=== PATIENT | female | born 1940 | race Caucasian/White ===

== ENCOUNTER → 2023-09-12 14:43 | Outpatient (REF) | payer OTHER, SELFPAY | LOC: HWRCS 14:43 | PROVIDERS: ATTENDING PHYSICIAN Nurse Practitioner; FAMILY PHYSICIAN Family Medicine | DX: R06.02 Shortness of breath (principal) | CPT/HCPCS: 93306 ==

== ENCOUNTER → 2023-09-27 13:33 | Outpatient (REF) | payer OTHER, SELFPAY | LOC: HWRAD 13:33 | PROVIDERS: ATTENDING PHYSICIAN Internal Medicine Critical Care Medicine; FAMILY PHYSICIAN Internal Medicine; REFERRING PHYSICIAN Internal Medicine Rheumatology | DX: R91.1 Solitary pulmonary nodule (principal) | CPT/HCPCS: 71250 ==

== ENCOUNTER 2024-01-25 09:02 | Inpatient (IN) | payer OTHER, SELFPAY ==
[2024-01-25] VITALS (16 sets, daily range): BP systolic 113–191; BP diastolic 60–140; PULSE 67–79; BMI 23.3; BMI 23.8
--- NOTE | 2024-01-25 06:42 | ED.GENMED ---
History of Present Illness
General
Chief Complaint: Rectal Bleeding
Source: patient
Exam Limitations: none
Time Seen by Provider: 01/25/24 06:34
History of Present Illness
History of Present Illness:
See MDM
Past History
Past History
ED Past Medical History: CAD, COPD, Fibromyalgia, GERD, HTN, Hypercholesterolemia, [place], Psychiatric (depression) and Other (chronic back pain, Ulcers, C-diff)
ED Past Surgical History: Appendectomy, Cardiac (Stents, CABG), Gynecological, Orthopedic and Urological
Social History
Tobacco: Non-smoker
Alcohol: None
Drug: None
Personal:
Living: alone
Employment: Not employed
Family History
Family History: Other
Phy Exam
Physical Exam
Physical Exam:
See MDM
Course
Orders/Labs/Results
Orders:
Orders
01/25/24 06:17
EKG [Electrocardiogram (*1)] Urgent
Reason for Study: Fatigue / Weakness
EKG- Treatment ONCE
01/25/24 06:25
Type+Screen Urgent
Complete Blood Count/With Diff Urgent
Comprehensive Metabolic Panel Urgent
01/25/24 06:41
IV Insert/Care/Rem.- Treatment PRN
Morphine Sulfate 4 mg IV NOW STA
Pantoprazole 80 mg/100 ml Nss [Protonix] 80 mg in 100 ml IV NOW
Pantoprazole [Protonix IV] 80 mg IV NOW STA
01/25/24 06:45
PTT Urgent
Prothrombin Time Urgent
01/25/24 07:42
Morphine Sulfate 4 mg IV NOW STA
Sucralfate Suspension [Carafate Suspension] 1 gm PO NOW STA
Abnormal Lab Results
01/25/24
06:25
RBC 3.52 L 10^6/uL
(4.20-5.40)
Hgb 11.2 L g/dL
(12.0-16.0)
Hct 34.7 L %
(37.0-47.0)
MCH 31.8 H pg
(27.0-31.0)
MCHC 32.3 L g/dL
(33.0-37.0)
Absolute Monos (auto) 0.9 H 10^3/uL
(0.1-0.6)
Neutrophils % 41.3 L %
(42.2-75.2)
Monocytes % 15.2 H %
(1.7-9.3)
Eosinophils % 8.8 H %
(0-6)
Basophils % 2.7 H %
(0-2)
Chloride 97 L mmol/L
(98-107)
Carbon Dioxide 34 H mmol/L
(22-30)
Glucose 107 H mg/dl
(70-99)
01/25/24 06:25
01/25/24 06:25
Vital Signs
Initial and Last Documented VS:
Initial Vital Signs
Temp Pulse Resp BP Pulse Ox
99 F 72 24 140/108 97
01/25/24 06:09 01/25/24 06:09 01/25/24 06:09 01/25/24 06:09 01/25/24 06:09
Last Documented Vital Signs
Temp Pulse Resp BP Pulse Ox
99 F 65 18 191/80 96
01/25/24 06:09 01/25/24 07:00 01/25/24 07:00 01/25/24 06:40 01/25/24 07:00
MDM/Problems Addressed
Differential Diagnosis Includes:
HPI and MDM Narrative:
84-year-old female presenting with abdominal cramping and black stools. Patient has been dealing with symptoms over the past week. She followed up with her primary care doctor and was told that her hemoglobin dropped from 12 to 9. Given her
history, patient states the primary care doctor suggested going to the emergency department for admission for 'internal bleeding'. Patient states she has been having black stools. She takes aspirin daily but denies any other NSAID use or
anticoagulation. She does acknowledge that she has had a gastric ulcer in the past. She is having decreased p.o. intake due to discomfort after she eats.
I discussed with the patient that her symptoms are more likely related to peptic ulcer disease. She has mild epigastric tenderness. Vitals are stable. Rectal exam shows brown stool that is guaiac positive but will start PPI bolus and drip given
her history
Physical exam
General: Mildly uncomfortable
HEENT: protecting airway
Neck: appears supple
CV: No evidence of cyanosis
Resp: No accessory muscle use
Abd: Non-distended. Mild epigastric discomfort. No rebound
Rectal exam: Performed with nurse Linh at bedside. Brown stool guaiac positive
Extremities: No deformities
Neuro: alert
Psych: Normal affect
Skin: Pale
Problems Addressed including Acute and Chronic Conditions affecting care:
1. GI bleeding
Acuity: acute
Prognosis: unstable
Details: Patient prophylactically signed consent for blood transfusion if needed. Patient started on PPI drip.
2. [ ]
Acuity: acute
Prognosis: stable
Details:
3. [ ]
Acuity: acute
Prognosis: stable
Details:
4. [ ]
Acuity: acute
Prognosis: stable
Details:
5. [ ]
Acuity:
Prognosis:
Details:
Updates
Differential Diagnosis (but not limited to): Upper GI bleeding, peptic ulcer disease
Testing considered: CT abdomen/pelvis
Drug therapy (if applicable): OTC meds, please see d/c instruction regarding Rx drugs
Amount and/or Complexity of Data Reviewed
Clinical info obtained from: Patient
External data reviewed: N/A
Labs I independently reviewed (but not limited to): [ ]
Radiology: N/A
Pulse Ox: not hypoxic
EKG independently reviewed: Sinus rhythm, bifascicular block, no STEMI, unchanged anterior T wave inversions
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
Critical Care: The high probability of a clinically significant, sudden or life threatening deterioration of the gastrointestinal system(s) required my full and direct attention, intervention and personal management. The aggregate critical care time
was 33 minutes. This time is in addition to time spent performing reported procedures but includes the following:
[x] Data Review and interpretation
[x] Patient assessment and monitoring of vital signs
[x] Documentation
[x] Medication orders and management
Risk of Complication:
Social Determinants of health: Good social support
Discussed with other providers: N/A
Escalation of Care includes Admit/Obs: After being observed in the Emergency Department, pt stable for discharge.
Occasional wrong word or 'sound a like' substitutions may have occurred due to the inherent limitations of voice recognition software. Read the chart carefully and recognize, using context, where substitutions have occurred.
*Critical Care Note
Total Time (30-74mins, 75-104mins- exclusive of procedures): 33 min
ED Attending Note
-
Portions of this chart may have been created with voice recognition software.� Occasional wrong word or��sound alike� substitutions may have occurred due to the inherent limitations of voice recognition software.
Discharge Plan
Departure
Patient Disposition: Admit
Date of Disposition: 01/25/24
Time of Disposition: 08:04
Admit to: Med/Surg
Presentation/result/management discussed w/ accepting MD/DO: Hospitalist
Discharge Problem:
UGIB (upper gastrointestinal bleed)
Prescriptions:
No Action
nitroglycerin 0.4 MG tablet, sublingual
0.4 mg sublingual [id number] PRN (Reason: chest pain)
Lumigan 1 DROP drops
1 drp BOTH EYES HS
leflunomide 20 MG tablet
20 mg PO DAILY
rosuvastatin 10 MG tablet
10 mg PO QPM
amlodipine 2.5 MG tablet
2.5 mg PO DAILY
folic acid 0.4 MG tablet
0.4 mg PO DAILY
pantoprazole 40 MG tablet,delayed release (DR/EC)
40 mg PO DAILY@1200
fluticasone propion-salmeterol [Advair Diskus] 1 EACH blister with device
2 puff inhalation R DAILY
albuterol sulfate 1 PUFF HFA aerosol inhaler
2 puff inhalation R Q4HPRN PRN (Reason: sob)
pyridostigmine bromide 60 MG tablet
60 mg PO QID 30 Days Qty: 120 0RF
cyanocobalamin (vitamin B-12) 1,000 MCG tablet
1,000 mcg PO DAILY
morphine 30 MG tablet extended release
30 mg PO Q12H
Patient Comments:
07/20/2022: last filled 06/18/22, 60 tabs for 30 days from [facility]
ferrous sulfate [FeroSul] 325 MG tablet
325 mg PO DAILY
gabapentin 300 MG capsule
300 mg PO TID
duloxetine 30 MG capsule,delayed release(DR/EC)
60 mg PO HS
duloxetine 30 MG capsule,delayed release(DR/EC)
30 mg PO DAILY
oxycodone 10 MG tablet
10 mg PO Q4HPRN PRN (Reason: severe pain)
Patient Comments:
07/20/2022: last filled 06/18/22, 120 tabs for 30 days from [facility]
sulfasalazine 500 mg tablet
1,000 mg PO BID@0800,1700
aspirin 81 MG tablet,delayed release (DR/EC)
81 mg PO DAILY@1200
hydroxychloroquine 200 MG tablet
400 mg PO DAILY@1200
ondansetron 4 MG tablet,disintegrating
4 mg PO TIDPRN PRN (Reason: nausea/vomiting)
amoxicillin-pot clavulanate 875-125 mg tablet
1 tab PO BID Qty: 20 0RF
Referrals:
Ayah Tinajero MD [Family Provider] -
Interventions
Interventions:
*Risk Screen - Suicide Last Done: 01/25/24 06:09
*General Assessment Last Done: 01/25/24 06:14
*Neglect/Abuse Screening Last Done: 01/25/24 06:09
ED- Fall Risk Assessment Last Done: 01/25/24 06:17
*ED COVID-19 Vaccine History Last Done: 01/25/24 06:14
CW-Sogvzx-Vvgbpfklso Assessment Last Done: 01/25/24 06:17
ED- Cardiac Assessment Last Done: 01/25/24 06:17
ED- Pulmonary Assessment Last Done: 01/25/24 06:17
Discharge Date and Time
Print Language: MONGOLIAN
[2024-01-25] MEDS: PROTONIX IV 80 MG IV (06:45)
[2024-01-25] MEDS: MORPHINE SULFATE 4 MG IV ×2 (06:48→07:45)
[2024-01-25] MEDS: PROTONIX 100 IV (06:48)
[2024-01-25 06:54] LABS: % Basophils 2.7 % (0-2); % Eosinophils 8.8 % (0-6); % Immature Granulocytes 0.3 % (0-0.5); % Lymphocytes 31.7 % (20.5-51.1); % Monocytes 15.2 % (1.7-9.3); % Neutrophils 41.3 % (42.2-75.2); Absolute Basophils 0.2 10^3/uL (0-0.2); Absolute Eosinophils 0.5 10^3/uL (0-0.7); Absolute Lymphocytes 1.9 10^3/uL (1.2-3.4); Absolute Monocytes 0.9 10^3/uL (0.1-0.6); Absolute Neutrophils 2.5 10^3/uL (1.4-6.5); Hematocrit 34.7 % (37.0-47.0); Hemoglobin 11.2 g/dL (12.0-16.0); Mean Corp Hgb Conc. 32.3 g/dL (33.0-37.0); Mean Corpuscular Hgb 31.8 pg (27.0-31.0); Mean Corpuscular Volume 98.6 fL (81.0-99.0); Nucleated Red Blood Cells % 0 %; Platelet Count 238 10^3/uL (130-400); Red Blood Cell Count 3.52 10^6/uL (4.20-5.40); Red Cell Dist. Width 14.3 % (11.5-14.5)
[2024-01-25 07:08] LABS: ALT (SGPT) 23 U/L (0-35); AST (SGOT) 32 U/L (14-36); Albumin 4.6 g/dl (3.5-5.0); Alkaline Phosphatase 43 U/L (38-126); Blood Urea Nitrogen 13 mg/dl (7-17); Calcium 9.6 mg/dl (8.4-10.2); Carbon Dioxide 34 mmol/L (22-30); Chloride 97 mmol/L (98-107); Estimated Creatinine Clearance 51 ml/min; Glucose 107 mg/dl (70-99); Potassium 3.8 mmol/L (3.5-5.1); Sodium 138 mmol/L (135-145); Total Bilirubin 0.8 mg/dl (0.2-1.3); Total Protein 7.1 g/dl (6.3-8.2); eGFR > 60.00
[2024-01-25 07:14] LABS: INR 1.04; PT 13.4 Sec (11.4-14.6)
[2024-01-25 07:15] LABS: APTT 29.1 Sec (23.4-35.0)
[2024-01-25] MEDS: CARAFATE SUSPENSION 1 GM PO (07:46)
--- NOTE | 2024-01-25 08:53 | HPS.HSE ---
Family Physician
-
Family Physician: Ayah Tinajero
Chief Complaint
-
Abdominal pain
History of Present Illness
Patient 84 years old female with history of multiple comorbidities including CAD, COPD, chronic hypoxic respiratory failure, among other multiple medical problems, presented to the hospital abdominal pain. Patient reports abdominal pain
intermittent in nature over the last couple of days worsening epigastric area, moderate intensity, no radiation, also associated with some lower chest discomfort. Patient also reports dark stools over 1 week. Her hemoglobin has dropped as
outpatient from 12-9 and she was advised to come to the hospital for further evaluation. She does take aspirin on a regular basis but no anticoagulant. She denies any fevers or chills. She denies any cough. Denies any dysuria urgency or
frequency. In the ER, hemoglobin noted to be 11.2 and heme stool test positive. She was referred to hospitalist for further evaluation.
Medical History
Past Medical History
Past Medical History: Reports Other
Additional Past Medical History:
Coronary Arterty Disease s/p CABG and PCI
Essential Hypertension
Hyperlipidemia
COPD
Depression
Chronic Pain Syndrome / Chronic Opioid Dependence Syndrome secondary to Spinal Stenosis
Chronic hypoxic respiratory failure on home oxygen
Fibromyalgia
Myasthenia Gravis
Rheumatoid Arthritis
GERD/PUD
Spina Bifida
Hx Vertebral Osteomyelitis on Chronic Suppressive Antibiotics
Past Surgical History: Reports Other
Additional Past Surgical History:
Spina Bifida surgery
Spinal Stimulator
CABG
Social History
Tobacco: Non-smoker
Alcohol: None
Living: With Family
Family History
Family History: Not pertinent
Allergies / Home Medications
Allergies reflects when Allergies were last updated in [facility].
Home Medications with original date entered in [facility]
Allergy/Medication List:
Allergies
Allergy/AdvReac Type Severity Reaction Status Date / Time
adhesive Allergy TAPE-RASH,SKIN Verified 01/25/24 06:10
BLISTERS
Home Medications
bimatoprost 0.01 % eye drops (Lumigan) 1 drp BOTH EYES HS Eye condition 04/01/15
nitroglycerin 0.4 mg sublingual tablet 0.4 mg sublingual [id number] PRN chest pain 04/01/15
leflunomide 20 mg tablet 20 mg PO DAILY artrhitis 01/18/17
rosuvastatin 10 mg tablet 10 mg PO QPM High cholesterol 04/11/19
amlodipine 2.5 mg tablet 2.5 mg PO BID Blood pressure 08/22/19
folic acid 400 mcg tablet 0.4 mg PO DAILY Supplement 08/22/19
pantoprazole 40 mg tablet,delayed release 80 mg PO DAILY@1200 Gastrointestinal issue 08/22/19
albuterol sulfate 90 mcg/actuation aerosol inhaler 2 puff inhalation R Q4HPRN PRN sob 06/30/20
pyridostigmine bromide 60 mg tablet 60 mg PO QID 30 days #120 tabs 07/02/20
cyanocobalamin (vitamin B-12) 1,000 mcg tablet 1,000 mcg PO DAILY Supplement 11/11/20
duloxetine 30 mg capsule,delayed release 30 mg PO DAILY Chronic pain 11/11/20
duloxetine 30 mg capsule,delayed release 60 mg PO HS chronic pain 11/11/20
ferrous sulfate 325 mg (65 mg iron) tablet (FeroSul) 325 mg PO DAILY Supplement 11/11/20
gabapentin 300 mg capsule 600 mg PO TID Neurological Condition 11/11/20
morphine 30 mg tablet,extended release 30 mg PO Q12H 11/11/20
oxycodone 10 mg tablet 10 mg PO Q4HPRN PRN severe pain 11/11/20
hydroxychloroquine 200 mg tablet 400 mg PO DAILY@1200 07/20/22
ondansetron 4 mg disintegrating tablet 4 mg PO TIDPRN PRN nausea/vomiting 07/20/22
sulfasalazine 500 mg tablet 1,000 mg PO BID@0800,1700 07/20/22
acetaminophen 325 mg tablet (Tylenol) 650 mg PO TIDPRN PRN mild pain 01/25/24
cefdinir 300 mg capsule 300 mg PO BID fdc 01/25/24
docusate sodium 100 mg capsule (Colace) 100 mg PO DAILYPRN PRN constipation 01/25/24
fluticasone 500 mcg-salmeterol 50 mcg/dose blistr powdr for inhalation (Advair Diskus) 1 inh inhalation R DAILY 01/25/24
ipratropium 0.5 mg-albuterol 3 mg (2.5 mg base)/3 mL nebulization soln 3 ml inhalation R QIDPRN PRN sob 01/25/24
metoprolol succinate 50 mg tablet,extended release 24 hr (Toprol XL) 50 mg PO DAILY@1200 01/25/24
timolol 0.5 % eye drops 1 drp BOTH EYES DAILY 01/25/24
Review of Systems
-
A 12 point ROS was completed and negative except as noted: Yes
Physical Exam
Vital Signs
Vital Signs
Temp Pulse Resp BP Pulse Ox
99 F 65 18 191/80 96
01/25/24 06:09 01/25/24 07:00 01/25/24 07:00 01/25/24 06:40 01/25/24 07:00
Physical exam:
General: Acutely ill
HEENT: Normocephalic, Atraumatic and Moist Mucous Membranes
Respiratory: Clear to Auscultation; Negative Wheezes, Rales or Rhonchi
Cardiac: Regular Rhythm and S1/S2
GI: Soft, Tender mainly in epigastric area and Nondistended
Musculoskeletal: Decreased range of motion of the back. No Clubbing, No Cyanosis and No Edema
Neuro: Awake, Alert and Oriented, no gross neurological deficits.
Psych: Calm
Physical Exam
General: Other
Laboratory Results
-
01/25/24 06:25
01/25/24 06:25
Laboratory Results
PT 13.4 Sec (11.4-14.6) 01/25/24 06:45
INR 1.04 01/25/24 06:45
APTT 29.1 Sec (23.4-35.0) 01/25/24 06:45
Total Bilirubin 0.8 mg/dl (0.2-1.3) 01/25/24 06:25
AST 32 U/L (14-36) 01/25/24 06:25
ALT 23 U/L (0-35) 01/25/24 06:25
Alkaline Phosphatase 43 U/L (38-126) 01/25/24 06:25
Data Reviewed
-
Lab Data: Labs Reviewed by me
Impression/Plan
-
IMPRESSION:
Patient 84 years old female with multiple medical comorbidities presented to the hospital with abdominal pain and chest discomfort. Patient was found to have heme status stool positive in the ED. Concerns for acute GI bleed. Patient increased
risk of morbidity mortality due to acute presentation and multiple medical problems therefore she will need to be treated in the hospital.
Impression:
Suspicion for acute GI bleed
Abdominal pain
Chest pain, rule out ACS
Acute blood loss anemia
Conditions prior to presentation:
CAD
COPD
Chronic hypoxic respiratory failure on home oxygen (she uses 1 L of oxygen)
Rheumatoid arthritis
Fibromyalgia
GERD
Melanoma
Chronic back pain with narcotic/opioid dependent
History of peptic ulcer disease
Myasthenia gravis
PLAN:
IV fluids
Clear liquid diet
Monitor hemoglobin
IV PPI
GI consult
Twelve-lead EKG and trend cardiac troponin
Cardiac monitoring
Cardiology consult-discussed with cardiology via [place] text today
GI consult-discussed with GI over the phone today.
SCDs for DVT prophylaxis
CODE STATUS-DNR
Will give further recommendations based on clinical course
Time spent 75 minutes
--- NOTE | 2024-01-25 10:27 | CON.GI ---
Addendum entered and electronically signed by King Childers DO 01/25/24 13:04:
I saw and examined the patient.
The STUDENT TEACHING COORDINATOR's note was reviewed and I agree with the note.
Comment: Ms Liriano is a 84 y.o female with past medical history of obstructive CAD c/b [place] (s/p stents and CABG), COPD/asthma (on chronic O2 at baseline), RA, fibromyalgia, GERD, hx of melanoma, chronic back pain (s/p multiple back surgeries c/b
chronic osteomyelitis), hx of C Diff, hx of PUD with previous gastric ulcer (10/2017) who presented to the ED with epigastric abdominal pain and reported dark stools at home. She initially followed up with her PCP and noticed her Hgb dropped from 12
to 9 and advised her to come to the ED given concern for bleeding. She denies any melena or overtly bloody stools, although does report her stools have been darker. She takes daily ASA but no other antiplatelets or anticoagulants. Denies any NSAIDs
or significant EtOH use. Does note previous ulcers in the past where her symptoms feel the same as her previous presentations when she was diagnosed with PUD in 2017. Last colonoscopy in 2015 revealed diverticulosis without any polyps. Heme (+)
brown stool in ED and labs grossly unremarkable except for Hgb 11.2 -> 10.3 with normal BUN:[employer] ratio along with LFTs with normal lipase 160. Troponins pending given EKG changes with T wave abnormalities. No recent cross-sectional imaging in ED.
Etiology most suspicious for gastroduodenitis versus gastroduodenal erosions vs esophagitis vs PUD although denies NSAIDs versus H pylori (although prior biopsies (-) H pylori). Possibly cardiac as well given her extensive cardiac history. Doubt
brisk UGIB as without any melena on exam along with relatively stable Hgb with nml BUN. Favor conservative management over next 24 hrs with IV PPI and consider EGD this admission pending clinical course.
Recommendations:
- Okay to trial CLD
- Serial troponins pending given cardiac history
- Trend daily CBC q 12 hrs, transfuse for goal Hgb > 7.0
- Empiric IV PPI 40 mg BiD, does not require PPI gtt
- Will consider EGD this admission pending clinical course if patient is optimized from a cardiopulmonary standpoint
- If worsening abdominal pain, would have low threshold to consider cross-sectional imaging with CT Abd/pelvis
- Notify GI if patient develops overt melena and/or bloody stools
- Avoidance of all NSAIDs
- Rest of care as outlined below
GI team will continue to follow while inpatient.
Original Note:
Consultation
-
Date/Time Consultation Requested: 01/25/24 08
Date/Time Consultation Performed: 01/25/24 1030
Requesting Provider: Rasheed Skaggs MD
Performing Provider: AUTUMN Kern, King Childers,
Reason for Consultation: GI bleed
Medical History
Chief Complaint / HPI
Chief Complaint: epgiastric pain, GI bleed
History of Present Illness:
Pt is a 84yo with hx CAD prior stents/CABG, [place], COPD/asthma on chronic O2, fibromyalgia, RA, GERD, malignant melanoma, depression, chronic back pain with chronic narcotic use, multiple back surgeries with infection on chronic abx, gastric Ulcers,
hital hernia, prior C-diff and prior PNA with admission for black stools and crampy abdominal pain. She was noted with OP labs drop in hbg 12 to 9. In ER noted with brown heme + stool with hbg 11.9 and normal BUN.
At this time patient admits to epigastric pain. Pain is constant difficult to say what makes pain better or worse. Pain associated with nausea and progessive wt loss over years. She has chronic GERD on PPI daily. she admits to diarrhea and
constipation and noted black stool this past week. She denies dysphagia or red stools. hx multiple EGD with PUD last 2017 with med HH and non bleeding gastric ulcers then repeat with healing of ulcer. Colon 2016 with diverticulosis.
.
Past Medical History
Past Medical History: Asthma, CAD, Cancer (malignant melanoma ), COPD, Fibromyalgia, GERD, HTN, [place], Psychiatric (depression) and Other (chronic back pain, Ulcers, C-diff, RA)
Past Surgical History: Appendectomy, Cardiac (stents, CABG), Orthopedic, Urological and Other (nasal surgery)
Social History
Tobacco: Non-Smoker
Alcohol: None
Drug: None
Personal:
Living: With Family (grandson)
Employment: Retired
Family History
Family History: Other (no family hx colon CA/polyps daughter with breast CA)
Allergies / Home Medications
Allergy/AdvReac Type Severity Reaction Status Date / Time
adhesive Allergy TAPE-RASH,SKIN Verified 01/25/24 06:10
BLISTERS
�Medication �Instructions �Recorded
bimatoprost 0.01 % eye drops 1 drp BOTH EYES HS Eye condition 04/01/15
(Lumigan)
nitroglycerin 0.4 mg sublingual 0.4 mg sublingual [id number] PRN 04/01/15
tablet chest pain
leflunomide 20 mg tablet 20 mg PO DAILY artrhitis 01/18/17
rosuvastatin 10 mg tablet 10 mg PO QPM High cholesterol 04/11/19
amlodipine 2.5 mg tablet 2.5 mg PO BID Blood pressure 08/22/19
folic acid 400 mcg tablet 0.4 mg PO DAILY Supplement 08/22/19
pantoprazole 40 mg tablet,delayed 80 mg PO DAILY@1200 08/22/19
release Gastrointestinal issue
albuterol sulfate 90 mcg/actuation 2 puff inhalation R Q4HPRN PRN sob 06/30/20
aerosol inhaler
pyridostigmine bromide 60 mg tablet 60 mg PO QID 30 days #120 tabs 07/02/20
cyanocobalamin (vitamin B-12) 1,000 mcg PO DAILY Supplement 11/11/20
1,000 mcg tablet
duloxetine 30 mg capsule,delayed 30 mg PO DAILY Chronic pain 11/11/20
release
duloxetine 30 mg capsule,delayed 60 mg PO HS chronic pain 11/11/20
release
ferrous sulfate 325 mg (65 mg 325 mg PO DAILY Supplement 11/11/20
iron) tablet (FeroSul)
gabapentin 300 mg capsule 600 mg PO TID Neurological 11/11/20
Condition
morphine 30 mg tablet,extended 30 mg PO Q12H 11/11/20
release
oxycodone 10 mg tablet 10 mg PO Q4HPRN PRN severe pain 11/11/20
hydroxychloroquine 200 mg tablet 400 mg PO DAILY@1200 07/20/22
ondansetron 4 mg disintegrating 4 mg PO TIDPRN PRN nausea/vomiting 07/20/22
tablet
sulfasalazine 500 mg tablet 1,000 mg PO BID@0800,1700 07/20/22
acetaminophen 325 mg tablet 650 mg PO TIDPRN PRN mild pain 01/25/24
(Tylenol)
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
docusate sodium 100 mg capsule 100 mg PO DAILYPRN PRN constipation 01/25/24
(Colace)
fluticasone 500 mcg-salmeterol 50 1 inh inhalation R DAILY 01/25/24
mcg/dose blistr powdr for
inhalation (Advair Diskus)
ipratropium 0.5 mg-albuterol 3 mg 3 ml inhalation R QIDPRN PRN sob 01/25/24
(2.5 mg base)/3 mL nebulization
soln
metoprolol succinate 50 mg 50 mg PO DAILY@1200 01/25/24
tablet,extended release 24 hr
(Toprol XL)
timolol 0.5 % eye drops 1 drp BOTH EYES DAILY 01/25/24
Review of Systems
-
History Source: Patient
Constitutional: Reports Weight Loss (80 lbs over several years )
EENT: Reports No Symptoms
Respiratory: Reports No Symptoms
Abdomen/GI: Reports Abdominal Pain, Nausea, Diarrhea, Constipated and Black Stools
: Reports No Symptoms
Musculoskeletal: Reports Joint Pain
Skin: Reports No Symptoms
Neurological: Reports Weakness
Hematologic/Lymphatic: Reports Bleeding
Vital Signs
Temp Pulse Resp BP Pulse Ox
99 F 64 15 113/74 97
01/25/24 06:09 01/25/24 09:13 01/25/24 09:13 01/25/24 09:13 01/25/24 09:00
Physical Exam
Exam
General: Well Developed, Well Nourished and No Apparent Distress
HEENT: Normocephalic and Anicteric
Respiratory: Clear
Cardiac: Regular Rhythm
GI: Soft, Non Distended and Tender (epigastric pain )
Musculoskeletal: No Clubbing and No Cyanosis
Skin: Warm and Dry
Neuro: Awake and Alert
Psych: Calm
Results
WBC 6.0 10^3/uL (4.8-10.8) 01/25/24 06:25
Hgb 11.2 g/dL (12.0-16.0) L 01/25/24 06:25
Hct 34.7 % (37.0-47.0) L 01/25/24 06:25
MCV 98.6 fL (81.0-99.0) 01/25/24 06:25
Plt Count 238 10^3/uL (130-400) 01/25/24 06:25
Absolute Neuts (auto) 2.5 10^3/uL (1.4-6.5) 01/25/24 06:25
PT 13.4 Sec (11.4-14.6) 01/25/24 06:45
INR 1.04 01/25/24 06:45
APTT 29.1 Sec (23.4-35.0) 01/25/24 06:45
Sodium 138 mmol/L (135-145) 01/25/24 06:25
Potassium 3.8 mmol/L (3.5-5.1) 01/25/24 06:25
Chloride 97 mmol/L (98-107) L 01/25/24 06:25
Carbon Dioxide 34 mmol/L (22-30) H 01/25/24 06:25
BUN 13 mg/dl (7-17) 01/25/24 06:25
Creatinine 0.7 mg/dL (0.6-1.0) 01/25/24 06:25
Calcium 9.6 mg/dl (8.4-10.2) 01/25/24 06:25
Total Bilirubin 0.8 mg/dl (0.2-1.3) 01/25/24 06:25
AST 32 U/L (14-36) 01/25/24 06:25
ALT 23 U/L (0-35) 01/25/24 06:25
Alkaline Phosphatase 43 U/L (38-126) 01/25/24 06:25
Diagnostic Image Results:
Prior GI Procedures:
EGD: 11/2017 [facility] - Normal esophagus.
- Z-line regular, 38 cm from the incisors.
- Mild antral gastritis. Biopsied.
- Ulcer has healed.
- Bilious gastric fluid. Fluid aspiration performed.
- Normal examined duodenum. Biopsied.
bx neg h pylori
EGD: 10/2017 [facility] - Medium-sized hiatal hernia.
- Non-bleeding gastric ulcer with no stigmata of
bleeding. Biopsied.
- Normal duodenal bulb, first portion of the duodenum
and second portion of the duodenum.
Colonoscopy: 2015 [facility]
A few small and large-mouthed diverticula were found in the sigmoid
colon.
No other significant abnormalities were identified in a careful
examination of the remainder of the colon.
The retroflexed view of the distal rectum and anal verge was normal and
showed no anal or rectal abnormalities.
The terminal ileum appeared normal.
Assessment / Plan
-
Pt is a 84yo with hx CAD prior stents/CABG, [place], COPD/asthma on chronic O2, fibromyalgia, RA, GERD, malignant melanoma, depression, chronic back pain with chronic narcotic use, multiple back surgeries with infection on chronic abx, gastric Ulcers,
hital hernia, prior C-diff and prior PNA with admission for black stools and crampy abdominal pain. She was noted with OP labs drop in hbg 12 to 9. In ER noted with brown heme + stool and hbg 11.9 with normal BUN.
-epigastric pain
-report of black stool with brown heme neg stool in ER
-hx PUD/HH with last EGD 2017
other medical problems:
-CAD with prior stents/CABG
-[place]
-COPD/asthma chronic O2
-chronic back pain/chronic narcotic use/ chronic abx with hx infection
-RA
-fibromyalgia
-GERD
-hx malignant melanoma
-depression
-prior c-diff
PLAN:
etiology of epigastric pain with dark stools related to GI bleeding but noted stable hbg 11.9 with normal BUN and brown stool on admission vs other
denies NSAID use prior to admission
consider other etiology for pain
add lipase
t/c EGD when optimized from medical standpoint
trend hbg
PPI
ok from GI for diet today
will follow
-
-
Thank you for consultation and allowing me to participate in the patient's care. Please call the cloud consultant GI physician during the after hours with any questions or concerns.
[2024-01-25 11:44] LABS: Hematocrit 32.2 % (37.0-47.0); Hemoglobin 10.3 g/dL (12.0-16.0)
[2024-01-25 12:05] LABS: Lipase 160 U/L (23-300)
[2024-01-25] MEDS: NSS 1000 IV ×2 (12:21→23:24)
--- NOTE | 2024-01-25 12:45 | PTCARENOTE ---
Received pt from ER.Pt awake,alert and oriented x3. Pt VSS 98% on RA. Pt NSR with BBBc on tele. Pt c/o epigastric pain, medicated per orders. Pt oriented to room, call handy within reach, plan of care continues.
[2024-01-25 13:26] LABS: Troponin I < 0.012 ng/ml
[2024-01-25] MEDS: ROXICODONE 10 MG PO ×3 (13:34→23:22)
[2024-01-25] MEDS: MESTINON 60 MG PO ×3 (13:36→21:03)
--- NOTE | 2024-01-25 14:59 | CON.CAR ---
Addendum entered and electronically signed by Jose Aguilera MD 01/25/24 16:03:
I saw and examined the patient.
The Broodmare Foreman's note was reviewed and I agree with the note.
Comment:
GEN: No distress, awake, Ox3
HEENT: supple, anicteric, mmm
LUNGS: CTA, no wheezes/rales
CV: Reg, S1/S2, 1/6 syst LSB, no gallop
ABD: soft, BS+, NT/ND
EXT: No edema
NEURO: Gross non-focal
SKIN: No rash
Plan:
She has a past medical history of coronary artery status post CABG, PCI, COPD, fibromyalgia, depression, chronic pain and osteomyelitis who presents with epigastric abdominal pain. She has chronic pain and intermittent chest pains but these pains
seem worse after eating. She denies any exertional symptoms but is not overly active. There is plans to perform an EGD.
Cardiac troponin is negative. ECG is overall stable with sinus rhythm with bifascicular block/right bundle branch block
Cardiac catheterization from 08/05 had overall stable coronary arteries with a patent MILLER to LAD bypass graft.
Okay to proceed with EGD. Continue amlodipine, metoprolol, and rosuvastatin. Restart aspirin 81 mg daily.
Continue pain management. Will sign off. Please call with questions.
Original Note:
Consultation
Consultation Request
Date/Time Consultation Performed: 01/25/24
Requesting Provider: Dr. Skaggs
Performing Provider: Chey Sterling PA-C for Dr. Aguilera
Reason for Consultation: preop clearance EGD
Medical History
-
Chief Complaint: abd pain
History of Present Illness:
Patient is an 82-year-old female with past medical history of CAD status post CABG with MILLER to LAD 03/2002, subsequent PCI of circumflex in 2003, COPD, hypertension, hyperlipidemia, depression, fibromyalgia, chronic pain on spinal stimulator,
history of osteomyelitis on chronic suppressive antibiotics who presented to [facility] for evaluation of epigastric abdominal pain. She reports she is only able to eat a small amount and afterwards developed significant pain. She also
reports associated nausea, but no vomiting or diarrhea. She reports the pain is reproducible with pressing on her epigastric area. She does report a fever last night with associated sweating. She received a pain pill this afternoon with some
improvement in her symptoms. Of note she is on chronic pain medications as an outpatient. She is on baby aspirin, and admits is not always compliant with this. Denies additional antiplatelet or anticoagulants. Cardiology consulted to evaluate
pain to rule out cardiac etiology, and to clear patient for EGD.
PMH:
CAD status post CABG with MILLER to LAD 03/2002
Subsequent PCI of circumflex in 2003
Chronic bifascicular block
History of orthostasis
COPD, chronic home O2
Hypertension
Hyperlipidemia
Depression
Fibromyalgia
Chronic pain on spinal stimulator
Chronic opioid therapy
History of osteomyelitis on chronic suppressive antibiotics
GERD
Past Medical History
Past Medical History: Other (in HPI)
Social History
Tobacco: Non-Smoker
Alcohol: None
Living: With Family
Employment: Retired
Family History
Family History: Early CAD (in brother, age 48), CAD and Hypertension
Allergies / Home Medications
Allergy/AdvReac Type Severity Reaction Status Date / Time
adhesive Allergy TAPE-RASH,SKIN Verified 01/25/24 06:10
BLISTERS
�Medication �Instructions �Recorded �Confirmed �Type
bimatoprost 0.01 % eye drops 1 drp BOTH EYES HS Eye condition 04/01/15 01/25/24 History
(Lumigan)
nitroglycerin 0.4 mg sublingual 0.4 mg sublingual [id number] PRN 04/01/15 01/25/24 History
tablet chest pain
leflunomide 20 mg tablet 20 mg PO DAILY artrhitis 01/18/17 01/25/24 History
rosuvastatin 10 mg tablet 10 mg PO QPM High cholesterol 04/11/19 01/25/24 History
amlodipine 2.5 mg tablet 2.5 mg PO BID Blood pressure 08/22/19 01/25/24 History
folic acid 400 mcg tablet 0.4 mg PO DAILY Supplement 08/22/19 01/25/24 History
pantoprazole 40 mg tablet,delayed 80 mg PO DAILY@1200 08/22/19 01/25/24 History
release Gastrointestinal issue
albuterol sulfate 90 mcg/actuation 2 puff inhalation R Q4HPRN PRN sob 06/30/20 01/25/24 History
aerosol inhaler
pyridostigmine bromide 60 mg tablet 60 mg PO QID 30 days #120 tabs 07/02/20 01/25/24 Rx
cyanocobalamin (vitamin B-12) 1,000 mcg PO DAILY Supplement 11/11/20 01/25/24 History
1,000 mcg tablet
duloxetine 30 mg capsule,delayed 30 mg PO DAILY Chronic pain 11/11/20 01/25/24 History
release
duloxetine 30 mg capsule,delayed 60 mg PO HS chronic pain 11/11/20 01/25/24 History
release
ferrous sulfate 325 mg (65 mg 325 mg PO DAILY Supplement 11/11/20 01/25/24 History
iron) tablet (FeroSul)
gabapentin 300 mg capsule 600 mg PO TID Neurological 11/11/20 01/25/24 History
Condition
morphine 30 mg tablet,extended 30 mg PO Q12H 11/11/20 01/25/24 History
release
oxycodone 10 mg tablet 10 mg PO Q4HPRN PRN severe pain 11/11/20 01/25/24 History
hydroxychloroquine 200 mg tablet 400 mg PO DAILY@1200 07/20/22 01/25/24 History
ondansetron 4 mg disintegrating 4 mg PO TIDPRN PRN nausea/vomiting 07/20/22 01/25/24 History
tablet
sulfasalazine 500 mg tablet 1,000 mg PO BID@0800,1700 07/20/22 01/25/24 History
acetaminophen 325 mg tablet 650 mg PO TIDPRN PRN mild pain 01/25/24 01/25/24 History
(Tylenol)
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
docusate sodium 100 mg capsule 100 mg PO DAILYPRN PRN constipation 01/25/24 01/25/24 History
(Colace)
fluticasone 500 mcg-salmeterol 50 1 inh inhalation R DAILY 01/25/24 01/25/24 History
mcg/dose blistr powdr for
inhalation (Advair Diskus)
ipratropium 0.5 mg-albuterol 3 mg 3 ml inhalation R QIDPRN PRN sob 01/25/24 01/25/24 History
(2.5 mg base)/3 mL nebulization
soln
metoprolol succinate 50 mg 50 mg PO DAILY@1200 01/25/24 01/25/24 History
tablet,extended release 24 hr
(Toprol XL)
timolol 0.5 % eye drops 1 drp BOTH EYES DAILY 01/25/24 01/25/24 History
Review of Systems
-
History Source: Patient
All other systems: Negative unless noted
Physical Exam
Vital Signs
Temp Pulse Resp BP Pulse Ox
98 F 66 12 155/64 98
01/25/24 12:00 01/25/24 12:00 01/25/24 12:00 01/25/24 12:00 01/25/24 12:00
Lab Results
01/25/24 06:25
Troponin I < 0.012 ng/ml 01/25/24 12:22
Physical Exam
General: No Apparent Distress and Other (pale. on supp O2)
HEENT: Normocephalic, Anicteric and Moist Mucous Membranes
Respiratory: Crackles (few) and Non Labored Respirations
Cardiac: S1/S2, Regular Rhythm and Murmur
GI: Soft, Non Distended, Normal Bowel Sounds and Tender (epigastrum)
Musculoskeletal: No Clubbing, No Cyanosis and No Edema
Skin: Warm and Dry
Neuro: AO x 3
Impression / Plan
-
Primary Post Anesthesia Care Unit Nurse: Dr. Ruggiero
Assessment:
Presentation with abd pain/post prandial pain
Negative trop x1
CAD status post CABG with MILLER to LAD 03/2002
Subsequent PCI of circumflex in 2003
Chronic left anterior fascicular block
History of orthostasis
COPD
Hypertension
Hyperlipidemia
Depression
Fibromyalgia
Chronic pain on spinal stimulator
History of osteomyelitis on chronic suppressive antibiotics
GERD
ECHO 11/2021: EF 60 to 65%, mild concentric LVH, grade 1 diastolic dysfunction, trace MR, aortic sclerosis, mild TR, PAP 30 to 32 mmHg
Lexiscan nuclear stress test 05/2022: Small to moderate fixed defect in apical anterior and apex segments consistent with infarction, EF 67%, no ischemia
Cardiac catheterization 07/21/2022: Stable [place] coronary disease except new 30% in-stent restenosis of left circumflex/OM stent, widely patent MILLER to LAD graft, systemic hypertension
Echo 09/12/2023: EF 50 to 55%, mild MR, moderate to severe TR, PAP 55 to 60 mmHg
Plan:
-Patient presents with epigastric abdominal pain, with nausea and pain after eating and associated poor appetite.
-Cardiology consulted for evaluation of symptoms and to clear patient for EGD, tentatively scheduled in a.m.
-No chest discomfort
-Troponin negative x 1, trend
-EKG with chronic bifascicular block
-Would attempt to continue baby aspirin. Hemoglobin 10.3
-Cath from last year with results as above.
-Echocardiogram earlier this year with results as above
-Patient okay to proceed with EGD tomorrow as scheduled from a cardiac standpoint.
-will follow
-Discussed with nursing
Data Reviewed
-
EKG: Tracing Personally Visualized and interpreted
Medical Tests (Nuc Med, Echo etc): Report Reviewed by me
Labs: Labs Reviewed by me
Old Records: Reviewed
[2024-01-25] MEDS: DILAUDID 0.5 MG IV (15:24)
[2024-01-25] MEDS: NEURONTIN 600 MG PO ×2 (17:45→21:03)
[2024-01-25] MEDS: CRESTOR 10 MG PO (17:46)
[2024-01-25] MEDS: AZULFIDINE 1000 MG PO (17:51)
[2024-01-25 20:17] LABS: Hematocrit 29.5 % (37.0-47.0); Hemoglobin 9.7 g/dL (12.0-16.0)
[2024-01-25 20:45] LABS: Troponin I < 0.012 ng/ml
[2024-01-25] MEDS: PROTONIX IV 40 MG IV (20:52)
[2024-01-25] MEDS: NSS (PRESERVATIVE FREE) 10 ML IV (20:53)
[2024-01-25] MEDS: NORVASC 2.5 MG PO (20:54)
[2024-01-25] MEDS: MS CONTIN (EXTENDED RELEASE) 30 MG PO (21:03)
[2024-01-25] MEDS: CYMBALTA DELAYED RELEASE 60 MG PO (21:03)
[2024-01-25] MEDS: XALATAN OPHTHALMIC SOLUTION 1 DROP BOTH EYES (21:04)
[2024-01-26] VITALS (12 sets, daily range): BP systolic 15–185; BP diastolic 59–86; PULSE 76–88; BMI 24.3
[2024-01-26] MEDS: DILAUDID 0.5 MG IV ×4 (01:46→19:40)
[2024-01-26] MEDS: ROXICODONE 10 MG PO ×3 (05:34→17:42)
[2024-01-26 06:53] LABS: Hematocrit 28.7 % (37.0-47.0); Hemoglobin 9.3 g/dL (12.0-16.0); Mean Corp Hgb Conc. 32.4 g/dL (33.0-37.0); Mean Corpuscular Hgb 33.3 pg (27.0-31.0); Mean Corpuscular Volume 102.9 fL (81.0-99.0); Platelet Count 176 10^3/uL (130-400); Red Blood Cell Count 2.79 10^6/uL (4.20-5.40); Red Cell Dist. Width 14.4 % (11.5-14.5); White Blood Cell Count 8.2 10^3/uL (4.8-10.8)
[2024-01-26 07:08] LABS: Troponin I 0.017 ng/ml
[2024-01-26 07:42] LABS: Blood Urea Nitrogen 11 mg/dl (7-17); Calcium 8.4 mg/dl (8.4-10.2); Carbon Dioxide 31 mmol/L (22-30); Chloride 103 mmol/L (98-107); Estimated Creatinine Clearance 57 ml/min; Glucose 84 mg/dl (70-99); Potassium 3.7 mmol/L (3.5-5.1); Sodium 139 mmol/L (135-145); eGFR > 60.00
[2024-01-26] MEDS: NEURONTIN 600 MG PO ×3 (08:02→21:31)
[2024-01-26] MEDS: MS CONTIN (EXTENDED RELEASE) 30 MG PO ×2 (08:04→21:32)
[2024-01-26] MEDS: MESTINON 60 MG PO ×4 (08:04→21:31)
[2024-01-26] MEDS: FOLVITE 0.4 MG PO (08:05)
[2024-01-26] MEDS: CYMBALTA DELAYED RELEASE 30 MG PO (08:05)
[2024-01-26] MEDS: AZULFIDINE 1000 MG PO ×2 (08:05→17:17)
[2024-01-26] MEDS: VITAMIN B-12 1000 MCG PO (08:05)
[2024-01-26] MEDS: NSS (PRESERVATIVE FREE) 10 ML IV ×2 (08:06→21:31)
[2024-01-26] MEDS: PROTONIX IV 40 MG IV ×2 (08:06→21:31)
[2024-01-26] MEDS: TIMOPTIC 0.5% OPHTHALMIC SOLUTION 1 DROP BOTH EYES (08:06)
--- NOTE | 2024-01-26 08:48 | W.PN.HOSP.TC ---
Addendum entered and electronically signed by Rasheed Skaggs MD 01/26/24 15:31:
Moderate protein calorie malnutrition
Addendum entered and electronically signed by Rasheed Skaggs MD 01/26/24 14:01:
EGD today:
Impression: - Z-line variable, 36 cm from the incisors. Biopsied.
- 4 cm hiatal hernia.
- Bilious gastric fluid.
- Erythematous mucosa in the antrum.
- Non-bleeding gastric ulcer with a clean ulcer base
(Julio C Class III). Biopsied.
- Normal examined duodenum.
Recommendation: - Return patient to [facility] for ongoing care.
- Resume regular diet.
- Use Protonix (pantoprazole) 40 mg PO BID for 8 weeks.
- Await pathology results.
- Perform an upper GI endoscopy in 2 months.
- No ibuprofen, naproxen, or other non-steroidal
anti-inflammatory drugs.
Original Note:
Today's Communication/Plan
-
Plan for EGD. PPI
Assessment / Plan
Assessment / Plan
Physical exam:
General: Acutely ill
HEENT: Normocephalic, Atraumatic and Moist Mucous Membranes
Respiratory: Clear to Auscultation; Negative Wheezes, Rales or Rhonchi
Cardiac: Regular Rhythm and S1/S2
GI: Soft, Tender mainly in epigastric area and Nondistended
Musculoskeletal: Decreased range of motion of the back. No Clubbing, No Cyanosis and No Edema
Neuro: Awake, Alert and Oriented, no gross neurological deficits.
Psych: Calm
A/P:
Impression:
Acute GI bleed
Abdominal pain
Chest pain, ruled out ACS
Acute blood loss anemia
Conditions prior to presentation:
CAD
COPD
Chronic hypoxic respiratory failure on home oxygen (she uses 1 L of oxygen)
Rheumatoid arthritis
Fibromyalgia
GERD
Melanoma
Chronic back pain with narcotic/opioid dependent
History of peptic ulcer disease
Myasthenia gravis
PLAN:
IV fluids
N.p.o. and plan for EGD today
Monitor hemoglobin
IV PPI
GI consult appreciated
Twelve-lead EKG and trended cardiac troponin and normal.
Cardiac monitoring
Cardiology consult-discussed with cardiology via [place] text yesterday and had appreciated input.
GI consult-discussed with GI and plan for EGD as stated above.
SCDs for DVT prophylaxis
CODE STATUS-DNR
Will give further recommendations based on clinical course
Anticipated Discharge: 24 - 48 hours
Subjective/Interval History
-
Date of Service: January 26, 2024
Patient still having epigastric pain. No shortness of breath or chest pain.
Objective Data
-
Labs:
Laboratory Results
01/26/24
06:30
WBC 8.2
Hgb 9.3 L
Hct 28.7 L
Plt Count 176 D
Sodium 139
Potassium 3.7
Chloride 103
Carbon Dioxide 31 H
BUN 11
Creatinine 0.6
Glucose 84
Calcium 8.4
Vital Signs:
Vital Signs
Temp Pulse Resp BP Pulse Ox
98.5 F 76 12 110/61 94
01/26/24 07:05 01/26/24 07:05 01/26/24 07:05 01/26/24 07:05 01/26/24 07:05
[2024-01-26] MEDS: ADVAIR HFA 230/21 MCG INHALER 2 PUFF INH (08:51)
[2024-01-26] MEDS: NORVASC PO (10:26)
[2024-01-26] MEDS: TOPROL XL 50 MG PO (12:27)
[2024-01-26] MEDS: NSS 1000 IV (12:27)
[2024-01-26] MEDS: PLAQUENIL 400 MG PO (12:28)
[2024-01-26] MEDS: TYLENOL 650 MG PO (12:34)
--- NOTE | 2024-01-26 14:26 | PN.CDI ---
CDI
- -
CDI:
Physician Documentation Request
Admit Date: 01/25/24 09:02
Dear Doctor Sharifa,
Patient admitted with acute GI bleed.
01/24 Nutrition note, ' Pt's weight last two admissions listed as 161 lbs 07/27/22 and 143 lbs 05/21 reflective of a 31 lb (19%) weight loss in > 1 year and 13 lb (9%) weight loss in 8 months.
During visit RD able to visualize protrusion of clavicle, temporal wasting, quad wasting and apparent ribs. With < 75% estimated needs > 1 month and observed muscle and fat wasting pt meets AND/ASPEN criteria for moderate protein calorie
malnutrition of chronic illness.
Based on your assessment, please provide in your note the diagnosis associated with the above findings:
Moderate protein calorie malnutrition
Mild protein calorie malnutrition
Other
[place] Criteria ([facility] Hospitalist 2017)
2 or more criteria must be present for either
non severe or severe malnutrition
Note that the criteria differs related to the
presence of an acute or chronic illness
Chronic Illness
Energy Intake Non Severe: <75% for >1 month
Severe: <75% for >1 month
Weight Loss Non Severe: 5% over 1 month
7.5% over 3 months
10% over 6 months
20% over 1 year
Severe: >5% over 1 month
>7.5% over 3 months
>10% over 6 months
>20% over 1 year
Body Fat Non Severe: Mild Loss
Severe: Severe Loss
Muscle Mass Non Severe: Mild Loss
Severe: Severe Loss
Fluid Accumulation Non Severe: Mild Accumulation
Severe: Moderate to severe
accumulation
Reduced Manager Community Development Strength Non Severe: N/A
Severe: Measurably reduced
Use of terms such as suspected, likely, concern for, or probable (associated with a specific diagnosis that is being evaluated, monitored, or treated as if it exists) are acceptable and can be coded in the inpatient setting, when documented at the
time of discharge.
Thank you,
Kiesha BUTT,RN,CCDS
CDI Specialist
Available via tiger text
Please use your independent medical judgment in providing your response.
[2024-01-26] MEDS: CRESTOR 10 MG PO (17:17)
--- NOTE | 2024-01-26 17:32 | CM ---
CM met with patient at bedside. She is independent with ADLS, ambulates with a rolling walker. She lives with her grandson in a [address] [facility]. Patient is currently receiving VN through [facility].
Plan: Return home with VN.
[2024-01-26] MEDS: CYMBALTA DELAYED RELEASE 60 MG PO (21:31)
[2024-01-26] MEDS: NORVASC 2.5 MG PO (21:38)
[2024-01-26] MEDS: XALATAN OPHTHALMIC SOLUTION 1 DROP BOTH EYES (21:39)
[2024-01-27] VITALS (7 sets, daily range): BP systolic 91–167; BP diastolic 51–82
[2024-01-27] MEDS: TYLENOL 1000 MG PO (01:35)
[2024-01-27 07:43] LABS: Hemoglobin 9.1 g/dL (12.0-16.0); Mean Corp Hgb Conc. 32.5 g/dL (33.0-37.0); Mean Corpuscular Volume 98.6 fL (81.0-99.0); Mean Platelet Volume 10.2 fL (7.4-10.4); Platelet Count 153 10^3/uL (130-400); Red Blood Cell Count 2.84 10^6/uL (4.20-5.40); Red Cell Dist. Width 14.3 % (11.5-14.5)
[2024-01-27] MEDS: ADVAIR HFA 230/21 MCG INHALER 2 PUFF INH (08:29)
[2024-01-27] MEDS: AZULFIDINE 1000 MG PO ×2 (09:32→18:09)
[2024-01-27] MEDS: NEURONTIN 600 MG PO ×3 (09:32→22:18)
[2024-01-27] MEDS: MESTINON 60 MG PO ×4 (09:34→22:18)
[2024-01-27] MEDS: FOLVITE 0.4 MG PO (09:34)
[2024-01-27] MEDS: CYMBALTA DELAYED RELEASE 30 MG PO (09:34)
[2024-01-27] MEDS: VITAMIN B-12 1000 MCG PO (09:34)
[2024-01-27] MEDS: MS CONTIN (EXTENDED RELEASE) 30 MG PO ×2 (09:34→20:57)
[2024-01-27] MEDS: NSS (PRESERVATIVE FREE) 10 ML IV ×2 (09:35→20:57)
[2024-01-27] MEDS: TIMOPTIC 0.5% OPHTHALMIC SOLUTION 1 DROP BOTH EYES (09:36)
[2024-01-27] MEDS: FLUSH (NSS) 2 FLUSH IV (09:36)
[2024-01-27] MEDS: PROTONIX IV 40 MG IV ×2 (09:36→20:57)
[2024-01-27] MEDS: FLUSH (NSS) 1 FLUSH IV (09:37)
[2024-01-27] MEDS: NORVASC PO (09:45)
--- NOTE | 2024-01-27 09:49 | W.PN.HOSP.TC ---
Today's Communication/Plan
-
Infectious workup in progress.
Assessment / Plan
Assessment / Plan
Physical exam:
General: Acutely ill
HEENT: Normocephalic, Atraumatic and Moist Mucous Membranes
Respiratory: Clear to Auscultation; Negative Wheezes, Rales or Rhonchi
Cardiac: Regular Rhythm and S1/S2
GI: Soft, Tender mainly in epigastric area and Nondistended
Musculoskeletal: Decreased range of motion of the back. No Clubbing, No Cyanosis and No Edema
Neuro: Awake, Alert and Oriented, no gross neurological deficits.
Psych: Calm
A/P:
Impression:
Acute GI bleed
Abdominal pain
Chest pain, ruled out ACS
Acute blood loss anemia
Febrile illness
Leukocytosis
Transient relative hypotension-improved on its own
Conditions prior to presentation:
CAD
COPD
Chronic hypoxic respiratory failure on home oxygen (she uses 1 L of oxygen)
Rheumatoid arthritis
Fibromyalgia
GERD
Melanoma
Chronic back pain with narcotic/opioid dependent
History of peptic ulcer disease
Myasthenia gravis
EGD yesterday:
Impression: - Z-line variable, 36 cm from the incisors. Biopsied.
- 4 cm hiatal hernia.
- Bilious gastric fluid.
- Erythematous mucosa in the antrum.
- Non-bleeding gastric ulcer with a clean ulcer base
(Julio C Class III). Biopsied.
- Normal examined duodenum.
PLAN:
Fever workup including blood cultures, urinalysis and urine culture, CT of the abdomen given recent procedure and abdominal symptoms. Will consider empiric antibiotics once infectious workup completed.
SIRS and rule out sepsis with fever, leukocytosis, tachycardic despite being on beta-blockers, and tachypnea. Source unclear but rule out versus GI.
EGD as above
Monitor hemoglobin
IV PPI bid
GI consult appreciated
Twelve-lead EKG and trended cardiac troponin and normal.
Cardiac monitoring
Cardiology consult-appreciated
GI consult-discussed with GI and for EGD as stated above.
SCDs for DVT prophylaxis
CODE STATUS-DNR
Time spent 51 minutes
Anticipated Discharge: > 48 hours
Subjective/Interval History
-
Date of Service: January 27, 2024
Patient had fever last night and this morning with Tmax of 103 Fahrenheit. She still complains of abdominal discomfort and now also some urinary dribbling. No cough or rash. No joint pain.
Objective Data
-
Labs:
Laboratory Results
01/27/24
07:04
WBC 11.0 H
Hgb 9.1 L
Hct 28.0 L
Plt Count 153
Vital Signs:
Vital Signs
Temp Pulse Resp BP Pulse Ox
98.2 F 71 16 91/51 98
01/27/24 07:32 01/27/24 08:30 01/27/24 08:30 01/27/24 07:32 01/27/24 08:30
I&O
01/26/24 01/27/24 01/28/24
06:59 06:59 06:59
Intake Total 905 / 905
Balance 905 / 905
--- NOTE | 2024-01-27 12:48 | PTCARENOTE ---
BP this am , Dr Skaggs aware- ordered to hold am norvasc. plan of care on going.
[2024-01-27] MEDS: PLAQUENIL 400 MG PO (12:55)
[2024-01-27] MEDS: OMNIPAQUE 50 ML PO (12:57)
[2024-01-27] MEDS: TOPROL XL 50 MG PO (12:57)
[2024-01-27 14:33] LABS: Lactic Acid 1.7 mmol/L (0.7-2.0)
[2024-01-27 14:43] LABS: Urine Albumin Trace (Neg - Trace); Urine Bilirubin 1+ (Negative); Urine Character Clear (Clear); Urine Color Yellow; Urine Glucose Negative (Negative); Urine Ketone Negative (Negative); Urine Leukocyte Negative (Negative); Urine Nitrite Negative (Negative); Urine Occult Blood Negative (Negative); Urine Specific Gravity 1.015 (<1.030); Urine Urobilinogen Negative (Neg - 1+)
[2024-01-27] MEDS: CRESTOR 10 MG PO (18:09)
[2024-01-27 19:00] LABS: COVID-19 Antigen Negative (Negative)
[2024-01-27] MEDS: NORVASC 2.5 MG PO (20:58)
[2024-01-27] MEDS: CYMBALTA DELAYED RELEASE 60 MG PO (22:18)
[2024-01-27] MEDS: XALATAN OPHTHALMIC SOLUTION 1 DROP BOTH EYES (22:18)
[2024-01-28 03:38] VITALS: BP 128/64
[2024-01-28] MEDS: ROXICODONE 10 MG PO ×4 (06:02→23:21)
[2024-01-28] MEDS: ADVAIR HFA 230/21 MCG INHALER 2 PUFF INH (07:36)
[2024-01-28 07:55] VITALS: BP 145/68
[2024-01-28 08:35] LABS: % Basophils 1.5 % (0-2); % Eosinophils 4.6 % (0-6); % Immature Granulocytes 0.3 % (0-0.5); % Lymphocytes 9.1 % (20.5-51.1); % Monocytes 11.1 % (1.7-9.3); % Neutrophils 73.4 % (42.2-75.2); Absolute Basophils 0.1 10^3/uL (0-0.2); Absolute Eosinophils 0.3 10^3/uL (0-0.7); Absolute Lymphocytes 0.7 10^3/uL (1.2-3.4); Absolute Monocytes 0.8 10^3/uL (0.1-0.6); Absolute Neutrophils 5.5 10^3/uL (1.4-6.5); Hematocrit 28.5 % (37.0-47.0); Hemoglobin 9.2 g/dL (12.0-16.0); Mean Corp Hgb Conc. 32.3 g/dL (33.0-37.0); Mean Corpuscular Hgb 32.4 pg (27.0-31.0); Mean Corpuscular Volume 100.4 fL (81.0-99.0); Mean Platelet Volume 10.4 fL (7.4-10.4); Nucleated Red Blood Cells % 0 %; Platelet Count 138 10^3/uL (130-400); Red Blood Cell Count 2.84 10^6/uL (4.20-5.40); Red Cell Dist. Width 14.3 % (11.5-14.5); White Blood Cell Count 7.5 10^3/uL (4.8-10.8)
[2024-01-28 09:00] LABS: ALT (SGPT) 38 U/L (0-35); AST (SGOT) 45 U/L (14-36); Alkaline Phosphatase 45 U/L (38-126); Blood Urea Nitrogen 10 mg/dl (7-17); Calcium 9.3 mg/dl (8.4-10.2); Carbon Dioxide 31 mmol/L (22-30); Chloride 95 mmol/L (98-107); Estimated Creatinine Clearance 57 ml/min; Glucose 93 mg/dl (70-99); Potassium 4.2 mmol/L (3.5-5.1); Sodium 134 mmol/L (135-145); Total Bilirubin 0.7 mg/dl (0.2-1.3); Total Protein 6.5 g/dl (6.3-8.2); eGFR > 60.00
--- NOTE | 2024-01-28 09:46 | W.PN.HOSP.TC ---
Today's Communication/Plan
-
Bowel regimen. Add sucralfate. ID consult
Assessment / Plan
Assessment / Plan
Physical exam:
General: Acutely ill
HEENT: Normocephalic, Atraumatic and Moist Mucous Membranes
Respiratory: Clear to Auscultation; Negative Wheezes, Rales or Rhonchi
Cardiac: Regular Rhythm and S1/S2
GI: Soft, Tender mainly in epigastric area and Nondistended
Musculoskeletal: Decreased range of motion of the back. Tenderness in the back on palpation but mostly everywhere in the back. No Clubbing, No Cyanosis and No Edema
Neuro: Awake, Alert and Oriented, no gross neurological deficits.
Psych: Calm
A/P:
Impression:
Acute GI bleed
Abdominal pain
Chest pain, ruled out ACS
Acute blood loss anemia
Febrile illness-unclear source
Leukocytosis-improved on its own
Transient relative hypotension yesterday-improved on its own
Elevated LFTs-will trend
Conditions prior to presentation:
CAD
COPD
Chronic hypoxic respiratory failure on home oxygen (she uses 1 L of oxygen)
Rheumatoid arthritis
Fibromyalgia
GERD
Melanoma
Chronic back pain with narcotic/opioid dependent
Chronic osteomyelitis, lumbar spine.
History of peptic ulcer disease
Myasthenia gravis
EGD yesterday:
Impression: - Z-line variable, 36 cm from the incisors. Biopsied.
- 4 cm hiatal hernia.
- Bilious gastric fluid.
- Erythematous mucosa in the antrum.
- Non-bleeding gastric ulcer with a clean ulcer base
(Julio C Class III). Biopsied.
- Normal examined duodenum.
PLAN:
Add sucralfate
Bowel regimen with mom, MiraLAX, and Senokot.
Hold off on new antibiotics--> blood culture no growth but will continue to monitor, chest x-ray no pneumonia, UA no evidence of UTI. CT scan of the abdomen no acute abnormality aside for some possible enteritis. Influenza and COVID-19 negative.
She does have chronic osteomyelitis of lumbar spine area and not sure if this is contributing. Not sure if we need to do an MRCP if LFTs continues to rise and intrahepatic biliary dilatation(US might not be so helpful).
Will request ID consult today given findings as above-discussed with ID via [place] text today for consult.
EGD as above
Monitor hemoglobin
IV PPI bid
GI consult appreciated
Twelve-lead EKG and trended cardiac troponin and normal.
Cardiac monitoring
Cardiology consult-appreciated
GI consult-discussed with GI and for EGD as stated above.
Discussed with RN at bedside today.
SCDs for DVT prophylaxis
CODE STATUS-DNR
Time spent 52 minutes
Anticipated Discharge: 24 - 48 hours
Subjective/Interval History
-
Date of Service: January 28, 2024
Patient is still having epigastric abdominal discomfort, she also complains of chronic back pain. She is constipated. No fevers today. No rash.
Objective Data
-
Labs:
Laboratory Results
01/28/24
07:42
WBC 7.5
Hgb 9.2 L
Hct 28.5 L
Plt Count 138
Sodium 134 L
Potassium 4.2
Chloride 95 L
Carbon Dioxide 31 H
BUN 10
Creatinine 0.6
Glucose 93
Calcium 9.3
Total Bilirubin 0.7
AST 45 H
ALT 38 H
Alkaline Phosphatase 45
Vital Signs:
Vital Signs
Temp Pulse Resp BP Pulse Ox
98.7 F 72 20 145/68 95
01/28/24 07:55 01/28/24 07:55 01/28/24 07:55 01/28/24 07:55 01/28/24 07:55
I&O
01/27/24 01/28/24 01/29/24
06:59 06:59 06:59
Intake Total 905 / 905 480 / 480
Balance 905 / 905 480 / 480
[2024-01-28] MEDS: CYMBALTA DELAYED RELEASE 30 MG PO (09:55)
[2024-01-28] MEDS: NEURONTIN 600 MG PO ×3 (09:55→23:17)
[2024-01-28] MEDS: AZULFIDINE 1000 MG PO ×2 (09:55→17:33)
[2024-01-28] MEDS: MS CONTIN (EXTENDED RELEASE) 30 MG PO ×2 (09:56→20:23)
[2024-01-28] MEDS: NSS (PRESERVATIVE FREE) 10 ML IV ×2 (09:56→20:23)
[2024-01-28] MEDS: MESTINON 60 MG PO ×4 (09:56→23:17)
[2024-01-28] MEDS: NORVASC 2.5 MG PO ×2 (09:56→20:18)
[2024-01-28] MEDS: TIMOPTIC 0.5% OPHTHALMIC SOLUTION 1 DROP BOTH EYES (09:56)
[2024-01-28] MEDS: FOLVITE 0.4 MG PO (09:56)
[2024-01-28] MEDS: VITAMIN B-12 1000 MCG PO (09:56)
[2024-01-28] MEDS: FLUSH (NSS) 2 FLUSH IV (09:57)
[2024-01-28] MEDS: PROTONIX IV 40 MG IV ×2 (09:57→20:23)
[2024-01-28] MEDS: FLUSH (NSS) 1 FLUSH IV (09:58)
[2024-01-28 11:00] VITALS: BP 167/83
[2024-01-28] MEDS: PLAQUENIL 400 MG PO (12:27)
[2024-01-28] MEDS: TOPROL XL 50 MG PO (12:27)
[2024-01-28] MEDS: MIRALAX 17 GRAMS PO ×2 (12:27→20:28)
[2024-01-28 15:00] VITALS: BP 124/67
[2024-01-28] MEDS: CRESTOR 10 MG PO (17:33)
[2024-01-28] MEDS: CARAFATE 1 GRAM PO ×2 (17:33→23:36)
[2024-01-28] MEDS: MIRALAX PO (20:24)
[2024-01-28] MEDS: CYMBALTA DELAYED RELEASE 60 MG PO (23:17)
[2024-01-28] MEDS: XALATAN OPHTHALMIC SOLUTION 1 DROP BOTH EYES (23:17)
[2024-01-28 23:55] VITALS: BP 159/80
[2024-01-29] MEDS: TYLENOL 650 MG PO (01:41)
[2024-01-29] MEDS: ROXICODONE 10 MG PO (03:14)
[2024-01-29] MEDS: ADVAIR HFA 230/21 MCG INHALER 2 PUFF INH (07:47)
[2024-01-29 07:55] VITALS: BP 133/65
[2024-01-29 07:58] LABS: % Basophils 1.8 % (0-2); % Eosinophils 9.5 % (0-6); % Immature Granulocytes 0.3 % (0-0.5); % Lymphocytes 18.5 % (20.5-51.1); % Monocytes 15.6 % (1.7-9.3); % Neutrophils 54.3 % (42.2-75.2); Absolute Basophils 0.1 10^3/uL (0-0.2); Absolute Eosinophils 0.7 10^3/uL (0-0.7); Absolute Lymphocytes 1.3 10^3/uL (1.2-3.4); Absolute Monocytes 1.1 10^3/uL (0.1-0.6); Absolute Neutrophils 3.9 10^3/uL (1.4-6.5); Hematocrit 29.2 % (37.0-47.0); Hemoglobin 9.3 g/dL (12.0-16.0); Mean Corp Hgb Conc. 31.8 g/dL (33.0-37.0); Mean Corpuscular Volume 100.3 fL (81.0-99.0); Nucleated Red Blood Cells % 0 %; Platelet Count 157 10^3/uL (130-400); Red Blood Cell Count 2.91 10^6/uL (4.20-5.40); Red Cell Dist. Width 14.6 % (11.5-14.5); White Blood Cell Count 7.2 10^3/uL (4.8-10.8)
--- NOTE | 2024-01-29 08:03 | CON.ID ---
Consultation
-
Date/Time Consultation Requested: 01/28/24 11:14
Date/Time Consultation Performed: 01/29/24 9:15
Requesting Provider: Dr Skaggs
Performing Provider: Dr Guardado
Reason for Consultation: fever
Chief Complaint / Past History
Chief Complaint
abdominal pain
History of Present Illness
Ms Liriano is an 84 year old female known to me for h/o spina bifida, seronegative RA on hydroxychloroquine, leflunomide and sulfasalazine, prior C difficile infection ~2019 who initially presents to [facility] 02/18/2020 for a chronically drainage
from the lumbar surgical site. Surgical history is notable for 12/11/18 C5-C7 lateral mass fusion with titanium cages filled with vivigen and hira putty. Then on 07/31/2019 L2/L3 hemilaminectomy, L3/L4 foraminotomies, resection of L3/4 herniated
disk. The procedure was uncomplicated. She subsequently developed a fistula. She returned to the OR on 12/17/2019 for debridement of lumbar wound, redo L L3-4 microdiskectomy. Fistula was closed primarily. Operative cultures from 12/16 were held to just
two days for aerobic - no growth. Of note abundant neutrophils were seen; she was not seen by ID at that time. She has relapse of the fistula about a month later and had ongoing drainage without fevers or chills for several months. She then
presented for ID evaluation. A repeat MRI was done and showed a fluid collection which was cultured with IR and grew E coli, proteus, strep, diptheroids. Completed 6 weeks of IV vancomycin/ceftriaxone and a course of oral metronidazole with
resolution of draining fistula and resolution of inflammatory markers now on suppressive cefdinir. She has resumed outpatient spinal steorid injections with the understanding that there is a risk of relapse but she feels its necessary to maintain
her quality of life. She cannot recall when the last steroid injection was. She was last seen in my clinic about 6 months ago.
She now presents to the hospital 01/25/24 for intermittent abdominal pain over the epigastric area with chest discomfort and dark stools x1 week. Hgb outpatient dropped form 12-9 and she was referred to the ER. No fevers or chills. No cough,
dysuria, urgency or frequency.
Since arrival here she was initially febrile to 103.0 orally which has now resolved over 48 hours, bp stable, not tachycardic, wb on arrival 8.2 peaked at 11.0 and now 7.2, hgb 9.3, plt 157, no left shift on arrival or since, cr 0.6, t bili 0.8, ast
42, lat 36, tropoins cycled and all negative, ua no pyuria, covid ag neg, ct a/p with iv and oral contrast: mild enteritis, no evidence of active infection of the lumbar spine and spinal stimulator in place, blood cultures x1 was done on arrival and
remains no growth to date.
Past History
Additional Past Medical History:
Coronary Arterty Disease s/p CABG and PCI
Essential Hypertension
Hyperlipidemia
COPD
Depression
Chronic Pain Syndrome / Chronic Opioid Dependence Syndrome secondary to Spinal Stenosis
Chronic hypoxic respiratory failure on home oxygen
Fibromyalgia
Myasthenia Gravis
Rheumatoid Arthritis
GERD/PUD
Spina Bifida
Hx Vertebral Osteomyelitis on Chronic Suppressive Antibiotics
Additional Past Surgical History:
Spina Bifida surgery
Spinal Stimulator
CABG
Allergy History:
adhesive Allergy (Verified 01/25/24 06:10)
TAPE-RASH,SKIN BLISTERS
Medications Reviewed: Yes
Social History
Tobacco: Non-Smoker
Alcohol: None
Living: With Family
Family History
Family History: Not Pertinent
Review of Systems
Review of Systems
General: Fever
All systems: All other systems were reviewed and were negative
Vital Signs
Temp Pulse Resp BP Pulse Ox
98.0 F 81 16 159/80 96
01/28/24 23:55 01/29/24 07:48 01/29/24 07:48 01/28/24 23:55 01/29/24 07:48
Physical Exam
Physical Exam
Constitutional: No Acute Distress and Chronically Ill
Cardiovascular: Regular Rate and S1/S2; Negative Murmur or Rub
Pulmonary: Clear and Symmetric; Negative Wheezes, Rales or Rhonchi
Gastrointestinal: Soft, Non Tender, Non Distended and Normal Bowel Sounds
Skin: Warm and Dry; Negative Rash or Jaundice
Wound: Other (spinal surigcal site fully healed without erythema, warmth, fluctuance or fistula)
Lab / Diagnostic Study Results
01/29/24 06:39
Abs Immat Gran (auto) 0.0 10^3/uL (0-0.05) 01/29/24 06:39
Absolute Neuts (auto) 3.9 10^3/uL (1.4-6.5) 01/29/24 06:39
Absolute Lymphs (auto) 1.3 10^3/uL (1.2-3.4) 01/29/24 06:39
Absolute Monos (auto) 1.1 10^3/uL (0.1-0.6) H 01/29/24 06:39
Absolute Basos (auto) 0.1 10^3/uL (0-0.2) 01/29/24 06:39
Immature Gran % 0.3 % (0-0.5) 01/29/24 06:39
Neutrophils % 54.3 % (42.2-75.2) 01/29/24 06:39
Lymphocytes % 18.5 % (20.5-51.1) L 01/29/24 06:39
Monocytes % 15.6 % (1.7-9.3) H 01/29/24 06:39
Eosinophils % 9.5 % (0-6) H 01/29/24 06:39
Basophils % 1.8 % (0-2) 01/29/24 06:39
PT 13.4 Sec (11.4-14.6) 01/25/24 06:45
INR 1.04 01/25/24 06:45
Lactic Acid 1.7 mmol/L (0.7-2.0) 01/27/24 14:15
Microbiology Results
Micro:
01/27/24 12:32 Blood Culture - Preliminary
Blood/Venous No Growth in 24 hours- Final report to follow
01/27/24 18:14 Influenza Types A & B (RAMÓN) - Final
Nasal Swab Negative for Influenza A & B, NAAT
Negative results must be combined with clinical observations
and patient history.
Nucleic Acid Amplification test (NAAT)performed on the
[employer] ID NOW platform.
Assessment / Plan
Isolated fever
Seroneg RA on plaquenil, leflunomide, sulfasalazine
Chronic Osteomyelitis of the spine on suppressive cefdinir
- workup with CXR, UA, LFTs, covid ag, influenza pcr thus far without clear source of infection
- note mildly dilated intrahepatic biliary ducts, given normal T bili suspect this may be artifactual
- send second blood culture to complete the set give history of spinal osteo
- CT a/p with iv contrast without evidence of relapse of chronic osteomyelitis such as abscess/phlegmon
- continue [employer] cefdinir
- stable for dc from ID perspective follow up with PCP, has follow up with me in 6 months
Care Review
Plan reviewed with: Physician (Dr Skaggs - christineo)
[2024-01-29] MEDS: NEURONTIN 600 MG PO (08:04)
[2024-01-29] MEDS: CYMBALTA DELAYED RELEASE 30 MG PO (08:04)
[2024-01-29] MEDS: CARAFATE 1 GRAM PO ×2 (08:04→12:05)
[2024-01-29] MEDS: AZULFIDINE 1000 MG PO (08:04)
[2024-01-29] MEDS: MESTINON 60 MG PO ×2 (08:04→12:05)
[2024-01-29] MEDS: VITAMIN B-12 1000 MCG PO (08:04)
[2024-01-29] MEDS: NORVASC 2.5 MG PO (08:04)
[2024-01-29] MEDS: FOLVITE 0.4 MG PO (08:04)
[2024-01-29] MEDS: MIRALAX 17 GRAMS PO (08:05)
[2024-01-29] MEDS: TIMOPTIC 0.5% OPHTHALMIC SOLUTION 1 DROP BOTH EYES (08:05)
[2024-01-29] MEDS: MS CONTIN (EXTENDED RELEASE) 30 MG PO (08:05)
[2024-01-29] MEDS: NSS (PRESERVATIVE FREE) 10 ML IV (08:05)
[2024-01-29] MEDS: PROTONIX IV 40 MG IV (08:05)
[2024-01-29 08:17] LABS: ALT (SGPT) 36 U/L (0-35); AST (SGOT) 42 U/L (14-36); Albumin 4.5 g/dl (3.5-5.0); Alkaline Phosphatase 54 U/L (38-126); Blood Urea Nitrogen 10 mg/dl (7-17); Calcium 9.7 mg/dl (8.4-10.2); Carbon Dioxide 31 mmol/L (22-30); Chloride 93 mmol/L (98-107); Estimated Creatinine Clearance 57 ml/min; Glucose 81 mg/dl (70-99); Potassium 4.6 mmol/L (3.5-5.1); Sodium 132 mmol/L (135-145); Total Bilirubin 0.8 mg/dl (0.2-1.3); Total Protein 7.1 g/dl (6.3-8.2); eGFR > 60.00
--- NOTE | 2024-01-29 09:03 | W.PN.HOSP.TC ---
Today's Communication/Plan
-
Discharge planning today.
Assessment / Plan
Assessment / Plan
Physical exam:
General: Acutely ill
HEENT: Normocephalic, Atraumatic and Moist Mucous Membranes
Respiratory: Clear to Auscultation; Negative Wheezes, Rales or Rhonchi
Cardiac: Regular Rhythm and S1/S2
GI: Soft, Tender mainly in epigastric area and Nondistended
Musculoskeletal: Decreased range of motion of the back. Tenderness in the back on palpation but mostly everywhere in the back. No Clubbing, No Cyanosis and No Edema
Neuro: Awake, Alert and Oriented, no gross neurological deficits.
Psych: Calm
A/P:
Impression:
Acute GI bleed
Abdominal pain
Chest pain, ruled out ACS
Acute blood loss anemia
Febrile illness-unclear source
Leukocytosis-improved on its own
Transient relative hypotension yesterday-improved on its own
Elevated LFTs-will trend
Conditions prior to presentation:
CAD
COPD
Chronic hypoxic respiratory failure on home oxygen (she uses 1 L of oxygen)
Rheumatoid arthritis
Fibromyalgia
GERD
Melanoma
Chronic back pain with narcotic/opioid dependent
Chronic osteomyelitis, lumbar spine.
History of peptic ulcer disease
Myasthenia gravis
EGD yesterday:
Impression: - Z-line variable, 36 cm from the incisors. Biopsied.
- 4 cm hiatal hernia.
- Bilious gastric fluid.
- Erythematous mucosa in the antrum.
- Non-bleeding gastric ulcer with a clean ulcer base
(Julio C Class III). Biopsied.
- Normal examined duodenum.
PLAN:
Add sucralfate
Bowel regimen with mom, MiraLAX, and Senokot.
Hold off on new antibiotics--> blood culture no growth but will continue to monitor, chest x-ray no pneumonia, UA no evidence of UTI. CT scan of the abdomen no acute abnormality aside for some possible enteritis. Influenza and COVID-19 negative.
She does have chronic osteomyelitis of lumbar spine area. LFTs minimally elevated.
Requested ID consult given findings as above-discussed with ID today and recommended to continue with her oral antibiotic and no need for new antibiotics. ID cleared her for discharge today.
EGD as above
Monitor hemoglobin
IV PPI bid
GI consult appreciated
Twelve-lead EKG and trended cardiac troponin and normal.
Cardiac monitoring
Cardiology consult-appreciated
GI consult-discussed with GI and for EGD as stated above.
Discussed with RN at bedside today.
SCDs for DVT prophylaxis
CODE STATUS-DNR
Time spent 52 minutes
Anticipated Discharge: Today
Subjective/Interval History
-
Date of Service: January 29, 2024
No new complaints today. Afebrile
Objective Data
-
Labs:
Laboratory Results
01/29/24
06:39
WBC 7.2
Hgb 9.3 L
Hct 29.2 L
Plt Count 157
Sodium 132 L
Potassium 4.6
Chloride 93 L
Carbon Dioxide 31 H
BUN 10
Creatinine 0.6
Glucose 81
Calcium 9.7
Total Bilirubin 0.8
AST 42 H
ALT 36 H
Alkaline Phosphatase 54
Vital Signs:
Vital Signs
Temp Pulse Resp BP Pulse Ox
98.1 F 63 16 119/75 96
01/29/24 07:55 01/29/24 08:04 01/29/24 07:55 01/29/24 08:04 01/29/24 07:55
I&O
01/28/24 01/29/24 01/30/24
06:59 06:59 06:59
Intake Total 480 / 480 2250 / 2250
Balance 480 / 480 2249
[2024-01-29] MEDS: TOPROL XL 50 MG PO (12:05)
[2024-01-29] MEDS: PLAQUENIL 400 MG PO (12:05)
--- NOTE | 2024-01-29 12:54 | W.DCSUMMARY ---
Discharge Summary
Discharge Data
Date of Admission: 01/25/24
Date of Discharge: 01/29/24
-
Pending Results: No
Hospital Course
Patient 84 years old female with history of CAD, COPD, hypertension, hyperlipidemia, depression, fibromyalgia, chronic lower back pain, chronic opioid dependence, spina bifida, multiple back surgeries, seronegative rheumatoid arthritis, chronic
vertebral osteomyelitis on chronic suppressive antibiotic, melanoma, GERD, peptic ulcer disease, C. difficile in the past, chronic hypoxic respiratory failure on home oxygen, presented to the hospital with abdominal pain associated with dark stools.
GI was consulted. Patient was started on PPI drip and subsequently twice a day. GI requested cardiac clearance and cardiology consulted. Patient had 2 sets of cardiac enzymes unremarkable and third set within normal limits as well as EKG
unremarkable for acute finding although some nonspecific abnormalities. Cardiology felt no need for any cardiac testing and she was cleared for procedures. Patient underwent upper endoscopy on 01/25 and revealed a hiatal hernia, erythematous mucosa
in the antrum, and nonbleeding gastric ulcer with a clean ulcer base status post biopsy and normal duodenum. Patient was recommended twice a day PPI for 2 months and follow-up pathology results as outpatient as well as perform an upper endoscopy
repeated 2 months and no NSAIDs. He did have some persistence of symptoms and we added sucralfate to her PPI at that helped with her symptoms. Patient also had a fever. ID was consulted. Blood cultures negative, chest x-ray unremarkable, CT of
the abdomen unremarkable, UA unremarkable. Fever resolved on its own. ID recommended continue suppressive antibiotics as outpatient but she was cleared to discharge from their standpoint. Patient otherwise hemodynamically stable afebrile and
tolerating diet and her symptoms have improved substantially. She will be discharged in stable condition today.
Discharge duration: 35 minutes
Discharge Plan
-
Patient Disposition: Home (Routine Discharge)
Discharge Diagnosis/Procedures: Acute gastrointestinal bleed. Gastric ulcer. Fever. Elevated liver function test. Chronic pain and chronic opioid dependence. Chronic vertebral osteomyelitis on chronic suppressive antibiotics. Seronegative
rheumatoid arthritis.
Diet: Low Cholesterol
Activity: As tolerated
Blood Work: Please PCP to order CBC, CMP within 1 week
Others Tests: Avoid nonsteroidal anti-inflammatory agents.
Referrals:
Ayah Tinajero MD [Family Provider] - in less than 1 week
Urszula Obrien DO [Active] - in one to two months
Prescriptions:
New
pantoprazole [Protonix] 40 mg tablet,delayed release (DR/EC)
40 mg PO BID Qty: 60 0RF
sucralfate 1 gram tablet
1 g PO ACHS Qty: 90 0RF
polyethylene glycol 3350 [Miralax] 17 gram/dose powder
4 g PO DAILY Qty: 119 0RF
Continued
nitroglycerin 0.4 MG tablet, sublingual
0.4 mg sublingual [id number] PRN (Reason: chest pain)
Lumigan 1 DROP drops
1 drp BOTH EYES HS
leflunomide 20 MG tablet
20 mg PO DAILY
rosuvastatin 10 MG tablet
10 mg PO QPM
amlodipine 2.5 MG tablet
2.5 mg PO BID
folic acid 0.4 MG tablet
0.4 mg PO DAILY
albuterol sulfate 1 PUFF HFA aerosol inhaler
2 puff inhalation R Q4HPRN PRN (Reason: sob)
pyridostigmine bromide 60 MG tablet
60 mg PO QID 30 Days Qty: 120 0RF
cyanocobalamin (vitamin B-12) 1,000 MCG tablet
1,000 mcg PO DAILY
morphine 30 MG tablet extended release
30 mg PO Q12H
ferrous sulfate [FeroSul] 325 MG tablet
325 mg PO DAILY
gabapentin 300 MG capsule
600 mg PO TID
duloxetine 30 MG capsule,delayed release(DR/EC)
60 mg PO HS
duloxetine 30 MG capsule,delayed release(DR/EC)
30 mg PO DAILY
oxycodone 10 MG tablet
10 mg PO Q4HPRN PRN (Reason: severe pain)
sulfasalazine 500 mg tablet
1,000 mg PO BID@0800,1700
hydroxychloroquine 200 MG tablet
400 mg PO DAILY@1200
ondansetron 4 MG tablet,disintegrating
4 mg PO TIDPRN PRN (Reason: nausea/vomiting)
acetaminophen [Tylenol] 325 mg Tablet
650 mg PO TIDPRN PRN (Reason: mild pain)
ipratropium-albuterol 0.5 mg-3 mg(2.5 mg base)/3 mL Solution For Nebulization
3 ml INHALATION R QIDPRN PRN (Reason: sob)
metoprolol succinate [Toprol XL] 50 mg Tablet Extended Release 24 Hr
50 mg PO DAILY@1200
timolol 0.5 % Drops
1 drp BOTH EYES DAILY
fluticasone propion-salmeterol [Advair Diskus] 500-50 mcg/dose Blister With Device
1 inh INHALATION R DAILY
docusate sodium [Colace] 100 mg Capsule
100 mg PO DAILYPRN PRN (Reason: constipation)
cefdinir 300 mg Capsule
300 mg PO BID
Discontinued
pantoprazole 40 MG tablet,delayed release (DR/EC)
80 mg PO DAILY@1200
Discharge Orders:
Discharge Patient (As Directed); Ordered 01/29/24
Ordered By: Rasheed Skaggs
Discharge Date and Time
Discharge Date/Time: 01/29/24 14:52
Print Language: CROATIAN
--- NOTE | 2024-01-29 13:20 | CM ---
Addendum entered by Deyanira Maxwell 01/29/24 15:46:
Of note, [facility] is not current with pt, [facility].
VITA referrals attempted to [facility] and [facility], both state pt is not a current pt.
As pt prefers [facility], new referral sent there and accepted.
Original Note:
CM following re: d/c planning.
CM spoke with pt, she states she is current with [facility].
She would like to resume services, VITA ref sent to [facility].
Family transport home today.
No additional needs or questions.
Goal: home with [facility] VITA.
[2024-01-29 14:35] VITALS: BP 136/62
[2024-01-30 18:33] LABS: Hepatitis B Surface Antigen Negative (Negative)
[2024-01-30 18:50] LABS: Hepatitis B Core Ab, Total Negative (Negative); Hepatitis B Surface Antibody Negative; Hepatitis C Antibody Negative (Negative)
[2024-01-30 19:18] LABS: Hepatitis A Antibody, Total Negative (Negative)
== END 2024-01-29 14:52 | disposition home health service (06) | DRG 378 ==
LOC: 4 EAST ACU 09:02
PROVIDERS: Internal Medicine; ADMITTING PHYSICIAN Hospitalist; CONSULT PHYSICIAN Internal Medicine Cardiovascular Disease; CONSULT PHYSICIAN Student in an Organized Health Care Education/Training Program; EMERGENCY PHYSICIAN Student in an Organized Health Care Education/Training Program; FAMILY PHYSICIAN Family Medicine; OTHER PHYSICIAN Student in an Organized Health Care Education/Training Program
PROC: 0DB78ZX Excision of Stomach, Pylorus, Via Natural or Artificial Opening Endoscopic, Diagnostic (ICD-10-PCS; 2024-01-26)
DX: K25.4 Chronic or unspecified gastric ulcer with hemorrhage (principal); D62 Acute posthemorrhagic anemia; E44.0 Moderate protein-calorie malnutrition; J96.11 Chronic respiratory failure with hypoxia; F11.20 Opioid dependence, uncomplicated; I45.2 Bifascicular block; M46.26 Osteomyelitis of vertebra, lumbar region; Z66 Do not resuscitate; I25.10 Atherosclerotic heart disease of native coronary artery without angina pectoris; J44.89 Other specified chronic obstructive pulmonary disease; M79.7 Fibromyalgia; M06.00 Rheumatoid arthritis without rheumatoid factor, unspecified site; K21.9 Gastro-esophageal reflux disease without esophagitis; R50.9 Fever, unspecified; G89.4 Chronic pain syndrome; G70.00 Myasthenia gravis without (acute) exacerbation; F32.A Depression, unspecified; E78.00 Pure hypercholesterolemia, unspecified; K44.9 Diaphragmatic hernia without obstruction or gangrene; R07.9 Chest pain, unspecified; R79.89 Other specified abnormal findings of blood chemistry; I10 Essential (primary) hypertension; K22.89 Other specified disease of esophagus; I95.9 Hypotension, unspecified; K59.00 Constipation, unspecified; M48.00 Spinal stenosis, site unspecified; Z68.24 Body mass index [BMI] 24.0-24.9, adult; Z96.82 Presence of neurostimulator; Z79.2 Long term (current) use of antibiotics; I25.2 Old myocardial infarction; Z95.5 Presence of coronary angioplasty implant and graft; Z79.51 Long term (current) use of inhaled steroids; Z85.820 Personal history of malignant melanoma of skin; Z86.19 Personal history of other infectious and parasitic diseases; Z99.81 Dependence on supplemental oxygen; Z95.1 Presence of aortocoronary bypass graft; Z79.899 Other long term (current) drug therapy; Z79.82 Long term (current) use of aspirin
CPT/HCPCS: 88305; 71046; 74177; 80048; 80053; 81003; 82248; 83605; 83690; 84484; 85014; 85018; 85025; 85027; 85610; 85730; 86704; 86705; 86706; 86708; 86709; 86803; 86850; 86900; 86901; 87040; 87340; 87502; 87811; 88342; 93005; 94640; 96374; 96375; 96376; 99291; Q9967

== ENCOUNTER 2024-02-01 16:47 | Emergency (ER) | payer OTHER, SELFPAY ==
[2024-02-01 16:51] VITALS: BP 184/80
[2024-02-01 16:52] VITALS: BMI 24.2
[2024-02-01 16:53] VITALS: BP 184/80
[2024-02-01 17:00] VITALS: BP 176/81
[2024-02-01 17:11] LABS: % Basophils 2.4 % (0-2); % Eosinophils 6.1 % (0-6); % Immature Granulocytes 0.3 % (0-0.5); % Lymphocytes 28.2 % (20.5-51.1); % Monocytes 16.9 % (1.7-9.3); % Neutrophils 46.1 % (42.2-75.2); Absolute Basophils 0.2 10^3/uL (0-0.2); Absolute Eosinophils 0.4 10^3/uL (0-0.7); Absolute Lymphocytes 1.8 10^3/uL (1.2-3.4); Absolute Monocytes 1.1 10^3/uL (0.1-0.6); Absolute Neutrophils 2.9 10^3/uL (1.4-6.5); Hematocrit 33.8 % (37.0-47.0); Hemoglobin 11.1 g/dL (12.0-16.0); Mean Corp Hgb Conc. 32.8 g/dL (33.0-37.0); Mean Corpuscular Hgb 32.2 pg (27.0-31.0); Mean Platelet Volume 9.4 fL (7.4-10.4); Nucleated Red Blood Cells % 0 %; Platelet Count 228 10^3/uL (130-400); Red Blood Cell Count 3.45 10^6/uL (4.20-5.40); White Blood Cell Count 6.3 10^3/uL (4.8-10.8)
[2024-02-01 17:15] LABS: INR 1.06; PT 13.8 Sec (11.4-14.6)
[2024-02-01 17:16] LABS: APTT 31.4 Sec (23.4-35.0)
[2024-02-01 17:30] LABS: ALT (SGPT) 25 U/L (0-35); AST (SGOT) 29 U/L (14-36); Albumin 4.4 g/dl (3.5-5.0); Alkaline Phosphatase 62 U/L (38-126); Blood Urea Nitrogen 16 mg/dl (7-17); Calcium 9.8 mg/dl (8.4-10.2); Carbon Dioxide 34 mmol/L (22-30); Chloride 95 mmol/L (98-107); Estimated Creatinine Clearance 49 ml/min; Glucose 93 mg/dl (70-99); Potassium 3.8 mmol/L (3.5-5.1); Sodium 137 mmol/L (135-145); Total Bilirubin 0.8 mg/dl (0.2-1.3); Total Protein 7.1 g/dl (6.3-8.2); eGFR > 60.00
[2024-02-01] MEDS: ZOFRAN ODT (ORALLY DISINTEGRATING) 4 MG PO (18:13)
[2024-02-01] MEDS: MS CONTIN (EXTENDED RELEASE) 15 MG PO (19:38)
--- NOTE | 2024-02-01 22:44 | ED.GENMED ---
History of Present Illness
General
Chief Complaint: Weakness
Source: patient and family
Exam Limitations: none
Time Seen by Provider: 02/01/24 17:01
Nursing documentation reviewed up to this point in time: agreed with
History of Present Illness
History of Present Illness:
Patient was seen by PCP this AM for follow up. SHe was admitted here last week for GI bleed. According to son, patient was weak and diaphortic at office. 911 was called and patient was transported here. She complains of chronic back pain but has
no other complaints. Requesting to go home.
Past History
Past History
ED Past Medical History: CAD, COPD, Fibromyalgia, GERD, HTN, Hypercholesterolemia, [place], Psychiatric (depression) and Other (chronic back pain, Ulcers, C-diff)
ED Past Surgical History: Appendectomy, Cardiac (Stents, CABG), Gynecological, Orthopedic and Urological
Social History
Tobacco: Non-smoker
Alcohol: None
Drug: None
Personal:
Living: alone
Employment: Not employed
Family History
Family History: Other
Review of Systems
Review of Systems
Allergies reviewed?: Yes
All Other Systems: ROS reviewed and negative except as documented in HPI and ROS
Constitutional: Reports no symptoms
EENT: Reports no symptoms
Respiratory: Reports no symptoms
Cardiac: Reports no symptoms
ABD/GI: Reports nausea
: Reports no symptoms
Musculoskeletal: Reports back pain (chronic back pain)
Skin: Reports no symptoms
Neurological: Reports weakness
Psychiatric: Reports no symptoms
Phy Exam
General Physical Exam
General Presentation: no apparent distress
General age: appears stated age
General Skin: pale
General Habitus: elderly
General Mental: alert
Cardiovascular Exam
Cardiovascular Exam: regular rate/rhythm and no edema
Pulmonary Exam
Pulmonary Exam: lungs clear and no respiratory distress
Gastrointestinal Exam
Gastrointestinal Exam: non tender, no organomegaly and non distended
Neurological Exam
Neurological Exam: alert, oriented x3, CN II-XII intact, no motor deficits, no sensory deficits, speech normal and normal gait
Musculoskeletal Exam
Musculoskeletal Exam: full ROM, neuro vasc intact and other (Chronic low back pain, takes MsO4 30mg bid. Ambulating in room without assistance)
Skin Exam
Skin Exam: normal color, warm/dry and no rash
Psychiatric Exam
Psychiatric Exam: normal mood/affect
Course
Orders/Labs/Results
Orders:
Orders
02/01/24 16:51
Cardiac Monitoring- Treatment ONCE
IV Insert/Care/Rem.- Treatment PRN
O2 Therapy [RESP] Urgent
Titrate/Wean O2 to maintain O2 sat greater than (%): 93
Special Instructions: MAINTAIN CONTINOUS O2 SATS > OR = 93%
Pulse Ox/spot Check [RESP] Urgent
Quantity: 1
Special Instructions: ON ROOM AIR
02/01/24 16:56
Type+Screen Urgent
Complete Blood Count/With Diff Urgent
Comprehensive Metabolic Panel Urgent
PTT Urgent
Prothrombin Time Urgent
02/01/24 18:07
Ondansetron Orally Disint [Zofran Odt (Orally Disintegrating)] 4 mg PO NOW STA
02/01/24 19:17
Morphine Sulfate Extended Rel. [Ms Contin (Extended Release)] 15 mg PO NOW STA
Abnormal Lab Results
02/01/24
16:56
RBC 3.45 L 10^6/uL
(4.20-5.40)
Hgb 11.1 L g/dL
(12.0-16.0)
Hct 33.8 L %
(37.0-47.0)
MCH 32.2 H pg
(27.0-31.0)
MCHC 32.8 L g/dL
(33.0-37.0)
Absolute Monos (auto) 1.1 H 10^3/uL
(0.1-0.6)
Monocytes % 16.9 H %
(1.7-9.3)
Eosinophils % 6.1 H %
(0-6)
Basophils % 2.4 H %
(0-2)
Chloride 95 L mmol/L
(98-107)
Carbon Dioxide 34 H mmol/L
(22-30)
02/01/24 16:56
02/01/24 16:56
Vital Signs
Initial and Last Documented VS:
Initial Vital Signs
Temp Pulse Resp Pulse Ox
97.3 F 62 17 94
02/01/24 16:49 02/01/24 16:49 02/01/24 16:49 02/01/24 16:49
Last Documented Vital Signs
Temp Pulse Resp BP Pulse Ox
97.3 F 60 17 176/81 98
02/01/24 16:49 02/01/24 17:15 02/01/24 17:15 02/01/24 17:00 02/01/24 17:15
*Critical Care Note
Total Time (30-74mins, 75-104mins- exclusive of procedures): Not Applicable
Update Note
Update Note:
Patient denies any complaints. Son states she has chroninc back pain and complains about that but is not noticing anything new. She is afebrile. VSS, Labs stable. She is ambulating without assistance, requesting to go home. will discharge home
with son, close follow up with PCP. Instructed on s/s to return to ED and she is agreeable to plan.
ED Attending Note
-
Portions of this chart may have been created with voice recognition software.� Occasional wrong word or��sound alike� substitutions may have occurred due to the inherent limitations of voice recognition software.
Discharge Plan
Departure
Patient Disposition: Home (Routine Discharge)
Date of Disposition: 02/01/24
Time of Disposition: 19:14
Patient with high blood pressure during this ER visit?: No
Condition: Good
Discharge Problem:
Weakness
Instructions: Generalized Weakness (DC)
Prescriptions:
No Action
nitroglycerin 0.4 MG tablet, sublingual
0.4 mg sublingual [id number] PRN (Reason: chest pain)
Lumigan 1 DROP drops
1 drp BOTH EYES HS
leflunomide 20 MG tablet
20 mg PO DAILY
rosuvastatin 10 MG tablet
10 mg PO QPM
amlodipine 2.5 MG tablet
2.5 mg PO BID
folic acid 0.4 MG tablet
0.4 mg PO DAILY
albuterol sulfate 1 PUFF HFA aerosol inhaler
2 puff inhalation R Q4HPRN PRN (Reason: sob)
pyridostigmine bromide 60 MG tablet
60 mg PO QID 30 Days Qty: 120 0RF
cyanocobalamin (vitamin B-12) 1,000 MCG tablet
1,000 mcg PO DAILY
morphine 30 MG tablet extended release
30 mg PO Q12H
ferrous sulfate [FeroSul] 325 MG tablet
325 mg PO DAILY
gabapentin 300 MG capsule
600 mg PO TID
duloxetine 30 MG capsule,delayed release(DR/EC)
60 mg PO HS
duloxetine 30 MG capsule,delayed release(DR/EC)
30 mg PO DAILY
oxycodone 10 MG tablet
10 mg PO Q4HPRN PRN (Reason: severe pain)
sulfasalazine 500 mg tablet
1,000 mg PO BID@0800,1700
hydroxychloroquine 200 MG tablet
400 mg PO DAILY@1200
ondansetron 4 MG tablet,disintegrating
4 mg PO TIDPRN PRN (Reason: nausea/vomiting)
acetaminophen [Tylenol] 325 mg Tablet
650 mg PO TIDPRN PRN (Reason: mild pain)
ipratropium-albuterol 0.5 mg-3 mg(2.5 mg base)/3 mL Solution For Nebulization
3 ml INHALATION R QIDPRN PRN (Reason: sob)
metoprolol succinate [Toprol XL] 50 mg Tablet Extended Release 24 Hr
50 mg PO DAILY@1200
timolol 0.5 % Drops
1 drp BOTH EYES DAILY
fluticasone propion-salmeterol [Advair Diskus] 500-50 mcg/dose Blister With Device
1 inh INHALATION R DAILY
docusate sodium [Colace] 100 mg Capsule
100 mg PO DAILYPRN PRN (Reason: constipation)
cefdinir 300 mg Capsule
300 mg PO BID
pantoprazole [Protonix] 40 mg tablet,delayed release (DR/EC)
40 mg PO BID Qty: 60 0RF
sucralfate 1 gram tablet
1 g PO ACHS Qty: 90 0RF
polyethylene glycol 3350 [Miralax] 17 gram/dose powder
4 g PO DAILY Qty: 119 0RF
Referrals:
Ayah Tinajero MD [Family Provider] - Tomorrow
Interventions
Interventions:
*Risk Screen - Suicide Last Done: 02/01/24 16:53
*General Assessment Last Done: 02/01/24 16:53
*Neglect/Abuse Screening Last Done: 02/01/24 16:53
ED- Fall Risk Assessment Last Done: 02/01/24 16:54
*ED COVID-19 Vaccine History Last Done: 02/01/24 16:53
*Nursing Disposition Last Done: 02/01/24 19:57
ED- Cardiac Assessment Last Done: 02/01/24 16:54
ED- Neurological Assessment Last Done: 02/01/24 16:54
ED- Pulmonary Assessment Last Done: 02/01/24 16:54
Discharge Date and Time
Discharge Date/Time: 02/01/24 19:57
Print Language: GUAMANIAN
== END 2024-02-01 19:57 | disposition home or self-care (01) ==
LOC: EMR 16:47
PROVIDERS: EMERGENCY PHYSICIAN Emergency Medicine; FAMILY PHYSICIAN Family Medicine
DX: R53.1 Weakness (principal); M54.50 Low back pain, unspecified; R11.0 Nausea; R61 Generalized hyperhidrosis; I10 Essential (primary) hypertension; G89.29 Other chronic pain; I25.10 Atherosclerotic heart disease of native coronary artery without angina pectoris; M79.7 Fibromyalgia; K21.9 Gastro-esophageal reflux disease without esophagitis; J44.9 Chronic obstructive pulmonary disease, unspecified; F32.A Depression, unspecified; E78.00 Pure hypercholesterolemia, unspecified; I25.2 Old myocardial infarction; Z95.5 Presence of coronary angioplasty implant and graft; Z95.1 Presence of aortocoronary bypass graft; Z91.048 Other nonmedicinal substance allergy status
CPT/HCPCS: 99284; 94760; 80053; 85025; 85610; 85730; 86850; 86900; 86901

== ENCOUNTER 2024-05-29 11:39 | Day surgery (SDC) | payer OTHER, SELFPAY ==
[2024-05-29 08:43] VITALS: BMI 27.1
[2024-05-29 08:44] VITALS: BMI 27.1
[2024-05-29 08:46] VITALS: BP 152/71
[2024-05-29] MEDS: DUONEB 3 ML INH (09:06)
[2024-05-29] MEDS: MESTINON 60 MG PO (09:09)
[2024-05-29 10:45] VITALS: BP 123/53
[2024-05-29 11:00] VITALS: BP 107/93
== END 2024-05-29 11:40 | disposition home or self-care (01) ==
LOC: SDS 11:39
PROVIDERS: ATTENDING PHYSICIAN Internal Medicine
PROC: 0DB68ZX Excision of Stomach, Via Natural or Artificial Opening Endoscopic, Diagnostic (ICD-10-PCS; 2024-05-29)
DX: Z09 Encounter for follow-up examination after completed treatment for conditions other than malignant neoplasm (principal); K44.9 Diaphragmatic hernia without obstruction or gangrene; Z87.11 Personal history of peptic ulcer disease
CPT/HCPCS: 43239; 88305; 94640

== ENCOUNTER 2024-10-17 15:57 | Inpatient (IN) | payer OTHER, SELFPAY ==
[2024-10-17] VITALS (20 sets, daily range): BP systolic 100–168; BP diastolic 56–86; BMI 26.5; BMI 27.0
[2024-10-17] MEDS: NSS 1000 IV ×2 (11:37→18:38)
[2024-10-17] MEDS: ZOFRAN 4 MG IV ×2 (11:38→20:00)
[2024-10-17] MEDS: DILAUDID 1 MG IV (11:38)
[2024-10-17 11:52] LABS: Absolute Neutrophils -Man Diff 25.3 10^3/uL (1.4-6.5); Band Neutrophils 34 % (0-3); Eosinophils 1 % (0-6); Hemoglobin 10.7 g/dL (12.0-16.0); Lymphocytes 2 % (20-51); Mean Corp Hgb Conc. 32.4 g/dL (33.0-37.0); Mean Corpuscular Hgb 33.5 pg (27.0-31.0); Mean Corpuscular Volume 103.4 fL (81.0-99.0); Mean Platelet Volume 10.8 fL (7.4-10.4); Monocytes 2 % (2-9); Platelet Count 202 10^3/uL (130-400); Platelets Checked Yes; Red Blood Cell Count 3.19 10^6/uL (4.20-5.40); Red Cell Dist. Width 13.4 % (11.5-14.5); Segmented Neutrophils 61 % (42-75); White Blood Cell Count 26.7 10^3/uL (4.8-10.8)
[2024-10-17 11:53] LABS: Hypochromasia 1+; Normal RBC Morphology No; Polychromasia 1+
[2024-10-17 11:54] LABS: AST (SGOT) 46 U/L (14-36); Acanthocytes FEW; Albumin 4.6 g/dl (3.5-5.0); Alkaline Phosphatase 30 U/L (38-126); Basophilic Stippling 1+; Blood Urea Nitrogen 25 mg/dl (7-17); Calcium 9.6 mg/dl (8.4-10.2); Carbon Dioxide 29 mmol/L (22-30); Chloride 100 mmol/L (98-107); Estimated Creatinine Clearance 51 ml/min; Glucose 133 mg/dl (70-99); Howell Jolly Bodies 1+; Lipase < 10 U/L (23-300); Potassium 4.3 mmol/L (3.5-5.1); Sodium 137 mmol/L (135-145); Target Cells 1+; Total Bilirubin 1.2 mg/dl (0.2-1.3); Total Cells Counted 100; Total Protein 7.2 g/dl (6.3-8.2); eGFR > 60.00
[2024-10-17 12:37] LABS: Urine Albumin 2+ (Neg - Trace); Urine Bilirubin Negative (Negative); Urine Character Clear (Clear); Urine Color Yellow; Urine Glucose Negative (Negative); Urine Ketone 1+ (Negative); Urine Leukocyte 1+ (Negative); Urine Nitrite Negative (Negative); Urine Occult Blood 1+ (Negative); Urine Specific Gravity 1.025 (<1.030); Urine Urobilinogen Negative (Neg - 1+)
[2024-10-17 13:09] LABS: Urine Squamous Cell 16-20 /LPF (Few)
[2024-10-17 13:10] LABS: Urine Bacteria Few (Negative); Urine Red Blood Cell 0-2 /HPF (0-2); Urine Urothelial Cell 0-2 /LPF (FEW); Urine White Cell 0-2 /HPF (0-5)
[2024-10-17 14:19] LABS: ALT (SGPT) 33 U/L (0-35)
--- NOTE | 2024-10-17 14:39 | ED.GENMED ---
History of Present Illness
General
Chief Complaint: Abdominal Symptoms
Source: patient and ambulance crew
Time Seen by Provider: 10/17/24 11:19
History of Present Illness
History of Present Illness:
84-year-old female who presents with 5 days of nausea and vomiting. She states she has not been able to take her medications over that period of time. Patient now states she has pain all over. She does have a history of chronic pain syndromes.
Patient states that her pain is everywhere including her extremities, her abdomen, her back and areas of her chronic pain. Patient on exam is complaining of pain at the site of the nurse trying to place an IV in the right arm. No reported fevers.
Patient denies urinary symptoms. She does report generalized abdominal discomfort.
Past History
Past History
ED Past Medical History: CAD, COPD, Fibromyalgia, GERD, HTN, Hypercholesterolemia, [place], Psychiatric (depression) and Other (chronic back pain, Ulcers, C-diff)
ED Past Surgical History: Appendectomy, Cardiac (Stents, CABG), Gynecological, Orthopedic and Urological
Social History
Tobacco: Non-smoker
Alcohol: None
Drug: None
Personal:
Living: alone
Employment: Not employed
Family History
Family History: Other
Phy Exam
Physical Exam
Physical Exam:
CONSTITUTIONAL Patient alert and oriented to person, place and time. Moderate to severe pain distress. Vital signs reviewed.
HEAD atraumatic, normocephalic.
EYES eyelids normal to inspection, Extraocular muscles intact, Conjunctiva normal, Sclera normal.
NECK normal range of motion, Trachea midline, no jugular venous distention.
RESPIRATORY CHEST No respiratory distress noted, Chest expansion equal, Bilateral breath sounds clear.
CARDIOVASCULAR regular and tachycardic, Heart sounds normal.
ABDOMEN mild diffuse tenderness, no distention, normal bowel sounds
BACK normal inspection, no obvious deformities
UPPER EXTREMITY range of motion normal, Motor strength normal, no cyanosis, no edema.
LOWER EXTREMITY range of motion normal, Motor strength normal, no cyanosis, no edema.
NEURO Speech normal, No focal motor deficits, Cindy coma scale 15, Memory normal, Cranial Nerves intact to screening exam.
SKIN skin warm, dry, and normal in color.
Course
Orders/Labs/Results
Orders:
Orders
10/17/24
Electrocardiogram (*1) Stat
Comment: DONE EMR
10/17/24 11:23
Complete Blood Count/With Diff Urgent
Comprehensive Metabolic Panel Urgent
Lipase Urgent
Manual Differential Urgent
10/17/24 11:30
0.9% Sodium Chloride 1000 ml [Nss] 1,000 ml IV BOLUS
HYDROmorphone [Dilaudid] 1 mg IV NOW STA
Ondansetron Injectable [Zofran] 4 mg IV NOW STA
10/17/24 12:16
Urinalysis Reflex To Culture Urgent
Date Specimen was Collected: 10/17/24
Time Specimen was Collected: 11:44
Urine Microscopic Reflex Cult Urgent
Urine Culture Urgent
MARISOL Source: U
Specimen Description:
Date Specimen was Collected: 10/17/24
Time Specimen was Collected: 11:44
10/17/24 14:42
Lactic Acid Q4H
Comment: CANCEL 2nd LACTIC ACID IF 1st LACTIC ACID IS LESS THAN 2
Blood Culture Q30M
MARISOL Source: Blood/Venous
Specimen Description:
CR Chest - 2 Views Urgent
Comment:
Reason For Exam: vomiting, elevated WBC
10/17/24 14:44
CT Abd/pelvis W Iv Cont Urgent
Comment:
Reason For Exam: abd pain, vomiting, leukocytosis
10/17/24 15:15
Blood Culture Q30M
MARISOL Source: Blood/Venous
Specimen Description:
10/17/24 18:45
Lactic Acid Q4H
Comment: CANCEL 2nd LACTIC ACID IF 1st LACTIC ACID IS LESS THAN 2
Abnormal Lab Results
10/17/24 10/17/24
11:23 12:16
WBC 26.7 H 10^3/uL
(4.8-10.8)
RBC 3.19 L 10^6/uL
(4.20-5.40)
Hgb 10.7 L g/dL
(12.0-16.0)
Hct 33.0 L %
(37.0-47.0)
MCV 103.4 H fL
(81.0-99.0)
MCH 33.5 H pg
(27.0-31.0)
MCHC 32.4 L g/dL
(33.0-37.0)
MPV 10.8 H fL
(7.4-10.4)
Abs Neuts (Manual) 25.3 H 10^3/uL
(1.4-6.5)
Band Neutrophils 34 H %
(0-3)
Lymphocytes (Manual) 2 L %
(20-51)
BUN 25 H mg/dl
(7-17)
Glucose 133 H mg/dl
(70-99)
AST 46 H U/L
(14-36)
Alkaline Phosphatase 30 L U/L
(38-126)
Lipase < 10 L U/L
(23-300)
Urine Ketones 1+ A
(Negative)
Ur Occult Blood Reflex 1+ A
(Negative)
Leukocyte Esterase Rfl 1+ A
(Negative)
Urine Bacteria (Reflex) Few A
(Negative)
Urine Albumin (Reflex) 2+ A
(Neg - Trace)
10/17/24 11:23
10/17/24 11:23
Vital Signs
Initial and Last Documented VS:
Initial Vital Signs
Temp Pulse Resp BP Pulse Ox
98.2 F 120 22 157/82 92
10/17/24 11:16 10/17/24 11:16 10/17/24 11:16 10/17/24 11:16 10/17/24 11:16
Last Documented Vital Signs
Temp Pulse Resp BP Pulse Ox
98.2 F 107 16 148/60 95
10/17/24 11:16 10/17/24 14:00 10/17/24 14:00 10/17/24 14:00 10/17/24 14:00
MDM/Problems Addressed
Differential Diagnosis Includes:
Pyelonephritis, sepsis, bowel obstruction, colitis, gastritis, bacteremia
MDM/Problems Addressed:
Intractable vomiting, leukocytosis, bandemia
*Pulse Oximetry
Patient hypoxic: no
*Magazine Filler Interpretation
Rate: normal
Interpretation: normal
Rhythm: sinus
*Critical Care Note
Total Time (30-74mins, 75-104mins- exclusive of procedures): Not Applicable
Data Reviewed
Review of Other/Old Records Reveals: Testing (Prior chest x-ray reviewed from January 27, 2024 showing no acute process versus today)
Source: patient
Patient Management
Discussion with other providers: Hospitalist
Escalation/DeEscalation of care consider admission/obs:
82-year-old female presents with pain everywhere and vomiting. Chest x-ray suspicious for pneumonia. Cover with antibiotics given bandemia and leukocytosis. However, blood culture sent. Admit
ED Attending Note
-
Portions of this chart may have been created with voice recognition software.� Occasional wrong word or��sound alike� substitutions may have occurred due to the inherent limitations of voice recognition software.
Discharge Plan
Departure
Patient Disposition: Admit
Date of Disposition: 10/17/24
Time of Disposition: 14:40
Admit to: Med/Surg
Presentation/result/management discussed w/ accepting MD/DO: Hospitalist
Discharge Problem:
Intractable nausea and vomiting, Leukocytosis, Bandemia, possible narcotic withdrawal
Prescriptions:
No Action
nitroglycerin 0.4 MG tablet, sublingual
0.4 mg sublingual [id number] PRN (Reason: chest pain)
Lumigan 1 DROP drops
1 drp BOTH EYES HS
leflunomide 20 MG tablet
20 mg PO DAILY
rosuvastatin 10 MG tablet
10 mg PO QPM
amlodipine 2.5 MG tablet
2.5 mg PO BID
folic acid 0.4 MG tablet
0.4 mg PO DAILY
albuterol sulfate 1 PUFF HFA aerosol inhaler
2 puff inhalation R Q4HPRN PRN (Reason: sob)
pyridostigmine bromide 60 MG tablet
60 mg PO QID 30 Days Qty: 120 0RF
cyanocobalamin (vitamin B-12) 1,000 MCG tablet
1,000 mcg PO DAILY
morphine 30 MG tablet extended release
30 mg PO Q12H
ferrous sulfate [FeroSul] 325 MG tablet
325 mg PO DAILY
gabapentin 300 MG capsule
600 mg PO TID
duloxetine 30 MG capsule,delayed release(DR/EC)
60 mg PO HS
duloxetine 30 MG capsule,delayed release(DR/EC)
30 mg PO DAILY
sulfasalazine 500 mg tablet
1,000 mg PO BID@0800,1700
hydroxychloroquine 200 MG tablet
400 mg PO DAILY@1200
ondansetron 4 MG tablet,disintegrating
4 mg PO TIDPRN PRN (Reason: nausea/vomiting)
acetaminophen [Tylenol] 325 mg Tablet
650 mg PO TIDPRN PRN (Reason: mild pain)
ipratropium-albuterol 0.5 mg-3 mg(2.5 mg base)/3 mL Solution For Nebulization
3 ml INHALATION R QIDPRN PRN (Reason: sob)
metoprolol succinate [Toprol XL] 50 mg Tablet Extended Release 24 Hr
50 mg PO DAILY@1200
timolol 0.5 % Drops
1 drp BOTH EYES DAILY
fluticasone propion-salmeterol [Advair Diskus] 500-50 mcg/dose Blister With Device
1 inh INHALATION BID
docusate sodium [Colace] 100 mg Capsule
100 mg PO DAILYPRN PRN (Reason: constipation)
cefdinir 300 mg Capsule
300 mg PO BID
sucralfate 1 gram tablet
1 g PO ACHS Qty: 90 0RF
polyethylene glycol 3350 [Miralax] 17 gram/dose powder
4 g PO DAILY Qty: 119 0RF
hydromorphone [Dilaudid] 4 mg Tablet
4 mg PO Q6H PRN (Reason: pain)
cholecalciferol (vitamin D3) [Vitamin D3] 125 mcg (5,000 unit) Tablet
125 mcg PO DAILY
pantoprazole [Protonix] 40 mg tablet,delayed release (DR/EC)
80 mg PO BID
Referrals:
UNKNOWN,NO INTERVIEW [Family Provider]
Interventions
Interventions:
*Risk Screen - Suicide Last Done: 10/17/24 11:43
*General Assessment Last Done: 10/17/24 11:16
*Neglect/Abuse Screening Last Done: 10/17/24 11:43
*ED- Fall Risk Assessment Last Done: 10/17/24 11:43
VR-Paxkvg-Grocwlgair Assessment Last Done: 10/17/24 11:43
Discharge Date and Time
Print Language: ANDORRAN
[2024-10-17 15:13] LABS: Lactic Acid 3.4 mmol/L (0.7-2.0)
[2024-10-17] MEDS: ROCEPHIN 2000 MG IV (15:23)
[2024-10-17] MEDS: VIBRAMYCIN 100 MG PO (15:23)
[2024-10-17] MEDS: NSS 500 IV (15:30)
--- NOTE | 2024-10-17 15:30 | HPS.HSE ---
Family Physician
-
Family Physician: NO INTERVIEW UNKNOWN
Chief Complaint
-
nausea/vomiting
History of Present Illness
84yo F with PMHX CAD s/p PCI, COPD, hypertension, hyperlipidemia, depression, fibromyalgia, chronic lower back pain, chronic opioid dependence, spina bifida, multiple back surgeries, seronegative rheumatoid arthritis, chronic vertebral osteomyelitis
on chronic suppressive antibiotic, melanoma, GERD, peptic ulcer disease, C. difficile in the past, chronic hypoxic respiratory failure on 2L home O2 came with nausea and vomiting for past 24h. No abdominal pain noted, but labs significant for
bandemia with leukocytosis. As per family - patient has two cats at home and did not clean the O2 concentrator for a very long time. XR chest concerning for peneumonia
No new discharge or redness around site of the Sx on the back
Medical History
Past Medical History
Past Medical History: Reports Other
Additional Past Medical History:
see HPI
Past Surgical History: Reports Other
Additional Past Surgical History:
See HPI
Social History
Tobacco: Former Smoker
Alcohol: None
Drug: None
Family History
Family History: Not pertinent
Allergies / Home Medications
Allergies reflects when Allergies were last updated in [facility].
Home Medications with original date entered in [facility]
Allergy/Medication List:
Allergies
Allergy/AdvReac Type Severity Reaction Status Date / Time
adhesive Allergy TAPE-RASH,SKIN Verified 10/17/24 11:16
BLISTERS
Home Medications
bimatoprost 0.01 % eye drops (Lumigan) 1 drp BOTH EYES HS Eye condition 04/01/15
nitroglycerin 0.4 mg sublingual tablet 0.4 mg sublingual [id number] PRN chest pain 04/01/15
leflunomide 20 mg tablet 20 mg PO DAILY artrhitis 01/18/17
rosuvastatin 10 mg tablet 10 mg PO QPM High cholesterol 04/11/19
amlodipine 2.5 mg tablet 2.5 mg PO BID Blood pressure 08/22/19
folic acid 400 mcg tablet 0.4 mg PO DAILY Supplement 08/22/19
albuterol sulfate 90 mcg/actuation aerosol inhaler 2 puff inhalation R Q4HPRN PRN sob 06/30/20
pyridostigmine bromide 60 mg tablet 60 mg PO QID 30 days #120 tabs 07/02/20
cyanocobalamin (vitamin B-12) 1,000 mcg tablet 1,000 mcg PO DAILY Supplement 11/11/20
duloxetine 30 mg capsule,delayed release 30 mg PO DAILY Chronic pain 11/11/20
duloxetine 30 mg capsule,delayed release 60 mg PO HS chronic pain 11/11/20
ferrous sulfate 325 mg (65 mg iron) tablet (FeroSul) 325 mg PO DAILY Supplement 11/11/20
gabapentin 300 mg capsule 600 mg PO TID Neurological Condition 11/11/20
morphine 30 mg tablet,extended release 30 mg PO Q12H 11/11/20
hydroxychloroquine 200 mg tablet 400 mg PO DAILY@1200 07/20/22
ondansetron 4 mg disintegrating tablet 4 mg PO TIDPRN PRN nausea/vomiting 07/20/22
sulfasalazine 500 mg tablet 1,000 mg PO BID@0800,1700 07/20/22
acetaminophen 325 mg tablet (Tylenol) 650 mg PO TIDPRN PRN mild pain 01/25/24
cefdinir 300 mg capsule 300 mg PO BID long-term 01/25/24
docusate sodium 100 mg capsule (Colace) 100 mg PO DAILYPRN PRN constipation 01/25/24
fluticasone 500 mcg-salmeterol 50 mcg/dose blistr powdr for inhalation (Advair Diskus) 1 inh inhalation BID 01/25/24
ipratropium 0.5 mg-albuterol 3 mg (2.5 mg base)/3 mL nebulization soln 3 ml inhalation R QIDPRN PRN sob 01/25/24
metoprolol succinate 50 mg tablet,extended release 24 hr (Toprol XL) 50 mg PO DAILY@1200 01/25/24
timolol 0.5 % eye drops 1 drp BOTH EYES DAILY 01/25/24
polyethylene glycol 3350 17 gram/dose oral powder (Miralax) 4 g PO DAILY #119 grams 01/29/24
sucralfate 1 gram tablet 1 g PO ACHS #90 tabs 01/29/24
cholecalciferol (vitamin D3) 125 mcg (5,000 unit) tablet (Vitamin D3) 125 mcg PO DAILY 05/29/24
hydromorphone 4 mg tablet (Dilaudid) 4 mg PO Q6H PRN pain 05/29/24
pantoprazole 40 mg tablet,delayed release (Protonix) 80 mg PO BID 05/29/24
Review of Systems
-
History Source: Patient
A 12 point ROS was completed and negative except as noted: Yes
Constitutional: Reports See HPI
Abdomen/GI: Reports Nausea; Denies Abdominal Pain
Physical Exam
Vital Signs
Vital Signs
Temp Pulse Resp BP Pulse Ox
98.2 F 107 16 124/64 94
10/17/24 11:16 10/17/24 14:45 10/17/24 15:00 10/17/24 14:30 10/17/24 15:00
Physical Exam
General: Well Developed, Well Nourished and No Apparent Distress
HEENT: Anicteric and Atraumatic; No Moist mucous membranes
Respiratory: Clear
Cardiac: S1/S2 and Regular Rhythm; No Murmur
GI: Soft, Non Tender and Non Distended
Genito-urinary: No costovertebral tender
Musculoskeletal: No Clubbing, No Cyanosis and No Edema
Skin: Warm; No Rash, Jaundice or Ulcers
Neuro: Awake, Alert, Oriented and AO x 3
Psych: Calm
Laboratory Results
-
10/17/24 11:23
10/17/24 11:23
Laboratory Results
Lactic Acid 3.4 mmol/L (0.7-2.0) H 10/17/24 14:42
Total Bilirubin 1.2 mg/dl (0.2-1.3) 10/17/24 11:23
AST 46 U/L (14-36) H 10/17/24 11:23
ALT 33 U/L (0-35) 10/17/24 11:23
Alkaline Phosphatase 30 U/L (38-126) L 10/17/24 11:23
Lipase < 10 U/L (23-300) L 10/17/24 11:23
Data Reviewed
-
Lab Data: Labs Reviewed by me
Impression/Plan
-
IMPRESSION:
A/P:
#Nausea, vomiting, most likely 2/2 CAP with sepsis (elevated lactate, sinus tachy, bandemia) on admision
#Chronic hypoxic respiratory failure on 2L O2
Check legionella, S.pneumonia urinary Ag
Sputum Cx
Bcx
Ceftriaxone/Doxy
cont home O2 and bronchodilators
folow abd CT
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
cont
#UA with unclear symptomatology
Ceftriaxone and follow Ucx
follow CT abd for hydronephrosis or nephrolithiasis
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
#GERD
#RA
#fibromialgia
#Hx of melanoma
#Glaucoma
#Fibromialgia
#essential HTN
#chronic pain syndrome s/p spinal stim
Anxiety
cont home meds
#mild anemia
#YANDY
follow CBC
#mildly elevated AST
follow LFT
check CPK
DVT ppx hep
DNR/DNI
I have spent at least 78min admitting the patient
PLAN:
--- NOTE | 2024-10-17 15:56 | CM ---
CM reviewed chart and met with pt and son bedside in ED. Pt resides in 1 story home, [address], grandson lives with her. Independent in ADLs, uses walker. Currently getting VN services through [facility], has been to [facility] in [place] for
rehab. Daughter will transport home at time of DC.
PCP: Cristina Glover
Pharmacy: [facility]
Plan: return home pending ongoing medical evaluation
--- NOTE | 2024-10-17 18:10 | PTCARENOTE ---
Received patient from ED via stretcher. Pt AAOX3. Pox: 98% 4L NC. ST on monitoring manager. Call handy within reach. Plan of care ongoing.
[2024-10-17] MEDS: HEPARIN 5000 UNITS SC (19:44)
[2024-10-17] MEDS: NEURONTIN 600 MG PO ×2 (19:44→21:33)
[2024-10-17] MEDS: CRESTOR 10 MG PO (19:44)
[2024-10-17] MEDS: AZULFIDINE 1000 MG PO (19:45)
[2024-10-17] MEDS: MESTINON 60 MG PO ×2 (19:45→21:33)
[2024-10-17] MEDS: NORVASC 2.5 MG PO (19:46)
[2024-10-17] MEDS: ADVAIR HFA 230/21 MCG INHALER 2 PUFF INH (19:52)
[2024-10-17] MEDS: ROXICODONE 5 MG PO (19:56)
[2024-10-17 20:00] LABS: Lactic Acid 1.2 mmol/L (0.7-2.0)
[2024-10-17] MEDS: CYMBALTA DELAYED RELEASE 60 MG PO (21:33)
[2024-10-17] MEDS: TYLENOL 650 MG PO (21:37)
[2024-10-17] MEDS: HEPARIN SC (23:37)
[2024-10-18] MEDS: ROXICODONE 5 MG PO ×4 (00:47→20:46)
[2024-10-18 03:20] VITALS: BP 143/75
[2024-10-18] MEDS: NSS 1000 IV ×2 (03:26→16:22)
[2024-10-18] MEDS: VIBRAMYCIN 260 MG IV ×2 (03:26→16:19)
[2024-10-18] MEDS: ZOFRAN 4 MG IV ×2 (04:00→12:00)
[2024-10-18 07:00] LABS: Hematocrit 27.6 % (37.0-47.0); Hemoglobin 8.8 g/dL (12.0-16.0); Mean Corp Hgb Conc. 31.9 g/dL (33.0-37.0); Mean Corpuscular Hgb 33.5 pg (27.0-31.0); Mean Corpuscular Volume 104.9 fL (81.0-99.0); Mean Platelet Volume 10.5 fL (7.4-10.4); Platelet Count 154 10^3/uL (130-400); Red Blood Cell Count 2.63 10^6/uL (4.20-5.40); Red Cell Dist. Width 13.9 % (11.5-14.5); White Blood Cell Count 26.8 10^3/uL (4.8-10.8)
[2024-10-18 07:05] VITALS: BP 177/99
[2024-10-18] MEDS: VITAMIN D3 (cholecalciferol) 125 MCG PO (07:37)
[2024-10-18] MEDS: NORVASC 2.5 MG PO ×2 (07:37→20:46)
[2024-10-18] MEDS: NEURONTIN 600 MG PO ×3 (07:37→21:23)
[2024-10-18] MEDS: AZULFIDINE 1000 MG PO ×2 (07:37→17:04)
[2024-10-18] MEDS: CYMBALTA DELAYED RELEASE 30 MG PO (07:38)
[2024-10-18] MEDS: PROTONIX 40 MG PO (07:38)
[2024-10-18] MEDS: FEOSOL 325 MG PO (07:38)
[2024-10-18] MEDS: FOLVITE 0.4 MG PO (07:38)
[2024-10-18] MEDS: HEPARIN SC ×2 (07:39→15:45)
[2024-10-18] MEDS: MESTINON 60 MG PO ×4 (07:40→21:23)
[2024-10-18 07:42] LABS: % Basophils 0.6 % (0-2); % Eosinophils 0.9 % (0-6); % Immature Granulocytes 0.9 % (0-0.5); % Monocytes 6.1 % (1.7-9.3); % Neutrophils 87.5 % (42.2-75.2); Absolute Basophils 0.2 10^3/uL (0-0.2); Absolute Eosinophils 0.2 10^3/uL (0-0.7); Absolute Immature Granulocytes 0.2 10^3/uL (0-0.05); Absolute Lymphocytes 1.1 10^3/uL (1.2-3.4); Absolute Monocytes 1.6 10^3/uL (0.1-0.6); Absolute Neutrophils 23.4 10^3/uL (1.4-6.5); Nucleated Red Blood Cells % 0 %
[2024-10-18 07:43] LABS: ALT (SGPT) 20 U/L (0-35); AST (SGOT) 32 U/L (14-36); Albumin 3.5 g/dl (3.5-5.0); Alkaline Phosphatase 57 U/L (38-126); Blood Urea Nitrogen 19 mg/dl (7-17); Carbon Dioxide 26 mmol/L (22-30); Chloride 106 mmol/L (98-107); Estimated Creatinine Clearance 60 ml/min; Glucose 82 mg/dl (70-99); Iron 27 ug/dl (37-170); Magnesium 1.4 mg/dl (1.6-2.3); Potassium 3.3 mmol/L (3.5-5.1); Sodium 137 mmol/L (135-145); Total Bilirubin 0.6 mg/dl (0.2-1.3); Total Protein 5.7 g/dl (6.3-8.2); eGFR > 60.00
[2024-10-18] MEDS: ADVAIR HFA 230/21 MCG INHALER 2 PUFF INH ×2 (07:43→20:49)
[2024-10-18 07:51] LABS: Percent Saturation 12 % (20-50); Total Iron Binding Capacity 209 ug/dl (265-497)
[2024-10-18] MEDS: OMNIPAQUE 50 ML PO (07:55)
[2024-10-18 08:26] LABS: Vitamin B12 > 1000 pg/ml (239-931)
[2024-10-18] MEDS: KCL ELIXIR 40 MEQ PO (09:04)
[2024-10-18] MEDS: MAGNESIUM SULFATE 100 IV (09:24)
[2024-10-18 11:03] VITALS: BP 180/87
[2024-10-18] MEDS: PLAQUENIL 400 MG PO (11:55)
[2024-10-18] MEDS: DELTASONE 5 MG PO (11:57)
[2024-10-18] MEDS: TOPROL XL 100 MG PO (11:57)
[2024-10-18] MEDS: APRESOLINE 10 MG IV (11:59)
[2024-10-18] MEDS: DILAUDID 0.5 MG IV ×2 (12:09→22:26)
--- NOTE | 2024-10-18 12:17 | CM ---
Patient seen at bedside
CT abdomen/pelvis-Moderate hiatal hernia. Small bilateral pleural effusions. Bibasilar atelectasis.
Patient states current with [facility] - called liaison to confirm
PLAN: return home pending ongoing medical evaluation
--- NOTE | 2024-10-18 12:26 | W.PN.HOSP.TC ---
Today's Communication/Plan
-
abx
wean o2
resume BP meds
f/u cultures
Assessment / Plan
Assessment / Plan
Physical Exam
General: Well Developed, Well Nourished and No Apparent Distress
HEENT: Anicteric and Atraumatic; No Moist mucous membranes
Respiratory: Clear
Cardiac: S1/S2 and Regular Rhythm; No Murmur
GI: Soft, Non Tender and Non Distended
Genito-urinary: No costovertebral tender
Musculoskeletal: No Clubbing, No Cyanosis and No Edema
Skin: Warm; No Rash, Jaundice or Ulcers
Neuro: Awake, Alert, Oriented and AO x 3
Psych: Calm
#Nausea, vomiting, most likely 2/2 CAP with sepsis (elevated lactate, sinus tachy, bandemia) on admission
#Chronic hypoxic respiratory failure on 2L O2
Check legionella, S.pneumonia urinary Ag - negative
Sputum Cx if expectorarting
Bcx
Ceftriaxone/Doxy
cont home O2 and bronchodilators
folow abd CT - unremarkable
Hold cefdinir (used for medical terminologist supression) while on ceftriaxone
cont
Cdiff if noted diarrhea although CT imaging with no colitis
#Hypokalemia
#Hypomagnesemia
-monitor and replete
#UA with unclear symptomatology
Ceftriaxone and follow Ucx
follow CT abd for hydronephrosis or nephrolithiasis
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
#GERD
#RA
#fibromialgia
#Hx of melanoma
#Glaucoma
#Fibromialgia
#essential HTN
#chronic pain syndrome s/p spinal stim
Anxiety
cont home meds
#mild anemia
#YANDY
follow CBC
#mildly elevated AST
follow LFT
resolved
DVT ppx hep
DNR/DNI
Anticipated Discharge: 24 - 48 hours
Subjective/Interval History
-
Date of Service: October 18, 2024
no acute events overnight
Objective Data
-
Labs:
Laboratory Results
10/18/24
06:23
WBC 26.8 H
Hgb 8.8 L
Hct 27.6 L
Plt Count 154 D
Sodium 137
Potassium 3.3 L
Chloride 106
Carbon Dioxide 26
BUN 19 H
Creatinine 0.6
Glucose 82
Calcium 8.0 L D
Total Bilirubin 0.6
AST 32
ALT 20
Alkaline Phosphatase 57
Vital Signs:
Vital Signs
Temp Pulse Resp BP Pulse Ox
99.2 F 108 20 180/87 98
10/18/24 11:03 10/18/24 11:59 10/18/24 11:03 10/18/24 11:59 10/18/24 11:03
I&O
10/17/24 10/18/24 10/19/24
06:59 06:59 06:59
Intake Total 50 / 50
Balance 50 / 50
Review of Systems
-
History Source: Patient
All other systems: Not reviewed unless documented
Data Reviewed
-
Diagnostic Radiology: Report Reviewed by me
CT Scan: Report Reviewed by me
Labs: Labs Reviewed by me
[2024-10-18 15:05] VITALS: BP 162/84
[2024-10-18] MEDS: STERILE WATER FOR INJECTION 10 ML IV (15:45)
[2024-10-18] MEDS: ROCEPHIN 1000 MG IV (15:45)
[2024-10-18] MEDS: CRESTOR 10 MG PO (17:04)
--- NOTE | 2024-10-18 18:07 | W.PN.UPDATE ---
Update Note
Progress Note Update
Cross-cover->pte c/o stomach spasm-->give one time dose Bentyl. Watch for antimuscarinic effects and reeval.
[2024-10-18] MEDS: BENTYL 20 MG PO (18:28)
[2024-10-18 19:23] VITALS: BP 161/84
[2024-10-18] MEDS: CYMBALTA DELAYED RELEASE 60 MG PO (21:23)
[2024-10-18 23:00] VITALS: BP 165/84
[2024-10-18] MEDS: HEPARIN 5000 UNITS SC (23:35)
[2024-10-19] VITALS (7 sets, daily range): BP systolic 129–180; BP diastolic 68–92
[2024-10-19] MEDS: DILAUDID 0.5 MG IV ×3 (02:36→17:13)
[2024-10-19] MEDS: VIBRAMYCIN 260 MG IV ×2 (04:02→16:22)
[2024-10-19] MEDS: NSS 1000 IV (05:45)
[2024-10-19] MEDS: ROXICODONE 5 MG PO ×2 (05:58→14:38)
[2024-10-19] MEDS: AZULFIDINE 1000 MG PO ×2 (07:29→16:23)
[2024-10-19] MEDS: MESTINON 60 MG PO ×4 (07:29→21:00)
[2024-10-19] MEDS: FEOSOL 325 MG PO (07:29)
[2024-10-19] MEDS: HEPARIN 5000 UNITS SC ×3 (07:29→23:38)
[2024-10-19] MEDS: VITAMIN D3 (cholecalciferol) 125 MCG PO (07:29)
[2024-10-19] MEDS: CYMBALTA DELAYED RELEASE 30 MG PO (07:29)
[2024-10-19] MEDS: NORVASC 2.5 MG PO (07:29)
[2024-10-19] MEDS: DELTASONE 5 MG PO (07:29)
[2024-10-19] MEDS: FOLVITE 0.4 MG PO (07:29)
[2024-10-19] MEDS: PROTONIX 40 MG PO (07:29)
[2024-10-19] MEDS: NEURONTIN 600 MG PO ×3 (07:29→21:00)
[2024-10-19 07:32] LABS: Hematocrit 28.1 % (37.0-47.0); Mean Corpuscular Hgb 33.1 pg (27.0-31.0); Mean Corpuscular Volume 103.3 fL (81.0-99.0); Mean Platelet Volume 10.8 fL (7.4-10.4); Platelet Count 148 10^3/uL (130-400); Red Blood Cell Count 2.72 10^6/uL (4.20-5.40); Red Cell Dist. Width 14.1 % (11.5-14.5); White Blood Cell Count 26.3 10^3/uL (4.8-10.8)
[2024-10-19] MEDS: APRESOLINE 10 MG IV (07:32)
[2024-10-19] MEDS: ADVAIR HFA 230/21 MCG INHALER 2 PUFF INH ×2 (07:52→19:24)
[2024-10-19] MEDS: ZOFRAN 4 MG IV (08:09)
[2024-10-19 08:11] LABS: ALT (SGPT) 21 U/L (0-35); AST (SGOT) 32 U/L (14-36); Albumin 3.5 g/dl (3.5-5.0); Alkaline Phosphatase 68 U/L (38-126); Blood Urea Nitrogen 8 mg/dl (7-17); Calcium 7.8 mg/dl (8.4-10.2); Carbon Dioxide 25 mmol/L (22-30); Chloride 106 mmol/L (98-107); Estimated Creatinine Clearance 60 ml/min; Glucose 92 mg/dl (70-99); Potassium 3.2 mmol/L (3.5-5.1); Sodium 132 mmol/L (135-145); Total Bilirubin 0.6 mg/dl (0.2-1.3); Total Protein 5.8 g/dl (6.3-8.2); eGFR > 60.00
[2024-10-19 10:06] LABS: Magnesium 1.7 mg/dl (1.6-2.3)
[2024-10-19] MEDS: KCL ELIXIR 40 MEQ PO (10:28)
[2024-10-19] MEDS: TOPROL XL 100 MG PO (12:13)
[2024-10-19] MEDS: PLAQUENIL 400 MG PO (12:13)
[2024-10-19] MEDS: FLEXERIL 5 MG PO (12:55)
--- NOTE | 2024-10-19 13:24 | W.PN.HOSP.TC ---
Today's Communication/Plan
-
Stool cultures, C. difficile
Continue antibiotics
Wean O2 to baseline
Monitor white count, if unresolving with negative C. difficile and stool cultures�will need to obtain CT chest with IV contrast
Assessment / Plan
Assessment / Plan
Physical Exam
General: Well Developed, Well Nourished and No Apparent Distress
HEENT: Anicteric and Atraumatic; No Moist mucous membranes
Respiratory: Clear
Cardiac: S1/S2 and Regular Rhythm; No Murmur
GI: Soft, Non Tender and Non Distended
Genito-urinary: No costovertebral tender
Musculoskeletal: No Clubbing, No Cyanosis and No Edema
Skin: Warm; No Rash, Jaundice or Ulcers
Neuro: Awake, Alert, Oriented and AO x 3
Psych: Calm
#Nausea, vomiting, most likely 2/2 CAP with sepsis (elevated lactate, sinus tachy, bandemia) on admission
#Chronic hypoxic respiratory failure on 2L O2
Check legionella, S.pneumonia urinary Ag - negative
Sputum Cx if expectorarting
Bcx
Ceftriaxone/Doxy
cont home O2 and bronchodilators
folow abd CT - unremarkable
Hold cefdinir (used for retirement supression) while on ceftriaxone
cont
Follow-up C. difficile, stool cultures will continue diarrhea and elevated white count
Also component of opiate withdrawal is a possibility
#Hypokalemia
#Hypomagnesemia
-monitor and replete
Hyponatremia
� Monitor, mild
#UA with unclear symptomatology
Ceftriaxone and follow Ucx
follow CT abd for hydronephrosis or nephrolithiasis
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
#GERD
#RA
#fibromialgia
#Hx of melanoma
#Glaucoma
#Fibromialgia
#essential HTN
#chronic pain syndrome s/p spinal stim
Anxiety
cont home meds
#mild anemia
#YANDY
follow CBC
#mildly elevated AST
follow LFT
resolved
DVT ppx hep
DNR/DNI
Anticipated Discharge: 24 - 48 hours
Subjective/Interval History
-
Date of Service: October 19, 2024
Still with diarrhea, although nausea and vomiting improved
Objective Data
-
Labs:
Laboratory Results
10/19/24
07:05
WBC 26.3 H
Hgb 9.0 L
Hct 28.1 L
Plt Count 148
Sodium 132 L
Potassium 3.2 L
Chloride 106
Carbon Dioxide 25
BUN 8
Creatinine 0.5 L
Glucose 92
Calcium 7.8 L
Total Bilirubin 0.6
AST 32
ALT 21
Alkaline Phosphatase 68
Vital Signs:
Vital Signs
Temp Pulse Resp BP Pulse Ox
97.7 F 108 18 145/81 94
10/19/24 11:00 10/19/24 11:00 10/19/24 11:00 10/19/24 11:00 10/19/24 11:00
I&O
10/18/24 10/19/24 10/20/24
06:59 06:59 06:59
Intake Total 50 / 50 2099 / 2099
Balance 50 / 50 2099 / 2099
Review of Systems
-
History Source: Patient
All other systems: Not reviewed unless documented
Data Reviewed
-
Diagnostic Radiology: Report Reviewed by me
CT Scan: Report Reviewed by me
Labs: Labs Reviewed by me
--- NOTE | 2024-10-19 14:14 | CM ---
Patient seen at bedside
Spoke with [place] from [facility], not current
tt hospitalist regarding PT/OT evals
PLAN: TBD, CM to follow hospital progress
[2024-10-19] MEDS: IMODIUM 2 MG PO ×2 (16:21→21:00)
[2024-10-19] MEDS: ROCEPHIN 1000 MG IV (16:22)
[2024-10-19] MEDS: STERILE WATER FOR INJECTION 10 ML IV (16:22)
[2024-10-19] MEDS: CRESTOR 10 MG PO (17:10)
[2024-10-19] MEDS: MS CONTIN (EXTENDED RELEASE) 30 MG PO (17:42)
[2024-10-19] MEDS: NORVASC 5 MG PO (19:32)
[2024-10-19] MEDS: CYMBALTA DELAYED RELEASE 60 MG PO (21:00)
[2024-10-20] MEDS: ROXICODONE 5 MG PO (03:05)
[2024-10-20] MEDS: VIBRAMYCIN 260 MG IV ×2 (03:05→15:58)
[2024-10-20] MEDS: ZOFRAN 4 MG IV ×2 (03:05→20:24)
[2024-10-20 03:19] VITALS: BP 140/82
[2024-10-20] MEDS: FLEXERIL 5 MG PO (03:19)
[2024-10-20] MEDS: MS CONTIN (EXTENDED RELEASE) 30 MG PO ×2 (05:29→17:12)
[2024-10-20 07:22] VITALS: BP 88/61
[2024-10-20 07:26] LABS: Hematocrit 30.4 % (37.0-47.0); Hemoglobin 9.8 g/dL (12.0-16.0); Mean Corp Hgb Conc. 32.2 g/dL (33.0-37.0); Mean Corpuscular Hgb 33.4 pg (27.0-31.0); Mean Corpuscular Volume 103.8 fL (81.0-99.0); Mean Platelet Volume 10.2 fL (7.4-10.4); Platelet Count 163 10^3/uL (130-400); Red Blood Cell Count 2.93 10^6/uL (4.20-5.40); Red Cell Dist. Width 13.9 % (11.5-14.5); White Blood Cell Count 17.8 10^3/uL (4.8-10.8)
[2024-10-20] MEDS: ADVAIR HFA 230/21 MCG INHALER 2 PUFF INH ×2 (07:51→18:04)
[2024-10-20 08:13] LABS: ALT (SGPT) 19 U/L (0-35); AST (SGOT) 27 U/L (14-36); Albumin 3.6 g/dl (3.5-5.0); Alkaline Phosphatase 55 U/L (38-126); Blood Urea Nitrogen 5 mg/dl (7-17); Calcium 8.4 mg/dl (8.4-10.2); Carbon Dioxide 26 mmol/L (22-30); Chloride 111 mmol/L (98-107); Estimated Creatinine Clearance 60 ml/min; Glucose 93 mg/dl (70-99); Magnesium 1.7 mg/dl (1.6-2.3); Potassium 3.4 mmol/L (3.5-5.1); Sodium 141 mmol/L (135-145); Total Bilirubin 0.6 mg/dl (0.2-1.3); Total Protein 6.3 g/dl (6.3-8.2); eGFR > 60.00
[2024-10-20] MEDS: AZULFIDINE 1000 MG PO ×2 (08:56→15:59)
[2024-10-20] MEDS: VITAMIN D3 (cholecalciferol) 125 MCG PO (08:56)
[2024-10-20] MEDS: NEURONTIN 600 MG PO ×3 (08:56→21:33)
[2024-10-20] MEDS: CYMBALTA DELAYED RELEASE 30 MG PO (08:56)
[2024-10-20] MEDS: FOLVITE 0.4 MG PO (08:56)
[2024-10-20] MEDS: FEOSOL 325 MG PO (08:56)
[2024-10-20] MEDS: PROTONIX 40 MG PO (08:56)
[2024-10-20] MEDS: DELTASONE 5 MG PO (08:56)
[2024-10-20] MEDS: NORVASC PO (08:57)
[2024-10-20] MEDS: MESTINON 60 MG PO ×4 (08:57→21:33)
[2024-10-20] MEDS: HEPARIN 5000 UNITS SC ×2 (08:58→16:00)
[2024-10-20 11:08] VITALS: BP 173/102
--- NOTE | 2024-10-20 11:17 | W.PN.HOSP.TC ---
Today's Communication/Plan
-
abx
MRI lumbar spine
Speech eval
Assessment / Plan
Assessment / Plan
Physical Exam
General: Well Developed, Well Nourished and No Apparent Distress
HEENT: Anicteric and Atraumatic; No Moist mucous membranes
Respiratory: Clear
Cardiac: S1/S2 and Regular Rhythm; No Murmur
GI: Soft, Non Tender and Non Distended
Genito-urinary: No costovertebral tender
Musculoskeletal: No Clubbing, No Cyanosis and No Edema
Skin: Warm; No Rash, Jaundice or Ulcers
Neuro: Awake, Alert, Oriented and AO x 3
Psych: Calm
#Nausea, vomiting, most likely 2/2 CAP with sepsis (elevated lactate, sinus tachy, bandemia) on admission
#Chronic hypoxic respiratory failure on 2L O2
#Bilateral Pneumonia
Check legionella, S.pneumonia urinary Ag - negative
Sputum Cx if expectorating
Bcx
Ceftriaxone/Doxy
cont home O2 and bronchodilators
folow abd CT - unremarkable
Hold cefdinir (used for oysterman supression) while on ceftriaxone
cont
C. difficile, stool cultures - negative
Also component of opiate withdrawal is a possibility
-Lumbar MRI with hx of drainage from the Lumbar area
#Hypokalemia
#Hypomagnesemia
-monitor and replete
Hyponatremia
� Monitor, mild
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
#GERD
#RA
#fibromialgia
#Hx of melanoma
#Glaucoma
#Fibromialgia
#essential HTN
#chronic pain syndrome s/p spinal stim
Anxiety
cont home meds
#mild anemia
#YANDY
follow CBC
#mildly elevated AST
follow LFT
resolved
DVT ppx hep
DNR/DNI
Anticipated Discharge: 24 - 48 hours
Subjective/Interval History
-
Date of Service: October 20, 2024
Patient states she feels better
Objective Data
-
Labs:
Laboratory Results
10/20/24
07:20
WBC 17.8 H
Hgb 9.8 L
Hct 30.4 L
Plt Count 163
Sodium 141 D
Potassium 3.4 L
Chloride 111 H
Carbon Dioxide 26
BUN 5 L
Creatinine 0.6
Glucose 93
Calcium 8.4
Total Bilirubin 0.6
AST 27
ALT 19
Alkaline Phosphatase 55
Vital Signs:
Vital Signs
Temp Pulse Resp BP Pulse Ox
98.5 F 99 16 173/102 94
10/20/24 11:08 10/20/24 11:08 10/20/24 11:08 10/20/24 11:08 10/20/24 11:08
I&O
10/19/24 10/20/24 10/21/24
06:59 06:59 06:59
Intake Total 2099 / 2099 1100 / 1100
Output Total
Balance 2099 / 2099 1092 / 1092
Review of Systems
-
History Source: Patient
All other systems: Not reviewed unless documented
Data Reviewed
-
Diagnostic Radiology: Report Reviewed by me
CT Scan: Report Reviewed by me
Labs: Labs Reviewed by me
[2024-10-20] MEDS: TOPROL XL 100 MG PO (11:33)
[2024-10-20] MEDS: PLAQUENIL 400 MG PO (11:33)
[2024-10-20] MEDS: KCL ELIXIR 40 MEQ PO (11:33)
--- NOTE | 2024-10-20 14:44 | PTOTSP ---
Speech Therapy Evaluation:
Pt with risk factors of dysphagia (COPD, Rheumatoid Arthritis, GERD, CHRF on 2L home O2). Hx of VSE in 2019 with upper penetration, however no aspiration. On this date, oral phase impacted by partial edentulous state. No overt s/sx of aspiration
during PO trials, however frequent congested cough noted outside of PO intake. Risk of aspiration and related pulmonary complications elevated given tenuous respiratory status with concern for breathing/swallow coordination, compromised respiratory
system (current PNA), impaired health status, GI disease (GERD), and inability to tolerate upright portioning.
Given pt specific risk factors with increased risk of aspiration complications and current pneumonia, Discussed consideration for FEES (pt only able to tolerate 23 degree angle) to further assess swallow function. Pt politely declined at this time.
Given pt on baseline O2 support, pt afebrile, and pt without s/sx of aspiration at bedside, recommend to continue oral diet. FABRIC LAY OUT WORKER to closely follow.
Recommend:
1. Soft and bite sized solids (IDDSI 6) and thin liquids
2. Medications as tolerated
3. Strict aspiration and reflux precautions
4. FABRIC LAY OUT WORKER to follow to monitor tolerance of diet and provide education re: aspiration precautions
[2024-10-20 15:10] VITALS: BP 173/85
[2024-10-20] MEDS: ROCEPHIN 1000 MG IV (16:00)
[2024-10-20] MEDS: STERILE WATER FOR INJECTION 10 ML IV (16:00)
[2024-10-20] MEDS: CRESTOR 10 MG PO (17:12)
[2024-10-20 19:00] VITALS: BP 157/82
[2024-10-20] MEDS: NORVASC 2.5 MG PO (20:24)
[2024-10-20] MEDS: CYMBALTA DELAYED RELEASE 60 MG PO (21:33)
[2024-10-20 23:19] VITALS: BP 163/93
[2024-10-21] MEDS: HEPARIN SC ×2 (01:23→07:52)
[2024-10-21 03:00] VITALS: BP 154/82
[2024-10-21] MEDS: DILAUDID 0.5 MG IV (03:36)
[2024-10-21] MEDS: VIBRAMYCIN 260 MG IV ×2 (03:37→15:29)
[2024-10-21] MEDS: MS CONTIN (EXTENDED RELEASE) 30 MG PO ×2 (05:27→17:20)
[2024-10-21 07:00] VITALS: BP 169/84
[2024-10-21 07:08] LABS: Hematocrit 26.9 % (37.0-47.0); Hemoglobin 8.5 g/dL (12.0-16.0); Mean Corp Hgb Conc. 31.6 g/dL (33.0-37.0); Mean Corpuscular Hgb 32.8 pg (27.0-31.0); Mean Corpuscular Volume 103.9 fL (81.0-99.0); Platelet Count 165 10^3/uL (130-400); Red Blood Cell Count 2.59 10^6/uL (4.20-5.40); Red Cell Dist. Width 13.8 % (11.5-14.5); White Blood Cell Count 11.3 10^3/uL (4.8-10.8)
[2024-10-21 07:30] LABS: ALT (SGPT) 16 U/L (0-35); AST (SGOT) 21 U/L (14-36); Albumin 3.3 g/dl (3.5-5.0); Alkaline Phosphatase 48 U/L (38-126); Blood Urea Nitrogen 6 mg/dl (7-17); Calcium 8.4 mg/dl (8.4-10.2); Carbon Dioxide 29 mmol/L (22-30); Chloride 108 mmol/L (98-107); Estimated Creatinine Clearance 60 ml/min; Glucose 90 mg/dl (70-99); Potassium 3.6 mmol/L (3.5-5.1); Sodium 138 mmol/L (135-145); Total Bilirubin 0.5 mg/dl (0.2-1.3); Total Protein 5.8 g/dl (6.3-8.2); eGFR > 60.00
[2024-10-21] MEDS: PROTONIX 40 MG PO (07:51)
[2024-10-21] MEDS: MESTINON 60 MG PO ×4 (07:51→21:01)
[2024-10-21] MEDS: AZULFIDINE 1000 MG PO ×2 (07:51→17:54)
[2024-10-21] MEDS: CYMBALTA DELAYED RELEASE 30 MG PO (07:51)
[2024-10-21] MEDS: NEURONTIN 600 MG PO ×3 (07:52→21:00)
[2024-10-21] MEDS: FOLVITE 0.4 MG PO (07:52)
[2024-10-21] MEDS: DELTASONE 5 MG PO (07:52)
[2024-10-21] MEDS: FEOSOL 325 MG PO (07:52)
[2024-10-21] MEDS: VITAMIN D3 (cholecalciferol) 125 MCG PO (07:52)
[2024-10-21] MEDS: NORVASC 2.5 MG PO ×2 (07:55→11:00)
[2024-10-21] MEDS: FLEXERIL 5 MG PO (08:07)
[2024-10-21] MEDS: ADVAIR HFA 230/21 MCG INHALER 2 PUFF INH ×2 (08:07→18:08)
--- NOTE | 2024-10-21 09:46 | W.PN.HOSP.TC ---
Today's Communication/Plan
-
see A/P
Assessment / Plan
Assessment / Plan
CT Chest:
Small to moderate bilateral pleural effusions.
Bilateral parenchymal opacities. Findings are felt to be suspicious for bilateral pneumonia. There could also be a component of atelectasis, especially within the inferior aspect of the lower lobes. Main differential consideration of pulmonary
edema, somewhat unusual pattern with asymmetry.
Thinning of the left ventricular apex, appearance suggestive of previous infarction. No evidence for associated thrombus by CT.
A/P:
# Nausea, vomiting, most likely 2/2 CAP with sepsis POA (elevated lactate, sinus tachy, bandemia)
# Bilateral Pneumonia
# Chronic hypoxic respiratory failure on 2L O2 at baseline
Blood cultures x2 negative, urine Strep/Legionella Ags negative
Sputum Cx if able to obtain
Cont current Ceftriaxone/Doxy, Hold cefdinir (used for lobsterman suppression) while on ceftriaxone
cont home O2 and bronchodilators
Abd CT - unremarkable
Follow MRI lumbar spine that was ordered due to with hx of drainage from the Lumbar area
C. difficile, stool cultures - negative
SPL recc Soft and bite sized solids (IDDSI 6) and thin liquids
Duonebs PRN and ATC for SOB/wheezing
IV Decadron 4 mg Q8H for wheezing (note FURNITURE ASSEMBLY SUPERVISOR on prednisone 5 mg)
PT OT eval
# Hypokalemia
# Hypomagnesemia
monitor and replete
# Hyponatremia, resolved
# Essential HTN
Uncontrolled
Increase FURNITURE ASSEMBLY SUPERVISOR Norvasc 2.5 mg BID to 5 mg BID with holding parameter
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
# GERD
# RA
# fibromyalgia
# Hx of melanoma
# Glaucoma
# Chronic pain syndrome s/p spinal stim
# Anxiety
cont home meds
# YANDY
follow CBC
# mildly elevated AST, reactive and resolved
DVT ppx change hep SQ to lovenox SQ
DNR/DNI
Dispo: PT OT eval
DW RN
total time 51 min
Anticipated Discharge: > 48 hours
Subjective/Interval History
-
Date of Service: October 21, 2024
Objective Data
-
Labs:
Laboratory Results
10/21/24
06:50
WBC 11.3 H
Hgb 8.5 L
Hct 26.9 L
Plt Count 165
Sodium 138
Potassium 3.6
Chloride 108 H
Carbon Dioxide 29
BUN 6 L
Creatinine 0.6
Glucose 90
Calcium 8.4
Total Bilirubin 0.5
AST 21
ALT 16
Alkaline Phosphatase 48
Vital Signs:
Vital Signs
Temp Pulse Resp BP Pulse Ox
37.1 C 88 18 169/84 100
10/21/24 07:00 10/21/24 08:10 10/21/24 08:10 10/21/24 07:55 10/21/24 08:10
I&O
10/20/24 10/21/24 10/22/24
06:59 06:59 06:59
Intake Total 1100 / 1100 720 / 1200 480 / 480
Output Total
Balance 1092 / 1092 720 / 1200 480 / 480
Review of Systems
-
History Source: Patient
Respiratory: Reports Cough
Musculoskeletal: Reports Joint Pain (back pain, acute on chronic)
Physical Exam
-
General: Well Developed, Well Nourished, Respiratory Distress (chronic) and Conversant
HEENT: Normocephalic, Atraumatic, Nose Appears Normal, Ears Appear Normal and Oxygen (3L NC)
Respiratory: Wheezes (BL base), Crackles and Non Labored Respirations; Negative Accessory Resp Muscle Use
Cardiac: Regular Rhythm and S1/S2
GI: Soft, Nontender, Nondistended and Normal Bowel Sounds
Skin: Warm and Dry
Neuro: Awake and Alert
Psych: Calm and Intact Judgement/Insight
Data Reviewed
-
CT Scan: Report Reviewed by me
Labs: Labs Reviewed by me
[2024-10-21] MEDS: DUONEB 3 ML INH ×3 (10:45→18:08)
[2024-10-21] MEDS: DECADRON 4 MG IV ×2 (10:56→21:01)
[2024-10-21] MEDS: ROXICODONE 5 MG PO ×2 (10:57→15:01)
[2024-10-21] MEDS: PLAQUENIL 400 MG PO (11:01)
[2024-10-21] MEDS: TOPROL XL 100 MG PO (11:01)
[2024-10-21 11:11] VITALS: BP 136/85
--- NOTE | 2024-10-21 14:44 | CM ---
Cm following for discharge to home. Pt has been ambulating in her room independently.
Plan: Discharge to home with no identified needs.
[2024-10-21] MEDS: STERILE WATER FOR INJECTION 10 ML IV (15:28)
[2024-10-21] MEDS: ROCEPHIN 1000 MG IV (15:28)
[2024-10-21 15:33] VITALS: BP 119/66
[2024-10-21 16:58] VITALS: BP 150/79; PULSE 81; O2SAT 94
[2024-10-21] MEDS: CRESTOR 10 MG PO (17:15)
[2024-10-21] MEDS: LOVENOX 40 MG SC (17:19)
[2024-10-21] MEDS: NORVASC 5 MG PO (20:58)
[2024-10-21] MEDS: CYMBALTA DELAYED RELEASE 60 MG PO (21:01)
[2024-10-21 23:00] VITALS: BP 164/77
[2024-10-22] MEDS: ROXICODONE 5 MG PO ×3 (00:25→21:11)
[2024-10-22] MEDS: IMODIUM 2 MG PO ×2 (01:33→05:35)
[2024-10-22] MEDS: VIBRAMYCIN 260 MG IV (03:52)
[2024-10-22] MEDS: MS CONTIN (EXTENDED RELEASE) 30 MG PO ×2 (05:31→17:02)
--- NOTE | 2024-10-22 05:37 | PTCARENOTE ---
While pt receiving 0400 dose of Vibramycin, pt complaining of pain at IV site while infusion is running. Pt refusing for infusion to continue until someone from IV team looks at it. This RN flushed IV with no issues but pt complaining of pain. IV
team messaged at 0400. Holding off on finishing infusion and giving 0600 dose of Decadron until IV team assesses IV site. Plan of care ongoing.
[2024-10-22] MEDS: DECADRON 4 MG IV ×2 (06:24→15:34)
[2024-10-22] MEDS: AZULFIDINE 1000 MG PO ×2 (07:20→16:23)
[2024-10-22] MEDS: FOLVITE 0.4 MG PO (07:20)
[2024-10-22] MEDS: CYMBALTA DELAYED RELEASE 30 MG PO (07:21)
[2024-10-22] MEDS: NORVASC 5 MG PO ×2 (07:21→19:58)
[2024-10-22] MEDS: MESTINON 60 MG PO ×4 (07:21→21:11)
[2024-10-22] MEDS: VITAMIN D3 (cholecalciferol) 125 MCG PO (07:21)
[2024-10-22] MEDS: NEURONTIN 600 MG PO ×3 (07:21→21:11)
[2024-10-22] MEDS: PROTONIX 40 MG PO (07:21)
[2024-10-22] MEDS: FEOSOL 325 MG PO (07:21)
[2024-10-22 07:33] VITALS: BP 172/89
[2024-10-22] MEDS: ADVAIR HFA 230/21 MCG INHALER 2 PUFF INH ×2 (07:55→19:17)
[2024-10-22] MEDS: DUONEB 3 ML INH ×4 (07:55→19:17)
[2024-10-22 09:40] VITALS: BP 162/87; PULSE 81; O2SAT 94
--- NOTE | 2024-10-22 09:57 | W.PN.HOSP.TC ---
Today's Communication/Plan
-
see A/P
Assessment / Plan
Assessment / Plan
CT Chest:
Small to moderate bilateral pleural effusions.
Bilateral parenchymal opacities. Findings are felt to be suspicious for bilateral pneumonia. There could also be a component of atelectasis, especially within the inferior aspect of the lower lobes. Main differential consideration of pulmonary
edema, somewhat unusual pattern with asymmetry.
Thinning of the left ventricular apex, appearance suggestive of previous infarction. No evidence for associated thrombus by CT.
A/P:
# Nausea, vomiting, most likely 2/2 CAP with sepsis POA (elevated lactate, sinus tachy, bandemia)
# Bilateral Pneumonia
# Chronic hypoxic respiratory failure on 2L O2 at baseline
Blood cultures x2 negative, urine Strep/Legionella Ags negative
Sputum Cx if able to obtain
Cont current Ceftriaxone/Doxy, Hold cefdinir (used for intermediate school teacher suppression) while on ceftriaxone
cont home O2 and bronchodilators
Abd CT - unremarkable
MRI lumbar spine ordered for h/o lumbar drainage; MRI no evidence for spondylodiscitis or epidural or soft tissue abscess.
C. difficile, stool cultures - negative
SPL recc Soft and bite sized solids (IDDSI 6) and thin liquids
Duonebs PRN and ATC for SOB/wheezing
wheezing has much improved, decrease IV Decadron 4 mg Q8H to Q12H (noted FUR TRAPPER on prednisone 5 mg)
PT OT recc HH
# Hypokalemia
# Hypomagnesemia
monitor and replete
# Hyponatremia, resolved
# Essential HTN
Uncontrolled
Increase FUR TRAPPER Norvasc 2.5 mg BID to 5 mg BID with holding parameter
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
# GERD
# RA
# fibromyalgia
# Hx of melanoma
# Glaucoma
# Chronic pain syndrome s/p spinal stim
# Anxiety
cont home meds
# YANDY
follow CBC
# mildly elevated AST, reactive and resolved
DVT ppx change hep SQ to lovenox SQ
DNR/DNI
Dispo: PT recc HH
DW CM
Anticipated Discharge: Within 24 hours
Subjective/Interval History
-
Date of Service: October 22, 2024
Objective Data
-
Labs:
Laboratory Results
10/22/24 10/22/24
08:00 09:48
WBC Cancelled Pending
Hgb Cancelled Pending
Hct Cancelled Pending
Plt Count Cancelled Pending
Sodium Pending
Potassium Pending
Chloride Pending
Carbon Dioxide Pending
BUN Pending
Creatinine Pending
Glucose Pending
Calcium Pending
Vital Signs:
Vital Signs
Temp Pulse Resp BP Pulse Ox
36.8 C 77 18 172/89 98
10/22/24 07:33 10/22/24 07:55 10/22/24 07:55 10/22/24 07:33 10/22/24 07:55
I&O
10/21/24 10/22/24 10/23/24
06:59 06:59 06:59
Intake Total 720 / 1200 1680 / 1680
Balance 720 / 1200 1680 / 1680
Review of Systems
-
History Source: Patient
Respiratory: Reports Cough (improved )
Musculoskeletal: Reports Joint Pain (back pain, chronic)
Physical Exam
-
General: Well Developed, Well Nourished, Respiratory Distress (chronic) and Conversant
HEENT: Normocephalic, Atraumatic, Nose Appears Normal, Ears Appear Normal and Oxygen (3L NC)
Respiratory: Crackles (improved ) and Non Labored Respirations; Negative Wheezes (resolved ) or Accessory Resp Muscle Use
Cardiac: Regular Rhythm and S1/S2
GI: Soft, Nontender, Nondistended and Normal Bowel Sounds
Skin: Warm and Dry
Neuro: Awake and Alert
Psych: Calm and Intact Judgement/Insight
Data Reviewed
-
CT Scan: Report Reviewed by me
Labs: Labs Reviewed by me
[2024-10-22 10:06] LABS: Hematocrit 31.2 % (37.0-47.0); Hemoglobin 10.3 g/dL (12.0-16.0); Mean Corpuscular Hgb 33.1 pg (27.0-31.0); Mean Corpuscular Volume 100.3 fL (81.0-99.0); Mean Platelet Volume 10.2 fL (7.4-10.4); Platelet Count 225 10^3/uL (130-400); Red Blood Cell Count 3.11 10^6/uL (4.20-5.40); Red Cell Dist. Width 13.5 % (11.5-14.5); White Blood Cell Count 5.8 10^3/uL (4.8-10.8)
[2024-10-22 10:44] LABS: Blood Urea Nitrogen 10 mg/dl (7-17); Calcium 9.1 mg/dl (8.4-10.2); Carbon Dioxide 25 mmol/L (22-30); Chloride 107 mmol/L (98-107); Estimated Creatinine Clearance 60 ml/min; Glucose 118 mg/dl (70-99); Magnesium 1.5 mg/dl (1.6-2.3); Potassium 4.1 mmol/L (3.5-5.1); Sodium 137 mmol/L (135-145); eGFR > 60.00
[2024-10-22] MEDS: TOPROL XL 100 MG PO (11:46)
[2024-10-22] MEDS: PLAQUENIL 400 MG PO (11:46)
--- NOTE | 2024-10-22 11:49 | CM ---
Addendum entered by Eliana Bradford 10/22/24 16:09:
Auth Approval #: [id number]
Start date 10/23/24 7 days NRD 10/29
Call with updates to
Left message with son & wc van phone #
PLAN: [facility] SN[facility] 10/23
Report #: [phone]
Fax #: [phone]
transportation form on chart, wheelchair [facility] prefer 1pm transport
Addendum entered by Eliana Bradford 10/22/24 15:44:
spoke with Carmencita from [facility] SNF - bed available tomorrow 10/23
tt hospitalist
[facility] NPI #: [id number]
Dr. Alex Isaac NPI #: [id number]
CM called [phone] & spoke with Johana Dias
Original Note:
Patient seen at bedside
OT eval - rec SNF
PT to eval today
Spoke with patient she is agreeable with SNF, spoke with johnnie Abreu
CM will need to obtain ins auth for SNF
Options reviewed [facility] & [facility] preferred
Referrals placed in [facility]port
PLAN: SNF, pending bed availability, when stable, will need to obtain insurance auth
[2024-10-22 12:06] VITALS: BP 160/83
[2024-10-22] MEDS: MAGNESIUM SULFATE 102 GRAMS IV (12:31)
[2024-10-22] MEDS: ROCEPHIN 1000 MG IV (15:34)
[2024-10-22] MEDS: STERILE WATER FOR INJECTION 10 ML IV (15:35)
[2024-10-22 15:36] VITALS: BP 145/74
[2024-10-22] MEDS: CRESTOR 10 MG PO (17:02)
[2024-10-22] MEDS: LOVENOX 40 MG SC (17:02)
[2024-10-22] MEDS: VIBRAMYCIN 100 MG PO (19:55)
[2024-10-22] MEDS: REFRESH EYE DROPS (PF) 1 DROPS OPHTH (19:55)
[2024-10-22] MEDS: CYMBALTA DELAYED RELEASE 60 MG PO (21:11)
[2024-10-22 23:21] VITALS: BP 152/68
[2024-10-23] MEDS: REFRESH EYE DROPS (PF) 1 DROPS OPHTH ×2 (02:26→12:10)
[2024-10-23] MEDS: MS CONTIN (EXTENDED RELEASE) 30 MG PO (05:07)
[2024-10-23] MEDS: DECADRON 4 MG IV (05:07)
[2024-10-23 06:50] LABS: Hematocrit 29.8 % (37.0-47.0); Hemoglobin 9.6 g/dL (12.0-16.0); Mean Corp Hgb Conc. 32.2 g/dL (33.0-37.0); Mean Corpuscular Hgb 32.5 pg (27.0-31.0); Mean Platelet Volume 9.8 fL (7.4-10.4); Platelet Count 254 10^3/uL (130-400); Red Blood Cell Count 2.95 10^6/uL (4.20-5.40); Red Cell Dist. Width 13.4 % (11.5-14.5); White Blood Cell Count 9.1 10^3/uL (4.8-10.8)
[2024-10-23 07:29] LABS: Blood Urea Nitrogen 15 mg/dl (7-17); Calcium 9.3 mg/dl (8.4-10.2); Carbon Dioxide 30 mmol/L (22-30); Chloride 104 mmol/L (98-107); Estimated Creatinine Clearance 60 ml/min; Glucose 85 mg/dl (70-99); Magnesium 1.6 mg/dl (1.6-2.3); Potassium 3.9 mmol/L (3.5-5.1); Sodium 137 mmol/L (135-145); eGFR > 60.00
[2024-10-23 07:44] VITALS: BP 150/81
[2024-10-23] MEDS: DUONEB 3 ML INH (07:50)
[2024-10-23] MEDS: ADVAIR HFA 230/21 MCG INHALER INH ×2 (07:50→07:53)
[2024-10-23] MEDS: MAGNESIUM SULFATE 102 GRAMS IV (09:03)
[2024-10-23] MEDS: NORVASC 5 MG PO (09:04)
[2024-10-23] MEDS: CYMBALTA DELAYED RELEASE 30 MG PO (09:04)
[2024-10-23] MEDS: NEURONTIN 600 MG PO (09:04)
[2024-10-23] MEDS: AZULFIDINE 1000 MG PO (09:04)
[2024-10-23] MEDS: PROTONIX 40 MG PO (09:04)
[2024-10-23] MEDS: MESTINON 60 MG PO ×2 (09:04→12:10)
[2024-10-23] MEDS: FOLVITE 0.4 MG PO (09:04)
[2024-10-23] MEDS: VIBRAMYCIN 100 MG PO (09:04)
[2024-10-23] MEDS: FEOSOL 325 MG PO (09:04)
[2024-10-23] MEDS: VITAMIN D3 (cholecalciferol) 125 MCG PO (09:05)
--- NOTE | 2024-10-23 10:06 | W.PN.HOSP.TC ---
Addendum entered and electronically signed by Elle Root MD 10/23/24 13:48:
total DC time 40 min
Original Note:
Today's Communication/Plan
-
DC to SNF
Assessment / Plan
Assessment / Plan
CT Chest:
Small to moderate bilateral pleural effusions.
Bilateral parenchymal opacities. Findings are felt to be suspicious for bilateral pneumonia. There could also be a component of atelectasis, especially within the inferior aspect of the lower lobes. Main differential consideration of pulmonary
edema, somewhat unusual pattern with asymmetry.
Thinning of the left ventricular apex, appearance suggestive of previous infarction. No evidence for associated thrombus by CT.
A/P:
# Nausea, vomiting, most likely 2/2 CAP with sepsis POA (elevated lactate, sinus tachy, bandemia)
# Bilateral Pneumonia
# Chronic hypoxic respiratory failure on 2L O2 at baseline
Blood cultures x2 negative, urine Strep/Legionella Ags negative
Sputum Cx if able to obtain
s/p Ceftriaxone/Doxy for 6 days, ok to stop both
resume AUDITING CONTROL CLERK cefdinir following DC (used for assistant terminal manager suppression)
cont home O2 and bronchodilators
Abd CT - unremarkable
MRI lumbar spine ordered for h/o lumbar drainage; MRI no evidence for spondylodiscitis or epidural or soft tissue abscess.
C. difficile, stool cultures - negative
diet upgraded to solid and thin liquid
Duonebs PRN and ATC for SOB/wheezing
wheezing has much improved, cont prednisone taper outpatient back to home dose (AUDITING CONTROL CLERK prednisone 5 mg)
PT OT recc HH
# Hypokalemia
# Hypomagnesemia
monitor and replete
# Hyponatremia, resolved
# Essential HTN
Uncontrolled
Increase AUDITING CONTROL CLERK Norvasc 2.5 mg BID to 5 mg BID with holding parameter
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
# GERD
# RA
# fibromyalgia
# Hx of melanoma
# Glaucoma
# Chronic pain syndrome s/p spinal stim
# Anxiety
cont home meds
# YANDY
follow CBC
# mildly elevated AST, reactive and resolved
DVT ppx change hep SQ to lovenox SQ
DNR/DNI
Dispo: SNF
DW CM
Anticipated Discharge: Today
Subjective/Interval History
-
Date of Service: October 23, 2024
Objective Data
-
Labs:
Laboratory Results
10/23/24
06:34
WBC 9.1
Hgb 9.6 L
Hct 29.8 L
Plt Count 254
Sodium 137
Potassium 3.9
Chloride 104
Carbon Dioxide 30
BUN 15
Creatinine 0.6
Glucose 85
Calcium 9.3
Vital Signs:
Vital Signs
Temp Pulse Resp BP Pulse Ox
36.6 C 76 17 150/81 96
10/23/24 07:44 10/23/24 09:04 10/23/24 07:53 10/23/24 09:04 10/23/24 07:53
I&O
10/22/24 10/23/24 10/24/24
06:59 06:59 06:59
Intake Total 1680 / 1680 120 / 120
Balance 1680 / 1680 120 / 120
Review of Systems
-
History Source: Patient
Respiratory: Reports Cough (improved )
Musculoskeletal: Reports Joint Pain (back pain, chronic)
Physical Exam
-
General: Well Developed, Well Nourished, Respiratory Distress (chronic) and Conversant
HEENT: Normocephalic, Atraumatic, Nose Appears Normal, Ears Appear Normal and Oxygen (2L NC)
Respiratory: Crackles (very mild) and Non Labored Respirations; Negative Wheezes (resolved ) or Accessory Resp Muscle Use
Cardiac: Regular Rhythm and S1/S2
GI: Soft, Nontender, Nondistended and Normal Bowel Sounds
Skin: Warm and Dry
Neuro: Awake and Alert
Psych: Calm and Intact Judgement/Insight
Data Reviewed
-
CT Scan: Report Reviewed by me
Labs: Labs Reviewed by me
--- NOTE | 2024-10-23 10:30 | CM ---
IMM explained & signed. In chart
Discharge to [facility] today-auth obtained
Carmencita liaison updated of time
COVID test ordered & completed
Called son Hipolito & number given for wheelchair transport -agreeable
PLAN: PLAN: [facility] SN[facility] 10/23
Report #: [id number]
Fax #: [phone]
transportation form on chart, wheelchair van,
[2024-10-23 11:06] LABS: COVID-19 Antigen Negative (Negative)
[2024-10-23] MEDS: PLAQUENIL 400 MG PO (12:09)
[2024-10-23] MEDS: TOPROL XL 100 MG PO (12:11)
[2024-10-23 12:15] VITALS: BP 159/96
--- NOTE | 2024-10-23 13:33 | W.DCSUMMARY ---
Discharge Summary
Discharge Data
Date of Admission: 10/17/24
Date of Discharge: 10/23/24
-
Pending Results: No
Hospital Course
Principal Diagnosis:
Nausea, vomiting, and cough; due to community-acquired pneumonia
Bilateral Pneumonia
Chronic Diagnoses:�
# Chronic hypoxic respiratory failure on 2L at baseline
# Hx of back surgery with postop OM and fistula on chronic suppressive Abx cefdinir
# GERD
# RA
# fibromyalgia
# Hx of melanoma
# Glaucoma
# Chronic pain syndrome s/p spinal stim
# Anxiety
# Iron deficiency anemia
# Essential HTN
Consultations:�
None
Procedures:�
None
Clinical course:�
This is a 84-year-old female, with past medical history as stated above, who presented with nausea, vomiting and cough.
Problem 1:
Nausea, vomiting, and cough; due to community-acquired pneumonia.
Her CXR showed bilateral pneumonia.
Of note, her blood cultures and urine Strep/Legionella Ags were negative.
She received and completed the course of ceftriaxone and doxycycline while in hospital (6 days).
She can resume LANDMEN cefdinir following discharge (which she uses for [facility] suppression for her chronic osteomyelitis).
Of note, her CT abdomen pelvis was unremarkable.
MRI lumbar spine was checked which ruled out epidural or soft tissue abscess.
She was seen by speech and her diet was upgraded to solid and thin liquid.
She was also treated with IV Decadron while in the hospital for wheezing, and since the wheezing has much resolved, she can continue with prednisone taper following discharge (taper until back to her home dose at 5 mg).
She was discharged to SNF per PT OT [email or web address].
Problem 2:
Essential HTN, uncontrolled.
Her prior to admission Norvasc was increased from 2.5 mg twice daily to 5 mg twice daily.
As for the rest of her medical problems, they were stable during her hospital stay.
Discharge Plan
-
Patient Disposition: Skilled Nursing/SNF
Discharge Diagnosis/Procedures: Community acquired pneumonia/ Bilateral Pneumonia (completed antibiotic course with ceftriaxone and doxycycline during hospital stay);
Chronic hypoxic respiratory failure on 2L O2 at baseline;
Essential HTN (Increased LANDMEN Norvasc 2.5 mg BID to 5 mg BID);
h/o back surgery with postop osteo and fistula on chronic suppressive cefdinir;
rheumatoid arthritis;
Chronic pain syndrome s/p spinal stim
Condition: Fair
Diet: As tolerated, Low Fat and Low Cholesterol
Activity: As tolerated
Driving Restrictions: As prior to admission
Referrals:
Cristina Glover NP [Family Provider, Internal Medicine] - in less than 1 week
Additional Discharge Medication Instructions: Continue prednisone taper back to home dose (at 5 mg)
Your Norvasc was increased from 2.5 mg twice daily to 5 mg twice daily
Prescriptions:
New
amlodipine 5 mg Tablet
5 mg PO BID Qty: 60 0RF
prednisone 10 mg Tablet
See Rx Instructions .ROUTE .COMPLEX Qty: 30 0RF
Rx Instructions:
Take By Mouth:
40 mg daily x3 days, 30 mg daily x3 days,
20 mg daily x3 days, 10 mg daily x3 days.
Continued
leflunomide 20 MG tablet
20 mg PO DAILY
rosuvastatin 10 MG tablet
10 mg PO QPM
pyridostigmine bromide 60 MG tablet
60 mg PO QID 30 Days Qty: 120 0RF
cyanocobalamin (vitamin B-12) 1,000 MCG tablet
1,000 mcg PO DAILY
ferrous sulfate [FeroSul] 325 MG tablet
325 mg PO DAILY
duloxetine 30 MG capsule,delayed release(DR/EC)
60 mg PO HS
duloxetine 30 MG capsule,delayed release(DR/EC)
30 mg PO DAILY
sulfasalazine 500 mg tablet
1,000 mg PO BID
hydroxychloroquine 200 MG tablet
400 mg PO DAILY@1200
ipratropium-albuterol 0.5 mg-3 mg(2.5 mg base)/3 mL Solution For Nebulization
3 ml INHALATION R QIDPRN PRN (Reason: sob)
cefdinir 300 mg Capsule
300 mg PO BID
pantoprazole [Protonix] 40 mg tablet,delayed release (DR/EC)
40 mg PO BID
gabapentin 600 mg Tablet
600 mg PO TID
metoprolol succinate [Toprol XL] 100 mg Tablet Extended Release 24 Hr
100 mg PO DAILY@1200
cholecalciferol (vitamin D3) [Vitamin D3] 25 mcg (1,000 unit) Tablet
25 mcg PO DAILY@1200
morphine 30 MG tablet extended release
30 mg PO Q12H Qty: 2 0RF
hydromorphone [Dilaudid] 4 mg Tablet
4 mg PO Q6HPRN PRN (Reason: severe pain) Qty: 2 0RF
Held
prednisone 5 mg Tablet
5 mg PO DAILY
Hold Instructions: Resume on 11/04/24.
Discontinued
amlodipine 2.5 MG tablet
2.5 mg PO BID
Discharge Orders:
Discharge Patient (As Directed); Ordered 10/23/24
Ordered By: Elle Root
Discharge Date and Time
Print Language: GERMAN
== END 2024-10-23 14:55 | DRG 871 ==
LOC: 3 WEST ACU 15:57
PROVIDERS: Internal Medicine; ADMITTING PHYSICIAN Internal Medicine; ATTENDING PHYSICIAN Internal Medicine; EMERGENCY PHYSICIAN Emergency Medicine; FAMILY PHYSICIAN Internal Medicine
DX: A41.9 Sepsis, unspecified organism (principal); J18.9 Pneumonia, unspecified organism; J96.11 Chronic respiratory failure with hypoxia; E87.1 Hypo-osmolality and hyponatremia; F11.20 Opioid dependence, uncomplicated; Z99.81 Dependence on supplemental oxygen; Z66 Do not resuscitate; E87.6 Hypokalemia; E83.42 Hypomagnesemia; I10 Essential (primary) hypertension; F41.9 Anxiety disorder, unspecified; G89.4 Chronic pain syndrome
CPT/HCPCS: 71046; 71260; 72148; 74177; 80048; 80053; 81003; 81015; 82607; 82728; 83540; 83550; 83605; 83690; 83735; 85025; 85027; 87040; 87045; 87046; 87070; 87086; 87205; 87324; 87427; 87449; 87811; 87899; 92526; 92610; 93005; 94640; 97116; 97163; 97167; 97530; 97535; 99285; Q9967

== ENCOUNTER 2024-12-26 07:41 | Inpatient (IN) | payer OTHER, SELFPAY ==
[2024-12-26] VITALS (21 sets, daily range): BP systolic 104–166; BP diastolic 55–113; BMI 27.6; BMI 26.0
[2024-12-26 04:58] LABS: Hematocrit 28.6 % (37.0-47.0); Hemoglobin 8.5 g/dL (12.0-16.0); Mean Corp Hgb Conc. 29.7 g/dL (33.0-37.0); Mean Corpuscular Volume 103.6 fL (81.0-99.0); Nucleated Red Blood Cells % 0 %; Platelet Count 175 10^3/uL (130-400); Red Cell Dist. Width 15.0 % (11.5-14.5)
[2024-12-26] MEDS: ZOFRAN 4 MG IV ×2 (04:59→16:06)
[2024-12-26] MEDS: DILAUDID 1 MG IV ×3 (05:00→11:55)
--- NOTE | 2024-12-26 05:03 | ED.GENMED ---
History of Present Illness
General
Chief Complaint: Fall
Source: patient and ambulance crew
Exam Limitations: none
Time Seen by Provider: 12/26/24 03:45
Nursing documentation reviewed up to this point in time: agreed with
History of Present Illness
History of Present Illness:
Note:
CHIEF COMPLAINT(S)
Right hip fracture.
HISTORY OF PRESENT ILLNESS
The patient is an 84-year-old female who presented after sustaining a right hip fracture. The injury occurred when the patient tripped over her oxygen tubing while walking at home. She reports landing on her right side and has since been unable to
bear weight on the affected leg. The patient wisely remained on the floor to avoid further injury until the emergency medical services arrived. She denies any attempt to ambulate or stand post-fall.
CHRONIC MEDICAL CONDITIONS SIGNIFICANTLY AFFECTING CARE
The patient is currently on anticoagulation therapy with Coumadin (warfarin).
SOCIAL DETERMINANTS AFFECTING HEALTH
The patient reportedly uses oxygen at home, suggesting chronic respiratory issues. She lives independently but receives assistance from her daughter.
PHYSICAL EXAM
General: Alert, no acute distress.
Skin: Warm, dry.
Head: Normocephalic, atraumatic.
Neck: Supple, trachea midline.
Eye, Ears, Nose, Mouth and Throat: Oral mucosa moist.
Cardiovascular: Normal peripheral perfusion, No edema.
Respiratory: Respirations are non-labored.
Gastrointestinal: Abdomen nondistended.
Back: Normal range of motion, Normal alignment.
Musculoskeletal: Normal range of motion, normal strength.
Neurological: Alert and oriented to person, place, time, and situation, No focal neurological deficit observed.
Psychiatric: Cooperative, appropriate mood & affect.
PROBLEM LIST
Acute:
- Right hip fracture
PLAN
The patient will likely require surgical intervention for the right hip fracture, pending confirmation from the orthopedic surgeon. Coordination with [facility] and notification of her daughter have been initiated as part of her care
plan.
DIFFERENTIAL DIAGNOSIS
The Differential Diagnosis includes, in no particular order and is not limited to:
1. Right hip fracture
2. Osteoporosis
3. Osteoarthritis of the hip
4. Femoral neck fracture
5. Subtrochanteric fracture
6. Pathological fracture due to metastatic disease
7. Hip dislocation
8. Avulsion fracture of the hip
9. Pelvic fracture
10. Pubic rami fracture
CARE-UPDATE
12/26/24 - 04:40
Patients son, Hipolito, indicated a preference for orthopedic care through [facility], where his sister is employed.
CARE-UPDATE
12/26/24 - 05:04
CT scan reveals a comminuted fracture of the right femoral neck. Treatment plan to be updated to consider surgical intervention options.
Disposition:
SUMMARY OF ENCOUNTER
An 84-year-old female was seen after a mechanical fall where she tripped over her oxygen tubing at home and landed on her right hip, leading to acute right hip pain. She denied any head injury or loss of consciousness. A CT scan revealed a
comminuted fracture of the right femoral neck. Despite initial information suggesting that she was on anticoagulation, the patient is not currently taking any blood thinners.
DISPOSITION
Admit to the hospitalist service.
ASSESSMENT
Acute right hip fracture, confirmed by CT scan showing a comminuted fracture of the right femoral neck.
MANAGEMENT OF THE PATIENTS CARE WAS DISCUSSED WITH
Discussion with the patients son revealed a preference for orthopedic care at [facility], where his sister is employed. Attempts were made to contact the daughter, but she was unavailable.
PLAN
The patient will be admitted to the hospitalist service for further management, including likely surgical intervention coordinated through [facility].
INDEPENDENT REVIEW OF LABS AND INTERPRETATION OF TESTS
-My independent interpretation of the CT scan shows a comminuted fracture of the right femoral neck.
MEDICAL DECISION MAKING
-Number and Complexity of Problems Addressed: Chronic conditions affecting care include osteoporosis (potentially contributing to fracture risk). Differential Diagnosis includes:
1. Right hip fracture
2. Osteoporosis
3. Osteoarthritis of the hip
4. Femoral neck fracture
5. Subtrochanteric fracture
6. Pathological fracture due to metastatic disease
7. Hip dislocation
8. Avulsion fracture of the hip
9. Pelvic fracture
10. Pubic rami fracture
-Data:
Category 1
My independent interpretation of CT scan confirms a comminuted fracture of the right femoral neck.
Category 3
Discussion of management with the patients son, who indicated a preference for orthopedic care through [facility].
DIAGNOSIS
Right femoral neck fracture (ICD-10: S72.001A).
Past History
Past History
ED Past Medical History: CAD, COPD, Fibromyalgia, GERD, HTN, Hypercholesterolemia, MO, Psychiatric (depression) and Other (chronic back pain, Ulcers, C-diff)
ED Past Surgical History: Appendectomy, Cardiac (Stents, CABG), Gynecological, Orthopedic and Urological
Social History
Tobacco: Non-smoker
Alcohol: None
Drug: None
Personal:
Living: alone
Employment: Not employed
Family History
Family History: Other
Phy Exam
General Physical Exam
General Presentation: moderate distress
General age: appears stated age
General Skin: warm
General Habitus: elderly
General Mental: alert
General Chronic Disability: other (Chronic oxygen via nasal cannula)
Musculoskeletal Exam
Musculoskeletal Exam: joint swelling (Right hip tenderness to palpation.) and neuro vasc intact
Course
Orders/Labs/Results
Orders:
Orders
12/26/24 03:45
Electrocardiogram (*1) Urgent
Reason for Study: PreOp
CT Pelvis W/o Iv Contrast Urgent
Comment:
Reason For Exam: fall, right hip pain, no obv deformity
EKG- Treatment ONCE
Urinalysis Reflex To Culture Urgent
12/26/24 04:44
Complete Blood Count/With Diff Urgent
Comprehensive Metabolic Panel Urgent
PTT Urgent
Prothrombin Time Urgent
12/26/24 04:53
Ondansetron Injectable [Zofran] 4 mg .ROUTE .STK-MED ONE
12/26/24 04:54
HYDROmorphone [Dilaudid] 1 mg .ROUTE .STK-MED ONE
12/26/24 04:58
Ondansetron Injectable [Zofran] 4 mg IV NOW STA
12/26/24 05:00
HYDROmorphone [Dilaudid] 1 mg IV NOW STA
Abnormal Lab Results
12/26/24
04:44
RBC 2.76 L 10^6/uL
(4.20-5.40)
Hgb 8.5 L g/dL
(12.0-16.0)
Hct 28.6 L %
(37.0-47.0)
MCV 103.6 H fL
(81.0-99.0)
MCHC 29.7 L g/dL
(33.0-37.0)
RDW 15.0 H %
(11.5-14.5)
Absolute Monos (auto) 1.1 H 10^3/uL
(0.1-0.6)
Absolute Eos (auto) 1.0 H 10^3/uL
(0-0.7)
Monocytes % 15.2 H %
(1.7-9.3)
Eosinophils % 13.3 H %
(0-6)
Basophils % 2.8 H %
(0-2)
12/26/24 04:44
Vital Signs
Initial and Last Documented VS:
Initial Vital Signs
BP
122/110
12/26/24 03:12
Last Documented Vital Signs
Temp Pulse Resp BP Pulse Ox
98.2 F 70 14 130/78 96
12/26/24 03:13 12/26/24 04:02 12/26/24 04:02 12/26/24 04:02 12/26/24 04:02
*Radiology
Radiology exam reviewed: radiology read reviewed
*Pulse Oximetry
SaO2: 96
Nasal Cannula flow liters per minute: 4
Oxygen Mode of Delivery: Midflow Nasal Cannula
Patient hypoxic: no
*Critical Care Note
Total Time (30-74mins, 75-104mins- exclusive of procedures): Not Applicable
Update Note
Update Note:
NAME: KIRIT KLEIN
DATE OF EXAM: 12/26/2024
Patient No: [id number]
Physician: VALE
Date of : 1940
Past Medical History (entered by Technologist):
Reason For Exam (entered by Technologist):
Other Notes (entered by Technologist): pt arrives via EMS from home, per EMS and pt, pt was walking and tripped on her O2 tubing. pt landed on her R side. pt complains of right hip and leg pain. pt denies LOC, headstrike, and thinners. pt given 150
mcg of Fentanyl by EMS en route
Additional Information (per [facility]):
CT PELVIS
IMPRESSION:
Comminuted fracture of the right femoral neck. Mild surrounding soft tissue swelling.
No abnormality within the visualized lower abdomen or pelvis.
Case finalized on Dec 26 2024 4:59AM ET
Barber Maloney M.D.
ED Attending Note
-
Portions of this chart may have been created with voice recognition software.� Occasional wrong word or��sound alike� substitutions may have occurred due to the inherent limitations of voice recognition software.
Discharge Plan
Departure
Patient Disposition: Admit
Date of Disposition: 12/26/24
Time of Disposition: 05:06
Admit to: Med/Surg
Presentation/result/management discussed w/ accepting MD/DO: Hospitalist
Condition: Fair
Discharge Problem:
Closed hip fracture, COPD (chronic obstructive pulmonary disease)
Prescriptions:
No Action
leflunomide 20 MG tablet
20 mg PO DAILY
rosuvastatin 10 MG tablet
10 mg PO QPM
pyridostigmine bromide 60 MG tablet
60 mg PO QID 30 Days Qty: 120 0RF
cyanocobalamin (vitamin B-12) 1,000 MCG tablet
1,000 mcg PO DAILY
ferrous sulfate [FeroSul] 325 MG tablet
325 mg PO DAILY
duloxetine 30 MG capsule,delayed release(DR/EC)
60 mg PO HS
duloxetine 30 MG capsule,delayed release(DR/EC)
30 mg PO DAILY
sulfasalazine 500 mg tablet
1,000 mg PO BID
hydroxychloroquine 200 MG tablet
400 mg PO DAILY@1200
ipratropium-albuterol 0.5 mg-3 mg(2.5 mg base)/3 mL Solution For Nebulization
3 ml INHALATION R QIDPRN PRN (Reason: sob)
cefdinir 300 mg Capsule
300 mg PO BID
pantoprazole [Protonix] 40 mg tablet,delayed release (DR/EC)
40 mg PO BID
gabapentin 600 mg Tablet
600 mg PO TID
metoprolol succinate [Toprol XL] 100 mg Tablet Extended Release 24 Hr
100 mg PO DAILY@1200
prednisone 5 mg Tablet
5 mg PO DAILY
cholecalciferol (vitamin D3) [Vitamin D3] 25 mcg (1,000 unit) Tablet
25 mcg PO DAILY@1200
amlodipine 5 mg Tablet
5 mg PO BID Qty: 60 0RF
morphine 30 MG tablet extended release
30 mg PO Q12H Qty: 2 0RF
hydromorphone [Dilaudid] 4 mg Tablet
4 mg PO Q6HPRN PRN (Reason: severe pain) Qty: 2 0RF
prednisone 10 mg Tablet
See Rx Instructions .ROUTE .COMPLEX Qty: 30 0RF
Rx Instructions:
Take By Mouth:
40 mg daily x3 days, 30 mg daily x3 days,
20 mg daily x3 days, 10 mg daily x3 days.
Referrals:
UNKNOWN - PT DOES,NOT KNOW [Family Provider]
Interventions
Interventions:
*Risk Screen - Suicide Last Done: 12/26/24 03:13
*General Assessment Last Done: 12/26/24 03:13
*Neglect/Abuse Screening Last Done: 12/26/24 03:13
*ED- Fall Risk Assessment Last Done: 12/26/24 03:23
*ED COVID-19 Vaccine History Last Done: 12/26/24 03:23
ED-Musculoskeletal Assessment Last Done: 12/26/24 03:23
ED- Neurological Assessment Last Done: 12/26/24 03:23
ED-Skin Assessment Last Done: 12/26/24 03:23
Discharge Date and Time
Print Language: MONTSERRATIAN
[2024-12-26 05:06] LABS: INR 1.11; PT 14.6 Sec (11.4-14.6)
[2024-12-26 05:07] LABS: APTT 26.2 Sec (23.4-35.0)
[2024-12-26 05:42] LABS: ALT (SGPT) 25 U/L (0-35); AST (SGOT) 34 U/L (14-36); Albumin 3.8 g/dl (3.5-5.0); Alkaline Phosphatase 33 U/L (38-126); Blood Urea Nitrogen 13 mg/dl (7-17); Calcium 8.6 mg/dl (8.4-10.2); Carbon Dioxide 33 mmol/L (22-30); Chloride 104 mmol/L (98-107); Estimated Creatinine Clearance 60 ml/min; Glucose 106 mg/dl (70-99); Potassium 4.1 mmol/L (3.5-5.1); Sodium 136 mmol/L (135-145); Total Protein 6.2 g/dl (6.3-8.2); eGFR > 60.00
[2024-12-26] MEDS: MORPHINE SULFATE 4 MG IV (06:38)
--- NOTE | 2024-12-26 06:48 | HPS.HSE ---
Family Physician
-
Family Physician: NOT KNOW UNKNOWN - PT DOES
Chief Complaint
-
Hip pain s/p fall
History of Present Illness
Patient is an 84y F with PMH significant for ASCVD, hypertension, COPD with chronic hypoxemia and chronic pain syndrome who presents to ED complaining of R hip pain s/p [id number] at home. Patient states that she tripped on her O2 cord and
fell - landing on her R hip. She denies any head injury or LOC. She was brought to the ED for further evaluation and treatment. At the time of my examination, patient remains in significant distress due to pain and detailed history is not
feasible.
Medical History
Past Medical History
Past Medical History: Reports Other
Additional Past Medical History:
Coronary Arterty Disease s/p CABG and PCI
Essential Hypertension
Hyperlipidemia
COPD
Depression
Chronic Pain Syndrome / Chronic Opioid Dependence Syndrome secondary to Spinal Stenosis
Fibromyalgia
Myasthenia Gravis
Rheumatoid Arthritis
GERD/PUD
Spina Bifida
Hx Vertebral Osteomyelitis on Chronic Suppressive Antibiotics
Past Surgical History: Reports Other
Additional Past Surgical History:
Spina Bifida surgery
Spinal Stimulator
CABG
Social History
Tobacco: Non-smoker
Alcohol: None
Living: With Family
Family History
Family History: Not pertinent
Allergies / Home Medications
Allergies reflects when Allergies were last updated in [facility].
Home Medications with original date entered in [facility]
Allergy/Medication List:
Unable to reconcile medications at this time.
If medication reconciliation has not been performed, why?: Medication List N/A
Review of Systems
-
History Source: Patient (Limited ROS due to pain / distress.)
A 12 point ROS was completed and negative except as noted: No
Respiratory: Denies Trouble Breathing
Cardiac: Denies Chest Pain
Abdomen/GI: Denies Abdominal Pain
Musculoskeletal: Reports Joint Pain
Physical Exam
Vital Signs
Vital Signs
Temp Pulse Resp BP Pulse Ox
98.2 F 73 27 105/87 96
12/26/24 03:13 12/26/24 06:30 12/26/24 06:30 12/26/24 06:01 12/26/24 05:15
Physical Exam
General: Other (84y F in moderate - severe distress due to R hip pain. Pale-appearing. Tearful.)
HEENT: Other (Dry MM. Neck supple.)
Respiratory: Other (Decreased at bases - otherwise clear.)
Cardiac: S1/S2 and Tachycardia; No Murmur
GI: Soft, Non Tender, Non Distended and Normal Bowel Sounds
Musculoskeletal: Other (RLE shortened / externally rotated.)
Neuro: Awake and Alert
Psych: Anxious
Laboratory Results
-
12/26/24 04:44
12/26/24 04:44
Laboratory Results
PT 14.6 Sec (11.4-14.6) 12/26/24 04:44
INR 1.11 12/26/24 04:44
APTT 26.2 Sec (23.4-35.0) 12/26/24 04:44
Total Bilirubin 0.5 mg/dl (0.2-1.3) 12/26/24 04:44
AST 34 U/L (14-36) 12/26/24 04:44
ALT 25 U/L (0-35) 12/26/24 04:44
Alkaline Phosphatase 33 U/L (38-126) L 12/26/24 04:44
Impression/Plan
-
A/P: Patient is an 84y F with PMH significant for ASCVD, hypertension, COPD and chronic pain who presents to ED complaining of R hip pain s/p [id number] at home.
Right Hip Fracture
- Admit for further evaluation and treatment.
- Supportive care / continue efforts at pain control - will likely require higher than usual doses given chronic opioid dependence.
- Ortho consulted for eventual operative repair.
- Patient is at increased risk for complications related to surgery or anesthesia due to CAD, anemia, chronic osteomyelitis and chronic pain.
- See below for individual discussions of these issues.
- No current cardiac issues / complaints. EKG without acute ischemia.
- Would transfuse 1 unit of PRBCs pre-op and follow H&H perioperatively for additional transfusion(s) if required.
- Benefits of surgery outweigh the potential risks and patient may proceed to OR following transfusion.
- Post-op care per Ortho.
ASCVD
- Stable. No chest pain / dyspnea.
- Need to clarify current med regimen and resume appropriate CV medications.
Chronic Macrocytic Anemia
- Hgb today is 8.5 which is on the lower side for Ms. Liriano.
- Would transfuse one unit pre-op as noted above given underlying coronary disease, chronic hypoxemia, etc.
- Check iron studies, B12, folate, etc.
- Follow H&H and provide additional transfusion(s) as needed.
COPD with Chronic Hypoxemic Respiratory Failure
- Stable. O2 saturations acceptable on usual O2 supplementation.
- No cough, fever, wheezing, etc.
- Nebs PRN. Continue O2 supplementation.
Benign Hypertension
- Hold antihypertensive agents acutely while on higher pain meds, anesthesia, etc.
- Formal med rec this AM and resume meds when appropriate.
Chronic Pain Syndrome
Fibromyalgia
Rheumatoid Arthritis
Chronic Opioid Dependence
- Pain control will likely be difficulty given chronic opioid dependence.
- Adjust regimen as needed.
- Med rec / resume RA medications as appropriate.
History of Vertebral Osteomyelitis
- On chronic suppressive therapy with cefdinir.
- Continue abx without interruption.
Spina Bifida
Myasthenia Gravis
DVT Prophylaxis: SCDs for now. Post-op per Ortho.
Code Status: DNR
--- NOTE | 2024-12-26 08:40 | PHANOTE ---
Addendum entered by Hetal Deal 12/26/24 09:21:
family in room with patient
Original Note:
med rec note- called son to verify medications. patient does not know he medication
--- NOTE | 2024-12-26 08:59 | W.PN.HOSP.TC ---
Today's Communication/Plan
-
OR today
Assessment / Plan
Assessment / Plan
Impression:
Patient is an 84y F with PMH significant for ASCVD, hypertension, COPD with chronic hypoxemia and chronic pain syndrome who presents to ED complaining of R hip pain s/p [id number] at home. Patient states that she tripped on her O2 cord and
fell - landing on her R hip. She denies any head injury or LOC. She was brought to the ED for further evaluation and treatment.
Right hip x-ray shows: Limited due to osseous overlap from the proximal right femur, there is a fracture of the neck of the proximal right femur also seen on concurrent CT earlier same day.
Orthopedic consulted. Plan for OR.
Assessment/plan:
Right Hip Fracture
- Admit for further evaluation and treatment.
- Supportive care / continue efforts at pain control - will likely require higher than usual doses given chronic opioid dependence.
- Ortho consulted for eventual operative repair.
- Patient is at increased risk for complications related to surgery or anesthesia due to CAD, anemia, chronic osteomyelitis and chronic pain.
- See below for individual discussions of these issues.
- No current cardiac issues / complaints. EKG without acute ischemia.
- Would transfuse 1 unit of PRBCs pre-op and follow H&H perioperatively for additional transfusion(s) if required.
- Benefits of surgery outweigh the potential risks and patient may proceed to OR following transfusion.
12/26
Patient medically clear for OR today
ASCVD
- Stable. No chest pain / dyspnea.
- Continue with BB
Chronic Macrocytic Anemia
- Hgb today is 8.5 which is on the lower side for Ms. Liriano.
- Would transfuse one unit pre-op as noted above given underlying coronary disease, chronic hypoxemia, etc.
- Check iron studies, B12, folate, etc.
- Follow H&H and provide additional transfusion(s) as needed.
COPD with Chronic Hypoxemic Respiratory Failure
- Stable. O2 saturations acceptable on usual O2 supplementation.
- No cough, fever, wheezing, etc.
- Nebs PRN. Continue O2 supplementation.
Benign Hypertension
- Resume amlodipine and continue with metoprolol
Chronic Pain Syndrome
Fibromyalgia
Rheumatoid Arthritis
Chronic Opioid Dependence
- Pain control will likely be difficulty given chronic opioid dependence.
- Adjust regimen as needed.
- Resume RA medications.
History of Vertebral Osteomyelitis
- On chronic suppressive therapy with cefdinir.
- Continue abx without interruption.
Spina Bifida
Myasthenia Gravis
CODE STATUS: DNR
DVT prophylaxis: SCDS
Diet: NPO
Family communication: Discussed with family at bedside
Disposition: OR today
Total time spent on today's encounter was 65 minutes which included time spent in counseling the patient/family regarding diagnosis and treatment plan as listed above, goals of care, and symptom management. Case was discussed with nursing staff,
specialists, and care coordinators/case management. All labs and imaging personally reviewed by me. Remainder the time spent in detailed review of previous records, lab data, imaging, and other medical provider documentation.
Anticipated Discharge: > 48 hours
Subjective/Interval History
-
Date of Service: December 26, 2024
Patient seen and examined at bedside, family at bedside, complaining of severe right hip pain, also migraine.
Discussed with orthopedic, for OR today.
Objective Data
-
Labs:
Laboratory Results
12/26/24
04:44
WBC 7.2
Hgb 8.5 L
Hct 28.6 L
Plt Count 175
PT 14.6
INR 1.11
APTT 26.2
Sodium 136
Potassium 4.1
Chloride 104
Carbon Dioxide 33 H
BUN 13
Creatinine 0.6
Glucose 106 H
Calcium 8.6
Total Bilirubin 0.5
AST 34
ALT 25
Alkaline Phosphatase 33 L
Vital Signs:
Vital Signs
Temp Pulse Resp BP Pulse Ox
98.2 F 75 23 127/78 96
12/26/24 03:13 12/26/24 07:30 12/26/24 07:30 12/26/24 07:01 12/26/24 07:15
Physical Exam
-
General: Appears in Distress and Pain
HEENT: Normocephalic, Atraumatic, Moist Mucous Membranes, No Ptosis, PERRLA and Nose Appears Normal
Respiratory: Clear to Auscultation and Non Labored Respirations
Cardiac: Regular Rhythm and S1/S2
Breast: Deferred by me
GI: Soft, Nontender, Nondistended and Normal Bowel Sounds
Genito-urinary: No Costovertebral Tender
Musculoskeletal: No Clubbing, No Cyanosis, No Edema and Other (Right hip tenderness, shortening right leg)
Skin: Warm
Neuro: Awake, Alert, Oriented, AO x 3 and No Motor Deficits
Psych: Anxious
Data Reviewed
-
Diagnostic Radiology: Image personally visualized and interpreted and Report Reviewed by me
CT Scan: Image personally visualized and interpreted and Report Reviewed by me
Ultrasound: Image personally visualized and interpreted and Report Reviewed by me
MRI: Image personally visualized and interpreted and Report Reviewed by me
Medical Tests (Nuc Med, Echo etc): Image personally visualized and interpreted and Report Reviewed by me
Labs: Labs Reviewed by me
Old Records: Reviewed
--- NOTE | 2024-12-26 09:06 | W.PN.UPDATE ---
Update Note
Progress Note Update
Full H&P to follow
84-year-old female community ambulator with assist devices with significant past medical history of chronic pain with a mechanical fall sustaining a displaced right femoral neck fracture.
On exam skin is closed. Demonstrates gross motor intact L3-S1 but reported baseline neuropathic decree sensation distally
Imaging shows on CT scan displaced right femoral neck fracture.
- Patient recommended for operative invention of hip arthroplasty given her community ambulator with assist device baseline status.
- Tentative for OR today pending medical optimization/clearance with recommendation of transfusion with hemoglobin of 8.5.
- Preoperative antibiotics and irrigation products along order; consent on file and at front desk supervisor of operating room
- Nonweightbearing to right lower extremity.
[2024-12-26] MEDS: CYMBALTA DELAYED RELEASE 30 MG PO (09:56)
[2024-12-26] MEDS: NEURONTIN 600 MG PO ×3 (09:56→20:57)
[2024-12-26] MEDS: MS CONTIN (EXTENDED RELEASE) 30 MG PO ×2 (09:56→20:58)
[2024-12-26] MEDS: OMNICEF 300 MG PO ×2 (09:56→20:58)
[2024-12-26] MEDS: PROTONIX 40 MG PO ×2 (09:56→20:58)
[2024-12-26] MEDS: VENTOLIN NEBULES 2.5 MG INH (10:06)
[2024-12-26] MEDS: LR 1000 IV (10:09)
[2024-12-26 10:15] LABS: Iron 112 ug/dl (37-170)
[2024-12-26 10:25] LABS: Total Iron Binding Capacity 269 ug/dl (265-497)
[2024-12-26 11:04] LABS: Urine Character Clear (Clear)
[2024-12-26 11:22] LABS: Ferritin 229.0 ng/ml (11.1-264.0)
--- NOTE | 2024-12-26 11:24 | PTCARENOTE ---
[facility] 0925 pt arrived from ED to room 2109. Pt slid over to bed from stretcher. Pt with right hip fracture for OR today at noon. CHG wipes done. Pt is in pain and is tearful. Family in room. IV Dilaudid given along with morning routine medications.
Assessment and admission done. Pt instructed to ring for assistance.
[2024-12-26 11:49] LABS: Urine Squamous Cell >30 /LPF (Few); Urine Urothelial Cell 21-25 /LPF (FEW)
[2024-12-26 11:51] LABS: Urine Red Blood Cell 0-2 /HPF (0-2)
[2024-12-26 11:53] LABS: Folate 7.1 ng/ml (2.76-20); Vitamin B12 956 pg/ml (239-931)
--- NOTE | 2024-12-26 13:10 | PTCARENOTE ---
Patient sent to OR with volunteers and ortho PA. Blood infusing through left wrist. Ancef tubed to OR.
[2024-12-26] MEDS: ANCEF 10 IV (14:00)
--- NOTE | 2024-12-26 16:37 | CON.ORTHO ---
Consultation
-
Date/Time Consultation Requested: 12/26/2024 08
Date/Time Consultation Performed: 12/26/2024 08
Requesting Provider: Dr. Nehemiah Bonilla
Performing Provider: TRAMAINE Jacobs, Dr. Santi Leon
Reason for Consultation: Right hip fracture
Consultation - Orthopedics
History
84-year-old female presenting to [facility] emergency room after mechanical fall and impact of her right hip at her home after she was caught up in her oxygen cord. She reports immediate pain and inability to bear weight. Imaging was done in the
emergency room and she has been diagnosed with a right hip fracture. She does report she has chronic pain relative to chronic back pain issues as well as fibromyalgia and possible rheumatic illness. She reports some baseline neuropathy of her
right lower extremity. She ambulates with assistive devices such as a walker short distances
Allergies / Home Medications
Past Medical History
Past Medical History: Reports Other
Additional Past Medical History:
Coronary Arterty Disease s/p CABG and PCI
Essential Hypertension
Hyperlipidemia
COPD
Depression
Chronic Pain Syndrome / Chronic Opioid Dependence Syndrome secondary to Spinal Stenosis
Fibromyalgia
Myasthenia Gravis
Rheumatoid Arthritis
GERD/PUD
Spina Bifida
Hx Vertebral Osteomyelitis on Chronic Suppressive Antibiotics
Past Surgical History: Reports Other
Additional Past Surgical History:
Spina Bifida surgery
Spinal Stimulator
CABG
Social History
Tobacco: Non-smoker
Alcohol: None
Living: With Family
Family History
Family History: Not pertinent
Allergies / Home Medications
Allergy/AdvReac Type Severity Reaction Status Date / Time
adhesive Allergy TAPE-RASH,SKIN Verified 12/26/24 03:12
BLISTERS
�Medication �Instructions �Recorded
leflunomide 20 mg tablet 20 mg PO DAILY rheumatoid arthritis 01/18/17
rosuvastatin 10 mg tablet 10 mg PO QPM High cholesterol 04/11/19
pyridostigmine bromide 60 mg tablet 60 mg PO QID 30 days #120 tabs 07/02/20
cyanocobalamin (vitamin B-12) 1,000 mcg PO DAILY Supplement 11/11/20
1,000 mcg tablet
duloxetine 30 mg capsule,delayed 30 mg PO DAILY Chronic pain 11/11/20
release
duloxetine 30 mg capsule,delayed 60 mg PO HS chronic pain 11/11/20
release
ferrous sulfate 325 mg (65 mg 325 mg PO DAILY Supplement 11/11/20
iron) tablet (FeroSul)
hydroxychloroquine 200 mg tablet 400 mg PO DAILY@1200 rheumatoid 07/20/22
arthritis
sulfasalazine 500 mg tablet 1,000 mg PO BID rheumatoid 07/20/22
arthritis
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
ipratropium 0.5 mg-albuterol 3 mg 3 ml inhalation R QIDPRN PRN sob 01/25/24
(2.5 mg base)/3 mL nebulization
soln
pantoprazole 40 mg tablet,delayed 40 mg PO BID Gastrointestinal Issue 05/29/24
release (Protonix)
gabapentin 600 mg tablet 600 mg PO TID Pain 10/17/24
metoprolol succinate 100 mg 100 mg PO DAILY@1200 Blood Pressure 10/17/24
tablet,extended release 24 hr
(Toprol XL)
morphine 30 mg tablet,extended 30 mg PO Q12H Pain #2 tabs 10/23/24
release
amlodipine 5 mg tablet 2.5 mg PO BID 12/26/24
cholecalciferol (vitamin D3) 125 125 mcg PO DAILY 12/26/24
mcg (5,000 unit) tablet (Vitamin
D3)
oxycodone 10 mg tablet 10 mg PO BIDPRN PRN severe pains 12/26/24
prednisone 5 mg tablet 5 mg PO DAILY 12/26/24
Vital Signs / Lab Results
Temp Pulse Resp BP Pulse Ox
98.6 F 82 13 148/68 97
12/26/24 15:26 12/26/24 16:30 12/26/24 15:45 12/26/24 16:30 12/26/24 16:30
12/26/24 04:44
12/26/24 04:44
Focused examination of the right lower extremity shows skin is intact with no erythema edema or ecchymosis. Decreased creased sensation distally consistent with baseline neuropathy per patient. Does demonstrate motor function intact L3-S1. Pain
increased about the right hip with gentle logroll, not further challenged. Nontender about the knee
Imaging: X-ray and CT scan show chronic degenerative changes and spinal cord stimulator about the spine. Acute displaced right femoral neck fracture
Assessment / Plan
84-year-old female community ambulator with assist devices with significant past medical history of chronic pain with a mechanical fall sustaining a displaced right femoral neck fracture.
- Patient recommended for operative invention of hip arthroplasty given her community ambulator with assist device baseline status.
- Tentative for OR today pending medical optimization/clearance with recommendation of transfusion with hemoglobin of 8.5.
- Preoperative antibiotics and irrigation products along order; consent on file and at assistant front office manager of operating room
- Nonweightbearing to right lower extremity.
[2024-12-26] MEDS: MESTINON PO (17:11)
[2024-12-26] MEDS: ASPIRIN 325 MG PO (17:12)
[2024-12-26] MEDS: MESTINON 60 MG PO ×2 (17:12→20:57)
[2024-12-26] MEDS: CRESTOR 10 MG PO (17:12)
[2024-12-26] MEDS: TOPROL XL PO (17:17)
--- NOTE | 2024-12-26 19:17 | PTCARENOTE ---
Pt back from PACU at aprox 1700. Pt drowsy. Vitals stable. Right hip dressings CDI, ice applied. Pt with minimal pain at the time. Pt given medications that were due and dinner was ordered for her. Instructed to ring for assistance if needed. Pt did
ring and urinated a large amount on bedpan. Bed alarm maintained for safety.
[2024-12-26] MEDS: AZULFIDINE 1000 MG PO (20:57)
[2024-12-26] MEDS: CYMBALTA DELAYED RELEASE 60 MG PO (20:57)
[2024-12-26] MEDS: COLACE 100 MG PO (20:58)
[2024-12-26] MEDS: BACTROBAN 2% OINTMENT 1 APPLIC NASAL (20:58)
[2024-12-26] MEDS: SENOKOT 17.2 MG PO (20:58)
[2024-12-26] MEDS: NORVASC PO (20:58)
[2024-12-26] MEDS: ANCEF 5 IV (21:00)
[2024-12-26] MEDS: TYLENOL 650 MG PO (21:06)
[2024-12-26] MEDS: COMPAZINE 5 MG PO (21:09)
[2024-12-27] MEDS: DILAUDID 1 MG IV (02:13)
[2024-12-27 03:03] VITALS: BP 118/49
--- NOTE | 2024-12-27 05:02 | W.PN.ORTHO ---
Today's Communication / Plan
-
POD #1 s/p right hip hemiarthroplasty.
-PT/OT with WBAT. Posterior THPs.
-Aspirin 325 mg po daily x 4 weeks for DVT prophylaxis.
-Hgb 8.5 pre operatively with 1 unit transfused pre op. Hgb 7.5 this morning.
-Appreciate case management efforts in d/c planning.
-[place] to be removed in 2 weeks. If d/c to rehab, may be removed at facility and f/u outpatient in 4 weeks.
-Will continue to follow.
Assessment
.
Distal Motor Intact: Yes
Dressing:
Clean, dry and intact.
Assessment:
POD #1 s/p right hip hemiarthroplasty.
-PT/OT with WBAT. Posterior THPs.
-Aspirin 325 mg po daily x 4 weeks for DVT prophylaxis.
-Hgb 8.5 pre operatively with 1 unit transfused pre op. Hgb 7.5 this morning.
-Appreciate case management efforts in d/c planning.
-[place] to be removed in 2 weeks. If d/c to rehab, may be removed at facility and f/u outpatient in 4 weeks.
-Will continue to follow.
Plan
.
Activity:
Out of bed.
PT/OT
Subjective
.
.:
Patient resting comfortably. Denies any significant discomfort in her right hip.
Vital Signs and Labs
.
Vital Signs and Labs:
Temp Pulse Resp BP Pulse Ox
98.4 F 75 17 118/49 96
12/27/24 03:03 12/27/24 03:03 12/27/24 03:03 12/27/24 03:03 12/27/24 03:03
PT 14.6 Sec (11.4-14.6) 12/26/24 04:44
INR 1.11 12/26/24 04:44
Physical Exam
-
Right hip: Primaseal dressing is c/d/i. Mild diffuse swelling and early ecchymosis. Minimal TTP about lateral hip. Gentle ROM with minimal discomfort. Logroll with mild pain. Calf soft and non tender to palpation. N/v intact distally.
[2024-12-27] MEDS: ANCEF 5 IV (05:25)
[2024-12-27] MEDS: ROXICODONE 10 MG PO ×2 (05:31→09:16)
[2024-12-27] MEDS: LR 1000 IV (05:31)
[2024-12-27 06:00] VITALS: BMI 27.1
[2024-12-27 07:38] LABS: Hematocrit 23.8 % (37.0-47.0); Hemoglobin 7.5 g/dL (12.0-16.0); Mean Corp Hgb Conc. 31.5 g/dL (33.0-37.0); Mean Corpuscular Volume 97.1 fL (81.0-99.0); Platelet Count 147 10^3/uL (130-400); Red Cell Dist. Width 18.5 % (11.5-14.5)
[2024-12-27 07:44] LABS: Blood Urea Nitrogen 11 mg/dl (7-17); Calcium 7.6 mg/dl (8.4-10.2); Carbon Dioxide 31 mmol/L (22-30); Chloride 105 mmol/L (98-107); Estimated Creatinine Clearance 60 ml/min; Glucose 111 mg/dl (70-99); Magnesium 1.7 mg/dl (1.6-2.3); Potassium 4.0 mmol/L (3.5-5.1); Sodium 133 mmol/L (135-145); eGFR > 60.00
[2024-12-27] MEDS: NEURONTIN 600 MG PO ×3 (08:51→21:31)
[2024-12-27] MEDS: DELTASONE 5 MG PO (08:51)
[2024-12-27] MEDS: ASPIRIN 325 MG PO (08:52)
[2024-12-27] MEDS: AZULFIDINE 1000 MG PO ×2 (08:52→19:40)
[2024-12-27] MEDS: PROTONIX 40 MG PO ×2 (08:52→19:42)
[2024-12-27] MEDS: NORVASC 2.5 MG PO ×2 (08:52→19:41)
[2024-12-27] MEDS: CYMBALTA DELAYED RELEASE 30 MG PO (08:52)
[2024-12-27] MEDS: FEOSOL 325 MG PO (08:59)
[2024-12-27] MEDS: SENOKOT 17.2 MG PO ×2 (08:59→19:43)
[2024-12-27] MEDS: MESTINON 60 MG PO ×4 (08:59→21:31)
[2024-12-27] MEDS: VITAMIN B-12 1000 MCG PO (08:59)
[2024-12-27] MEDS: COLACE 100 MG PO ×2 (09:00→19:41)
[2024-12-27] MEDS: BACTROBAN 2% OINTMENT 1 APPLIC NASAL ×2 (09:00→19:41)
[2024-12-27] MEDS: VITAMIN D3 (cholecalciferol) 125 MCG PO (09:00)
[2024-12-27] MEDS: OMNICEF 300 MG PO ×2 (09:00→19:42)
[2024-12-27] MEDS: MS CONTIN (EXTENDED RELEASE) 30 MG PO ×2 (09:05→21:30)
[2024-12-27] MEDS: NON-FORMULARY ITEM 20 MG PO (09:14)
--- NOTE | 2024-12-27 09:38 | PTCARENOTE ---
12/26/24 at 1423--Blood transfusion ended in OR on paper TAR record. 12/27--This information documented on the paper TAR was transcribed into the electronic record [facility]
[2024-12-27 10:40] VITALS: BP 129/62; PULSE 100; O2SAT 98
[2024-12-27 10:49] VITALS: BP 129/62; PULSE 82; O2SAT 97
--- NOTE | 2024-12-27 10:50 | W.PN.HOSP.TC ---
Today's Communication/Plan
-
X-ray right wrist pending.
Monitoring hemoglobin
Physical therapy
Assessment / Plan
Assessment / Plan
Impression:
Patient is an 84y F with PMH significant for ASCVD, hypertension, COPD with chronic hypoxemia and chronic pain syndrome who presents to ED complaining of R hip pain s/p [id number] at home. Patient states that she tripped on her O2 cord and
fell - landing on her R hip. She denies any head injury or LOC. She was brought to the ED for further evaluation and treatment.
Right hip x-ray shows: Limited due to osseous overlap from the proximal right femur, there is a fracture of the neck of the proximal right femur also seen on concurrent CT earlier same day.
Orthopedic consulted. Status post right hip hemiarthroplasty.
Physical therapy consult, was complaining of right wrist pain, x-ray pending.
Assessment/plan:
Right Hip Fracture
- Admit for further evaluation and treatment.
- Supportive care / continue efforts at pain control - will likely require higher than usual doses given chronic opioid dependence.
- Ortho consulted for eventual operative repair.
- Patient is at increased risk for complications related to surgery or anesthesia due to CAD, anemia, chronic osteomyelitis and chronic pain.
- See below for individual discussions of these issues.
- No current cardiac issues / complaints. EKG without acute ischemia.
- Would transfuse 1 unit of PRBCs pre-op and follow H&H perioperatively for additional transfusion(s) if required.
- Benefits of surgery outweigh the potential risks and patient may proceed to OR following transfusion.
12/26
Patient medically clear for OR today
12/27
Status post right hip hemiarthroplasty.
Physical therapy consult, was complaining of right wrist pain, x-ray pending.
ASCVD
- Stable. No chest pain / dyspnea.
- Continue with BB
Acute blood loss anemia on chronic Macrocytic Anemia
-Status post blood transfusion preoperative
-Continue to monitor H&H and transfuse if needed
COPD with Chronic Hypoxemic Respiratory Failure
- Stable. O2 saturations acceptable on usual O2 supplementation.
- No cough, fever, wheezing, etc.
- Nebs PRN. Continue O2 supplementation.
Benign Hypertension
- Resume amlodipine and continue with metoprolol
Chronic Pain Syndrome
Fibromyalgia
Rheumatoid Arthritis
Chronic Opioid Dependence
- Pain control will likely be difficulty given chronic opioid dependence.
- Adjust regimen as needed.
- Resume RA medications.
History of Vertebral Osteomyelitis
- On chronic suppressive therapy with cefdinir.
- Continue abx without interruption.
Spina Bifida
Myasthenia Gravis
CODE STATUS: DNR
DVT prophylaxis: SCDS
Diet: regular
Family communication: Discussed with family at bedside
Disposition: PT/OT consult
Total time spent on today's encounter was 65 minutes which included time spent in counseling the patient/family regarding diagnosis and treatment plan as listed above, goals of care, and symptom management. Case was discussed with nursing staff,
specialists, and care coordinators/case management. All labs and imaging personally reviewed by me. Remainder the time spent in detailed review of previous records, lab data, imaging, and other medical provider documentation.
Anticipated Discharge: 24 - 48 hours
Subjective/Interval History
-
Date of Service: December 27, 2024
Patient seen and examined at bedside, still complaining of 10/10 right hip pain, and headache somewhat improved compared to yesterday, discussed with family at bedside.
Patient denies any chest pain or shortness of breath, patient complaining of right wrist pain, will obtain x-ray right wrist.
Objective Data
-
Labs:
Laboratory Results
12/27/24
07:07
WBC 8.5
Hgb 7.5 L
Hct 23.8 L
Plt Count 147
Sodium 133 L
Potassium 4.0
Chloride 105
Carbon Dioxide 31 H
BUN 11
Creatinine 0.5 L
Glucose 111 H
Calcium 7.6 L
Vital Signs:
Vital Signs
Temp Pulse Resp BP Pulse Ox
98.4 F 75 17 127/59 2
12/27/24 03:03 12/27/24 03:03 12/27/24 03:03 12/27/24 08:52 12/27/24 08:58
I&O
12/26/24 12/27/24 12/28/24
06:59 06:59 06:59
Intake Total 2230 / 2230 300 / 300
Balance 2230 / 2230 300 / 300
Physical Exam
-
General: Appears in Distress and Pain
HEENT: Normocephalic, Atraumatic, Moist Mucous Membranes, No Ptosis, PERRLA and Nose Appears Normal
Respiratory: Clear to Auscultation and Non Labored Respirations
Cardiac: Regular Rhythm and S1/S2
Breast: Deferred by me
GI: Soft, Nontender, Nondistended and Normal Bowel Sounds
Genito-urinary: No Costovertebral Tender
Musculoskeletal: No Clubbing, No Cyanosis, No Edema and Other (Right hip surgical site clean.)
Skin: Warm
Neuro: Awake, Alert, Oriented, AO x 3 and No Motor Deficits
Psych: Anxious
Data Reviewed
-
Diagnostic Radiology: Image personally visualized and interpreted and Report Reviewed by me
CT Scan: Image personally visualized and interpreted and Report Reviewed by me
Ultrasound: Image personally visualized and interpreted and Report Reviewed by me
MRI: Image personally visualized and interpreted and Report Reviewed by me
Medical Tests (Nuc Med, Echo etc): Image personally visualized and interpreted and Report Reviewed by me
Labs: Labs Reviewed by me
Old Records: Reviewed
[2024-12-27 11:20] VITALS: BP 124/65
[2024-12-27] MEDS: TOPROL XL 100 MG PO (12:03)
[2024-12-27] MEDS: PLAQUENIL 400 MG PO (12:03)
[2024-12-27] MEDS: TYLENOL 650 MG PO (12:03)
[2024-12-27] MEDS: LR IV (12:04)
--- NOTE | 2024-12-27 13:58 | CM ---
Met with patient at bedside; spoke with patient's daughter/Primary Contact, Daniela @ [phone]
Pharmacy preference verified: [facility]; [id number]
Family Physician verified: Ayah Tinajero MD # [id number]
Lives in one story home; 33 yr old grandson lives with her; 2 steps to enter
PLOF: needs assistance with some ADLs; ambulates w/ Rolling Walker; mobilizes w/ Wheelchair outside of home; not driving
DME: [employer]; unable to provide O2 vendor
SNF stay @ [facility]; previous home care w/[facility]
PT recommends SNF when stable for discharge; options identified; preferences are [facility] and [facility]; referrals sent via [facility]
Plan: Discharge to SNF pending bed availability and Authorization approval
[2024-12-27] MEDS: ROXICODONE 5 MG PO ×2 (14:40→19:47)
[2024-12-27] MEDS: CRESTOR 10 MG PO (18:35)
[2024-12-27 19:00] VITALS: BP 107/64
[2024-12-27] MEDS: CYMBALTA DELAYED RELEASE 60 MG PO (21:30)
[2024-12-27 23:00] VITALS: BP 138/66
--- NOTE | 2024-12-27 23:30 | PTCARENOTE ---
Assumed care of pt at 23:15. Pt AOx3, bed in a low position, call light in reach, pain assessed, bed alarm plugged into wall, care ongoing.
[2024-12-28] VITALS (7 sets, daily range): BP systolic 108–160; BP diastolic 50–89; PULSE 93–96; O2SAT 84–99; BMI 27.9
[2024-12-28] MEDS: DILAUDID 1 MG IV (00:10)
[2024-12-28] MEDS: ZOFRAN 4 MG IV ×2 (00:15→06:25)
[2024-12-28] MEDS: DILAUDID 0.5 MG IV (07:54)
[2024-12-28] MEDS: COMPAZINE 5 MG PO (07:54)
--- NOTE | 2024-12-28 08:01 | PTCARENOTE ---
currently tearful and c/o nausea only no belching or wretching.. repositioned and gave Compazine and Dilaudid . states she can take no oral pills at this time.
[2024-12-28 09:33] LABS: Blood Urea Nitrogen 11 mg/dl (7-17); Calcium 8.3 mg/dl (8.4-10.2); Carbon Dioxide 29 mmol/L (22-30); Chloride 101 mmol/L (98-107); Estimated Creatinine Clearance 61 ml/min; Glucose 101 mg/dl (70-99); Potassium 4.4 mmol/L (3.5-5.1); Sodium 133 mmol/L (135-145); eGFR > 60.00
[2024-12-28 09:41] LABS: Hematocrit 28.7 % (37.0-47.0); Hemoglobin 9.2 g/dL (12.0-16.0); Mean Corp Hgb Conc. 32.1 g/dL (33.0-37.0); Mean Corpuscular Volume 97.6 fL (81.0-99.0); Platelet Count 152 10^3/uL (130-400); Red Cell Dist. Width 17.5 % (11.5-14.5)
[2024-12-28] MEDS: COLACE 100 MG PO ×2 (10:50→19:20)
[2024-12-28] MEDS: PROTONIX 40 MG PO ×2 (10:51→19:20)
[2024-12-28] MEDS: MS CONTIN (EXTENDED RELEASE) 30 MG PO ×2 (10:51→21:14)
[2024-12-28] MEDS: FEOSOL 325 MG PO (10:52)
[2024-12-28] MEDS: NORVASC 2.5 MG PO ×2 (10:52→19:21)
[2024-12-28] MEDS: VITAMIN B-12 1000 MCG PO (10:52)
[2024-12-28] MEDS: CYMBALTA DELAYED RELEASE 30 MG PO (10:52)
[2024-12-28] MEDS: NEURONTIN 600 MG PO ×3 (10:52→21:14)
[2024-12-28] MEDS: VITAMIN D3 (cholecalciferol) 125 MCG PO (10:53)
[2024-12-28] MEDS: NON-FORMULARY ITEM 20 MG PO (10:54)
[2024-12-28] MEDS: MESTINON 60 MG PO ×4 (10:54→21:18)
[2024-12-28] MEDS: AZULFIDINE 1000 MG PO ×2 (10:54→19:22)
[2024-12-28] MEDS: OMNICEF 300 MG PO ×2 (10:55→19:20)
[2024-12-28] MEDS: DELTASONE 5 MG PO (10:55)
[2024-12-28] MEDS: ASPIRIN 325 MG PO (10:55)
[2024-12-28] MEDS: SENOKOT 17.2 MG PO ×2 (10:56→19:21)
--- NOTE | 2024-12-28 11:25 | CM ---
Patient seen at bedside with daughter
Patient accepted to [facility] - daughter agreeable
CM left message with Alize at [facility] regarding bed availability
Will need to obtain ins auth once bed secured
PLAN: [facility] SNF, await call back regarding bed availability, will need auth
--- NOTE | 2024-12-28 12:37 | CM ---
Addendum entered by Eliana Bradford 12/28/24 15:50:
Called [phone] - spoke with Hiral - [facility] approved
Auth approval #: [id number], Start date 12/29/24, NRD 01/02
call with updates to [phone]
called Alize from [facility] and auth approval info given to her
tt hospitalist
PLAN: [facility] 12/29
Report #: [phone]
Fax #: [phone]
transportation forms on chart
Original Note:
Per Alize from [facility] - has bed avail tomorrow
IMM explained & signed.
transportation forms on chart
CM will initiate auth
[facility] NPI #: [id number]
Dr. Ani Wilson NPI #: [id number]
PLAN: [facility] 12/29, pending auth approval
Report #: [phone]
Fax #: [phone]
transportation forms on chart
[2024-12-28] MEDS: ROXICODONE 5 MG PO ×2 (12:48→17:53)
[2024-12-28] MEDS: PLAQUENIL 400 MG PO (12:49)
[2024-12-28] MEDS: TOPROL XL 100 MG PO (12:49)
--- NOTE | 2024-12-28 12:54 | W.PN.HOSP.TC ---
Today's Communication/Plan
-
Discharge to rehab possible tomorrow
Assessment / Plan
Assessment / Plan
Impression:
Patient is an 84y F with PMH significant for ASCVD, hypertension, COPD with chronic hypoxemia and chronic pain syndrome who presents to ED complaining of R hip pain s/p [id number] at home. Patient states that she tripped on her O2 cord and
fell - landing on her R hip. She denies any head injury or LOC. She was brought to the ED for further evaluation and treatment.
Right hip x-ray shows: Limited due to osseous overlap from the proximal right femur, there is a fracture of the neck of the proximal right femur also seen on concurrent CT earlier same day.
Orthopedic consulted. Status post right hip hemiarthroplasty.
Physical therapy consult, was complaining of right wrist pain, x-ray negative
Discharge to rehab.
Assessment/plan:
Right Hip Fracture
- Admit for further evaluation and treatment.
- Supportive care / continue efforts at pain control - will likely require higher than usual doses given chronic opioid dependence.
- Ortho consulted for eventual operative repair.
- Patient is at increased risk for complications related to surgery or anesthesia due to CAD, anemia, chronic osteomyelitis and chronic pain.
- See below for individual discussions of these issues.
- No current cardiac issues / complaints. EKG without acute ischemia.
- Would transfuse 1 unit of PRBCs pre-op and follow H&H perioperatively for additional transfusion(s) if required.
- Benefits of surgery outweigh the potential risks and patient may proceed to OR following transfusion.
12/26
Patient medically clear for OR today
12/27
Status post right hip hemiarthroplasty.
Physical therapy consult, was complaining of right wrist pain, x-ray pending.
12/28
Right wrist x-ray negative.
Patient cleared for discharge
ASCVD
- Stable. No chest pain / dyspnea.
- Continue with BB
Acute blood loss anemia on chronic Macrocytic Anemia
-Status post blood transfusion preoperative
-Continue to monitor H&H and transfuse if needed
COPD with Chronic Hypoxemic Respiratory Failure
- Stable. O2 saturations acceptable on usual O2 supplementation.
- No cough, fever, wheezing, etc.
- Nebs PRN. Continue O2 supplementation.
Benign Hypertension
- Resume amlodipine and continue with metoprolol
Chronic Pain Syndrome
Fibromyalgia
Rheumatoid Arthritis
Chronic Opioid Dependence
- Pain control will likely be difficulty given chronic opioid dependence.
- Adjust regimen as needed.
- Resume RA medications.
History of Vertebral Osteomyelitis
- On chronic suppressive therapy with cefdinir.
- Continue abx without interruption.
Spina Bifida
Myasthenia Gravis
CODE STATUS: DNR
DVT prophylaxis: SCDS
Diet: regular
Family communication: Discussed with family at bedside
Disposition: Cleared for discharge today
Total time spent on today's encounter was 65 minutes which included time spent in counseling the patient/family regarding diagnosis and treatment plan as listed above, goals of care, and symptom management. Case was discussed with nursing staff,
specialists, and care coordinators/case management. All labs and imaging personally reviewed by me. Remainder the time spent in detailed review of previous records, lab data, imaging, and other medical provider documentation.
Anticipated Discharge: Today
Subjective/Interval History
-
Date of Service: December 28, 2024
Patient seen and examined at bedside, still complaining of general pain, and headache negative right wrist x-ray.
Resumed home pain meds.
Objective Data
-
Labs:
Laboratory Results
12/28/24
08:57
WBC 14.6 H
Hgb 9.2 L D
Hct 28.7 L
Plt Count 152
Sodium 133 L
Potassium 4.4
Chloride 101
Carbon Dioxide 29
BUN 11
Creatinine 0.5 L
Glucose 101 H
Calcium 8.3 L
Vital Signs:
Vital Signs
Temp Pulse Resp BP Pulse Ox
98.1 F 88 14 147/68 97
12/28/24 12:26 12/28/24 12:26 12/28/24 12:26 12/28/24 12:49 12/28/24 12:26
I&O
12/27/24 12/28/24 12/29/24
06:59 06:59 06:59
Intake Total 2229 540 / 540
Balance 2229 540 / 540
Physical Exam
-
General: Appears in Distress and Pain
HEENT: Normocephalic, Atraumatic, Moist Mucous Membranes, No Ptosis, PERRLA and Nose Appears Normal
Respiratory: Clear to Auscultation and Non Labored Respirations
Cardiac: Regular Rhythm and S1/S2
Breast: Deferred by me
GI: Soft, Nontender, Nondistended and Normal Bowel Sounds
Genito-urinary: No Costovertebral Tender
Musculoskeletal: No Clubbing, No Cyanosis, No Edema and Other (Right hip surgical site clean.)
Skin: Warm
Neuro: Awake, Alert, Oriented, AO x 3 and No Motor Deficits
Psych: Anxious
Data Reviewed
-
Diagnostic Radiology: Image personally visualized and interpreted and Report Reviewed by me
CT Scan: Image personally visualized and interpreted and Report Reviewed by me
Ultrasound: Image personally visualized and interpreted and Report Reviewed by me
MRI: Image personally visualized and interpreted and Report Reviewed by me
Medical Tests (Nuc Med, Echo etc): Image personally visualized and interpreted and Report Reviewed by me
Labs: Labs Reviewed by me
Old Records: Reviewed
[2024-12-28] MEDS: CRESTOR 10 MG PO (17:55)
[2024-12-28] MEDS: CYMBALTA DELAYED RELEASE 60 MG PO (21:14)
[2024-12-29 03:30] VITALS: BP 106/58
[2024-12-29 06:00] VITALS: BMI 27.5
[2024-12-29 06:28] LABS: Hematocrit 24.0 % (37.0-47.0); Hemoglobin 7.6 g/dL (12.0-16.0); Mean Corp Hgb Conc. 31.7 g/dL (33.0-37.0); Mean Corpuscular Volume 98.8 fL (81.0-99.0); Platelet Count 158 10^3/uL (130-400); Red Cell Dist. Width 17.0 % (11.5-14.5)
[2024-12-29 06:38] LABS: Blood Urea Nitrogen 11 mg/dl (7-17); Calcium 8.4 mg/dl (8.4-10.2); Carbon Dioxide 34 mmol/L (22-30); Chloride 101 mmol/L (98-107); Estimated Creatinine Clearance 60 ml/min; Glucose 87 mg/dl (70-99); Potassium 4.2 mmol/L (3.5-5.1); Sodium 134 mmol/L (135-145); eGFR > 60.00
--- NOTE | 2024-12-29 07:30 | W.PN.ORTHO ---
Today's Communication / Plan
-
POD #3 s/p right hip hemiarthroplasty.
-PT/OT with WBAT. Posterior THPs.
-Aspirin 325 mg po daily x 4 weeks for DVT prophylaxis.
-Hgb 7.6 this morning. Continue to monitor
-Appreciate case management efforts in d/c planning.
-[place] to be removed in 2 weeks. If d/c to rehab, may be removed at facility and f/u outpatient in 4 weeks.
-Will continue to follow.
Assessment
.
Distal Motor Intact: Yes
Dressing:
Clean, dry and intact.
Plan
.
Surgery / Date: Right hip brie 12/26/24 Dr. Leon
DVT Prophylaxis: Aspirin
Activity:
Out of bed.
PT/OT
Subjective
.
.:
Patient resting comfortably in bed. Reports discomfort in her right thigh.
Vital Signs and Labs
.
Vital Signs and Labs:
Lab Results
12/29/24 05:37
12/29/24 05:37
Temp Pulse Resp BP Pulse Ox
97.8 F 66 14 106/58 93
12/29/24 03:30 12/29/24 03:30 12/29/24 03:30 12/29/24 03:30 12/29/24 03:30
PT 14.6 Sec (11.4-14.6) 12/26/24 04:44
INR 1.11 12/26/24 04:44
Physical Exam
-
Directed exam of right hip. Primaseal intact with mild strikethrough. Mild tenderness to palpation of lateral hip. Thigh is soft and compressible. ROM hip deferred. Calf soft and nontender. NVI distally
[2024-12-29 07:47] VITALS: BP 127/63
[2024-12-29] MEDS: NON-FORMULARY ITEM 20 MG PO (08:41)
[2024-12-29] MEDS: VITAMIN B-12 1000 MCG PO (08:42)
[2024-12-29] MEDS: NEURONTIN 600 MG PO (08:42)
[2024-12-29] MEDS: COLACE 100 MG PO (08:42)
[2024-12-29] MEDS: PROTONIX 40 MG PO (08:42)
[2024-12-29] MEDS: MESTINON 60 MG PO ×2 (08:42→12:33)
[2024-12-29] MEDS: CYMBALTA DELAYED RELEASE 30 MG PO (08:42)
[2024-12-29] MEDS: NORVASC 2.5 MG PO (08:43)
[2024-12-29] MEDS: AZULFIDINE 1000 MG PO (08:44)
[2024-12-29] MEDS: FEOSOL 325 MG PO (08:44)
[2024-12-29] MEDS: OMNICEF 300 MG PO (08:44)
[2024-12-29] MEDS: TYLENOL 650 MG PO (08:45)
[2024-12-29] MEDS: MS CONTIN (EXTENDED RELEASE) 30 MG PO (08:45)
[2024-12-29] MEDS: VITAMIN D3 (cholecalciferol) 125 MCG PO (08:45)
[2024-12-29] MEDS: DELTASONE 5 MG PO (08:45)
[2024-12-29] MEDS: ASPIRIN 325 MG PO (08:45)
[2024-12-29] MEDS: SENOKOT PO (08:46)
--- NOTE | 2024-12-29 09:46 | CM ---
Addendum entered by Gauri Gregg 12/29/24 09:49:
Son notified via phone of discharge plan
Original Note:
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
Report #: [phone]
Fax #: [phone]
--- NOTE | 2024-12-29 09:57 | W.PN.HOSP.TC ---
Today's Communication/Plan
-
Discharge to rehab today
Assessment / Plan
Assessment / Plan
Impression:
Patient is an 84y F with PMH significant for ASCVD, hypertension, COPD with chronic hypoxemia and chronic pain syndrome who presents to ED complaining of R hip pain s/p [id number] at home. Patient states that she tripped on her O2 cord and
fell - landing on her R hip. She denies any head injury or LOC. She was brought to the ED for further evaluation and treatment.
Right hip x-ray shows: Limited due to osseous overlap from the proximal right femur, there is a fracture of the neck of the proximal right femur also seen on concurrent CT earlier same day.
Orthopedic consulted. Status post right hip hemiarthroplasty.
Physical therapy consult, was complaining of right wrist pain, x-ray negative
Discharge to rehab.
Hemoglobin fluctuating but overall stable, repeat CBC after 1 week at rehab.
Assessment/plan:
Right Hip Fracture
- Admit for further evaluation and treatment.
- Supportive care / continue efforts at pain control - will likely require higher than usual doses given chronic opioid dependence.
- Ortho consulted for eventual operative repair.
- Patient is at increased risk for complications related to surgery or anesthesia due to CAD, anemia, chronic osteomyelitis and chronic pain.
- See below for individual discussions of these issues.
- No current cardiac issues / complaints. EKG without acute ischemia.
- Would transfuse 1 unit of PRBCs pre-op and follow H&H perioperatively for additional transfusion(s) if required.
- Benefits of surgery outweigh the potential risks and patient may proceed to OR following transfusion.
12/26
Patient medically clear for OR today
12/27
Status post right hip hemiarthroplasty.
Physical therapy consult, was complaining of right wrist pain, x-ray pending.
12/28
Right wrist x-ray negative.
Patient cleared for discharge
ASCVD
- Stable. No chest pain / dyspnea.
- Continue with BB
Acute blood loss anemia on chronic Macrocytic Anemia
-Status post blood transfusion preoperative
-Continue to monitor H&H and transfuse if needed
COPD with Chronic Hypoxemic Respiratory Failure
- Stable. O2 saturations acceptable on usual O2 supplementation.
- No cough, fever, wheezing, etc.
- Nebs PRN. Continue O2 supplementation.
Benign Hypertension
- Resume amlodipine and continue with metoprolol
Chronic Pain Syndrome
Fibromyalgia
Rheumatoid Arthritis
Chronic Opioid Dependence
- Pain control will likely be difficulty given chronic opioid dependence.
- Adjust regimen as needed.
- Resume RA medications.
History of Vertebral Osteomyelitis
- On chronic suppressive therapy with cefdinir.
- Continue abx without interruption.
Spina Bifida
Myasthenia Gravis
CODE STATUS: DNR
DVT prophylaxis: SCDS
Diet: regular
Family communication: Discussed with family at bedside
Disposition: Cleared for discharge today
Total time spent on today's encounter was 65 minutes which included time spent in counseling the patient/family regarding diagnosis and treatment plan as listed above, goals of care, and symptom management. Case was discussed with nursing staff,
specialists, and care coordinators/case management. All labs and imaging personally reviewed by me. Remainder the time spent in detailed review of previous records, lab data, imaging, and other medical provider documentation.
Anticipated Discharge: Today
Subjective/Interval History
-
Date of Service: December 29, 2024
Patient seen and examined at bedside, denies any chest pain or shortness of breath, no abdominal pain, no nausea, no vomiting, no diarrhea or constipation.
Objective Data
-
Labs:
Laboratory Results
12/29/24
05:37
WBC 9.3
Hgb 7.6 L
Hct 24.0 L
Plt Count 158
Sodium 134 L
Potassium 4.2
Chloride 101
Carbon Dioxide 34 H
BUN 11
Creatinine 0.5 L
Glucose 87
Calcium 8.4
Vital Signs:
Vital Signs
Temp Pulse Resp BP Pulse Ox
98.1 F 71 18 127/63 97
12/29/24 07:47 12/29/24 07:47 12/29/24 07:47 12/29/24 07:47 12/29/24 07:47
I&O
12/28/24 12/29/24 12/30/24
06:59 06:59 06:59
Intake Total 540 / 540 960 / 960
Balance 540 / 540 960 / 960
Physical Exam
-
General: Appears in Distress and Pain
HEENT: Normocephalic, Atraumatic, Moist Mucous Membranes, No Ptosis, PERRLA and Nose Appears Normal
Respiratory: Clear to Auscultation and Non Labored Respirations
Cardiac: Regular Rhythm and S1/S2
Breast: Deferred by me
GI: Soft, Nontender, Nondistended and Normal Bowel Sounds
Genito-urinary: No Costovertebral Tender
Musculoskeletal: No Clubbing, No Cyanosis, No Edema and Other (Right hip surgical site clean.)
Skin: Warm
Neuro: Awake, Alert, Oriented, AO x 3 and No Motor Deficits
Psych: Anxious
Data Reviewed
-
Diagnostic Radiology: Image personally visualized and interpreted and Report Reviewed by me
CT Scan: Image personally visualized and interpreted and Report Reviewed by me
Ultrasound: Image personally visualized and interpreted and Report Reviewed by me
MRI: Image personally visualized and interpreted and Report Reviewed by me
Medical Tests (Nuc Med, Echo etc): Image personally visualized and interpreted and Report Reviewed by me
Labs: Labs Reviewed by me
Old Records: Reviewed
--- NOTE | 2024-12-29 09:58 | W.DCSUMMARY ---
Discharge Summary
Discharge Data
Date of Admission: 12/26/24
Date of Discharge: 12/29/24
Total time spent discharging patient (in min): 40
-
Pending Results: No
Hospital Course
Hospital course
Patient is an 84y F with PMH significant for ASCVD, hypertension, COPD with chronic hypoxemia and chronic pain syndrome who presents to ED complaining of R hip pain s/p [id number] at home. Patient states that she tripped on her O2 cord and
fell - landing on her R hip. She denies any head injury or LOC. She was brought to the ED for further evaluation and treatment.
Right hip x-ray shows: Limited due to osseous overlap from the proximal right femur, there is a fracture of the neck of the proximal right femur also seen on concurrent CT earlier same day.
Orthopedic consulted. Status post right hip hemiarthroplasty.
Physical therapy consult, was complaining of right wrist pain, x-ray negative
Discharge to rehab.
Hemoglobin fluctuating but overall stable, repeat CBC after 1 week at rehab.
During hospitalization patient was treated from the following
Right Hip Fracture
- Admit for further evaluation and treatment.
- Supportive care / continue efforts at pain control - will likely require higher than usual doses given chronic opioid dependence.
- Ortho consulted for eventual operative repair.
- Patient is at increased risk for complications related to surgery or anesthesia due to CAD, anemia, chronic osteomyelitis and chronic pain.
- See below for individual discussions of these issues.
- No current cardiac issues / complaints. EKG without acute ischemia.
- Would transfuse 1 unit of PRBCs pre-op and follow H&H perioperatively for additional transfusion(s) if required.
- Benefits of surgery outweigh the potential risks and patient may proceed to OR following transfusion.
12/26
Patient medically clear for OR today
12/27
Status post right hip hemiarthroplasty.
Physical therapy consult, was complaining of right wrist pain, x-ray pending.
12/28
Right wrist x-ray negative.
Patient cleared for discharge
ASCVD
- Stable. No chest pain / dyspnea.
- Continue with BB
Acute blood loss anemia on chronic Macrocytic Anemia
-Status post blood transfusion preoperative
-Continue to monitor H&H and transfuse if needed
COPD with Chronic Hypoxemic Respiratory Failure
- Stable. O2 saturations acceptable on usual O2 supplementation.
- No cough, fever, wheezing, etc.
- Nebs PRN. Continue O2 supplementation.
Benign Hypertension
- Resume amlodipine and continue with metoprolol
Chronic Pain Syndrome
Fibromyalgia
Rheumatoid Arthritis
Chronic Opioid Dependence
- Pain control will likely be difficulty given chronic opioid dependence.
- Adjust regimen as needed.
- Resume RA medications.
History of Vertebral Osteomyelitis
- On chronic suppressive therapy with cefdinir.
- Continue abx without interruption.
Spina Bifida
Myasthenia Gravis
CODE STATUS: DNR
DVT prophylaxis: SCDS
Diet: regular
Family communication: Discussed with family at bedside
Disposition: Cleared for discharge today
Total time spent on today's encounter was 40 minutes which included time spent in counseling the patient/family regarding diagnosis and treatment plan as listed above, goals of care, and symptom management. Case was discussed with nursing staff,
specialists, and care coordinators/case management. All labs and imaging personally reviewed by me. Remainder the time spent in detailed review of previous records, lab data, imaging, and other medical provider documentation.
Anticipated Discharge: Today
Discharge Plan
-
Patient Disposition: Prison/SNF
Discharge Diagnosis/Procedures: Right Hip Fracture.
Acute blood loss anemia on chronic Macrocytic Anemia
Diet: As tolerated and Regular
Activity: With assistance and As tolerated
Blood Work: CBC after one week
Other Services: PT and OT
Referrals:
Santi Leon MD [Active, Orthopedics] - in two weeks
Ayah Tinajero MD [Family Provider, Family Practice]
Prescriptions:
New
aspirin 325 mg Tablet
325 mg PO DAILY Qty: 0 0RF
docusate sodium 100 mg Capsule
100 mg PO BID Qty: 0 0RF
polyethylene glycol 3350 17 gram Powder In Packet
17 g PO DAILY PRN (Reason: Constipation) Qty: 0 0RF
acetaminophen 325 mg Tablet
650 mg PO Q4HPRN PRN (Reason: Mild Pain / Temp > 101) Qty: 0 0RF
Continued
leflunomide 20 MG tablet
20 mg PO DAILY
rosuvastatin 10 MG tablet
10 mg PO QPM
pyridostigmine bromide 60 MG tablet
60 mg PO QID 30 Days Qty: 120 0RF
cyanocobalamin (vitamin B-12) 1,000 MCG tablet
1,000 mcg PO DAILY
ferrous sulfate [FeroSul] 325 MG tablet
325 mg PO DAILY
duloxetine 30 MG capsule,delayed release(DR/EC)
60 mg PO HS
duloxetine 30 MG capsule,delayed release(DR/EC)
30 mg PO DAILY
sulfasalazine 500 mg tablet
1,000 mg PO BID
hydroxychloroquine 200 MG tablet
400 mg PO DAILY@1200
ipratropium-albuterol 0.5 mg-3 mg(2.5 mg base)/3 mL Solution For Nebulization
3 ml INHALATION R QIDPRN PRN (Reason: sob)
cefdinir 300 mg Capsule
300 mg PO BID
pantoprazole [Protonix] 40 mg tablet,delayed release (DR/EC)
40 mg PO BID
gabapentin 600 mg Tablet
600 mg PO TID
metoprolol succinate [Toprol XL] 100 mg Tablet Extended Release 24 Hr
100 mg PO DAILY@1200
prednisone 5 mg Tablet
5 mg PO DAILY
amlodipine 5 mg tablet
2.5 mg PO BID
cholecalciferol (vitamin D3) [Vitamin D3] 125 mcg (5,000 unit) Tablet
125 mcg PO DAILY
morphine 30 MG tablet extended release
30 mg PO Q12H Qty: 4 0RF
oxycodone 10 mg Tablet
10 mg PO BIDPRN PRN (Reason: severe pains) Qty: 8 0RF
Discharge Orders:
Discharge Patient (As Directed); Ordered 12/29/24
Ordered By: Jaden Jose
Discharge Date and Time
Print Language: PALAUAN
[2024-12-29 11:28] VITALS: BP 117/57
[2024-12-29] MEDS: ROXICODONE 5 MG PO (12:31)
[2024-12-29] MEDS: PLAQUENIL 400 MG PO (12:31)
[2024-12-29] MEDS: TOPROL XL 100 MG PO (12:32)
[2024-12-29 13:15] VITALS: BP 137/62; PULSE 73; O2SAT 95
== END 2024-12-29 14:42 | DRG 522 ==
LOC: 2 SOUTH 07:41
PROVIDERS: ADMITTING PHYSICIAN Hospitalist; ATTENDING PHYSICIAN General Practice; CONSULT PHYSICIAN Specialist; EMERGENCY PHYSICIAN Student in an Organized Health Care Education/Training Program; FAMILY PHYSICIAN Family Medicine
PROC: 0SRR0J9 Replacement of Right Hip Joint, Femoral Surface with Synthetic Substitute, Cemented, Open Approach (ICD-10-PCS; 2024-12-26)
PROC: 30233N1 Transfusion of Nonautologous Red Blood Cells into Peripheral Vein, Percutaneous Approach (ICD-10-PCS; 2024-12-26)
DX: S72.21XA Displaced subtrochanteric fracture of right femur, initial encounter for closed fracture (principal); M80.051A Age-related osteoporosis with current pathological fracture, right femur, initial encounter for fracture; F11.20 Opioid dependence, uncomplicated; D62 Acute posthemorrhagic anemia; J96.11 Chronic respiratory failure with hypoxia; M48.00 Spinal stenosis, site unspecified; M79.7 Fibromyalgia; Q05.9 Spina bifida, unspecified; W01.0XXA Fall on same level from slipping, tripping and stumbling without subsequent striking against object, initial encounter; G89.4 Chronic pain syndrome; I10 Essential (primary) hypertension; I25.10 Atherosclerotic heart disease of native coronary artery without angina pectoris; J44.9 Chronic obstructive pulmonary disease, unspecified; D53.9 Nutritional anemia, unspecified; G70.00 Myasthenia gravis without (acute) exacerbation; Z66 Do not resuscitate; F32.A Depression, unspecified; K21.9 Gastro-esophageal reflux disease without esophagitis; Z87.11 Personal history of peptic ulcer disease; M06.9 Rheumatoid arthritis, unspecified; Z79.2 Long term (current) use of antibiotics; Z95.1 Presence of aortocoronary bypass graft; E78.00 Pure hypercholesterolemia, unspecified; G62.9 Polyneuropathy, unspecified; Z79.01 Long term (current) use of anticoagulants; Z79.899 Other long term (current) drug therapy; Z91.048 Other nonmedicinal substance allergy status; Z95.5 Presence of coronary angioplasty implant and graft
CPT/HCPCS: 72192; 73110; 73502; 80048; 80053; 81003; 81015; 82607; 82728; 82746; 83540; 83550; 83735; 84439; 84443; 85025; 85027; 85610; 85730; 86850; 86900; 86901; 86920; 87086; 93005; 94640; 96374; 96375; 97116; 97162; 97167; 97530; 99285; 99406; C1713; C1776; P9016

== ENCOUNTER → 2024-12-31 11:43 | Outpatient (REF) | payer OTHER, SELFPAY ==
[2024-12-31 12:06] LABS: Hematocrit 26.0 % (37.0-47.0); Hemoglobin 8.2 g/dL (12.0-16.0); Mean Corp Hgb Conc. 31.5 g/dL (33.0-37.0); Mean Corpuscular Volume 97.7 fL (81.0-99.0); Nucleated Red Blood Cells % 0 %; Platelet Count 222 10^3/uL (130-400); Red Cell Dist. Width 15.4 % (11.5-14.5)
[2024-12-31 12:14] LABS: Blood Urea Nitrogen 16 mg/dl (7-17); Calcium 9.3 mg/dl (8.4-10.2); Carbon Dioxide 34 mmol/L (22-30); Chloride 100 mmol/L (98-107); Glucose 93 mg/dl (70-99); Potassium 4.0 mmol/L (3.5-5.1); Sodium 134 mmol/L (135-145); eGFR > 60.00
== END ==
LOC: OLABP 11:43
PROVIDERS: ATTENDING PHYSICIAN Family Medicine
DX: S72.141A Displaced intertrochanteric fracture of right femur, initial encounter for closed fracture (principal)
CPT/HCPCS: 36415; 80048; 85025

== ENCOUNTER → 2025-01-01 11:33 | Outpatient (REF) | payer OTHER, SELFPAY ==
[2025-01-01 12:27] LABS: Hematocrit 26.6 % (37.0-47.0); Hemoglobin 8.2 g/dL (12.0-16.0); Mean Corp Hgb Conc. 30.8 g/dL (33.0-37.0); Mean Corpuscular Volume 97.8 fL (81.0-99.0); Platelet Count 226 10^3/uL (130-400); Red Cell Dist. Width 15.1 % (11.5-14.5)
[2025-01-01 12:34] LABS: Blood Urea Nitrogen 15 mg/dl (7-17); Calcium 9.2 mg/dl (8.4-10.2); Carbon Dioxide 33 mmol/L (22-30); Chloride 100 mmol/L (98-107); Glucose 84 mg/dl (70-99); Potassium 4.3 mmol/L (3.5-5.1); Sodium 134 mmol/L (135-145); eGFR > 60.00
== END ==
LOC: OLABP 11:33
PROVIDERS: ATTENDING PHYSICIAN Family Medicine
DX: S72.141A Displaced intertrochanteric fracture of right femur, initial encounter for closed fracture (principal)
CPT/HCPCS: 36415; 80048; 85027

== ENCOUNTER → 2025-01-02 09:44 | Outpatient (REF) | payer OTHER, SELFPAY ==
[2025-01-02 10:06] LABS: Hematocrit 26.6 % (37.0-47.0); Hemoglobin 8.2 g/dL (12.0-16.0); Mean Corp Hgb Conc. 30.8 g/dL (33.0-37.0); Mean Corpuscular Volume 98.9 fL (81.0-99.0); Platelet Count 264 10^3/uL (130-400); Red Cell Dist. Width 15.2 % (11.5-14.5)
[2025-01-02 10:59] LABS: Blood Urea Nitrogen 15 mg/dl (7-17); Calcium 9.0 mg/dl (8.4-10.2); Carbon Dioxide 36 mmol/L (22-30); Chloride 100 mmol/L (98-107); Glucose 83 mg/dl (70-99); Potassium 4.2 mmol/L (3.5-5.1); Sodium 136 mmol/L (135-145); eGFR > 60.00
== END ==
LOC: OLABP 09:44
PROVIDERS: ATTENDING PHYSICIAN Family Medicine
DX: S72.141A Displaced intertrochanteric fracture of right femur, initial encounter for closed fracture (principal)
CPT/HCPCS: 36415; 80048; 85027

== ENCOUNTER → 2025-01-08 09:43 | Outpatient (REF) | payer OTHER, SELFPAY ==
[2025-01-08 11:18] LABS: Hematocrit 23.4 % (37.0-47.0); Hemoglobin 7.2 g/dL (12.0-16.0); Mean Corp Hgb Conc. 30.8 g/dL (33.0-37.0); Mean Corpuscular Volume 100.4 fL (81.0-99.0); Platelet Count 344 10^3/uL (130-400); Red Cell Dist. Width 15.4 % (11.5-14.5)
== END ==
LOC: OLABP 09:43
PROVIDERS: ATTENDING PHYSICIAN Family Medicine
DX: S72.141A Displaced intertrochanteric fracture of right femur, initial encounter for closed fracture (principal)
CPT/HCPCS: 36415; 85027

== ENCOUNTER 2025-01-10 14:44 | Emergency (ER) | payer OTHER, SELFPAY ==
[2025-01-10] VITALS (8 sets, daily range): BP systolic 118–135; BP diastolic 51–98; BMI 29.2
[2025-01-10 16:07] LABS: Hematocrit 26.2 % (37.0-47.0); Hemoglobin 7.9 g/dL (12.0-16.0); Mean Corp Hgb Conc. 30.2 g/dL (33.0-37.0); Mean Corpuscular Volume 104.0 fL (81.0-99.0); Nucleated Red Blood Cells % 0 %; Platelet Count 357 10^3/uL (130-400); Red Cell Dist. Width 15.3 % (11.5-14.5)
[2025-01-10 16:29] LABS: Blood Urea Nitrogen 12 mg/dl (7-17); Calcium 8.7 mg/dl (8.4-10.2); Carbon Dioxide 34 mmol/L (22-30); Chloride 100 mmol/L (98-107); Estimated Creatinine Clearance 62 ml/min; Glucose 129 mg/dl (70-99); Sodium 133 mmol/L (135-145); eGFR > 60.00
--- NOTE | 2025-01-10 16:29 | ED.GENMED ---
History of Present Illness
General
Chief Complaint: Post Operative Problem(s)
Time Seen by Provider: 01/10/25 16:16
History of Present Illness
History of Present Illness:
84-year-old female with history of COPD, hypertension, hyperlipidemia, CAD status post CABG, spina bifida presents to the emergency department from [facility] for evaluation of weakness and fatigue as well as right calf pain. She is approximately 2
weeks status post right hip hemiarthroplasty performed at this hospital. She was given a presurgical blood transfusion due to worsening chronic anemia. According to her daughter she has been performing PT well with no difficulties
Past History
Past History
ED Past Medical History: CAD, COPD, Fibromyalgia, GERD, HTN, Hypercholesterolemia, OR, Psychiatric (depression) and Other (chronic back pain, Ulcers, C-diff)
ED Past Surgical History: Appendectomy, Cardiac (Stents, CABG), Gynecological, Orthopedic and Urological
Social History
Tobacco: Non-smoker
Alcohol: None
Drug: None
Personal:
Living: alone
Employment: Not employed
Family History
Family History: Other
Review of Systems
Review of Systems
Allergies reviewed?: Yes
All Other Systems: ROS reviewed and negative except as documented in HPI and ROS
Phy Exam
Physical Exam
Physical Exam:
GEN: Well appearing, NAD, WDWN
HEENT: Oral mucosa moist, no scleral icterus
Cardiac: Regular rate
Lung: No respiratory distress, no tachypnea
MSK: No gross deformity or injuries. Right hip incision is well-approximated with minimal wound dehiscence, no discharge. Diffuse ecchymosis across the right buttock, proximal thigh, and proximal calf. There is tenderness to palpation of the
proximal right calf.
Skin: Good color, no pallor or jaundice, no rashes
Neuro: AO x3, moves all extremities freely
Psych: Calm, cooperative
Course
Orders/Labs/Results
Orders:
Orders
01/10/25 15:59
Type And Crossmatch [Type+Screen] Urgent
Basic Metabolic Panel Urgent
Complete Blood Count/With Diff Urgent
01/10/25 16:28
Venous Doppler Lwr Ext Rt [US Periph Venous LOWER Ext RT] Urgent
Comment:
Reason For Exam: R calf pain, post op hip sx
Abnormal Lab Results
01/10/25
15:59
WBC 11.6 H 10^3/uL
(4.8-10.8)
RBC 2.52 L 10^6/uL
(4.20-5.40)
Hgb 7.9 L g/dL
(12.0-16.0)
Hct 26.2 L %
(37.0-47.0)
MCV 104.0 H fL
(81.0-99.0)
MCH 31.3 H pg
(27.0-31.0)
MCHC 30.2 L g/dL
(33.0-37.0)
RDW 15.3 H %
(11.5-14.5)
Abs Immat Gran (auto) 0.1 H 10^3/uL
(0-0.05)
Absolute Neuts (auto) 7.9 H 10^3/uL
(1.4-6.5)
Absolute Monos (auto) 1.4 H 10^3/uL
(0.1-0.6)
Lymphocytes % 12.0 L %
(20.5-51.1)
Monocytes % 11.7 H %
(1.7-9.3)
Eosinophils % 6.3 H %
(0-6)
Sodium 133 L mmol/L
(135-145)
Carbon Dioxide 34 H mmol/L
(22-30)
Creatinine 0.5 L mg/dL
(0.6-1.0)
Glucose 129 H mg/dl
(70-99)
01/10/25 15:59
01/10/25 15:59
Vital Signs
Initial and Last Documented VS:
Initial Vital Signs
Temp Pulse Resp BP Pulse Ox
98.2 F 70 16 123/98 96
01/10/25 14:51 01/10/25 14:51 01/10/25 14:51 01/10/25 14:51 01/10/25 14:51
Last Documented Vital Signs
Temp Pulse Resp BP Pulse Ox
98.2 F 64 18 135/60 98
01/10/25 14:51 01/10/25 18:32 01/10/25 18:32 01/10/25 18:32 01/10/25 18:32
MDM/Problems Addressed
MDM/Problems Addressed:
Ultrasound negative for DVT, hemoglobin uptrending compared to most recent labs
*Pulse Oximetry
SaO2: 98
Nasal Cannula flow liters per minute: 2
Patient hypoxic: no
*Critical Care Note
Total Time (30-74mins, 75-104mins- exclusive of procedures): Not Applicable
ED Attending Note
-
Portions of this chart may have been created with voice recognition software.� Occasional wrong word or��sound alike� substitutions may have occurred due to the inherent limitations of voice recognition software.
Discharge Plan
Departure
Patient Disposition: Home (Routine Discharge)
Date of Disposition: 01/10/25
Time of Disposition: 17:54
Patient with high blood pressure during this ER visit?: No
Discharge Problem:
Leg pain, right
Instructions: Postoperative Pain (DC)
Prescriptions:
No Action
leflunomide 20 MG tablet
20 mg PO DAILY
rosuvastatin 10 MG tablet
10 mg PO QPM
pyridostigmine bromide 60 MG tablet
60 mg PO QID 30 Days Qty: 120 0RF
cyanocobalamin (vitamin B-12) 1,000 MCG tablet
1,000 mcg PO DAILY
ferrous sulfate [FeroSul] 325 MG tablet
325 mg PO DAILY
duloxetine 30 MG capsule,delayed release(DR/EC)
60 mg PO HS
duloxetine 30 MG capsule,delayed release(DR/EC)
30 mg PO DAILY
sulfasalazine 500 mg tablet
1,000 mg PO BID
hydroxychloroquine 200 MG tablet
400 mg PO DAILY@1200
ipratropium-albuterol 0.5 mg-3 mg(2.5 mg base)/3 mL Solution For Nebulization
3 ml INHALATION R QIDPRN PRN (Reason: sob)
cefdinir 300 mg Capsule
300 mg PO BID
pantoprazole [Protonix] 40 mg tablet,delayed release (DR/EC)
40 mg PO BID
gabapentin 600 mg Tablet
600 mg PO TID
metoprolol succinate [Toprol XL] 100 mg Tablet Extended Release 24 Hr
100 mg PO DAILY@1200
prednisone 5 mg Tablet
5 mg PO DAILY
amlodipine 5 mg tablet
2.5 mg PO BID
cholecalciferol (vitamin D3) [Vitamin D3] 125 mcg (5,000 unit) Tablet
125 mcg PO DAILY
aspirin 325 mg Tablet
325 mg PO DAILY Qty: 0 0RF
docusate sodium 100 mg Capsule
100 mg PO BID Qty: 0 0RF
polyethylene glycol 3350 17 gram Powder In Packet
17 g PO DAILY PRN (Reason: Constipation) Qty: 0 0RF
acetaminophen 325 mg Tablet
650 mg PO Q4HPRN PRN (Reason: Mild Pain / Temp > 101) Qty: 0 0RF
morphine 30 MG tablet extended release
30 mg PO Q12H Qty: 4 0RF
oxycodone 10 mg Tablet
10 mg PO BIDPRN PRN (Reason: severe pains) Qty: 8 0RF
Referrals:
Ani Wilson, DO [Family Provider, General]
Interventions
Interventions:
*Risk Screen - Suicide Last Done: 01/10/25 14:51
*General Assessment Last Done: 01/10/25 15:48
*Neglect/Abuse Screening Last Done: 01/10/25 14:51
*ED- Fall Risk Assessment Last Done: 01/10/25 15:48
*ED COVID-19 Vaccine History Last Done: 01/10/25 15:48
*Nursing Disposition Last Done: 01/10/25 19:11
ED-Skin Assessment Last Done: 01/10/25 15:50
Discharge Date and Time
Discharge Date/Time: 01/10/25 19:12
Print Language: GEORGIAN
== END 2025-01-10 19:12 ==
LOC: EMR 14:44
PROVIDERS: EMERGENCY PHYSICIAN Emergency Medicine; FAMILY PHYSICIAN Family Medicine
DX: M79.661 Pain in right lower leg (principal); I25.810 Atherosclerosis of coronary artery bypass graft(s) without angina pectoris; I10 Essential (primary) hypertension; E78.00 Pure hypercholesterolemia, unspecified; I25.2 Old myocardial infarction; J44.9 Chronic obstructive pulmonary disease, unspecified; K21.9 Gastro-esophageal reflux disease without esophagitis; F32.A Depression, unspecified; M79.7 Fibromyalgia; M54.9 Dorsalgia, unspecified; G89.29 Other chronic pain; Q05.9 Spina bifida, unspecified; Z95.1 Presence of aortocoronary bypass graft; Z95.5 Presence of coronary angioplasty implant and graft; Z86.19 Personal history of other infectious and parasitic diseases
CPT/HCPCS: 99284; 80048; 85025; 86850; 86900; 86901; 93971

== ENCOUNTER → 2025-01-15 12:50 | Outpatient (REF) | payer OTHER, SELFPAY ==
[2025-01-15 13:19] LABS: Hematocrit 26.2 % (37.0-47.0); Hemoglobin 7.6 g/dL (12.0-16.0); Mean Corp Hgb Conc. 29.0 g/dL (33.0-37.0); Mean Corpuscular Volume 104.4 fL (81.0-99.0); Nucleated Red Blood Cells % 0 %; Platelet Count 338 10^3/uL (130-400); Red Cell Dist. Width 15.4 % (11.5-14.5)
[2025-01-15 13:39] LABS: Blood Urea Nitrogen 16 mg/dl (7-17); Calcium 8.9 mg/dl (8.4-10.2); Carbon Dioxide 35 mmol/L (22-30); Chloride 99 mmol/L (98-107); Glucose 78 mg/dl (70-99); Potassium 4.5 mmol/L (3.5-5.1); Sodium 133 mmol/L (135-145); eGFR > 60.00
== END ==
LOC: OLABP 12:50
PROVIDERS: ATTENDING PHYSICIAN Family Medicine
DX: S72.141A Displaced intertrochanteric fracture of right femur, initial encounter for closed fracture (principal)
CPT/HCPCS: 36415; 80048; 85025

== ENCOUNTER → 2025-01-18 12:03 | Outpatient (REF) | payer OTHER, SELFPAY ==
[2025-01-18 12:54] LABS: Hematocrit 27.1 % (37.0-47.0); Hemoglobin 8.2 g/dL (12.0-16.0); Mean Corp Hgb Conc. 30.3 g/dL (33.0-37.0); Mean Corpuscular Volume 103.8 fL (81.0-99.0); Nucleated Red Blood Cells % 0 %; Platelet Count 345 10^3/uL (130-400); Red Cell Dist. Width 15.9 % (11.5-14.5)
== END ==
LOC: OLABP 12:03
PROVIDERS: ATTENDING PHYSICIAN Family Medicine
DX: S72.141A Displaced intertrochanteric fracture of right femur, initial encounter for closed fracture (principal)
CPT/HCPCS: 36415; 85025

== ENCOUNTER 2025-02-12 23:16 | Emergency (ER) | payer OTHER, SELFPAY ==
[2025-02-12 23:21] VITALS: BP 140/79; BMI 27.3
[2025-02-12 23:23] VITALS: BP 140/79
[2025-02-12] MEDS: TORADOL 15 MG IV (23:45)
[2025-02-12] MEDS: ZOFRAN 4 MG IV (23:47)
[2025-02-12] MEDS: OFIRMEV 100 IV (23:47)
[2025-02-12 23:49] VITALS: BP 132/101
[2025-02-12 23:51] VITALS: BP 132/101
[2025-02-12 23:52] VITALS: BP 121/101
[2025-02-12 23:55] VITALS: BP 130/62
[2025-02-13] VITALS (24 sets, daily range): BP systolic 83–136; BP diastolic 45–79
--- NOTE | 2025-02-13 00:03 | ED.GENMED ---
History of Present Illness
General
Chief Complaint: Musculo-Skeletal Complaint
Source: patient and ambulance crew
Exam Limitations: none
Time Seen by Provider: 02/12/25 23:32
Nursing documentation reviewed up to this point in time: agreed with
History of Present Illness
History of Present Illness:
85-year-old female with history as noted presents to the ER with right hip pain. Patient reports that she was rolling over in bed tonight and felt that her hip popped out of place. She is having severe pain in the right hip. EMS was called to
bring her to the hospital. She did have a right hip replacement done about 2 months ago. She denies any other injuries or complaints. She did receive 150 mcg of fentanyl from EMS for pain.
Past History
Past History
ED Past Medical History: CAD, COPD, Fibromyalgia, GERD, HTN, Hypercholesterolemia, [place], Psychiatric (depression) and Other (chronic back pain, Ulcers, C-diff)
ED Past Surgical History: Appendectomy, Cardiac (Stents, CABG), Gynecological, Orthopedic and Urological
Social History
Tobacco: Non-smoker
Alcohol: None
Drug: None
Personal:
Living: alone
Employment: Not employed
Family History
Family History: Other
Review of Systems
Review of Systems
All Other Systems: ROS reviewed and negative except as documented in HPI and ROS
Musculoskeletal: Reports joint pain
Phy Exam
Physical Exam
Physical Exam:
General: Awake, alert, oriented x3; appears in moderate pain distress
Head: Normocephalic, atraumatic
Eyes: Conjunctiva normal
Throat: Airway intact, handling secretions
Neck: Trachea midline, supple without meningismus
Lungs: Clear to auscultation bilaterally, no wheezing, rales, rhonchi
Heart: Regular rate and rhythm, no murmurs, gallops, or rubs
Abd: Soft, non distended, nontender
Neuro: Cranial nerves grossly intact, speech fluid, motor and sensory intact distal right lower extremity
Extremities: Patient's right lower extremity is shortened and internally rotated; she has a strong PT and DP pulse of the right lower extremity; no bruising or ecchymosis noted over the greater trochanter of the right hip, however patient has severe
pain with any attempted movement of the right hip; rest of extremities appear atraumatic
Scores
Heart Failure Risk
Heart Failure Risk Score: Not Applicable
Heart Score for Chest Pain Patients
STEMI patient?: Not applicable
Withdrawal Assessment of Alcohol
Withdrawal Assessment Completed?: Not applicable
Course
Orders/Labs/Results
Orders:
Orders
02/12/25 23:26
CR Hip - RT without Pel 1 Vw Urgent
Reason For Exam: possible dislocation
02/12/25 23:37
Acetaminophen 1000MG/100Ml [Ofirmev] 1,000 mg in 100 ml IV ONCE
Acetaminophen IV Indication:: ED Narcotic History-ONCE
Ketorolac [Toradol] 15 mg IV NOW STA
02/12/25 23:44
Ondansetron Injectable [Zofran] 4 mg IV NOW STA
Propofol [Diprivan] 20 ml .ROUTE .STK-MED
02/12/25 23:45
Ondansetron Injectable [Zofran] 4 mg .ROUTE .STK-MED ONE
02/12/25 23:54
Hip, Right 1 View [CR Hip - RT without Pel 1 Vw] Urgent
Comment:
Reason For Exam: reduction of hip
02/13/25 00:12
0.9% Sodium Chloride 250 ml [Nss] 250 ml IV BOLUS
02/13/25 00:50
Case Management Consult ONCE
Case Management Consult: Discharge Planning
Vital Signs
Initial and Last Documented VS:
Initial Vital Signs
Temp Pulse Resp BP Pulse Ox
36.6 C 62 22 140/79 90
02/12/25 23:21 02/12/25 23:21 02/12/25 23:21 02/12/25 23:21 02/12/25 23:21
Last Documented Vital Signs
Temp Pulse Resp BP Pulse Ox
36.8 C 65 13 93/61 96
02/13/25 00:50 02/13/25 02:15 02/13/25 02:15 02/13/25 02:13 02/13/25 02:15
Procedures
Moderate Sedation
ASA Risk Score: Class III
Chart and allergies reviewed: Yes
Consent for anesthesia obtained: Yes
Time out completed (validating right patient & procedure): Yes
Moderate Sedation Start Time(when first medication is given): 23:50
History of difficult intubation: No
Airway free of obstruction: Yes
Patient has a gag reflex: Yes
Patient is able to open mouth: Yes
Patient has no dentures: Yes
Patient has no loose teeth: Yes
Medication administered by Provider during Moderate Sedation: IV Propofol (mg) (60)
Total dose administered: 60
Time drug administered: 23:50
Moderate Sedation Procedure End Time: 00:05
Splinting/Sling Placement
Right Leg:
Procedure completed by: Hipolito Juárez MD
Pre-splint extermity exam: neurovascular intact
Type of splint: knee immobilizer
Splint material: universal
Splint checked by provider?: Yes
Normal distal neurovascular exam?: Yes
Joint/Fracture Reduction
Right Hip:
Indication for procedure:: hip dislocation
Procedure completed by: Hipolito Juárez MD
Consent form signed: Yes
Anesthesia/sedation: Moderate sedation
Injury was: closed
Further treatement: no treatment needed
Post reduction exam: stable
Capillary Refill: normal
Normal distal neurovascular exam?: Yes
MDM/Problems Addressed
Differential Diagnosis Includes:
Hip dislocation, hip fracture
MDM/Problems Addressed:
85-year-old female who is 2 months removed from a right hip replacement presents after her hip popped out of place when she was rolling over in bed. Vitals and exam as above. X-ray reviewed shows hip dislocation. Discussed with patient at length
will plan for sedation at reduction in the ER.
Hip reduced successfully as documented in procedure note under moderate sedation. Patient tolerated well. She remains somnolent will continue to monitor after sedation.
Patient now awake and alert but she says she is very tired after events of this evening. She has not slept in days. She lives at home with her grandson and does not have a ride. Will monitor here overnight in ER with plan for discharge in the
morning. I did put in a consult to case management for the morning as patient may need additional support at home as she remains in the immobilizer after dislocation. Patient knows that she needs to follow-up with her orthopedist after this
episode today. We did go over hip precautions in detail.
*Radiology
Radiology exam reviewed: preliminary read by ED provider
*Pulse Oximetry
SaO2: 100
Nasal Cannula flow liters per minute: 4
Oxygen Mode of Delivery: Room air
Patient hypoxic: no (100% on normal home oxygen)
*Critical Care Note
Total Time (30-74mins, 75-104mins- exclusive of procedures): Not Applicable
Data Reviewed
Source: patient and ambulance crew
ED Attending Note
-
Portions of this chart may have been created with voice recognition software.� Occasional wrong word or��sound alike� substitutions may have occurred due to the inherent limitations of voice recognition software.
Discharge Plan
Departure
Patient Disposition: Other
Date of Disposition: 02/13/25
Time of Disposition: 00:49
Patient with high blood pressure during this ER visit?: No
Discharge Problem:
Dislocation of right hip
Instructions: Hip Dislocation (DC)
Prescriptions:
No Action
leflunomide 20 MG tablet
20 mg PO DAILY
rosuvastatin 10 MG tablet
10 mg PO QPM
pyridostigmine bromide 60 MG tablet
60 mg PO QID 30 Days Qty: 120 0RF
cyanocobalamin (vitamin B-12) 1,000 MCG tablet
1,000 mcg PO DAILY
ferrous sulfate [FeroSul] 325 MG tablet
325 mg PO DAILY
duloxetine 30 MG capsule,delayed release(DR/EC)
60 mg PO HS
duloxetine 30 MG capsule,delayed release(DR/EC)
30 mg PO DAILY
sulfasalazine 500 mg tablet
1,000 mg PO BID
hydroxychloroquine 200 MG tablet
400 mg PO DAILY@1200
ipratropium-albuterol 0.5 mg-3 mg(2.5 mg base)/3 mL Solution For Nebulization
3 ml INHALATION R QIDPRN PRN (Reason: sob)
cefdinir 300 mg Capsule
300 mg PO BID
pantoprazole [Protonix] 40 mg tablet,delayed release (DR/EC)
40 mg PO BID
gabapentin 600 mg Tablet
600 mg PO TID
metoprolol succinate [Toprol XL] 100 mg Tablet Extended Release 24 Hr
100 mg PO DAILY@1200
prednisone 5 mg Tablet
5 mg PO DAILY
amlodipine 5 mg tablet
2.5 mg PO BID
cholecalciferol (vitamin D3) [Vitamin D3] 125 mcg (5,000 unit) Tablet
125 mcg PO DAILY
aspirin 325 mg Tablet
325 mg PO DAILY Qty: 0 0RF
docusate sodium 100 mg Capsule
100 mg PO BID Qty: 0 0RF
polyethylene glycol 3350 17 gram Powder In Packet
17 g PO DAILY PRN (Reason: Constipation) Qty: 0 0RF
acetaminophen 325 mg Tablet
650 mg PO Q4HPRN PRN (Reason: Mild Pain / Temp > 101) Qty: 0 0RF
morphine 30 MG tablet extended release
30 mg PO Q12H Qty: 4 0RF
oxycodone 10 mg Tablet
10 mg PO BIDPRN PRN (Reason: severe pains) Qty: 8 0RF
Referrals:
Abhay Torrez PA-C [Specified Professional Personl, Orthopedics] - Call in 1-3 days for appt
Ani Wilson DO [Family Provider, General]
Activity Restrictions/Additional Instructions:
Thank you for visiting the Emergency Department at [facility].
1. Please schedule a follow up appointment as directed. Call first thing tomorrow morning to make an appointment.
2. If indicated, please take your medications as instructed and indicated on discharge paperwork.
3. If any of your symptoms do not improve, or persist, or become more severe within 6-12 hours, please return to the emergency department for further care.
4. Please return to the emergency department if you develop a headache, neck pain/stiffness, fever greater than 100.4F, chest pain, shortness of breath, persistent nausea, vomiting, slurred speech, difficulty walking, numbness/tingling, weakness,
signs of infection or any other symptoms that are worrisome to you.
Please call [phone] if you have any questions.
Interventions
Interventions:
*General Assessment Last Done: 02/12/25 23:21
*Neglect/Abuse Screening Last Done: 02/12/25 23:21
*ED- Fall Risk Assessment Last Done: 02/12/25 23:21
*ED COVID-19 Vaccine History Last Done: 02/12/25 23:21
*ED Influenza Vaccine History Last Done: 02/12/25 23:21
ED-Musculoskeletal Assessment Last Done: 02/12/25 23:30
Discharge Date and Time
Print Language: BOTSWANAN
[2025-02-13] MEDS: NSS 250 IV (00:13)
--- NOTE | 2025-02-13 10:16 | CM ---
Addendum entered by Karley Chang 02/13/25 10:24:
[facility] had patient after 01/20/15 when patient returned home from SNF at [facility]. Patient referred to [facility] today for home care with PT/OT. CM will continue to follow for discharge planning needs.
Plan; home with [facility]
Original Note:
Patient seen at bedside in ED. Patient for discharge home. Patient reviewed that she lives with her grandson in a 2 story home. Patient had [facility] for home care after recent admission and stated that they had just discharged her but she is willing
to accept them again. Patient stated that she has home O2 and that she will agree to have CM send referral. Patient declined referral to [facility] and she is calling for friend to transport her home with her home O2. Patient grandson is available for
assistance as needed per patient. Patient stated she has another 'helper' but unable to confirm with CM name or agency. CM will continue to follow for discharge planning needs.
Plan; referral to [facility] for home care.
== END 2025-02-13 10:01 | disposition home or self-care (01) ==
LOC: EMR 23:16
PROVIDERS: EMERGENCY PHYSICIAN Emergency Medicine; FAMILY PHYSICIAN Family Medicine
DX: T84.020A Dislocation of internal right hip prosthesis, initial encounter (principal); Y79.2 Prosthetic and other implants, materials and accessory orthopedic devices associated with adverse incidents; I25.810 Atherosclerosis of coronary artery bypass graft(s) without angina pectoris; I10 Essential (primary) hypertension; E78.00 Pure hypercholesterolemia, unspecified; I25.2 Old myocardial infarction; J44.9 Chronic obstructive pulmonary disease, unspecified; F32.A Depression, unspecified; K21.9 Gastro-esophageal reflux disease without esophagitis; M79.7 Fibromyalgia; M54.9 Dorsalgia, unspecified; G89.29 Other chronic pain; Z96.641 Presence of right artificial hip joint; Z95.1 Presence of aortocoronary bypass graft; Z95.5 Presence of coronary angioplasty implant and graft; Z86.19 Personal history of other infectious and parasitic diseases
CPT/HCPCS: 99285; 96374; 96375 ×2; 96361; 27250; 73501

== ENCOUNTER 2025-02-21 02:32 | Emergency (ER) | payer OTHER, SELFPAY ==
[2025-02-21] VITALS (24 sets, daily range): BP systolic 112–175; BP diastolic 53–109; BMI 28.4
[2025-02-21] MEDS: ZOFRAN 4 MG IV (03:13)
[2025-02-21] MEDS: MORPHINE SULFATE 4 MG IV (03:14)
--- NOTE | 2025-02-21 04:19 | ED.GENMED ---
History of Present Illness
<Bandar Yee Jr., PA-C - Last Filed: 02/21/25 06:12>
General
Chief Complaint: Musculo-Skeletal Complaint
Source: patient
Exam Limitations: none
Time Seen by Provider: 02/21/25 03:17
Nursing documentation reviewed up to this point in time: agreed with
History of Present Illness
History of Present Illness:
85-year-old female past medical history of CAD, GERD presenting to the emergency department today with concerns of right hip pain that occurred when getting out of bed just prior to arrival. Did have a recent hip replacement a few months ago and
had a hip dislocation 1 week ago.
Past History
<Bandar Yee Jr., PA-C - Last Filed: 02/21/25 06:12>
Past History
ED Past Medical History: CAD, COPD, Fibromyalgia, GERD, HTN, Hypercholesterolemia, [place], Psychiatric (depression) and Other (chronic back pain, Ulcers, C-diff)
ED Past Surgical History: Appendectomy, Cardiac (Stents, CABG), Gynecological, Orthopedic and Urological
Social History
Tobacco: Non-smoker
Alcohol: None
Drug: None
Personal:
Living: alone
Employment: Not employed
Family History
Family History: Other
Review of Systems
<Bandar Yee Jr., PA-C - Last Filed: 02/21/25 06:12>
Review of Systems
Allergies reviewed?: Yes
All Other Systems: ROS reviewed and negative except as documented in HPI and ROS
Phy Exam
<TRAMAINE Isidro Jr. Last Filed: 02/21/25 06:12>
Physical Exam
Physical Exam:
GENERAL: Alert , in no apparent distress
EYE: pupils equal and reactive
NECK: Supple, no significant adenopathy.
ENT: o/p clr, mmm.
CARDIAC: Regular rate and rhythm .
LUNGS: Clear breath sounds bilaterally, no acute respiratory distress, no wheezes/rales/rhonchi
ABDOMEN: Soft, without focal tenderness, no r/g, no cvat
NEUROLOGICAL: Alert and oriented, no focal neuro deficits
SKIN: Warm and dry, skin intact.
MUSCULOSKELETAL: Internally rotated shortened right leg unable to move the hip secondary to pain
PSYCH: Normal and appropriate interaction.
Course
<Bandar Yee Jr., PA-C - Last Filed: 02/21/25 06:12>
Orders/Labs/Results
Orders:
Orders
02/21/25 03:08
Morphine Sulfate 4 mg .ROUTE .STK-MED ONE
Ondansetron Injectable [Zofran] 4 mg .ROUTE .STK-MED ONE
02/21/25 03:12
CR Hip - RT without Pel 1 Vw Urgent
Comment:
Reason For Exam: dislocation d/t fall
02/21/25 03:13
Ondansetron Injectable [Zofran] 4 mg IV NOW STA
02/21/25 03:14
Morphine Sulfate 4 mg IV NOW STA
02/21/25 04:31
Propofol [Diprivan] 20 ml .ROUTE .STK-MED
02/21/25 04:41
Hip, Right 1 View [CR Hip - RT without Pel 1 Vw] Urgent
Comment:
Reason For Exam: post reduction hip
Vital Signs
Initial and Last Documented VS:
Initial Vital Signs
Temp Pulse Resp BP
97.6 F 67 20 137/65
02/21/25 02:37 02/21/25 02:37 02/21/25 02:37 02/21/25 02:37
Last Documented Vital Signs
Temp Pulse Resp BP Pulse Ox
97.6 F 65 11 115/74 92
02/21/25 02:37 02/21/25 06:05 02/21/25 06:05 02/21/25 06:05 02/21/25 05:45
<Ashia Crawley DO - Last Filed: 02/21/25 06:18>
Orders/Labs/Results
Orders:
Orders
02/21/25 03:08
Morphine Sulfate 4 mg .ROUTE .STK-MED ONE
Ondansetron Injectable [Zofran] 4 mg .ROUTE .STK-MED ONE
02/21/25 03:12
CR Hip - RT without Pel 1 Vw Urgent
Comment:
Reason For Exam: dislocation d/t fall
02/21/25 03:13
Ondansetron Injectable [Zofran] 4 mg IV NOW STA
02/21/25 03:14
Morphine Sulfate 4 mg IV NOW STA
02/21/25 04:31
Propofol [Diprivan] 20 ml .ROUTE .STK-MED
02/21/25 04:41
Hip, Right 1 View [CR Hip - RT without Pel 1 Vw] Urgent
Comment:
Reason For Exam: post reduction hip
Vital Signs
Initial and Last Documented VS:
Initial Vital Signs
Temp Pulse Resp BP
97.6 F 67 20 137/65
02/21/25 02:37 02/21/25 02:37 02/21/25 02:37 02/21/25 02:37
Last Documented Vital Signs
Temp Pulse Resp BP Pulse Ox
97.6 F 65 11 115/74 92
02/21/25 02:37 02/21/25 06:05 02/21/25 06:05 02/21/25 06:05 02/21/25 05:45
Procedures
<Bandar Yee Jr., PA-C - Last Filed: 02/21/25 06:12>
Moderate Sedation
ASA Risk Score: Class III
Chart and allergies reviewed: Yes
Consent for anesthesia obtained: Yes
Time out completed (validating right patient & procedure): Yes
Moderate Sedation Start Time(when first medication is given): 04:39
History of difficult intubation: No
Airway free of obstruction: Yes
Patient has a gag reflex: Yes
Patient is able to open mouth: Yes
Patient has no dentures: Yes
Patient has no loose teeth: Yes
Medication administered by Provider during Moderate Sedation: IV Propofol (mg) (50)
Total dose administered: 50
Time drug administered: 04:39
Moderate Sedation Procedure End Time: 04:49
Joint/Fracture Reduction
Right Hip:
Indication for procedure:: Right hip dislocation
Procedure completed by: Myself, Dr. Crawley
Consent form signed: Yes
If no, reason: Emergency procedure
Joint reduced: with anesthesia sedation
Injury was: closed
Further treatement: needs further treatment
Post reduction exam: stable
Capillary Refill: normal
Normal distal neurovascular exam?: Yes
Peripheral Pulses: dorsalis pedis (right): 2+
<Bandar Yee Jr., PA-C - Last Filed: 02/21/25 06:12>
MDM/Problems Addressed
MDM/Problems Addressed:
85-year-old female presenting to the emergency department today with concerns of right sided hip discomfort. Apparent dislocation. Had similar 1 week ago. Patient was found to be dislocated on x-ray. This was reduced without incident. Patient
tolerated well. Orthopedics were contacted about her case recommending close outpatient follow-up. Return precautions given.
<Bandar Yee Jr., PA-C - Last Filed: 02/21/25 06:12>
*Pulse Oximetry
SaO2: 89
Nasal Cannula flow liters per minute: 2
Patient hypoxic: no (94)
*Critical Care Note
Total Time (30-74mins, 75-104mins- exclusive of procedures): Not Applicable
ED Attending Note
<ROLAND Isidro Jr.-Barb - Last Filed: 02/21/25 06:12>
-
Portions of this chart may have been created with voice recognition software.� Occasional wrong word or��sound alike� substitutions may have occurred due to the inherent limitations of voice recognition software.
<Ashia Crawley DO - Last Filed: 02/21/25 06:18>
ED Attending Note
Patient seen and examined by attending physician: Yes
I performed a history and physical exam of patient and discussed management with resident, I reviewed resident's note and agree with documented findings and plan of care.: Yes
ED Attending Note:
85-year-old woman with history of right hip hemiarthroplasty December of this year. She suffered a prosthetic hip dislocation 1 week ago after rolling over in bed. Reduced in the ED, placed in a knee immobilizer which she has been compliant with.
Similar hip dislocation occurred again tonight while in bed, rolling over and reaching for an object.
She has history of chronic back pain/spinal stenosis, narcotic dependent.
She denies falls. No weakness or numbness.
Initial exam notable for severe right hip pain, right lower extremity mildly shortened, internally rotated.
X-ray shows posterior prosthetic hip dislocation. No fracture.
Right hip successfully reduced by ROLAND Lara, under moderate sedation utilizing propofol administered by myself.
Patient tolerated procedure well, no complications.
Postreduction film reveals hip in proper position. No fracture.
Patient is now awake, reports relief of right hip pain. Resting comfortably.
Knee immobilizer has been returned to right lower extremity.
As this is her second hip dislocation in a week's time, case discussed with orthopedics. They recommend continuing knee immobilizer, discharged to home with outpatient follow-up.
As hip dislocation appears to occur at nighttime, will attempt to secure an abductor pillow and recommend she utilize this at nighttime.
Continue with narcotic pain medications as prescribed by pain management.
Discharge Plan
Departure
Patient Disposition: Home (Routine Discharge)
Date of Disposition: 02/21/25
Time of Disposition: 06:09
Patient with high blood pressure during this ER visit?: No
Condition: Good
Covid-19: Not Applicable
Discharge Problem:
Dislocated hip
Instructions: Hip Dislocation (DC)
Prescriptions:
No Action
leflunomide 20 MG tablet
20 mg PO DAILY
rosuvastatin 10 MG tablet
10 mg PO QPM
pyridostigmine bromide 60 MG tablet
60 mg PO QID 30 Days Qty: 120 0RF
cyanocobalamin (vitamin B-12) 1,000 MCG tablet
1,000 mcg PO DAILY
ferrous sulfate [FeroSul] 325 MG tablet
325 mg PO DAILY
duloxetine 30 MG capsule,delayed release(DR/EC)
60 mg PO HS
duloxetine 30 MG capsule,delayed release(DR/EC)
30 mg PO DAILY
sulfasalazine 500 mg tablet
1,000 mg PO BID
hydroxychloroquine 200 MG tablet
400 mg PO DAILY@1200
ipratropium-albuterol 0.5 mg-3 mg(2.5 mg base)/3 mL Solution For Nebulization
3 ml INHALATION R QIDPRN PRN (Reason: sob)
cefdinir 300 mg Capsule
300 mg PO BID
pantoprazole [Protonix] 40 mg tablet,delayed release (DR/EC)
40 mg PO BID
gabapentin 600 mg Tablet
600 mg PO TID
metoprolol succinate [Toprol XL] 100 mg Tablet Extended Release 24 Hr
100 mg PO DAILY@1200
prednisone 5 mg Tablet
5 mg PO DAILY
amlodipine 5 mg tablet
2.5 mg PO BID
aspirin 325 mg Tablet
325 mg PO DAILY Qty: 0 0RF
docusate sodium 100 mg Capsule
100 mg PO BID Qty: 0 0RF
acetaminophen 325 mg Tablet
650 mg PO Q4HPRN PRN (Reason: Mild Pain / Temp > 101) Qty: 0 0RF
cholecalciferol (vitamin D3) [Vitamin D3] 25 mcg (1,000 unit) Tablet
25 mcg PO DAILY
polyethylene glycol 3350 17 gram powder in packet
17 g PO DAILYPRN PRN (Reason: Constipation)
morphine 30 MG tablet extended release
30 mg PO Q12H
oxycodone 10 mg tablet
10 mg PO Q8HPRN PRN (Reason: severe pains)
Referrals:
Santi Leon MD [Active, Orthopedics] - Follow up in 5-7 days
UNKNOWN - PT NOT,INTERVIEWE [Family Provider]
Activity Restrictions/Additional Instructions:
You came to the emergency department today with concerns of a hip dislocation. Please use the knee immobilizer and the abduction pillow. Please follow closely with orthopedics. Return for any worsening, new or concerning symptoms.
Interventions
Interventions:
*Risk Screen - Suicide Last Done: 02/21/25 02:37
*General Assessment Last Done: 02/21/25 02:37
*Neglect/Abuse Screening Last Done: 02/21/25 02:37
*ED- Fall Risk Assessment Last Done: 02/21/25 02:37
*ED COVID-19 Vaccine History Last Done: 02/21/25 02:37
*ED Influenza Vaccine History Last Done: 02/21/25 02:45
ED-Musculoskeletal Assessment Last Done: 02/21/25 03:27
Discharge Date and Time
Print Language: [id number]
== END 2025-02-21 07:14 | disposition home or self-care (01) ==
LOC: EMR 02:32
PROVIDERS: EMERGENCY PHYSICIAN Emergency Medicine
DX: T84.020A Dislocation of internal right hip prosthesis, initial encounter (principal); Y79.2 Prosthetic and other implants, materials and accessory orthopedic devices associated with adverse incidents; I25.810 Atherosclerosis of coronary artery bypass graft(s) without angina pectoris; I10 Essential (primary) hypertension; E78.00 Pure hypercholesterolemia, unspecified; I25.2 Old myocardial infarction; J44.9 Chronic obstructive pulmonary disease, unspecified; K21.9 Gastro-esophageal reflux disease without esophagitis; F32.A Depression, unspecified; M79.7 Fibromyalgia; M48.00 Spinal stenosis, site unspecified; F11.20 Opioid dependence, uncomplicated; Z95.1 Presence of aortocoronary bypass graft; Z95.5 Presence of coronary angioplasty implant and graft; Z96.641 Presence of right artificial hip joint; Z86.19 Personal history of other infectious and parasitic diseases
CPT/HCPCS: 99285; 96374; 96375; 27265; 73501

== ENCOUNTER 2025-02-27 04:42 | Emergency (ER) | payer OTHER, SELFPAY ==
[2025-02-27] VITALS (15 sets, daily range): BP systolic 95–196; BP diastolic 54–116
[2025-02-27] MEDS: MORPHINE SULFATE 4 MG IV (05:00)
--- NOTE | 2025-02-27 05:00 | ED.GENMED ---
History of Present Illness
<Esther Cruz PA-C - Last Filed: 02/27/25 07:15>
General
Chief Complaint: Musculo-Skeletal Complaint
Source: patient
Exam Limitations: none
Time Seen by Provider: 02/27/25 04:52
Nursing documentation reviewed up to this point in time: agreed with
History of Present Illness
History of Present Illness:
85-year-old female with a past medical history of COPD, hypertension, hyperlipidemia, who presents to the ER today with concerns of a dislocated hip. She reports that she was turning about to get out of bed when she felt immediate sharp pain in her
right hip and felt that her hip popped out. She has a long history of this and reports that last week she had to come in twice in the week before to have the hip put back in. She did not fall or hit her head. She denies any other injuries. She
is scheduled in March to have a revision of the hip done with Dr. Zimmer.
Past History
<Esther Cruz PA-C - Last Filed: 02/27/25 07:15>
Past History
ED Past Medical History: CAD, COPD, Fibromyalgia, GERD, HTN, Hypercholesterolemia, PA, Psychiatric (depression) and Other (chronic back pain, Ulcers, C-diff)
ED Past Surgical History: Appendectomy, Cardiac (Stents, CABG), Gynecological, Orthopedic and Urological
Social History
Tobacco: Non-smoker
Alcohol: None
Drug: None
Personal:
Living: alone
Employment: Not employed
Family History
Family History: Other
Review of Systems
<TRAMAINE Montelongo Last Filed: 02/27/25 07:15>
Review of Systems
All Other Systems: ROS reviewed and negative except as documented in HPI and ROS
Phy Exam
<TRAMAINE Montelongo Last Filed: 02/27/25 07:15>
Physical Exam
Physical Exam:
General: Patient is well appearing and in no acute distress; non-toxic
Skin: Warm and dry, no rashes or lesions
Head: Normocephalic, atraumatic
Eyes: Sclera non-icteric. EOMs intact.
Cardiac: Regular rate and rhythm, no murmur
Peripheral Vascular: No lower extremity swelling or edema, 2+ DP and PT pulses bilaterally
Pulm: Normal respiratory effort
Musculoskeletal: Right hip is internally rotated and shortened
Neuro: CN II-XII intact, no focal neurologic deficits.
Psychiatric: Appropriate mood and affect.
Course
<Esther Cruz PA-C - Last Filed: 02/27/25 07:15>
Orders/Labs/Results
Orders:
Orders
02/27/25 04:53
Hip, Right 2-3 Views [CR Hip - RT w/wo Pel 2-3 Vw*] Urgent
Comment:
Reason For Exam: right hip pain
Include a pelvis x-ray?: Yes
02/27/25 04:56
Morphine Sulfate 4 mg IV NOW STA
02/27/25 05:05
Type And Crossmatch [Type+Screen] Urgent
Complete Blood Count/With Diff Urgent
Comprehensive Metabolic Panel Urgent
02/27/25 05:31
Propofol [Diprivan] 20 ml .ROUTE .STK-MED
02/27/25 05:53
CR Hip - RT without Pel 1 Vw Urgent
Comment:
Reason For Exam: post hip reduction
02/27/25 07:12
Acetaminophen [Tylenol] 1,000 mg PO NOW STA
Abnormal Lab Results
02/27/25
05:05
RBC 2.99 L 10^6/uL
(4.20-5.40)
Hgb 8.9 L g/dL
(12.0-16.0)
Hct 29.9 L %
(37.0-47.0)
MCV 100.0 H fL
(81.0-99.0)
MCHC 29.8 L g/dL
(33.0-37.0)
RDW 15.0 H %
(11.5-14.5)
Absolute Monos (auto) 1.2 H 10^3/uL
(0.1-0.6)
Absolute Eos (auto) 1.2 H 10^3/uL
(0-0.7)
Neutrophils % 35.0 L %
(42.2-75.2)
Monocytes % 14.8 H %
(1.7-9.3)
Eosinophils % 14.9 H %
(0-6)
Basophils % 3.1 H %
(0-2)
Carbon Dioxide 33 H mmol/L
(22-30)
02/27/25 05:05
02/27/25 05:05
Vital Signs
Initial and Last Documented VS:
Initial Vital Signs
Temp Pulse Resp Pulse Ox
98.1 F 62 20 95
02/27/25 04:46 02/27/25 04:46 02/27/25 04:46 02/27/25 04:46
Last Documented Vital Signs
Temp Pulse Resp BP Pulse Ox
98.1 F 71 17 135/70 95
02/27/25 06:51 02/27/25 06:39 02/27/25 06:30 02/27/25 06:30 02/27/25 06:30
<Fab Portillo, - Last Filed: 02/27/25 06:41>
Orders/Labs/Results
Orders:
Orders
02/27/25 04:53
Hip, Right 2-3 Views [CR Hip - RT w/wo Pel 2-3 Vw*] Urgent
Comment:
Reason For Exam: right hip pain
Include a pelvis x-ray?: Yes
02/27/25 04:56
Morphine Sulfate 4 mg IV NOW STA
02/27/25 05:05
Type And Crossmatch [Type+Screen] Urgent
Complete Blood Count/With Diff Urgent
Comprehensive Metabolic Panel Urgent
02/27/25 05:31
Propofol [Diprivan] 20 ml .ROUTE .STK-MED
02/27/25 05:53
CR Hip - RT without Pel 1 Vw Urgent
Comment:
Reason For Exam: post hip reduction
02/27/25 07:12
Acetaminophen [Tylenol] 1,000 mg PO NOW STA
Abnormal Lab Results
02/27/25
05:05
RBC 2.99 L 10^6/uL
(4.20-5.40)
Hgb 8.9 L g/dL
(12.0-16.0)
Hct 29.9 L %
(37.0-47.0)
MCV 100.0 H fL
(81.0-99.0)
MCHC 29.8 L g/dL
(33.0-37.0)
RDW 15.0 H %
(11.5-14.5)
Absolute Monos (auto) 1.2 H 10^3/uL
(0.1-0.6)
Absolute Eos (auto) 1.2 H 10^3/uL
(0-0.7)
Neutrophils % 35.0 L %
(42.2-75.2)
Monocytes % 14.8 H %
(1.7-9.3)
Eosinophils % 14.9 H %
(0-6)
Basophils % 3.1 H %
(0-2)
Carbon Dioxide 33 H mmol/L
(22-30)
02/27/25 05:05
02/27/25 05:05
Vital Signs
Initial and Last Documented VS:
Initial Vital Signs
Temp Pulse Resp Pulse Ox
98.1 F 62 20 95
02/27/25 04:46 02/27/25 04:46 02/27/25 04:46 02/27/25 04:46
Last Documented Vital Signs
Temp Pulse Resp BP Pulse Ox
98.1 F 71 17 135/70 95
02/27/25 06:51 02/27/25 06:39 02/27/25 06:30 02/27/25 06:30 02/27/25 06:30
Procedures
<Esther Cruz PA-C - Last Filed: 02/27/25 07:15>
Moderate Sedation
ASA Risk Score: Class III
Chart and allergies reviewed: Yes
Consent for anesthesia obtained: Yes
Time out completed (validating right patient & procedure): Yes
Moderate Sedation Start Time(when first medication is given): 05:40
History of difficult intubation: No
Airway free of obstruction: Yes
Patient has a gag reflex: Yes
Patient is able to open mouth: Yes
Patient has no dentures: Yes
Patient has no loose teeth: Yes
Medication administered by Provider during Moderate Sedation: IV Propofol (mg)
Total dose administered: 50
Time drug administered: 05:40
Moderate Sedation Procedure End Time: 06:00
Joint/Fracture Reduction
right hip reduction:
Indication for procedure:: right hip dislocation
Procedure completed by: Esther Parra PA-C
Consent form signed: Yes
If no, reason: Emergency procedure
Joint reduced: with anesthesia sedation
Anesthesia/sedation: Moderate sedation
Injury was: closed
Further treatement: needs further treatment
Post reduction exam: stable
Normal distal neurovascular exam?: Yes
<Esther Cruz PA-C - Last Filed: 02/27/25 07:15>
MDM/Problems Addressed
Differential Diagnosis Includes:
ddx include right hip dislocation, right hip fracture, bursitis, hip contusion
MDM/Problems Addressed:
85-year-old female presents emergency department today with concerns of right hip pain following changing positions and attempting to get out of bed. Patient did not fall. Patient not hit her head or lose consciousness. X-ray reveals right hip
dislocation. Patient was seen here multiple times recently for recurrent hip dislocation. There is plans for revision surgery in March. Patient was consented and moderate sedation was performed to reduce the hip. Postreduction, patient is
neurovascularly intact. Patient was placed in a knee immobilizer. Patient stable for discharge.
Chronic conditions affecting care:
Osteoarthritis, hypertension, GERD, COPD,
<TRAMAINE Montelongo Last Filed: 02/27/25 07:15>
*Pulse Oximetry
SaO2: 95
Nasal Cannula flow liters per minute: 2
Patient hypoxic: no
*Critical Care Note
Total Time (30-74mins, 75-104mins- exclusive of procedures): Not Applicable
Data Reviewed
Review of Other/Old Records Reveals: Records (Reviewed prior ER physician condition from 02/21/2025 and 02/13/2025)
Source: patient and records
<Esther Cruz PA-C - Last Filed: 02/27/25 07:15>
Patient Management
Escalation/DeEscalation of care consider admission/obs:
Admit not indicated, patient stable for discharge
ED Attending Note
<TRAMAINE Montelongo Last Filed: 02/27/25 07:15>
-
Portions of this chart may have been created with voice recognition software.� Occasional wrong word or��sound alike� substitutions may have occurred due to the inherent limitations of voice recognition software.
<Fab Portillo DO - Last Filed: 02/27/25 06:41>
ED Attending Note
Patient seen and examined by attending physician: Yes
ED Attending Note:
85-year-old female with a dislocated right hip. After informed consent was signed by the patient, we began to sedate the patient using propofol. When appropriate analgesia anesthesia was established the hip was simply reduced in place. Patient
tolerated procedure well. Post reduction films confirm placement of hip. Knee immobilizer in place. Patient to follow-up with orthopedics patient was seen in conjunction with the PA. I have reviewed and agree with her history and treatment plan.
Discharge Plan
Departure
Patient Disposition: Home (Routine Discharge)
Date of Disposition: 02/27/25
Time of Disposition: 07:07
Patient with high blood pressure during this ER visit?: Yes
Condition: Good
Discharge Problem:
Dislocation of hip, right, closed
Instructions: Hip Dislocation (DC), MODERATE SEDATION ADULT, BLOOD PRESSURE
Prescriptions:
No Action
leflunomide 20 MG tablet
20 mg PO DAILY
rosuvastatin 10 MG tablet
10 mg PO QPM
pyridostigmine bromide 60 MG tablet
60 mg PO QID 30 Days Qty: 120 0RF
cyanocobalamin (vitamin B-12) 1,000 MCG tablet
1,000 mcg PO DAILY
ferrous sulfate [FeroSul] 325 MG tablet
325 mg PO DAILY
duloxetine 30 MG capsule,delayed release(DR/EC)
60 mg PO HS
duloxetine 30 MG capsule,delayed release(DR/EC)
30 mg PO DAILY
sulfasalazine 500 mg tablet
1,000 mg PO BID
hydroxychloroquine 200 MG tablet
400 mg PO DAILY@1200
ipratropium-albuterol 0.5 mg-3 mg(2.5 mg base)/3 mL Solution For Nebulization
3 ml INHALATION R QIDPRN PRN (Reason: sob)
cefdinir 300 mg Capsule
300 mg PO BID
pantoprazole [Protonix] 40 mg tablet,delayed release (DR/EC)
40 mg PO BID
gabapentin 600 mg Tablet
600 mg PO TID
metoprolol succinate [Toprol XL] 100 mg Tablet Extended Release 24 Hr
100 mg PO DAILY@1200
prednisone 5 mg Tablet
5 mg PO DAILY
amlodipine 5 mg tablet
2.5 mg PO BID
aspirin 325 mg Tablet
325 mg PO DAILY Qty: 0 0RF
docusate sodium 100 mg Capsule
100 mg PO BID Qty: 0 0RF
acetaminophen 325 mg Tablet
650 mg PO Q4HPRN PRN (Reason: Mild Pain / Temp > 101) Qty: 0 0RF
cholecalciferol (vitamin D3) [Vitamin D3] 25 mcg (1,000 unit) Tablet
25 mcg PO DAILY
polyethylene glycol 3350 17 gram powder in packet
17 g PO DAILYPRN PRN (Reason: Constipation)
morphine 30 MG tablet extended release
30 mg PO Q12H
oxycodone 10 mg tablet
10 mg PO Q8HPRN PRN (Reason: severe pains)
Referrals:
UNKNOWN,NO INTERVIEW [Family Provider]
Activity Restrictions/Additional Instructions:
Please wear hip immobilizer. Please follow-up with Dr. Zimmer.
PLEASE RETURN SHOULD YOU DEVELOP ANY ACUTE WORSENING OF YOUR PAIN, LOSS OF SENSATION IN YOUR LOWER EXTREMITY, PALLOR, CHEST PAIN, SHORTNESS OF BREATH, DIZZINESS, REDNESS, OR ANY OTHER SIGNS OR SYMPTOMS RECENTLY.
Interventions
Interventions:
*Risk Screen - Suicide Last Done: 02/27/25 04:46
*General Assessment Last Done: 02/27/25 04:46
*Neglect/Abuse Screening Last Done: 02/27/25 04:46
*ED- Fall Risk Assessment Last Done: 02/27/25 04:46
*ED COVID-19 Vaccine History Last Done: 02/27/25 04:46
ED-Musculoskeletal Assessment Last Done: 02/27/25 05:00
Discharge Date and Time
Print Language: COLOMBIAN
[2025-02-27 05:41] LABS: ALT (SGPT) 16 U/L (0-35); AST (SGOT) 28 U/L (14-36); Albumin 3.8 g/dl (3.5-5.0); Alkaline Phosphatase 48 U/L (38-126); Blood Urea Nitrogen 12 mg/dl (7-17); Calcium 9.1 mg/dl (8.4-10.2); Carbon Dioxide 33 mmol/L (22-30); Chloride 102 mmol/L (98-107); Estimated Creatinine Clearance 51 ml/min; Glucose 96 mg/dl (70-99); Potassium 4.2 mmol/L (3.5-5.1); Sodium 136 mmol/L (135-145); Total Protein 6.5 g/dl (6.3-8.2); eGFR > 60.00
[2025-02-27 06:54] LABS: Hematocrit 29.9 % (37.0-47.0); Hemoglobin 8.9 g/dL (12.0-16.0); Mean Corp Hgb Conc. 29.8 g/dL (33.0-37.0); Mean Corpuscular Volume 100.0 fL (81.0-99.0); Nucleated Red Blood Cells % 0 %; Platelet Count 234 10^3/uL (130-400); Red Cell Dist. Width 15.0 % (11.5-14.5)
[2025-02-27] MEDS: TYLENOL 1000 MG PO (07:45)
--- NOTE | 2025-02-27 09:00 | EDRN ---
Reviewed discharge instructions with patient and her grandson. Verbalized understanding. Taken to car in wheelchair.
--- NOTE | 2025-02-27 09:55 | W.PN.UPDATE ---
Update Note
Progress Note Update
Ms. Liriano is known to our office and was seen in the emergency department this morning for a recurrent dislocation of her right hip. She underwent a right hip hemiarthroplasty on 12/26/2024 under the direction of Dr. Leon and has sustained several
hip dislocations since. She reports she was getting up from bed this morning when she felt a pop in her hip. She reports onset of pain and inability to bear weight which prompted her to be seen at ED. X-rays in the emergency department confirmed
a recurrent dislocation. This was successfully reduced in the ED. She reports she has been compliant with her hip precautions. She is resting comfortably on the stretcher this morning, but does endorse muscular pain about the hip.
Directed exam of the right lower extremity reveals equal limb lengths without rotational deformity. Knee immobilizer in place. Tenderness to palpation generally about the right hip. Thigh soft and compressible. Calf soft and nontender. NVID.
Recurrent right hip dislocations
--Unfortunately, Kiesha sustained a recurrent dislocation of her right hip. This was able to be successfully reduced in the emergency department. She is currently scheduled for a conversion total hip arthroplasty with Dr. Pace in March. For
now, we will plan to have her discharged home. I emphasized the importance that she observe her hip precautions, and these were reviewed with her today. She will continue with her knee immobilizer. Unfortunately, there is nothing to do surgically on
an urgent basis as we do not have the components we need for revision surgery on-site. These need to be ordered, but I explained that we will look into potentially moving her surgery to a sooner date. All questions were answered and patient
verbalized understanding.
== END 2025-02-27 09:00 | disposition home or self-care (01) ==
LOC: EMR 04:42
PROVIDERS: EMERGENCY PHYSICIAN Student in an Organized Health Care Education/Training Program
DX: M24.451 Recurrent dislocation, right hip (principal); I25.810 Atherosclerosis of coronary artery bypass graft(s) without angina pectoris; I10 Essential (primary) hypertension; E78.00 Pure hypercholesterolemia, unspecified; I25.2 Old myocardial infarction; J44.9 Chronic obstructive pulmonary disease, unspecified; K21.9 Gastro-esophageal reflux disease without esophagitis; F32.A Depression, unspecified; M79.7 Fibromyalgia; M54.9 Dorsalgia, unspecified; G89.29 Other chronic pain; M19.90 Unspecified osteoarthritis, unspecified site; Z95.1 Presence of aortocoronary bypass graft; Z95.5 Presence of coronary angioplasty implant and graft; Z86.19 Personal history of other infectious and parasitic diseases
CPT/HCPCS: 99285; 27265; 96374; 73501; 73502; 80053; 85025; 86850; 86900; 86901

== ENCOUNTER 2025-03-11 11:47 | Inpatient (IN) | payer OTHER, SELFPAY ==
--- NOTE | 2025-02-28 13:06 | CM ---
Demographics: confirmed
Living situation: lives with son
Support Person Post Operatively: son
History of
VN: yes
SNF: [facility], patient has a terrible experience and does not want to return, [facility]
Outpatient: N/a
Has patient purchased required equipment: No
PCP: yes
Pharmacy: [facility]
Post Operative Discharge Plan: Plan for SNF, patient would prefer [facility].
[2025-03-06 11:09] LABS: Hematocrit 32.7 % (37.0-47.0); Hemoglobin 9.8 g/dL (12.0-16.0); Mean Corp Hgb Conc. 30.0 g/dL (33.0-37.0); Mean Corpuscular Volume 103.8 fL (81.0-99.0); Nucleated Red Blood Cells % 0 %; Platelet Count 202 10^3/uL (130-400); Red Cell Dist. Width 15.0 % (11.5-14.5)
[2025-03-06 11:34] LABS: ALT (SGPT) 16 U/L (0-35); AST (SGOT) 29 U/L (14-36); Albumin 4.0 g/dl (3.5-5.0); Alkaline Phosphatase 49 U/L (38-126); Blood Urea Nitrogen 12 mg/dl (7-17); Calcium 9.3 mg/dl (8.4-10.2); Carbon Dioxide 37 mmol/L (22-30); Chloride 102 mmol/L (98-107); Glucose 122 mg/dl (70-99); Potassium 4.2 mmol/L (3.5-5.1); Sodium 139 mmol/L (135-145); Total Protein 6.6 g/dl (6.3-8.2); eGFR > 60.00
[2025-03-06 11:36] LABS: C-Reactive Protein < 5.00 mg/L (0.0-10.00)
[2025-03-06 12:51] LABS: Glycohemoglobin (HgbA1c) 3.5 % (4.0-5.9)
[2025-03-11] VITALS (15 sets, daily range): BP systolic 85–151; BP diastolic 34–77; BMI 25.4; BMI 26.5
--- NOTE | 2025-03-11 09:17 | W.PN.UPDATE ---
Update Note
Progress Note Update
Recurrent R hip dislocation s/p Conversion to R ELOY w/ Dr Pace 03/11/25
- s/p R hip hemiarthroplasty d/t R femoral neck fx by Dr. Leon 12/2024
DVT prophylaxis - ASA, b/l venous foot pumps
HTN - + parameters - monitor BP
CAD status post CABG, 03/2022, and subsequent PCI of mid circumflex; on Aspirin
Right bundle branch block
- Monitor on tele
- Continue ASA but at 325 mg daily dosing x4 weeks for blood clot prevent
Orthostasis - monitor serial orthostatic VS
- IVF running. Will encourage oral hydration
- Minimize opioids as able. Of note, pt is opioid dependent
- Midodrine for SBP <120
- TEDS
COPD with chronic hypoxemia, on 2 L supplemental oxygen
History of recurrent pneumonia
- Monitor O2
- IS
- Duoneb prn
- Consider Prednisone taper w/ transition back to home Prednisone dose to aid in lung perfusion
GERD
Peptic ulcer disease; last GI bleed 01/2024
- Continue PPI therapy BID while on full dose ASA for DVT prevention
- Minimize NSAIDs
Dysphagia - on aspirations precautions
Chronic constipation - Add Miralax daily to bowel regimen of Colace and Senna
- Adequate hydration, early mobility as tolerated, and the minimization of opioids discussed nabil-op
Ambulatory dysfunction and history of falls
Myasthenia gravis
- On fall precautions
- Likely would benefit from a SNF upon d/c given functional limitations
History of vertebral osteomyelitis, on chronic Cefdinir - IV Ancef during admission
- Continue Cefdinir upon d/c. Will encourage this w/ probiotic
Fibromyalgia
Chronic pain syndrome with opioid dependence
- Monitor pain and adjust meds as indicated
- Per Dr. Jones, continue Morphine ER and order Oxycodone 10 mg q4hprn for moderate-severe breakthrough pain. Can increase to 15 mg q4hprn if needed
- Continue Duloxetine, Gabapentin, Prednisone, Tylenol. NO NSAIDS
Chronic macrocytic anemia - Trend H&H
- Was advised to continue PO iron, B12. Anemia panel pending in AM.
HLD
Mild mitral regurgitation
Moderate to severe tricuspid regurgitation
Spinal stenosis with non-functioning spinal stimulator
Spina bifida, status post multiple surgical corrections
Rheumatoid arthritis
Melanoma, right ear, status post excision
Glaucoma
Depression
[2025-03-11] MEDS: MOBIC 15 MG PO (12:42)
[2025-03-11] MEDS: TYLENOL 650 MG PO ×2 (12:42→19:53)
[2025-03-11] MEDS: NORMOSOL-R/PLASMALYTE-A 1000 IV ×2 (12:43→18:30)
--- NOTE | 2025-03-11 15:43 | CON.HOSP ---
Consultation
-
Date/Time Consultation Requested: 03/11/25 1539
Requesting Provider: Margret Silvestre
Performing Provider: Daniel Nichole MD
Reason for Consultation: Medical management
Family Physician
-
Family Physician: Ayah Tinajero
Chief Complaint
-
c/s for medical management
History of Present Illness
85 y/o F with PMHx:
CAD s/p CABG and subsequent PCI of mid circumflex
Essential HTN
HLD
Chronic hypoxemic respiratory failure due to COPD (on 2L NC O2 at baseline)
Chronic pain syndrome with chronic opioid dependence
h/o Right femoral neck fracture s/p R hip hemiarthroplasty 12/2024
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
Spina Bifida s/p multiple surgical corrections
Spinal stenosis with non-functioning spinal stimulator
Myasthenia Gravis
Fibromyalgia
Rheumatoid Arthritis
Chronic macrocytic anemia
RBBB
Mild MR, mod-sev TR
Orthostatic hypotension
GERD/PUD, last GI bleed 01/2024
Dysphagia
Chronic constipation
Ambulatory dysfunction and history of falls
Melanoma, right ear, status post excision
Glaucoma
Depression
who is POD #0 s/p R ELOY, c/s placed for medical management. Currently still under the effects of anesthesia so history is limited. Patient endorses no acute complaints. When asked about chest pain, shortness of breath, abdominal pain, nausea, the
patient denied these symptoms.
Medical History
Past Medical History
Past Medical History: Reports Other (as per HPI)
Past Surgical History: Reports Other (as per HPI, otherwise NC)
Social History
Tobacco: Non-smoker
Alcohol: Occasional
Drug: None
Allergies / Home Medications
Allergies reflects when Allergies were last updated in [employer].
Home Medications with original date entered in [employer]
Allergy/Medication List:
Allergies
Allergy/AdvReac Type Severity Reaction Status Date / Time
adhesive Allergy TAPE-RASH,SKIN Verified 03/11/25 11:58
BLISTERS
Home Medications
leflunomide 20 mg tablet 20 mg PO DAILY rheumatoid arthritis 01/18/17
rosuvastatin 10 mg tablet 10 mg PO QPM High cholesterol 04/11/19
pyridostigmine bromide 60 mg tablet 60 mg PO QID 30 days #120 tabs 07/02/20
cyanocobalamin (vitamin B-12) 1,000 mcg tablet 1,000 mcg PO DAILY Supplement 11/11/20
duloxetine 30 mg capsule,delayed release 30 mg PO DAILY Chronic pain 11/11/20
duloxetine 30 mg capsule,delayed release 60 mg PO HS chronic pain 11/11/20
ferrous sulfate 325 mg (65 mg iron) tablet (FeroSul) 325 mg PO DAILY Supplement 11/11/20
hydroxychloroquine 200 mg tablet 400 mg PO DAILY@1200 rheumatoid arthritis 07/20/22
sulfasalazine 500 mg tablet 1,000 mg PO BID rheumatoid arthritis 07/20/22
cefdinir 300 mg capsule 300 mg PO BID shelter 01/25/24
ipratropium 0.5 mg-albuterol 3 mg (2.5 mg base)/3 mL nebulization soln 3 ml inhalation R QIDPRN PRN sob 01/25/24
pantoprazole 40 mg tablet,delayed release (Protonix) 40 mg PO BID Gastrointestinal Issue 05/29/24
gabapentin 600 mg tablet 600 mg PO TID Pain 10/17/24
metoprolol succinate 100 mg tablet,extended release 24 hr (Toprol XL) 100 mg PO DAILY@1200 Blood Pressure 10/17/24
amlodipine 5 mg tablet 2.5 mg PO BID Blood Pressure 12/26/24
prednisone 5 mg tablet 5 mg PO DAILY Anti-Inflammatory 12/26/24
acetaminophen 325 mg tablet 650 mg (2 x 325 mg) PO Q4HPRN PRN Mild Pain / Temp > 101 #0 tabs 12/28/24
cholecalciferol (vitamin D3) 25 mcg (1,000 unit) tablet (Vitamin D3) 25 mcg PO DAILY 02/13/25
morphine 30 mg tablet,extended release 30 mg PO Q12H 02/13/25
oxycodone 10 mg tablet 10 mg PO Q8HPRN PRN severe pains 02/13/25
polyethylene glycol 3350 17 gram oral powder packet 17 g PO DAILYPRN PRN Constipation 02/13/25
Lumigan 1 drp BOTH EYES HS 03/04/25
docusate sodium 100 mg capsule 100 mg PO DAILY 03/04/25
timolol 0.5 % eye drops 1 drp ophthalmic (eye) DAILY 03/04/25
aspirin 81 mg tablet 81 mg PO DAILY 03/06/25
mupirocin 2 % topical ointment 1 applic intranasal BID #1 tube 03/06/25
Review of Systems
-
Unable to obtain full review of systems at this time due to: Acuity
History Source: Patient
A 12 point Review of Systems was completed except as noted: Yes
Physical Exam
Vital Signs
Vital Signs
Temp Pulse Resp BP Pulse Ox
98.1 F 75 18 151/77 95
03/11/25 12:12 03/11/25 12:12 03/11/25 12:12 03/11/25 12:12 03/11/25 12:12
Physical Exam
General: Other (.)
Laboratory Results
-
Laboratory Results
03/06/25 10:37
03/06/25 10:37
Total Bilirubin 0.5 mg/dl (0.2-1.3) 03/06/25 10:37
AST 29 U/L (14-36) 03/06/25 10:37
ALT 16 U/L (0-35) 03/06/25 10:37
Alkaline Phosphatase 49 U/L (38-126) 03/06/25 10:37
Impression / Plan
-
Gen: NAD, awake and alert
Eyes: EOMI, PERRLA, no scleral icterus.
Neck: supple.
CV: RRR, +S1/S2, no m/r/g.
Resp: CTAB, no rales, wheezes, or rhonchi.
Abd: +BS, soft, NT, ND
Skin: No rashes.
Neuro: CN 2-12 intact, non-focal.
Psych: Normal mood and affect.
POD #0 s/p R ELOY:
-postoperative management as per ortho
-pain control, nutrition, and DVT proph as per ortho
CAD s/p CABG and subsequent PCI of mid circumflex: cont ASA
Essential HTN: cont Toprol XL/Norvasc (hold for SBP<90)
HLD: cont statin
Chronic hypoxemic respiratory failure due to COPD (on 2L NC O2 at baseline), not in acute exac: Maintain baseline 2L NC O2 support
Chronic pain syndrome with chronic opioid dependence: cont home Morphine/Oxycodone
h/o Right femoral neck fracture s/p R hip hemiarthroplasty 12/2024
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
Spina Bifida s/p multiple surgical corrections
Spinal stenosis with non-functioning spinal stimulator
Myasthenia Gravis: cont Mestinon. Check NIF Q6H.
Fibromyalgia: Cont Cymbalta
Rheumatoid Arthritis: cont Prednisone/Plaquenil/Leflunomide
Chronic macrocytic anemia
RBBB
mild MR, mod-sev TR
Orthostatic hypotension
GERD/PUD, last GI bleed 01/2024
Dysphagia
Chronic constipation
Ambulatory dysfunction and history of falls
Melanoma, right ear, status post excision
Glaucoma
Depression: cont Cymbalta
Discussed with Dr. Pace and Margret Silvestre.
Thank you for the courtesy of this consultation. We will follow along with you. Please do not hesitate to call us with any questions at any time.
[2025-03-11] MEDS: ZOFRAN 4 MG IV (16:19)
[2025-03-11] MEDS: COMPAZINE 5 MG IV (16:31)
[2025-03-11 16:52] LABS: Hematocrit 28.2 % (37.0-47.0); Hemoglobin 8.5 g/dL (12.0-16.0)
[2025-03-11] MEDS: TRANEXAMIC ACID 100 IV (17:18)
--- NOTE | 2025-03-11 18:04 | W.PN.UPDATE ---
Update Note
Progress Note Update
I was called to evaluate the patient in the PACU. She was noted to have significant bloody drainage about her right hip wound.
Patient is resting comfortably, pulse ox 94% on 4 L nasal cannula (patient is oxygen dependent) pulse 93 and blood pressure 97/65. Her hemoglobin is 8.5. And she just received 1 g of TXA.
Right hip dressing with significant bloody drainage. Dressing removed and fresh dressing with ABDs applied. Right lower extremity distal motor intact.
Status post revision right total hip arthroplasty with conversion to constrained acetabular liner March 11.
Patient will be monitored overnight in the IMU.
Recheck hemoglobin at 8 PM.
[2025-03-11] MEDS: VITAMIN D3 (cholecalciferol) PO (18:32)
[2025-03-11] MEDS: SENOKOT 17.2 MG PO (19:53)
[2025-03-11] MEDS: COLACE 100 MG PO (19:53)
[2025-03-11] MEDS: PROTONIX 40 MG PO (19:53)
[2025-03-11] MEDS: FLORASTOR 250 MG PO (19:54)
[2025-03-11] MEDS: VITAMIN B-12 1000 MCG PO (20:01)
[2025-03-11] MEDS: CRESTOR 10 MG PO (20:01)
[2025-03-11] MEDS: ASPIRIN 325 MG PO (20:01)
[2025-03-11] MEDS: FEOSOL 325 MG PO (20:02)
[2025-03-11] MEDS: NORVASC PO (20:05)
[2025-03-11] MEDS: MIRALAX PO (20:05)
[2025-03-11] MEDS: MESTINON 60 MG PO ×2 (20:05→21:47)
[2025-03-11] MEDS: MS CONTIN (EXTENDED RELEASE) 30 MG PO (20:07)
[2025-03-11] MEDS: AZULFIDINE 1000 MG PO (20:48)
[2025-03-11] MEDS: BACTROBAN 2% OINTMENT 1 APPLIC NASAL (21:43)
[2025-03-11] MEDS: CYMBALTA DELAYED RELEASE 60 MG PO (21:43)
[2025-03-11] MEDS: ROXICODONE 10 MG PO (21:44)
[2025-03-11] MEDS: NEURONTIN 600 MG PO (21:44)
[2025-03-11] MEDS: ANCEF 5 IV (21:44)
[2025-03-11] MEDS: XALATAN OPHTHALMIC SOLUTION 1 DROP BOTH EYES (21:47)
[2025-03-11 21:50] LABS: Hematocrit 27.1 % (37.0-47.0); Hemoglobin 7.8 g/dL (12.0-16.0)
--- NOTE | 2025-03-11 22:16 | W.PN.UPDATE ---
Update Note
Progress Note Update
-Dressing on the surgery site noted with blood that increased from the earlier of the shift, bp on the soft side. Normal saline bolus ordered and will check h&h q 6hrs. Hgb level is gradually decreasing 8.5--->7.8 and now is 7.
-Will order one unit of blood.
-Recommendation from ortho to reinforce dressing and hold aspirin.
[2025-03-11] MEDS: NSS 250 IV (22:52)
--- NOTE | 2025-03-11 23:24 | PTCARENOTE ---
Pt with continued bloody drainage from surgical site. Far exceeding the previously circled drainage on the dressing. SPICE GRINDER and on-call orthopedic surgeon notified via TT of increased drainage and decreasing Hgb. MD orders to redress and reinforce
dressing as needed and hold AM dose of aspirin. SPICE GRINDER orders to repeat Hgb Q6. SPICE GRINDER ordered IVF bolus for soft pressures. Given per JUL. Pt pain controlled at this time with PRN medication. VSS on 4L O2, baseline 2L. Pt with existing chronic sensory
defecits in b/l LEs. Care ongoing.
[2025-03-12] VITALS (30 sets, daily range): BP systolic 107–137; BP diastolic 43–99; PULSE 71; O2SAT 97
[2025-03-12] MEDS: TYLENOL PO (00:24)
[2025-03-12] MEDS: ROXICODONE 10 MG PO ×3 (02:34→10:39)
[2025-03-12] MEDS: TYLENOL 650 MG PO ×5 (02:34→19:29)
[2025-03-12 02:41] LABS: Hematocrit 23.2 % (37.0-47.0); Hemoglobin 7.0 g/dL (12.0-16.0)
--- NOTE | 2025-03-12 04:05 | PTCARENOTE ---
Pt with Hgb 7.0. 1 unit PRBC given per SHEETER MACHINE OPERATOR order. VSS. Pt denies symptoms.
[2025-03-12] MEDS: ANCEF 5 IV (06:05)
[2025-03-12] MEDS: MS CONTIN (EXTENDED RELEASE) 30 MG PO ×2 (07:19→19:30)
[2025-03-12] MEDS: VITAMIN B-12 1000 MCG PO (09:22)
[2025-03-12] MEDS: MIRALAX 17 GRAMS PO (09:22)
[2025-03-12] MEDS: NORVASC 2.5 MG PO (09:24)
[2025-03-12] MEDS: SENOKOT 17.2 MG PO ×2 (09:24→19:29)
[2025-03-12] MEDS: TRANEXAMIC ACID 100 IV (09:25)
[2025-03-12] MEDS: AZULFIDINE 1000 MG PO ×2 (09:25→19:29)
[2025-03-12] MEDS: MESTINON 60 MG PO ×4 (09:25→21:03)
[2025-03-12] MEDS: PROTONIX 40 MG PO ×2 (09:26→19:29)
[2025-03-12] MEDS: DELTASONE 5 MG PO (09:26)
[2025-03-12] MEDS: VITAMIN D3 (cholecalciferol) 25 MCG PO (09:26)
[2025-03-12] MEDS: FLORASTOR 250 MG PO ×2 (09:26→19:29)
[2025-03-12] MEDS: COLACE 100 MG PO ×2 (09:26→19:30)
[2025-03-12] MEDS: FEOSOL 325 MG PO (09:26)
[2025-03-12] MEDS: TIMOPTIC 0.5% OPHTHALMIC SOLUTION 1 DROP BOTH EYES ×2 (09:27→21:03)
[2025-03-12] MEDS: CYMBALTA DELAYED RELEASE 30 MG PO (09:27)
[2025-03-12] MEDS: NEURONTIN 600 MG PO ×3 (09:27→21:03)
--- NOTE | 2025-03-12 10:19 | W.PN.ORTHO ---
Today's Communication / Plan
-
Monitor labs.
Continue monitoring on tele.
Watch incisional bleeding - currently stable.
Adjust pain meds further.
Work w/ PT and OT as able.
D/c when clinically stable.
Assessment
.
Distal Motor Intact: Yes
Dressing:
ABD pads secured w/ no further incisional drainage noted.
Assessment:
Recurrent R hip dislocation s/p Conversion to R ELOY w/ Dr Pace 03/11/25
- s/p R hip hemiarthroplasty d/t R femoral neck fx by Dr. Leon 12/2024
DVT prophylaxis - ASA, b/l venous foot pumps
- ASA currently on hold d/t incisional bleeding yesterday. Will try and resume tomorrow if able
Nausea 2* opioids - does tolerate Zofran well at home
- Will order standing order Zofran to stay ahead of nausea
- Continue IV Compazine prn should Zofran be ineffective
HTN - + parameters - monitor BP
CAD status post CABG, 03/2022, and subsequent PCI of mid circumflex; on Aspirin
Right bundle branch block
- Monitor on tele
- Continue ASA but at 325 mg daily dosing x4 weeks for blood clot prevention. Will hopefully resume tomorrow
Orthostasis - monitor serial orthostatic VS
- IVF running. Will encourage oral hydration
- Minimize opioids as able. Of note, pt is opioid dependent
- Midodrine for SBP <120
- TEDS
COPD with chronic hypoxemia, on 2 L supplemental oxygen
History of recurrent pneumonia
- Monitor O2
- IS
- Duoneb prn
- Consider Prednisone taper w/ transition back to home Prednisone dose to aid in lung perfusion
GERD
Peptic ulcer disease; last GI bleed 01/2024
- Continue PPI therapy BID while on full dose ASA for DVT prevention
- Minimize NSAIDs
Dysphagia - on aspiration precautions
Chronic constipation - Added Miralax daily to bowel regimen of Colace and Senna
- Adequate hydration, early mobility as tolerated, and the minimization of opioids discussed nabil-op
Ambulatory dysfunction and history of falls
Myasthenia gravis
- On fall precautions
- Likely would benefit from a SNF upon d/c given functional limitations
History of vertebral osteomyelitis, on chronic Cefdinir - IV Ancef during admission w/ transition back to Cefdinir tonight
- Will order and encourage probiotic while on abx
Fibromyalgia
Chronic pain syndrome with opioid dependence
- Monitor pain and adjust meds as indicated
- Per Dr. Jones, continue Morphine ER and order Oxycodone 10 mg initially q4hprn for moderate-severe breakthrough pain. Given significant pain today, will adjust to 10 mg for mod pain, 15 if severe
- Continue Duloxetine, Gabapentin, Prednisone, Tylenol. NO NSAIDS
Acute on chronic anemia - Trend H&H
- S/p 1 unit PRBCs overnight. VS currently stable
- Was advised to continue PO iron, B12. Anemia panel pending
HLD
Mild mitral regurgitation
Moderate to severe tricuspid regurgitation
Spinal stenosis with non-functioning spinal stimulator
Spina bifida, status post multiple surgical corrections
Rheumatoid arthritis
Melanoma, right ear, status post excision
Glaucoma
Depression
Given the complexity of this patient, the hospitalist service has been consulted for further medical mgmt. We appreciate their input and recommendations
Plan
.
Surgery / Date: Conversion to R ELOY w/ Dr Pace 03/11/25
DVT Prophylaxis: Aspirin (when incisional bleeding stabilized )
Activity:
Out of bed.
PT/OT
Discharge Plan: SNF
Subjective
.
.:
Patient examined resting in bed.
Complaining of significant low back and R hip pain. Back worse than hip at present. H/o fibromyalgia w/ opioid dependence at baseline.
Nauseous this AM w/ small episode of vomiting during examination.
Acute on chronic anemia s/p 1 unit PRBCs overnight.
Vital Signs and Labs
.
Vital Signs and Labs:
Temp Pulse Resp BP Pulse Ox
97.6 F 89 16 125/55 97
03/12/25 07:30 03/12/25 09:24 03/12/25 06:03 03/12/25 09:24 03/12/25 06:03
Physical Exam
-
HEENT: No pallor, cyanosis, or jaundice. Throat clear.
NECK: Supple. No JVD.
RESPIRATORY: CTA anteriorly.
CVS: S1, S2 normal. RRR.�
ABDOMEN: Soft, non-tender. No distension.
EXTREMITIES: Strength equal, no calf pain with palpation/dorsiflexion. Calves soft.
CODING QUALITY ANALYST: AOx3. No focal deficits. vessel specialist grossly intact
[2025-03-12] MEDS: ZOFRAN 4 MG IV (10:22)
--- NOTE | 2025-03-12 10:36 | W.PN.HOSP.TC ---
Today's Communication/Plan
-
see plan
Assessment / Plan
Assessment / Plan
Gen: NAD, awake and alert
Eyes: EOMI, PERRLA, no scleral icterus.
Neck: supple.
CV: remains RRR, +S1/S2, no m/r/g.
Resp: remains CTAB, no rales, wheezes, or rhonchi.
Abd: remains +BS, soft, NT, ND
Skin: No rashes.
Neuro: CN 2-12 intact, non-focal.
Psych: Normal mood and affect.
POD #1 s/p R ELOY:
-postoperative management as per ortho
-pain control, nutrition, and DVT proph as per ortho
-acute blood loss anemia s/p 1U pRBCs
CAD s/p CABG and subsequent PCI of mid circumflex: cont ASA
Essential HTN: cont Toprol XL, stop Norvasc with hypotension (cont Midodrine)
HLD: cont statin
Chronic hypoxemic respiratory failure due to COPD (on 2L NC O2 at baseline), not in acute exac: Maintain baseline 2L NC O2 support
Chronic pain syndrome with chronic opioid dependence: cont home Morphine/Oxycodone
h/o Right femoral neck fracture s/p R hip hemiarthroplasty 12/2024
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
Spina Bifida s/p multiple surgical corrections
Spinal stenosis with non-functioning spinal stimulator
Myasthenia Gravis: cont Mestinon. Check NIF Q6H.
Fibromyalgia: Cont Cymbalta
Rheumatoid Arthritis: cont Prednisone/Plaquenil/Leflunomide
Chronic macrocytic anemia
RBBB
mild MR, mod-sev TR
Orthostatic hypotension
GERD/PUD, last GI bleed 01/2024
Dysphagia
Chronic constipation
Ambulatory dysfunction and history of falls
Melanoma, right ear, status post excision
Glaucoma
Depression: cont Cymbalta
Thank you for the courtesy of this consultation. We will follow along with you. Please do not hesitate to call us with any questions at any time.
Anticipated Discharge: 24 - 48 hours
Subjective/Interval History
-
Date of Service: March 12, 2025
Objective Data
-
Labs:
Laboratory Results
03/12/25 03/12/25 03/12/25
02:19 06:00 07:41
Hgb 7.0 L Pending
Hct 23.2 L Pending
Sodium Pending
Potassium Pending
Chloride Pending
Carbon Dioxide Pending
BUN Pending
Creatinine Pending
Glucose Pending
Calcium Pending
03/12/25 03/12/25
08:00 14:00
Hgb Pending Pending
Hct Pending Pending
Sodium
Potassium
Chloride
Carbon Dioxide
BUN
Creatinine
Glucose
Calcium
Vital Signs:
Vital Signs
Temp Pulse Resp BP Pulse Ox
97.6 F 89 16 125/55 97
03/12/25 07:30 03/12/25 09:24 03/12/25 06:03 03/12/25 09:24 03/12/25 06:03
I&O
03/11/25 03/12/25 03/13/25
06:59 06:59 06:59
Intake Total 850 / 850
Output Total 350 / 350
Balance 500 / 500
--- NOTE | 2025-03-12 10:38 | W.PN.UPDATE ---
Update Note
Progress Note Update
Late documentation from earlier visit.
Kiesha is an 85 year old female POD #1 s/p right conversion ELOY.
-Noted to have bleeding in PACU. Dressing applied with ABDs. This was changed multiple times by nursing overnight.
-Hgb dropped to 7.0 and 1 unit PRBC given. Repeat Hgb pending.
-Dressing on exam this morning saturated with sanguinous drainage. Incision well approximated with everton. Mild sanguinous oozing from proximal incision. Mild diffuse swelling and TTP about the lateral soft tissues. Calf soft and non tender to
palpation.
-IV TXA ordered due to persistent drainage. Spoke with nursing in regards to giving it on the floor.
-Hold aspirin for now.
-ABDs and tape applied for new dressing. Change as needed for saturation.
-Will continue to follow along.
[2025-03-12] MEDS: BACTROBAN 2% OINTMENT NASAL (12:17)
[2025-03-12 12:40] LABS: Hematocrit 24.4 % (37.0-47.0); Hemoglobin 7.7 g/dL (12.0-16.0)
[2025-03-12 12:56] LABS: Iron 76 ug/dl (37-170)
[2025-03-12 12:58] LABS: Blood Urea Nitrogen 21 mg/dl (7-17); Calcium 7.9 mg/dl (8.4-10.2); Carbon Dioxide 34 mmol/L (22-30); Chloride 99 mmol/L (98-107); Estimated Creatinine Clearance 42 ml/min; Glucose 116 mg/dl (70-99); Potassium 4.7 mmol/L (3.5-5.1); Sodium 132 mmol/L (135-145); eGFR > 60.00
[2025-03-12 13:06] LABS: Total Iron Binding Capacity 224 ug/dl (265-497)
--- NOTE | 2025-03-12 13:22 | W.PN.UPDATE ---
Update Note
Progress Note Update
Reviewing labs as they come in. Pt is notably a tough stick.
Hgb improved from 7.0 to 7.7. Besides nausea from narcotics (chronic), she voided no other complaints this AM.
Baseline hgb typically between 8-10 per trends.
VS remaining stable today. Dressing C/D/I this AM.
Will hold transfusing additional PRBCs for now.
Will await anemia panel and supplement w/ iron, B12, folate if indicated.
Given pt is a tough stick, can avoid next blood draw till tomorrow AM.
Pt can work w/ PT and OT this afternoon.
Other notable findings so far: mild hyponatremia - monitor for now; mild hypocalcemia - supplement.
[2025-03-12] MEDS: TOPROL XL 100 MG PO (13:31)
[2025-03-12] MEDS: PLAQUENIL 400 MG PO (13:32)
[2025-03-12 13:34] LABS: Ferritin 169.0 ng/ml (11.1-264.0)
[2025-03-12 14:05] LABS: Folate 13.1 ng/ml (2.76-20); Vitamin B12 > 1000 pg/ml (239-931)
[2025-03-12] MEDS: ROXICODONE 15 MG PO ×2 (14:20→22:26)
[2025-03-12] MEDS: OSCAL CAL 500 500 MG PO ×2 (14:20→19:29)
[2025-03-12] MEDS: CRESTOR 10 MG PO (17:31)
[2025-03-12] MEDS: ZOFRAN 4 MG PO ×2 (17:34→21:02)
[2025-03-12] MEDS: OMNICEF 300 MG PO (19:29)
[2025-03-12] MEDS: BACTROBAN 2% OINTMENT 1 APPLIC NASAL (19:30)
[2025-03-12] MEDS: CYMBALTA DELAYED RELEASE 60 MG PO (21:02)
[2025-03-12] MEDS: XALATAN OPHTHALMIC SOLUTION 1 DROP BOTH EYES (21:04)
[2025-03-13] VITALS (26 sets, daily range): BP systolic 94–134; BP diastolic 47–92; PULSE 65; O2SAT 96–98
[2025-03-13] MEDS: TYLENOL PO ×3 (00:36→23:59)
[2025-03-13] MEDS: ROXICODONE 15 MG PO ×2 (05:12→11:30)
--- NOTE | 2025-03-13 05:33 | PTCARENOTE ---
Pt c/o pain, medicated per MAR. Denies new complaints at this time. VSS. Care ongoing.
[2025-03-13 05:50] LABS: Hematocrit 26.6 % (37.0-47.0); Hemoglobin 7.9 g/dL (12.0-16.0); Mean Corp Hgb Conc. 29.7 g/dL (33.0-37.0); Mean Corpuscular Volume 102.7 fL (81.0-99.0); Platelet Count 165 10^3/uL (130-400); Red Cell Dist. Width 16.1 % (11.5-14.5)
[2025-03-13 06:17] LABS: Blood Urea Nitrogen 21 mg/dl (7-17); Calcium 8.6 mg/dl (8.4-10.2); Carbon Dioxide 33 mmol/L (22-30); Chloride 104 mmol/L (98-107); Estimated Creatinine Clearance 42 ml/min; Glucose 85 mg/dl (70-99); Potassium 4.5 mmol/L (3.5-5.1); Sodium 135 mmol/L (135-145); eGFR > 60.00
--- NOTE | 2025-03-13 08:07 | CM ---
CM sent updated referral with PT/OT notes to [facility]. CM will follow for acceptance.
[2025-03-13] MEDS: VITAMIN D3 (cholecalciferol) 25 MCG PO (08:59)
[2025-03-13] MEDS: SENOKOT 17.2 MG PO ×2 (08:59→20:01)
[2025-03-13] MEDS: NEURONTIN 600 MG PO ×3 (08:59→22:49)
[2025-03-13] MEDS: TYLENOL 650 MG PO ×4 (08:59→20:01)
[2025-03-13] MEDS: FEOSOL 325 MG PO (09:00)
[2025-03-13] MEDS: FLORASTOR 250 MG PO ×2 (09:00→20:01)
[2025-03-13] MEDS: DELTASONE 5 MG PO (09:00)
[2025-03-13] MEDS: MS CONTIN (EXTENDED RELEASE) 30 MG PO ×2 (09:00→20:02)
[2025-03-13] MEDS: MESTINON 60 MG PO ×4 (09:00→22:49)
[2025-03-13] MEDS: CYMBALTA DELAYED RELEASE 30 MG PO (09:00)
[2025-03-13] MEDS: COLACE 100 MG PO ×2 (09:00→20:01)
[2025-03-13] MEDS: OMNICEF 300 MG PO ×2 (09:00→20:02)
[2025-03-13] MEDS: ZOFRAN 4 MG PO ×3 (09:00→22:48)
[2025-03-13] MEDS: AZULFIDINE 1000 MG PO ×2 (09:00→20:01)
[2025-03-13] MEDS: VITAMIN B-12 1000 MCG PO (09:00)
[2025-03-13] MEDS: PROTONIX 40 MG PO ×2 (09:00→20:01)
[2025-03-13] MEDS: MIRALAX 17 GRAMS PO (09:01)
[2025-03-13] MEDS: OSCAL CAL 500 500 MG PO ×2 (09:39→20:02)
--- NOTE | 2025-03-13 09:59 | W.PN.ORTHO ---
Today's Communication / Plan
-
Restart ASA. VENOUS FOOT PUMPS TO BE WORN AT ALL TIMES WHEN IMMOBILE.
Monitor incisional bleeding after TXA this AM. Will plan to redress incision w/ ABDs later today.
Continue to trend labs.
Continue to work w/ PT and OT as able.
D/c when clinically stable.
Assessment
.
Distal Motor Intact: Yes
Dressing:
Small area of serosanguineous drainage.
Assessment:
Recurrent R hip dislocation s/p Conversion to R ELOY w/ Dr Pace 03/11/25
- s/p R hip hemiarthroplasty d/t R femoral neck fx by Dr. Leon 12/2024
DVT prophylaxis - ASA, b/l venous foot pumps
- ASA held d/t incisional bleeding yesterday. Will resume today as bleeding showing improvement.
- VENOUS FOOT PUMPS TO BE WORN AT ALL TIMES WHEN IMMOBILE
Incisional bleeding - improving, however will order TXA this AM. May need to continue TXA pending dressing check later today
Nausea 2* opioids - does tolerate Zofran well at home
- Will order standing order Zofran to stay ahead of nausea
- Continue IV Compazine prn should Zofran be ineffective
- Rx Zofran upon d/c
HTN - + parameters - monitor BP
CAD status post CABG, 03/2022, and subsequent PCI of mid circumflex; on Aspirin
Right bundle branch block
- Monitor on tele
- Continue ASA but at 325 mg daily dosing x4 weeks for blood clot prevention. Will resume today
Orthostasis - monitor serial orthostatic VS
- IVF running. Will encourage oral hydration
- Minimize opioids as able. Of note, pt is opioid dependent
- Midodrine for SBP <120
- TEDS
COPD with chronic hypoxemia, on 2 L supplemental oxygen
History of recurrent pneumonia
- Monitor O2
- IS
- Duoneb prn
- Consider Prednisone taper w/ transition back to home Prednisone dose to aid in lung perfusion
GERD
Peptic ulcer disease; last GI bleed 01/2024
- Continue PPI therapy BID while on full dose ASA for DVT prevention
- Minimize NSAIDs
Dysphagia - on aspiration precautions
Chronic constipation - Added Miralax daily to bowel regimen of Colace and Senna initially
- Adequate hydration, early mobility as tolerated, and the minimization of opioids discussed nabil-op
- BM reported today. Will ease off on Miralax but continue w/ Colace and Senna
Ambulatory dysfunction and history of falls
Myasthenia gravis
- On fall precautions
- Likely would benefit from a SNF upon d/c given functional limitations
History of vertebral osteomyelitis, on chronic Cefdinir - IV Ancef during admission w/ transition back to Cefdinir POD 1
- Will order and encourage probiotic while on abx
Fibromyalgia
Chronic pain syndrome with opioid dependence
- Monitor pain and adjust meds as indicated
- Per Dr. Jones, continue Morphine ER. Oxycodone 10 mg for moderate pain, 15 mg for severe pain prn
- Continue Duloxetine, Gabapentin, Prednisone, Tylenol. NO NSAIDS
Acute on chronic anemia - Trend H&H
- S/p 1 unit PRBCs. VS currently stable
- Was advised to continue PO iron, B12. Anemia panel demonstrating anemia of chronic disease
HLD
Mild mitral regurgitation
Moderate to severe tricuspid regurgitation
Spinal stenosis with non-functioning spinal stimulator
Spina bifida, status post multiple surgical corrections
Rheumatoid arthritis
Melanoma, right ear, status post excision
Glaucoma
Depression
Given the complexity of this patient, the hospitalist service has been consulted for further medical mgmt. We appreciate their input and recommendations
Plan
.
Surgery / Date: Conversion to R ELOY w/ Dr Pace 03/11/25
DVT Prophylaxis: Aspirin
Activity:
Out of bed.
PT/OT
Discharge Plan: SNF
Subjective
.
.:
Patient resting comfortably in bed this AM.
RLE pain improved overall w/ increase in Oxycodone dosing yesterday.
Nausea resolved w/ Zofran. Will Rx upon d/c.
Labs showing improvement. Pt notably asymptomatic.
Incisional bleeding improving but still present.
Vital Signs and Labs
.
Vital Signs and Labs:
Lab Results
03/13/25 05:33
03/13/25 05:33
Temp Pulse Resp BP Pulse Ox
97.8 F 62 10 119/69 97
03/13/25 07:10 03/13/25 05:00 03/13/25 05:00 03/13/25 09:00 03/13/25 05:00
Physical Exam
-
HEENT: No pallor, cyanosis, or jaundice. Throat clear.
NECK: Supple. No JVD.
RESPIRATORY: Lungs clear to auscultation.
CVS: S1, S2 normal. RRR.�
ABDOMEN: Soft, non-tender. No distension.
EXTREMITIES: Strength equal, no calf pain with palpation/dorsiflexion. Calves soft.
JIG FILLER: AOx3. No focal deficits. station installer and repairer grossly intact
--- NOTE | 2025-03-13 10:07 | W.PN.UPDATE ---
Update Note
Progress Note Update
Ms. Liriano is POD2 following her right conversion total hip arthroplasty performed by Dr. Pace. She is resting comfortably in bed at present, and endorses only a small amount of soreness in the hip. She has been having some persistent oozing
from her proximal incision, and her dressing was changed several times yesterday.
Directed exam of the right lower extremity reveals proximal ABDs with blood, distal bandages CDI. Surgical incision well approximated with everton. There is some slow bleeding from the proximal incision. New ABDs were placed. No significant
tenderness to palpation about the hip. Thigh soft and compressible. Calf soft and nontender. NVID.
Hgb 7.9 this AM.
85 year old female POD #2 s/p right conversion ELOY under the direction of Dr. Pace
--Proximal aspect of patient's incision continues with slow bleeding. New ABDs placed today. Continue to monitor and change as needed.
--Hgb this AM 7.9, up from 7.7 yesterday after 1 unit PRBC.
--Once patient stable, plan for transfer to [address] [place] [address].
--Aspirin is currently being held due to persistent incisional drainage/bleeding.
--Will continue to follow along.
--- NOTE | 2025-03-13 10:09 | PTCARENOTE ---
Assumed care of patient at beginning of this shift from previous RN; cannot verify accuracy of vital signs prior to 0700. R hip abd dressing dry and intact; ortho PA up to see patient and changed dressing, see her note. She stated she will add any
wound care instructions to discharge instructions. Also stated patient for possible discharge today or tomorrow. O2 2l n/c in use; POx 95%. Patient able to take all morning meds without difficulty. See worklist for full assessment and vital signs.
Patient's sister at bedside.
--- NOTE | 2025-03-13 10:14 | W.PN.HOSP.TC ---
Today's Communication/Plan
-
see plan
Assessment / Plan
Assessment / Plan
Gen: NAD, awake and alert
Eyes: EOMI, PERRLA, no scleral icterus.
Neck: supple.
CV: continues to remain RRR, +S1/S2, no m/r/g.
Resp: continues to remain CTAB, no rales, wheezes, or rhonchi.
Abd: continues to remain +BS, soft, NT, ND
Skin: No rashes.
Neuro: CN 2-12 intact, non-focal.
Psych: Normal mood and affect.
POD #1 s/p R ELOY:
-postoperative management as per ortho
-pain control, nutrition, and DVT proph as per ortho
-acute blood loss anemia s/p 1U pRBCs
CAD s/p CABG and subsequent PCI of mid circumflex: ASA held for incisional bleeding
Essential HTN: cont Toprol XL, home Norvasc stopped due to hypotension (cont Midodrine PRN)
HLD: cont statin
Chronic hypoxemic respiratory failure due to COPD (on 2L NC O2 at baseline), not in acute exac: Maintain baseline 2L NC O2 support
Chronic pain syndrome with chronic opioid dependence: cont home Morphine/Oxycodone
h/o Right femoral neck fracture s/p R hip hemiarthroplasty 12/2024
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
Spina Bifida s/p multiple surgical corrections
Spinal stenosis with non-functioning spinal stimulator
Myasthenia Gravis: cont Mestinon
Fibromyalgia: Cont Cymbalta
Rheumatoid Arthritis: cont Prednisone/Plaquenil/Leflunomide
Chronic macrocytic anemia
RBBB
mild MR, mod-sev TR
Orthostatic hypotension
GERD/PUD, last GI bleed 01/2024
Dysphagia
Chronic constipation
Ambulatory dysfunction and history of falls
Melanoma, right ear, status post excision
Glaucoma
Depression: cont Cymbalta
OK to downgrade to MS from my standpoint.
Anticipated Discharge: Within 24 hours
Subjective/Interval History
-
Date of Service: March 13, 2025
No new complaints.
Objective Data
-
Labs:
Laboratory Results
03/13/25
05:33
WBC 10.5
Hgb 7.9 L
Hct 26.6 L
Plt Count 165
Sodium 135
Potassium 4.5
Chloride 104
Carbon Dioxide 33 H
BUN 21 H
Creatinine 0.9
Glucose 85
Calcium 8.6
Vital Signs:
Vital Signs
Temp Pulse Resp BP Pulse Ox
97.8 F 74 21 119/49 97
03/13/25 07:10 03/13/25 10:00 03/13/25 10:00 03/13/25 09:00 03/13/25 09:00
I&O
03/12/25 03/13/25 03/14/25
06:59 06:59 06:59
Intake Total 850 / 850
Output Total 350 / 350 1150 / 1150
Balance 500 / 500 -1150 / -1150
[2025-03-13] MEDS: CYKLOKAPRON 1300 MG PO ×2 (11:05→20:02)
[2025-03-13] MEDS: ASPIRIN 325 MG PO (11:06)
[2025-03-13] MEDS: COMPAZINE 5 MG IV (11:06)
[2025-03-13] MEDS: TOPROL XL PO (11:28)
[2025-03-13] MEDS: PLAQUENIL 400 MG PO (11:31)
--- NOTE | 2025-03-13 13:57 | CM ---
Addendum entered by Yumi Abraham RN 03/13/25 14:24:
CM updated patient with discharge plan.
Original Note:
[facility] has accepted
[facility] Authorization
[id number]
03/14-03/18
[facility] Authorization
[id number]
[2025-03-13] MEDS: CRESTOR 10 MG PO (17:06)
[2025-03-13] MEDS: ROXICODONE 10 MG PO (17:10)
--- NOTE | 2025-03-13 18:05 | PTCARENOTE ---
Patient OOB to chair today with PT; lasted almost 1hr. Ambulated to bathroom several times without difficulty; 1 assist using RW.
--- NOTE | 2025-03-13 21:03 | PTCARENOTE ---
Pt ambulated assistx1 to bathroom with rw. Does continue to c/o pain throughout back, R hip, and knees, treated with scheduled medication. NSR on CM. Maintained on 2L O2. Downgraded to tele. Report called to 2S RN.
[2025-03-13] MEDS: CYMBALTA DELAYED RELEASE 60 MG PO (22:48)
[2025-03-13] MEDS: XALATAN OPHTHALMIC SOLUTION 1 DROP BOTH EYES (23:48)
--- NOTE | 2025-03-13 23:59 | PTCARENOTE ---
pt rec'vd from IMU at approx 21:18 via w/c. Pt alert, ambulated from chair to bed, vs stable, denied pain, right hip abd drsng with small amount of staining. foot pumps in place, oriented to unit.
[2025-03-14] VITALS (7 sets, daily range): BP systolic 118–152; BP diastolic 56–88; PULSE 70; O2SAT 97
[2025-03-14] MEDS: ROXICODONE 10 MG PO (01:52)
[2025-03-14] MEDS: TYLENOL PO (04:07)
--- NOTE | 2025-03-14 07:28 | W.PN.ORTHO ---
Today's Communication / Plan
-
PT/OT
Weightbearing as tolerated with walker
Continue to observe hemoglobin-currently pending
Patient has been experiencing more pain this morning so encouraged her to ice more frequently and use pain medication more consistently
Aspirin on hold at the moment
Skin clip removal 3 weeks postop in office
Orthopedics continue to follow
[facility] once medically stable
Assessment
.
Distal Motor Intact: Yes
Dressing:
Right hip dressing removed. Incision is clean, dry and intact. Scant bloody drainage from proximal portion of the incision. Incision was cleaned with Betadine then new Aquacel dressing was applied.
Plan
.
Surgery / Date: Conversion to R ELOY w/ Dr Pace 03/11/25
DVT Prophylaxis: Aspirin
Activity:
Out of bed.
PT/OT
Discharge Plan: SNF
Subjective
.
.:
Patient is experiencing moderate degree of pain after walking to the bathroom this morning. She received 1 unit packed red blood cells and hemoglobin yesterday was 7.9. Hemoglobin currently is pending. Plan is for her to go to [facility] once
medically stable
Vital Signs and Labs
.
Vital Signs and Labs:
Temp Pulse Resp BP Pulse Ox
97.6 F 74 16 125/57 94
03/14/25 03:35 03/14/25 03:35 03/14/25 03:35 03/14/25 03:35 03/14/25 03:35
Right incision see comments below. Moderate edema about the hip and thigh. Calf is soft and nontender. Distal neurovascular was intact.
[2025-03-14] MEDS: CYKLOKAPRON 1300 MG PO (07:45)
[2025-03-14] MEDS: VITAMIN B-12 1000 MCG PO (07:46)
[2025-03-14] MEDS: ASPIRIN 325 MG PO (07:46)
[2025-03-14] MEDS: SENOKOT 17.2 MG PO (07:46)
[2025-03-14] MEDS: NEURONTIN 600 MG PO ×3 (07:46→21:30)
[2025-03-14] MEDS: OMNICEF 300 MG PO ×2 (07:46→21:27)
[2025-03-14] MEDS: CYMBALTA DELAYED RELEASE 30 MG PO (07:47)
[2025-03-14] MEDS: MESTINON 60 MG PO ×4 (07:47→21:29)
[2025-03-14] MEDS: AZULFIDINE 1000 MG PO ×2 (07:47→21:26)
[2025-03-14] MEDS: TYLENOL 650 MG PO ×5 (07:47→23:29)
[2025-03-14] MEDS: PROTONIX 40 MG PO ×2 (07:47→21:27)
[2025-03-14] MEDS: OSCAL CAL 500 500 MG PO ×2 (07:47→21:27)
[2025-03-14] MEDS: ZOFRAN 4 MG PO ×3 (07:48→21:30)
[2025-03-14] MEDS: DELTASONE 5 MG PO (07:48)
[2025-03-14] MEDS: COLACE 100 MG PO ×2 (07:48→21:27)
[2025-03-14] MEDS: MS CONTIN (EXTENDED RELEASE) 30 MG PO ×2 (07:48→21:26)
[2025-03-14] MEDS: VITAMIN D3 (cholecalciferol) 25 MCG PO (07:48)
[2025-03-14] MEDS: TIMOPTIC 0.5% OPHTHALMIC SOLUTION 1 DROP BOTH EYES (07:49)
[2025-03-14] MEDS: FLORASTOR 250 MG PO ×2 (07:52→21:28)
[2025-03-14] MEDS: FEOSOL 325 MG PO (07:52)
--- NOTE | 2025-03-14 08:20 | W.PN.HOSP.TC ---
Today's Communication/Plan
-
see plan
Assessment / Plan
Assessment / Plan
Gen: NAD, awake and alert
Eyes: EOMI, PERRLA, no scleral icterus.
Neck: supple.
CV: continues to remain RRR, +S1/S2, no m/r/g.
Resp: continues to remain CTAB, no rales, wheezes, or rhonchi.
Abd: continues to remain +BS, soft, NT, ND
Skin: No rashes.
Neuro: CN 2-12 intact, non-focal.
Psych: Normal mood and affect.
POD #3 s/p R ELOY:
-postoperative management as per ortho
-pain control, nutrition, and DVT proph as per ortho
-acute blood loss anemia s/p 1U pRBCs
CAD s/p CABG and subsequent PCI of mid circumflex: ASA held for incisional bleeding
Essential HTN: cont Toprol XL, home Norvasc stopped due to hypotension (cont Midodrine PRN)
HLD: cont statin
Chronic hypoxemic respiratory failure due to COPD (on 2L NC O2 at baseline), not in acute exac: Maintain baseline 2L NC O2 support
Chronic pain syndrome with chronic opioid dependence: cont home Morphine/Oxycodone
h/o Right femoral neck fracture s/p R hip hemiarthroplasty 12/2024
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
Spina Bifida s/p multiple surgical corrections
Spinal stenosis with non-functioning spinal stimulator
Myasthenia Gravis: cont Mestinon
Fibromyalgia: Cont Cymbalta
Rheumatoid Arthritis: cont Prednisone/Plaquenil/Leflunomide
Chronic macrocytic anemia
RBBB
mild MR, mod-sev TR
Orthostatic hypotension
GERD/PUD, last GI bleed 01/2024
Dysphagia
Chronic constipation
Ambulatory dysfunction and history of falls
Melanoma, right ear, status post excision
Glaucoma
Depression: cont Cymbalta
OK for d/c from my standpoint.
Anticipated Discharge: Within 24 hours
Subjective/Interval History
-
Date of Service: March 14, 2025
Patient complains of postoperative pain.
Objective Data
-
Labs:
Laboratory Results
03/14/25
06:32
WBC Pending
Hgb Pending
Hct Pending
Plt Count Pending
Sodium Pending
Potassium Pending
Chloride Pending
Carbon Dioxide Pending
BUN Pending
Creatinine Pending
Glucose Pending
Calcium Pending
Vital Signs:
Vital Signs
Temp Pulse Resp BP Pulse Ox
97.6 F 74 16 143/69 94
03/14/25 03:35 03/14/25 03:35 03/14/25 03:35 03/14/25 07:47 03/14/25 03:35
I&O
03/13/25 03/14/25 03/15/25
06:59 06:59 06:59
Intake Total 645 / 645
Output Total 1150 / 1150
Balance -1150 / -1150 645 / 645
[2025-03-14 08:21] LABS: Hematocrit 26.3 % (37.0-47.0); Hemoglobin 7.6 g/dL (12.0-16.0); Mean Corp Hgb Conc. 28.9 g/dL (33.0-37.0); Mean Corpuscular Volume 105.2 fL (81.0-99.0); Platelet Count 175 10^3/uL (130-400); Red Cell Dist. Width 15.7 % (11.5-14.5)
[2025-03-14 08:27] LABS: Blood Urea Nitrogen 19 mg/dl (7-17); Calcium 8.9 mg/dl (8.4-10.2); Carbon Dioxide 32 mmol/L (22-30); Chloride 102 mmol/L (98-107); Estimated Creatinine Clearance 54 ml/min; Glucose 77 mg/dl (70-99); Potassium 4.2 mmol/L (3.5-5.1); Sodium 133 mmol/L (135-145); eGFR > 60.00
--- NOTE | 2025-03-14 10:12 | CM ---
CM spoke with Daniela at [facility] and updated regarding discharge plan. CM will await final discharge decision.
Plan: [facility] when medically stable.
--- NOTE | 2025-03-14 11:38 | CM ---
CM was updated by orthopedic PA that patient is going to stay another day. CM updated Daniela at [facility] with discharge plan.
PLAN: [facility] when medically ready.
[2025-03-14] MEDS: ROXICODONE 15 MG PO ×3 (12:41→21:50)
[2025-03-14] MEDS: TOPROL XL 100 MG PO (12:42)
[2025-03-14] MEDS: PLAQUENIL 400 MG PO (12:42)
[2025-03-14 13:09] LABS: COVID-19 Antigen Negative (Negative)
--- NOTE | 2025-03-14 14:58 | W.PN.ORTHO ---
Today's Communication / Plan
-
Trend H&H.
Continue to monitor incisional bleeding.
D/c likely tomorrow.
Assessment
.
Distal Motor Intact: Yes
Dressing:
Moderate bleeding towards proximal end of Aquacel dressing. Dressing taken off and replaced w/ ABDs.
Assessment:
Recurrent R hip dislocation s/p Conversion to R ELOY w/ Dr Pace 03/11/25
- s/p R hip hemiarthroplasty d/t R femoral neck fx by Dr. Leon 12/2024
DVT prophylaxis - ASA, b/l venous foot pumps
- ASA initially held but resumed 03/13
- VENOUS FOOT PUMPS TO BE WORN AT ALL TIMES WHEN IMMOBILE
Incisional bleeding - improving w/ TXA - continue to monitor
- Of note, platelet ct stable
Nausea 2* opioids - does tolerate Zofran well at home
- Ordered standing order Zofran to stay ahead of nausea
- Continue IV Compazine prn should Zofran be ineffective
- Rx Zofran upon d/c
HTN - + parameters - monitor BP
CAD status post CABG, 03/2022, and subsequent PCI of mid circumflex; on Aspirin
Right bundle branch block
- Monitor on tele
- Continue ASA but at 325 mg daily dosing x4 weeks for blood clot prevention. Will resume today
Orthostasis - monitor serial orthostatic VS
- S/p IVF. Continue to encourage oral hydration
- Minimize opioids as able. Of note, pt is opioid dependent
- Midodrine for SBP <120
- TEDS
COPD with chronic hypoxemia, on 2 L supplemental oxygen
History of recurrent pneumonia
- Monitor O2
- IS
- Duoneb prn
- Consider Prednisone taper w/ transition back to home Prednisone dose to aid in lung perfusion
GERD
Peptic ulcer disease; last GI bleed 01/2024
- Continue PPI therapy BID while on full dose ASA for DVT prevention
- Minimize NSAIDs
Dysphagia - on aspiration precautions
Chronic constipation - Added Miralax daily to bowel regimen of Colace and Senna initially
- Adequate hydration, early mobility as tolerated, and the minimization of opioids discussed nabil-op
- BM reported 03/13. Will ease off on Miralax but continue w/ Colace and Senna
Ambulatory dysfunction and history of falls
Myasthenia gravis
- On fall precautions
- Likely would benefit from a SNF upon d/c given functional limitations. [facility] preferred
History of vertebral osteomyelitis, on chronic Cefdinir - IV Ancef during admission w/ transition back to Cefdinir POD 1
- Will order and encourage probiotic while on abx
Fibromyalgia
Chronic pain syndrome with opioid dependence
- Monitor pain and adjust meds as indicated
- Per Dr. Jones, continue Morphine ER. Oxycodone 10 mg for moderate pain, 15 mg for severe pain prn
- Continue Duloxetine, Gabapentin, Prednisone, Tylenol. NO NSAIDS
Acute on chronic anemia - Trend H&H
- S/p 1 unit PRBCs. VS currently stable
- Was advised to continue PO iron, B12. Anemia panel demonstrating anemia of chronic disease
HLD
Mild mitral regurgitation
Moderate to severe tricuspid regurgitation
Spinal stenosis with non-functioning spinal stimulator
Spina bifida, status post multiple surgical corrections
Rheumatoid arthritis
Melanoma, right ear, status post excision
Glaucoma
Depression
Mild leukocytosis, likely reactive. No sx of infection
Mild hyponatremia, asymptomatic
Given the complexity of this patient, the hospitalist service has been consulted for further medical mgmt. We appreciate their input and recommendations
Plan
.
Surgery / Date: Conversion to R ELOY w/ Dr Pace 03/11/25
DVT Prophylaxis: Aspirin
Activity:
Out of bed.
PT/OT
Discharge Plan: SNF
Subjective
.
.:
Patient examined resting in bed earlier today.
Incisional bleeding improving.
Hgb remaining stable.
Vital Signs and Labs
.
Vital Signs and Labs:
Lab Results
03/14/25 06:32
03/14/25 06:32
Temp Pulse Resp BP Pulse Ox
98.2 F 86 18 118/70 92
03/14/25 12:00 03/14/25 12:00 03/14/25 12:00 03/14/25 12:00 03/14/25 12:00
Physical Exam
-
HEENT: No pallor, cyanosis, or jaundice. Throat clear.
NECK: Supple. No JVD.
RESPIRATORY: Lungs clear to auscultation.
CVS: S1, S2 normal. RRR.
ABDOMEN: Soft, non-tender. No distension.
EXTREMITIES: Expected R hip post-surgical edema. Strength equal, no calf pain with palpation/dorsiflexion. Calves soft.
CONSTRUCTION CONSULTANT: AOx3. No focal deficits. special education resource teacher grossly intact
[2025-03-14] MEDS: CRESTOR 10 MG PO (17:11)
[2025-03-14] MEDS: SENOKOT PO (21:25)
[2025-03-14] MEDS: XALATAN OPHTHALMIC SOLUTION 1 DROP BOTH EYES (21:29)
[2025-03-14] MEDS: CYMBALTA DELAYED RELEASE 60 MG PO (21:30)
[2025-03-15 03:20] VITALS: BP 115/61
--- NOTE | 2025-03-15 04:21 | W.PN.UPDATE ---
Update Note
Progress Note Update
Patient followed along post-operatively by my colleague, Margret Silvestre PA-C, which is much appreciated. POD#4 Right conversion ELOY. Have been trending H&H/Plt and monitoring incisional bleeding. Hgb 8.9. ASA currently on hold. Improvement noted
with TXA. Dressing was changed yesterday x 2 (new aquacel-->ABDs). Dressing this AM is not soiled, and intact. DNVI RLE. Hopeful D/c today to [facility], with outpatient follow-up as scheduled.
[2025-03-15] MEDS: TYLENOL PO (05:31)
[2025-03-15] MEDS: COMPAZINE IV (05:44)
[2025-03-15] MEDS: COMPAZINE 5 MG IV (06:25)
[2025-03-15 06:42] LABS: Hematocrit 31.0 % (37.0-47.0); Hemoglobin 8.9 g/dL (12.0-16.0)
[2025-03-15 07:00] VITALS: BP 151/56
--- NOTE | 2025-03-15 07:43 | W.PN.HOSP.TC ---
Today's Communication/Plan
-
d/c
Assessment / Plan
Assessment / Plan
Gen: NAD, awake and alert
Eyes: EOMI, PERRLA, no scleral icterus.
Neck: supple.
CV: RRR, +S1/S2, no m/r/g.
Resp: CTAB, no rales, wheezes, or rhonchi.
Abd: +BS, soft, NT, ND
Skin: No rashes.
Neuro: CN 2-12 intact, non-focal.
Psych: Normal mood and affect.
POD #4 s/p R ELOY:
-postoperative management as per ortho
-pain control, nutrition, and DVT proph as per ortho
-acute blood loss anemia s/p 1U pRBCs
CAD s/p CABG and subsequent PCI of mid circumflex: ASA held for incisional bleeding
Essential HTN: cont Toprol XL, home Norvasc stopped due to hypotension (cont Midodrine PRN)
HLD: cont statin
Chronic hypoxemic respiratory failure due to COPD (on 2L NC O2 at baseline), not in acute exac: Maintain baseline 2L NC O2 support
Chronic pain syndrome with chronic opioid dependence: cont home Morphine/Oxycodone
h/o Right femoral neck fracture s/p R hip hemiarthroplasty 12/2024
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
Spina Bifida s/p multiple surgical corrections
Spinal stenosis with non-functioning spinal stimulator
Myasthenia Gravis: cont Mestinon
Fibromyalgia: Cont Cymbalta
Rheumatoid Arthritis: cont Prednisone/Plaquenil/Leflunomide
Chronic macrocytic anemia
RBBB
mild MR, mod-sev TR
Orthostatic hypotension
GERD/PUD, last GI bleed 01/2024
Dysphagia
Chronic constipation
Ambulatory dysfunction and history of falls
Melanoma, right ear, status post excision
Glaucoma
Depression: cont Cymbalta
OK for d/c from my standpoint.
Anticipated Discharge: Today
Subjective/Interval History
-
Date of Service: March 15, 2025
No new complaints.
Objective Data
-
Labs:
Laboratory Results
03/15/25
06:30
Hgb 8.9 L
Hct 31.0 L
Vital Signs:
Vital Signs
Temp Pulse Resp BP Pulse Ox
98.7 F 71 17 115/61 97
03/15/25 03:20 03/15/25 03:20 03/15/25 03:20 03/15/25 03:20 03/15/25 03:20
I&O
03/14/25 03/15/25 03/16/25
06:59 06:59 06:59
Intake Total 645 / 645 720 / 720
Balance 645 / 645 720 / 720
--- NOTE | 2025-03-15 08:32 | W.PN.ORTHO ---
Today's Communication / Plan
-
Change ABDs to Aquacel.
Repeat labs upon d/c. Script provided.
D/c likely today to [facility].
Assessment
.
Distal Motor Intact: Yes
Dressing:
Quarter sized area of incisional bleeding noted on proximal end of ABDs. Given improvement in bleeding overall, will switch to Aquacel.
Assessment:
Recurrent R hip dislocation s/p Conversion to R ELOY w/ Dr Pace 03/11/25
- s/p R hip hemiarthroplasty d/t R femoral neck fx by Dr. Leon 12/2024
DVT prophylaxis - ASA, b/l venous foot pumps
- ASA initially held but resumed 03/13
- VENOUS FOOT PUMPS TO BE WORN AT ALL TIMES WHEN IMMOBILE
Incisional bleeding - improving w/ TXA - continue to monitor
- Of note, platelet ct stable
Nausea 2* opioids - does tolerate Zofran well at home
- Ordered standing order Zofran to stay ahead of nausea
- Continue IV Compazine prn should Zofran be ineffective
- Rx Zofran upon d/c
HTN - + parameters - monitor BP
CAD status post CABG, 03/2022, and subsequent PCI of mid circumflex; on Aspirin
Right bundle branch block
- Rhythm stable on tele
- Continue ASA but at 325 mg daily dosing x4 weeks for blood clot prevention
Orthostasis - VSS throughout admission
- S/p IVF. Continue to encourage oral hydration
- Minimize opioids as able. Of note, pt is opioid dependent
- Midodrine for SBP <120
- TEDS
COPD with chronic hypoxemia, on 2 L supplemental oxygen
History of recurrent pneumonia
- O2 stable on baseline 2L O2 w/ measures below
- IS
- Duoneb prn
- Consider Prednisone taper w/ transition back to home Prednisone dose to aid in lung perfusion
GERD
Peptic ulcer disease; last GI bleed 01/2024
- Continue PPI therapy BID while on full dose ASA for DVT prevention
- Minimize NSAIDs
Dysphagia - on aspiration precautions
Chronic constipation - Added Miralax daily to bowel regimen of Colace and Senna initially
- Adequate hydration, early mobility as tolerated, and the minimization of opioids discussed nabil-op
- BM reported 03/13. Will ease off on Miralax but continue w/ Colace and Senna
Ambulatory dysfunction and history of falls
Myasthenia gravis
- On fall precautions
- Likely would benefit from a SNF upon d/c given functional limitations. [facility] to accept
History of vertebral osteomyelitis, on chronic Cefdinir - IV Ancef during admission w/ transition back to Cefdinir POD 1
- Will order and encourage probiotic while on abx
Fibromyalgia
Chronic pain syndrome with opioid dependence
- Monitor pain and adjust meds as indicated
- Per Dr. Jones, continue Morphine ER. Oxycodone 10 mg for moderate pain, 15 mg for severe pain prn
- Continue Duloxetine, Gabapentin, Prednisone, Tylenol. NO NSAIDS
Acute on chronic anemia - trend H&H - hgb improved to 8.9 POD 4
- S/p 1 unit PRBCs. VS currently stable
- Was advised to continue PO iron, B12. Anemia panel demonstrating anemia of chronic disease
- Repeat CBC upon d/c. Script provided
Mild hyponatremia, asymptomatic - repeat BMP upon d/c. Script provided
HLD
Mild mitral regurgitation
Moderate to severe tricuspid regurgitation
Spinal stenosis with non-functioning spinal stimulator
Spina bifida, status post multiple surgical corrections
Rheumatoid arthritis
Melanoma, right ear, status post excision
Glaucoma
Depression
Mild leukocytosis, likely reactive. No sx of infection
The hospitalist service was consulted given the patient's complex medical hx. We appreciate their input. They have determined the patient is stable for d/c from their standpoint.
Plan
.
Surgery / Date: Conversion to R ELOY w/ Dr Pace 03/11/25
DVT Prophylaxis: Aspirin
Activity:
Out of bed.
PT/OT
Discharge Plan: SNF
Subjective
.
.:
Patient sleeping soundly upon my visit this AM.
Hgb notably up to 8.9 and incisional bleeding much improved.
Pt eager for potential d/c to [facility] today.
Vital Signs and Labs
.
Vital Signs and Labs:
Lab Results
03/15/25 06:30
03/14/25 06:32
Temp Pulse Resp BP Pulse Ox
98.1 F 67 16 151/56 95
03/15/25 07:00 03/15/25 07:00 03/15/25 07:00 03/15/25 07:00 03/15/25 07:00
[2025-03-15] MEDS: MS CONTIN (EXTENDED RELEASE) 30 MG PO (09:05)
[2025-03-15] MEDS: FLORASTOR 250 MG PO (09:05)
[2025-03-15] MEDS: VITAMIN B-12 1000 MCG PO (09:06)
[2025-03-15] MEDS: COLACE 100 MG PO (09:06)
[2025-03-15] MEDS: VITAMIN D3 (cholecalciferol) 25 MCG PO (09:06)
[2025-03-15] MEDS: ZOFRAN 4 MG PO (09:06)
[2025-03-15] MEDS: DELTASONE 5 MG PO (09:07)
[2025-03-15] MEDS: FEOSOL 325 MG PO (09:07)
[2025-03-15] MEDS: TYLENOL 650 MG PO (09:07)
[2025-03-15] MEDS: ASPIRIN 325 MG PO (09:07)
[2025-03-15] MEDS: MESTINON 60 MG PO ×2 (09:07→14:00)
[2025-03-15] MEDS: OSCAL CAL 500 500 MG PO (09:07)
[2025-03-15] MEDS: AZULFIDINE 1000 MG PO (09:07)
[2025-03-15] MEDS: OMNICEF 300 MG PO (09:07)
[2025-03-15] MEDS: SENOKOT PO (09:08)
[2025-03-15] MEDS: CYMBALTA DELAYED RELEASE 30 MG PO (09:08)
[2025-03-15] MEDS: PROTONIX 40 MG PO (09:08)
[2025-03-15] MEDS: NEURONTIN 600 MG PO (09:08)
[2025-03-15] MEDS: TIMOPTIC 0.5% OPHTHALMIC SOLUTION 1 DROP BOTH EYES (09:09)
--- NOTE | 2025-03-15 09:19 | CM ---
Cm was updated by ortho ROLAND that patient is medically ready for discharge. CM updated Carmencita at [facility].
PLAN: [facility]
--- NOTE | 2025-03-15 09:23 | W.DS.TRANS ---
DC Summary - [employer]
-
Discharge Instructions:
Sleep Apnea Risk Low
Discharge Diagnosis/Procedures Recurrent R hip dislocation and previous R hip
hemiarthroplasty s/p Conversion to R ELOY w/ Dr
Katelynn 03/11/25
Diet Regular
Additional Diets Adequate hydration, wear TEDS, and minimize
opioids to prevent low blood pressure/dizziness.
Activity With assistance,With Walker
Driving Restrictions No driving
Bathing Restrictions OK to Shower
Other Services PT,OT
Wound Care Dressing to be removed 7-10 days post-op.
[place] to be removed in 2-3 weeks at follow-up
visit with surgeon's office.
Instructions:
Stand-Alone Forms: Total Hip/Knee Replacement D/C
Changes to Home Medications: Yes
Discharge Medications:
DC Medications w/original date entered in [employer]
leflunomide 20 mg tablet 20 mg PO DAILY rheumatoid arthritis 01/18/17
rosuvastatin 10 mg tablet 10 mg PO QPM High cholesterol 04/11/19
pyridostigmine bromide 60 mg tablet 60 mg PO QID 30 days #120 tabs 07/02/20
cyanocobalamin (vitamin B-12) 1,000 mcg tablet 1,000 mcg PO DAILY Supplement 11/11/20
duloxetine 30 mg capsule,delayed release 30 mg PO DAILY Chronic pain 11/11/20
duloxetine 30 mg capsule,delayed release 60 mg PO HS chronic pain 11/11/20
ferrous sulfate 325 mg (65 mg iron) tablet (FeroSul) 325 mg PO DAILY Supplement 11/11/20
hydroxychloroquine 200 mg tablet 400 mg PO DAILY@1200 rheumatoid arthritis 07/20/22
sulfasalazine 500 mg tablet 1,000 mg PO BID rheumatoid arthritis 07/20/22
ipratropium 0.5 mg-albuterol 3 mg (2.5 mg base)/3 mL nebulization soln 3 ml inhalation R QIDPRN PRN sob 01/25/24
pantoprazole 40 mg tablet,delayed release (Protonix) 40 mg PO BID Gastrointestinal Issue 05/29/24
gabapentin 600 mg tablet 600 mg PO TID Pain 10/17/24
metoprolol succinate 100 mg tablet,extended release 24 hr (Toprol XL) 100 mg PO DAILY@1200 Blood Pressure 10/17/24
prednisone 5 mg tablet 5 mg PO DAILY Anti-Inflammatory 12/26/24
cholecalciferol (vitamin D3) 25 mcg (1,000 unit) tablet (Vitamin D3) 25 mcg PO DAILY Supplement 02/13/25
Lumigan 1 drp BOTH EYES HS Eye Condition 03/04/25
timolol 0.5 % eye drops 1 drp ophthalmic (eye) DAILY Eye Condition 03/04/25
mupirocin 2 % topical ointment 1 applic intranasal BID #1 tube 03/06/25
Saccharomyces boulardii 250 mg capsule 250 mg PO BID #1 cap 03/15/25
acetaminophen 325 mg tablet 650 mg (2 x 325 mg) PO Q4HWA #60 tabs 03/15/25
amlodipine 5 mg tablet 2.5 mg (1/2 x 5 mg) PO BID Blood Pressure #1 tab 03/15/25
aspirin 325 mg tablet 325 mg PO DAILY #30 tabs 03/15/25
calcium carbonate 500 mg PO DAILY #30 tabs 03/15/25
cefdinir 300 mg capsule 300 mg PO BID core mounter #0 caps 03/15/25
docusate sodium 100 mg capsule 100 mg PO BID #30 caps 03/15/25
morphine 30 mg tablet,extended release 30 mg PO Q12H chronic pain #10 tabs 03/15/25
ondansetron HCl 4 mg tablet 4 mg PO Q6H PRN nausea and vomiting #30 tabs 03/15/25
oxycodone 10 mg tablet 10 mg PO Q4HPRN PRN severe breakthrough pain #20 tabs 03/15/25
polyethylene glycol 3350 17 gram oral powder packet 17 g PO DAILYPRN PRN Constipation #14 ea 03/15/25
sennosides 8.6 mg tablet (Jes-amy) 17.2 mg (2 x 8.6 mg) PO BID #30 tabs 03/15/25
Home Medication Changes
Saccharomyces boulardii 250 mg capsule 250 mg PO BID #1 cap 03/15/25
acetaminophen 325 mg tablet 650 mg (2 x 325 mg) PO Q4HWA #60 tabs 03/15/25
aspirin 325 mg tablet 325 mg PO DAILY #30 tabs 03/15/25
calcium carbonate 500 mg PO DAILY #30 tabs 03/15/25
docusate sodium 100 mg capsule 100 mg PO BID #30 caps 03/15/25
morphine 30 mg tablet,extended release 30 mg PO Q12H chronic pain #10 tabs 03/15/25
ondansetron HCl 4 mg tablet 4 mg PO Q6H PRN nausea and vomiting #30 tabs 03/15/25
oxycodone 10 mg tablet 10 mg PO Q4HPRN PRN severe breakthrough pain #20 tabs 03/15/25
polyethylene glycol 3350 17 gram oral powder packet 17 g PO DAILYPRN PRN Constipation #14 ea 03/15/25
sennosides 8.6 mg tablet (Jes-amy) 17.2 mg (2 x 8.6 mg) PO BID #30 tabs 03/15/25
Pending Results: No
--- NOTE | 2025-03-15 10:41 | CM ---
Patient for transfer to [facility]. Cm updated [facility] authorization;
[id number]
NRD 03/19
PLAN: [facility]
Report
[phone]
[2025-03-15 11:00] VITALS: BP 170/74
[2025-03-15] MEDS: PLAQUENIL 400 MG PO (11:45)
[2025-03-15] MEDS: TOPROL XL 100 MG PO (11:46)
[2025-03-15] MEDS: ROXICODONE 10 MG PO (11:50)
[2025-03-15 13:24] VITALS: BP 155/69
== END 2025-03-15 14:44 | DRG 467 ==
LOC: 2 SOUTH 11:47
PROVIDERS: Nurse Practitioner Family; Physician Assistant; Physician Assistant Surgical; ADMITTING PHYSICIAN Specialist; CONSULT PHYSICIAN Internal Medicine; FAMILY PHYSICIAN Family Medicine; REFERRING PHYSICIAN Internal Medicine Interventional Cardiology
PROC: 0SP90JZ Removal of Synthetic Substitute from Right Hip Joint, Open Approach (ICD-10-PCS; 2025-03-11)
PROC: 0SR9029 Replacement of Right Hip Joint with Metal on Polyethylene Synthetic Substitute, Cemented, Open Approach (ICD-10-PCS; 2025-03-11)
PROC: 30233N1 Transfusion of Nonautologous Red Blood Cells into Peripheral Vein, Percutaneous Approach (ICD-10-PCS; 2025-03-12)
DX: T84.020A Dislocation of internal right hip prosthesis, initial encounter (principal); D62 Acute posthemorrhagic anemia; F11.20 Opioid dependence, uncomplicated; J96.11 Chronic respiratory failure with hypoxia; E87.1 Hypo-osmolality and hyponatremia; M24.451 Recurrent dislocation, right hip; M25.351 Other instability, right hip; I10 Essential (primary) hypertension; J44.9 Chronic obstructive pulmonary disease, unspecified; Z87.01 Personal history of pneumonia (recurrent); K21.9 Gastro-esophageal reflux disease without esophagitis; K27.9 Peptic ulcer, site unspecified, unspecified as acute or chronic, without hemorrhage or perforation; K59.09 Other constipation; G70.00 Myasthenia gravis without (acute) exacerbation; M79.7 Fibromyalgia; G89.4 Chronic pain syndrome; F32.A Depression, unspecified; E78.5 Hyperlipidemia, unspecified; M06.9 Rheumatoid arthritis, unspecified; Q05.9 Spina bifida, unspecified; Z79.2 Long term (current) use of antibiotics; Z79.82 Long term (current) use of aspirin; Y83.1 Surgical operation with implant of artificial internal device as the cause of abnormal reaction of the patient, or of later complication, without mention of misadventure at the time of the procedure
CPT/HCPCS: 36415; 73502; 80048; 80053; 82607; 82728; 82746; 83036; 83540; 83550; 85014; 85018; 85025; 85027; 85652; 86140; 86850; 86900; 86901; 86920; 87070; 87811; 97116; 97163; 97167; 97530; 97535; P9016

== ENCOUNTER 2025-03-24 17:48 | Inpatient (IN) | payer OTHER, SELFPAY ==
[2025-03-24] VITALS (12 sets, daily range): BP systolic 104–141; BP diastolic 50–74; BMI 25.5
[2025-03-24 14:24] LABS: Hematocrit 23.5 % (37.0-47.0); Hemoglobin 7.2 g/dL (12.0-16.0); Mean Corp Hgb Conc. 30.6 g/dL (33.0-37.0); Mean Corpuscular Volume 101.7 fL (81.0-99.0); Nucleated Red Blood Cells % 0 %; Platelet Count 309 10^3/uL (130-400); Red Cell Dist. Width 15.0 % (11.5-14.5)
[2025-03-24 14:36] LABS: INR 0.98; PT 13.3 Sec (11.4-14.6)
[2025-03-24 14:46] LABS: ALT (SGPT) 11 U/L (0-35); AST (SGOT) 20 U/L (14-36); Albumin 3.1 g/dl (3.5-5.0); Alkaline Phosphatase 51 U/L (38-126); Blood Urea Nitrogen 14 mg/dl (7-17); Calcium 9.0 mg/dl (8.4-10.2); Carbon Dioxide 39 mmol/L (22-30); Chloride 96 mmol/L (98-107); Estimated Creatinine Clearance 54 ml/min; Glucose 112 mg/dl (70-99); Potassium 4.4 mmol/L (3.5-5.1); Sodium 129 mmol/L (135-145); Total Protein 5.6 g/dl (6.3-8.2); eGFR > 60.00
[2025-03-24] MEDS: DILAUDID 0.5 MG IV ×3 (15:18→18:05)
[2025-03-24] MEDS: TRANEXAMIC ACID 100 IV (15:19)
--- NOTE | 2025-03-24 15:36 | ED.GENMED ---
History of Present Illness
<Alexander Aragon PA-C - Last Filed: 03/24/25 15:41>
General
Chief Complaint: Post Operative Problem(s)
Time Seen by Provider: 03/24/25 13:46
History of Present Illness
History of Present Illness:
85-year-old female presents to the emergency department for evaluation of persistent bleeding from her right hip surgical wound essentially persistent since recent surgery. She underwent revision surgery by Dr. Pace on 1026 and her postoperative
course was complicated by persistent oozing from the wound. She did require blood transfusion while hospitalized. She states that since discharge she has had persistent bleeding and her dressing is changed 3 or more times daily. Reports general
fatigue and malaise currently. Also reports severe hip pain but denies any trauma or falls
Past History
<Alexander Aragon PA-C - Last Filed: 03/24/25 15:41>
Past History
ED Past Medical History: CAD, COPD, Fibromyalgia, GERD, HTN, Hypercholesterolemia, [place], Psychiatric (depression) and Other (chronic back pain, Ulcers, C-diff)
ED Past Surgical History: Appendectomy, Cardiac (Stents, CABG), Gynecological, Orthopedic and Urological
Social History
Tobacco: Non-smoker
Alcohol: None
Drug: None
Personal:
Living: alone
Employment: Not employed
Family History
Family History: Other
Review of Systems
<Alexander Aragon PA-C - Last Filed: 03/24/25 15:41>
Review of Systems
Allergies reviewed?: Yes
All Other Systems: ROS reviewed and negative except as documented in HPI and ROS
Phy Exam
<Alexander Aragon PA-C - Last Filed: 03/24/25 15:41>
Physical Exam
Physical Exam:
GEN: Generally pale, chronically ill-appearing
HEENT: Oral mucosa moist, no scleral icterus
Cardiac: Regular rate
Lung: No respiratory distress, no tachypnea
MSK: Well-approximated right hip surgical incision with intact everton, persistent bloody oozing from the central aspect of the wound, nonpulsatile. No palpable hematoma, patient unable to tolerate range of motion of the hip due to severe pain
Skin: Good color, no pallor or jaundice, no rashes
Neuro: AO x3, moves all extremities freely
Psych: Calm, cooperative
Course
<Alexander Aragon PA-C - Last Filed: 03/24/25 15:41>
Orders/Labs/Results
Orders:
Orders
03/24/25 14:14
C-Reactive Protein Urgent
Comment: ADD ON
CBC/With Diff [Complete Blood Count/With Diff] Urgent
CMP [Comprehensive Metabolic Panel] Urgent
Erythrocyte Sed Rate Urgent
Comment: ADD ON
PT/INR [Prothrombin Time] Urgent
03/24/25 14:31
CR Hip - RT w/wo Pel 2-3 Vw* Urgent
Comment:
Reason For Exam: bleeding, pain
Include a pelvis x-ray?: No
03/24/25 14:35
Type+Screen Urgent
03/24/25 14:56
Tranexamic Acid 1000 mg/100 ml [Tranexamic Acid] 1,000 mg in 100 ml IV ONCE
03/24/25 14:57
Add On- LAB Urgent
Tests Added?: ESR, CRP
03/24/25 15:04
HYDROmorphone [Dilaudid] 0.5 mg IV NOW STA
03/24/25 15:08
Blood Bank Products [* Blood Bank Products] Urgent
Blood Bank Products: *Packed RBC Leuko (PRBC's
Quantity: 1
Transfuse Today: Yes
Reason: Anemia
03/24/25 15:52
HYDROmorphone [Dilaudid] 0.5 mg IV NOW STA
Abnormal Lab Results
03/24/25 03/24/25
14:14 14:35
WBC 14.9 H 10^3/uL
(4.8-10.8)
RBC 2.31 L 10^6/uL
(4.20-5.40)
Hgb 7.2 L g/dL
(12.0-16.0)
Hct 23.5 L %
(37.0-47.0)
MCV 101.7 H fL
(81.0-99.0)
MCH 31.2 H pg
(27.0-31.0)
MCHC 30.6 L g/dL
(33.0-37.0)
RDW 15.0 H %
(11.5-14.5)
Abs Immat Gran (auto) 0.1 H 10^3/uL
(0-0.05)
Absolute Neuts (auto) 10.7 H 10^3/uL
(1.4-6.5)
Absolute Monos (auto) 1.6 H 10^3/uL
(0.1-0.6)
Lymphocytes % 11.0 L %
(20.5-51.1)
Monocytes % 10.7 H %
(1.7-9.3)
Sodium 129 L mmol/L
(135-145)
Chloride 96 L mmol/L
(98-107)
Carbon Dioxide 39 H mmol/L
(22-30)
Glucose 112 H mg/dl
(70-99)
Total Protein 5.6 L g/dl
(6.3-8.2)
Albumin 3.1 L g/dl
(3.5-5.0)
Crossmatch IS Only See Detail
03/24/25 14:14
03/24/25 14:14
Vital Signs
Initial and Last Documented VS:
Initial Vital Signs
Pulse Ox
95
03/24/25 13:37
Last Documented Vital Signs
Temp Pulse Resp BP Pulse Ox
97.7 F 61 16 106/60 99
03/24/25 13:39 03/24/25 15:45 03/24/25 15:45 03/24/25 15:24 03/24/25 15:45
<Fab Jones, DO - Last Filed: 03/24/25 15:58>
Orders/Labs/Results
Orders:
Orders
03/24/25 14:14
C-Reactive Protein Urgent
Comment: ADD ON
CBC/With Diff [Complete Blood Count/With Diff] Urgent
CMP [Comprehensive Metabolic Panel] Urgent
Erythrocyte Sed Rate Urgent
Comment: ADD ON
PT/INR [Prothrombin Time] Urgent
03/24/25 14:31
CR Hip - RT w/wo Pel 2-3 Vw* Urgent
Comment:
Reason For Exam: bleeding, pain
Include a pelvis x-ray?: No
03/24/25 14:35
Type+Screen Urgent
03/24/25 14:56
Tranexamic Acid 1000 mg/100 ml [Tranexamic Acid] 1,000 mg in 100 ml IV ONCE
03/24/25 14:57
Add On- LAB Urgent
Tests Added?: ESR, CRP
03/24/25 15:04
HYDROmorphone [Dilaudid] 0.5 mg IV NOW STA
03/24/25 15:08
Blood Bank Products [* Blood Bank Products] Urgent
Blood Bank Products: *Packed RBC Leuko (PRBC's
Quantity: 1
Transfuse Today: Yes
Reason: Anemia
03/24/25 15:52
HYDROmorphone [Dilaudid] 0.5 mg IV NOW STA
Abnormal Lab Results
03/24/25 03/24/25
14:14 14:35
WBC 14.9 H 10^3/uL
(4.8-10.8)
RBC 2.31 L 10^6/uL
(4.20-5.40)
Hgb 7.2 L g/dL
(12.0-16.0)
Hct 23.5 L %
(37.0-47.0)
MCV 101.7 H fL
(81.0-99.0)
MCH 31.2 H pg
(27.0-31.0)
MCHC 30.6 L g/dL
(33.0-37.0)
RDW 15.0 H %
(11.5-14.5)
Abs Immat Gran (auto) 0.1 H 10^3/uL
(0-0.05)
Absolute Neuts (auto) 10.7 H 10^3/uL
(1.4-6.5)
Absolute Monos (auto) 1.6 H 10^3/uL
(0.1-0.6)
Lymphocytes % 11.0 L %
(20.5-51.1)
Monocytes % 10.7 H %
(1.7-9.3)
Sodium 129 L mmol/L
(135-145)
Chloride 96 L mmol/L
(98-107)
Carbon Dioxide 39 H mmol/L
(22-30)
Glucose 112 H mg/dl
(70-99)
Total Protein 5.6 L g/dl
(6.3-8.2)
Albumin 3.1 L g/dl
(3.5-5.0)
Crossmatch IS Only See Detail
03/24/25 14:14
03/24/25 14:14
Vital Signs
Initial and Last Documented VS:
Initial Vital Signs
Pulse Ox
95
03/24/25 13:37
Last Documented Vital Signs
Temp Pulse Resp BP Pulse Ox
97.7 F 61 16 106/60 99
03/24/25 13:39 03/24/25 15:45 03/24/25 15:45 03/24/25 15:24 03/24/25 15:45
<Alexander Aragon PA-C - Last Filed: 03/24/25 15:41>
MDM/Problems Addressed
MDM/Problems Addressed:
Patient is develops recurrent anemia due to persistent bleeding from the surgical bed. No evidence of arterial pulsatile bleeding that would suggest need for CT angiography. Will give 1 unit of PRBC and TXA, case was reviewed with orthopedics who
agrees there is no need for advanced imaging at this time. X-ray shows no hardware malalignment. Will admit for observation and orthopedic consultation
<Alexander Aragon PA-C - Last Filed: 03/24/25 15:41>
*Pulse Oximetry
SaO2: 97
Oxygen Mode of Delivery: Room air
Patient hypoxic: no
*Critical Care Note
Total Time (30-74mins, 75-104mins- exclusive of procedures): 30 minutes
comment:
Critical care time: 30 minutes
Critical care time was exclusive of: Separately billable procedures, treating other patients, and teaching time
Critical care was necessary to treat or prevent imminent or life-threatening deterioration of the following conditions: Blood loss anemia
Critical care time spent personally by me on the following activities:
[x] Review of old charts
[x] Obtaining history from patient or surrogate
[x] Ordering and review of the laboratory studies
[x] Ordering and review of radiographic studies
[x] Ordering and performing treatments and interventions
[x] Patient patient's response to treatment
[x] Development of treatment plan with patient or surrogate
ED Attending Note
<Alexander Aragon PA-C - Last Filed: 03/24/25 15:41>
-
Portions of this chart may have been created with voice recognition software.� Occasional wrong word or��sound alike� substitutions may have occurred due to the inherent limitations of voice recognition software.
<Fab Jones DO - Last Filed: 03/24/25 15:58>
ED Attending Note
Patient seen and examined by attending physician: Yes
I performed the substantive portion of visit, reviewed & personally made and approve the management plan that is documented in note by myself or ALESIA.: Yes
ED Attending Note:
I agree with Kurt's note
Patient sent to the emergency room from long-term where she is continue to have bleeding from her right hip incision. Patient was having issues with postoperative bleeding during her hospitalization for the surgery. She is also complaining of
increased pain. She is found to be anemic here.
General: Awake, Alert, Oriented X3. No acute distress.
Vitals: unremarkable
Head: Atraumatic
Eyes: Pupils equal, EOMI
Abd: Soft, Nontender, No pulsatile mass
Neuro: Nonfocal
Skin: Warm, dry, no rash
Extremities: Oozing from right hip wound. No increased erythema to suggest infection. Pain with range of motion of the right hip
Patient presents with continued oozing from her right hip. Hemoglobin has dropped down to 7. Unit of blood ordered. Patient will be hospitalized. TXA administered based upon conversation with orthopedics.
Discharge Plan
Departure
Patient Disposition: Admit
Date of Disposition: 03/24/25
Time of Disposition: 15:39
Admit to: Med/Surg
Presentation/result/management discussed w/ accepting MD/DO: Hospitalist
Discharge Problem:
Post-op bleeding, Symptomatic anemia
Prescriptions:
No Action
leflunomide 20 MG tablet
20 mg PO DAILY
rosuvastatin 10 MG tablet
10 mg PO QPM
pyridostigmine bromide 60 MG tablet
60 mg PO QID 30 Days Qty: 120 0RF
cyanocobalamin (vitamin B-12) 1,000 MCG tablet
1,000 mcg PO DAILY
ferrous sulfate [FeroSul] 325 MG tablet
325 mg PO DAILY@1200
duloxetine 30 MG capsule,delayed release(DR/EC)
60 mg PO HS
duloxetine 30 MG capsule,delayed release(DR/EC)
30 mg PO DAILY
sulfasalazine 500 mg tablet
1,000 mg PO BID
hydroxychloroquine 200 MG tablet
400 mg PO DAILY@1300
ipratropium-albuterol 0.5 mg-3 mg(2.5 mg base)/3 mL Solution For Nebulization
3 ml INHALATION R QIDPRN PRN (Reason: sob)
pantoprazole [Protonix] 40 mg tablet,delayed release (DR/EC)
40 mg PO BID
gabapentin 600 mg Tablet
600 mg PO TID
metoprolol succinate [Toprol XL] 100 mg Tablet Extended Release 24 Hr
100 mg PO DAILY@1300
prednisone 5 mg Tablet
5 mg PO DAILY
cholecalciferol (vitamin D3) [Vitamin D3] 25 mcg (1,000 unit) Tablet
25 mcg PO DAILY
timolol 0.5 % Drops
1 drp BOTH EYES DAILY
latanoprost 0.005 % Drops
1 drp BOTH EYES HS Qty: 0
aspirin 325 mg Tablet
325 mg PO DAILY Qty: 30 0RF
Rx Instructions:
for 4 weeks until 04/13/25 then decreased to 81mg
oxycodone 10 mg Tablet
10 mg PO Q4HPRN PRN (Reason: severe breakthrough pain) Qty: 20 0RF
amlodipine 5 mg tablet
2.5 mg PO BID Qty: 1 0RF
morphine 30 MG tablet extended release
30 mg PO Q12H Qty: 10 0RF
cefdinir 300 mg Capsule
300 mg PO BID Qty: 0 0RF
methocarbamol 750 mg Tablet
750 mg PO Q8H
magnesium hydroxide [Milk of Magnesia] 400 mg/5 mL Suspension
2,400 mg PO [id number] PRN (Reason: constipation)
bisacodyl [Dulcolax (bisacodyl)] 10 mg Suppository
10 mg UT DAILYPRN PRN (Reason: if no bm aftr mom)
Fleet Enema 19-7 gram/118 mL Enema
118 ml UT DAILYPRN PRN (Reason: if no bm aftr dulcolax)
sennosides [Jes-amy] 8.6 mg tablet
17.2 mg PO BID
acetaminophen 325 mg tablet
975 mg PO QID
polyethylene glycol 3350 17 gram powder in packet
17 g PO DAILYPRN PRN (Reason: if no bm aftr colace)
ondansetron HCl 4 mg tablet
4 mg PO Q6HPRN PRN (Reason: nausea and vomiting)
calcium carbonate 500 mg calcium (1,250 mg) tablet
500 mg PO DAILY
docusate sodium 100 mg capsule
100 mg PO BID
Saccharomyces boulardii 250 mg capsule
250 mg PO BID
Referrals:
Alex Isaac MD [Family Provider, Family Practice]
Interventions
Interventions:
*Risk Screen - Suicide Last Done: 03/24/25 13:39
*General Assessment Last Done: 03/24/25 13:39
*Neglect/Abuse Screening Last Done: 03/24/25 13:39
*ED COVID-19 Vaccine History Last Done: 03/24/25 13:39
*ED Influenza Vaccine History Last Done: 03/24/25 13:39
ED-Skin Assessment Last Done: 03/24/25 14:03
Discharge Date and Time
Print Language: GREENLANDIC
--- NOTE | 2025-03-24 15:47 | CON.ORTHO ---
Consultation
-
Date/Time Consultation Requested: 03/24/2025
Date/Time Consultation Performed: 03/24/2025
Requesting Provider: Alexander Aragon PA-C
Performing Provider: Ara Gardner PA-C, for Dr. Red Dinero
Reason for Consultation: Right hip pain and persistent drainage s/p right hip conversion ELOY
Consultation - Orthopedics
History
HPI: This is an 85 year old female who presented to [facility] ED from [facility] rehab with a complaint of persistent serosanguinous drainage. She is now s/p a right hip conversion ELOY, performed under the direction of Dr. Pace on
03/11/2025. Her post operative course was complicated by excessive bloody drainage and she received multiple doses of IV TXA as well as a unit of PRBC while admitted. By the time she was discharged, the drainage had mostly subsided, but she states
that she has required 3-4 dressing changes per day at rehab. Over the past several days, she has been experiencing increased right hip pain and difficulty working with PT. She was scheduled to see our office on Tuesday, but with her symptoms of
fatigue and generalized malaise, she was brought to the ED for further evaluation. On exam, she was clearly upset about her current situation and is concerned about a potential dislocation of her implants. Our orthopedic specialty was consulted in
to discuss management of her right hip.
Past History
Past History
ED Past Medical History: CAD, COPD, Fibromyalgia, GERD, HTN, Hypercholesterolemia, [place], Psychiatric (depression) and Other (chronic back pain, Ulcers, C-diff)
ED Past Surgical History: Appendectomy, Cardiac (Stents, CABG), Gynecological, Orthopedic and Urological
Social History
Tobacco: Non-smoker
Alcohol: None
Drug: None
Personal:
Living: alone
Employment: Not employed
Family History
Family History: Other
Review of Systems
Review of Systems
Allergies reviewed?: Yes
All Other Systems: ROS reviewed and negative except as documented in HPI and ROS
Allergies / Home Medications
Allergy/AdvReac Type Severity Reaction Status Date / Time
adhesive Allergy TAPE-RASH,SKIN Verified 03/24/25 13:38
BLISTERS
lisinopril AdvReac Cough Verified 03/24/25 13:38
�Medication �Instructions �Recorded
leflunomide 20 mg tablet 20 mg PO DAILY rheumatoid arthritis 01/18/17
rosuvastatin 10 mg tablet 10 mg PO QPM High cholesterol 04/11/19
pyridostigmine bromide 60 mg tablet 60 mg PO QID 30 days #120 tabs 07/02/20
cyanocobalamin (vitamin B-12) 1,000 mcg PO DAILY Supplement 11/11/20
1,000 mcg tablet
duloxetine 30 mg capsule,delayed 30 mg PO DAILY Chronic pain 11/11/20
release
duloxetine 30 mg capsule,delayed 60 mg PO HS chronic pain 11/11/20
release
ferrous sulfate 325 mg (65 mg 325 mg PO DAILY@1200 Supplement 11/11/20
iron) tablet (FeroSul)
hydroxychloroquine 200 mg tablet 400 mg PO DAILY@1300 rheumatoid 07/20/22
arthritis
sulfasalazine 500 mg tablet 1,000 mg PO BID rheumatoid 07/20/22
arthritis
ipratropium 0.5 mg-albuterol 3 mg 3 ml inhalation R QIDPRN PRN sob 01/25/24
(2.5 mg base)/3 mL nebulization
soln
pantoprazole 40 mg tablet,delayed 40 mg PO BID Gastrointestinal Issue 05/29/24
release (Protonix)
gabapentin 600 mg tablet 600 mg PO TID Muscle Spasms 10/17/24
metoprolol succinate 100 mg 100 mg PO DAILY@1300 Blood Pressure 10/17/24
tablet,extended release 24 hr
(Toprol XL)
prednisone 5 mg tablet 5 mg PO DAILY Anti-Inflammatory 12/26/24
cholecalciferol (vitamin D3) 25 25 mcg PO DAILY Supplement 02/13/25
mcg (1,000 unit) tablet (Vitamin
D3)
latanoprost 0.005 % eye drops 1 drp BOTH EYES HS Eye Condition 03/04/25
##0
timolol 0.5 % eye drops 1 drp BOTH EYES DAILY Eye Condition 03/04/25
amlodipine 5 mg tablet 2.5 mg (1/2 x 5 mg) PO BID Blood 03/15/25
Pressure #1 tab
aspirin 325 mg tablet 325 mg PO DAILY #30 tabs 03/15/25
cefdinir 300 mg capsule 300 mg PO BID oysterman #0 caps 03/15/25
morphine 30 mg tablet,extended 30 mg PO Q12H chronic pain #10 tabs 03/15/25
release
oxycodone 10 mg tablet 10 mg PO Q4HPRN PRN severe 03/15/25
breakthrough pain #20 tabs
Saccharomyces boulardii 250 mg 250 mg PO BID Supplement 03/24/25
capsule
acetaminophen 325 mg tablet 975 mg PO QID mild pain 03/24/25
bisacodyl 10 mg rectal suppository 10 mg NH DAILYPRN PRN if no bm 03/24/25
(Dulcolax (bisacodyl)) aftr mom
calcium carbonate 500 mg PO DAILY Supplement 03/24/25
docusate sodium 100 mg capsule 100 mg PO BID Constipation 03/24/25
magnesium hydroxide 400 mg/5 mL 2,400 mg PO [id number] PRN 03/24/25
oral suspension (Milk of Magnesia) constipation
methocarbamol 750 mg tablet 750 mg PO Q8H 03/24/25
ondansetron HCl 4 mg tablet 4 mg PO Q6HPRN PRN nausea and 03/24/25
vomiting
polyethylene glycol 3350 17 gram 17 g PO DAILYPRN PRN if no bm aftr 03/24/25
oral powder packet colace
sennosides 8.6 mg tablet (Jes-amy) 17.2 mg PO BID Constipation 03/24/25
sodium phosphates 19 gram-7 118 ml NH DAILYPRN PRN if no bm 03/24/25
gram/118 mL enema (Fleet Enema) aftr dulcolax
Vital Signs / Lab Results
Temp Pulse Resp BP Pulse Ox
97.7 F 60 16 119/74 97
03/24/25 13:39 03/24/25 14:00 03/24/25 14:00 03/24/25 13:41 03/24/25 15:41
03/24/25 14:14
03/24/25 14:14
Physical Exam
Physical Exam:
GEN: Generally pale, chronically ill-appearing
HEENT: Oral mucosa moist, no scleral icterus
Cardiac: Regular rate
Lung: No respiratory distress, no tachypnea
MSK: Well-approximated right hip surgical incision with intact everton, persistent bloody oozing from the central aspect of the wound, nonpulsatile. No fluctuance or obvious fluid collection. ROM limited secondary to pain and apprehension. [place]
without pain. Calf soft and nontender. N/v intact distally.
Skin: Good color, no pallor or jaundice, no rashes
Neuro: AO x3, moves all extremities freely
Psych: Calm, cooperative
Assessment / Plan
Assessment: right hip pain and persistent drainage s/p conversion right ELOY 03/11/25.
Plan: Unfortunately Ms. Liriano has continued to experience persistent right hip drainage now 2 weeks post op. She was noted to have a hgb of 7.2, so is scheduled to receive a unit of PRBC and a dose of TXA to hopefully improve her incisional
drainage. Her x-rays show stable appearance of her implants, no dislocation. She may continue with WBAT and PT/OT as medically able with the anemia. A CRP and ESR have been ordered to r/o possible infection. She should continue with abds and tape
for dressings, changing them for saturation. For now, we will tentatively schedule her for a right hip I&D under the direction of Dr. Pace tomorrow if the drainage persists. We will keep her NPO after midnight just in case. We will reassess how
she is doing in the morning and determine necessity for OR at that time. Case was discussed with Dr. Pace. Patient was in agreement with treatment recommendations.
[2025-03-24 16:11] LABS: C-Reactive Protein 19.40 mg/L (0.0-10.00)
--- NOTE | 2025-03-24 16:24 | HPS.HSE ---
Addendum entered and electronically signed by Karmen Mcclellan DO 03/24/25 18:15:
I have seen and examined the patient. I have discussed the patient with Suellen, and agree with her history and physical and assessment and plan of care as per below. The patient has been in significant pain for several days. She has had bleeding
from her right hip, which has been ongoing since her surgery however has worsened over the past 3 days and associated with more pain. She received IV Dilaudid in the emergency department with some relief. She denies any fevers no other symptoms at
this time other than what is reported below. She is receiving 1 unit of packed red blood cells in the emergency department right now.
Vital signs blood pressure 104/50 mmHg and 126/55 mmHg, heart rate 61, afebrile
Physical exam
Awake alert and oriented x 3 without acute distress
Cardiovascular regular regular rate and rhythm no murmurs rubs or gallops
Lungs clear to auscultation bilaterally no wheezes rales rhonchi
Abdomen soft nontender normoactive bowel sounds
Extremity�right hip with red weeping blood around surgical wound site, range of motion is painful
I agree with the assessment and plan of care as per below
#Acute anemia 2/2 post-operative surgical sight bleeding
- Orthopedic surgery has seen the patient, they recommend n.p.o. past midnight for possible surgical intervention/exploration tomorrow
- We will hold aspirin for now. s/p TXA in ED & 1 u PRBC
- IV Dilaudid as needed for pain with close monitoring of pulse oximetry and blood pressure. Hold Dilaudid if her blood pressure is less than 100 systolic.
- Repeat CBC in the morning
#Leukocytosis, concern for infectious etiology versus inflammatory-patient is afebrile
-Will get a urine analysis and monitor closely for signs and symptoms of active infection. Hold off on antibiotics for now.
Patient is DNR
Original Note:
Family Physician
-
Family Physician: Alex Isaac MD
Chief Complaint
-
persistent bleeding from right hip surgical wound
History of Present Illness
Patient is a 85-year-old female with past medical history significant for hypertension, hyperlipidemia, COPD, depression, chronic pain syndrome/chronic opioid dependence, fibromyalgia, Myasthenia Gravis, RA and GERD/PUD who presented to [facility] ED for
evaluation of persistent bleeding from right hip surgical wound. Patient underwent right total hip arthroplasty with Dr. Mathieu Pace on 03/11/2025 and was discharged to [facility] for rehab. Patient required blood transfusion post operatively
for persistent bleeding for surgical wound. She reports that since discharge to [facility] the bleeding has been persistent and dressing is changed frequently. She reports generalized fatigue and right hip/leg/back pain. Patient denies any falls or
trauma to surgical site. She denies any shortness of breath, need for increased O2 or chills.
Medical History
Past Medical History
Past Medical History: Reports Other
Additional Past Medical History:
Coronary Artery Disease s/p CABG and PCI
Essential Hypertension
Hyperlipidemia
COPD
Depression
Chronic Pain Syndrome / Chronic Opioid Dependence Syndrome secondary to Spinal Stenosis
Fibromyalgia
Myasthenia Gravis
Rheumatoid Arthritis
GERD/PUD
Spina Bifida
Hx Vertebral Osteomyelitis on Chronic Suppressive Antibiotics
Past Surgical History: Reports Other
Additional Past Surgical History:
Spina Bifida surgery
Spinal Stimulator
CABG
Social History
Tobacco: Non-smoker
Alcohol: Occasional
Drug: None
Living: With Family (generally home with grandson, has been at [facility] for rehab)
Family History
Family History: Not pertinent
Allergies / Home Medications
Allergies reflects when Allergies were last updated in [facility].
Home Medications with original date entered in [facility]
Allergy/Medication List:
Allergies
Allergy/AdvReac Type Severity Reaction Status Date / Time
adhesive Allergy TAPE-RASH,SKIN Verified 03/24/25 13:38
BLISTERS
lisinopril AdvReac Cough Verified 03/24/25 13:38
Home Medications
leflunomide 20 mg tablet 20 mg PO DAILY rheumatoid arthritis 01/18/17
rosuvastatin 10 mg tablet 10 mg PO QPM High cholesterol 04/11/19
pyridostigmine bromide 60 mg tablet 60 mg PO QID 30 days #120 tabs 07/02/20
cyanocobalamin (vitamin B-12) 1,000 mcg tablet 1,000 mcg PO DAILY Supplement 11/11/20
duloxetine 30 mg capsule,delayed release 30 mg PO DAILY Chronic pain 11/11/20
duloxetine 30 mg capsule,delayed release 60 mg PO HS chronic pain 11/11/20
ferrous sulfate 325 mg (65 mg iron) tablet (FeroSul) 325 mg PO DAILY@1200 Supplement 11/11/20
hydroxychloroquine 200 mg tablet 400 mg PO DAILY@1300 rheumatoid arthritis 07/20/22
sulfasalazine 500 mg tablet 1,000 mg PO BID rheumatoid arthritis 07/20/22
ipratropium 0.5 mg-albuterol 3 mg (2.5 mg base)/3 mL nebulization soln 3 ml inhalation R QIDPRN PRN sob 01/25/24
pantoprazole 40 mg tablet,delayed release (Protonix) 40 mg PO BID Gastrointestinal Issue 05/29/24
gabapentin 600 mg tablet 600 mg PO TID Muscle Spasms 10/17/24
metoprolol succinate 100 mg tablet,extended release 24 hr (Toprol XL) 100 mg PO DAILY@1300 Blood Pressure 10/17/24
prednisone 5 mg tablet 5 mg PO DAILY Anti-Inflammatory 12/26/24
cholecalciferol (vitamin D3) 25 mcg (1,000 unit) tablet (Vitamin D3) 25 mcg PO DAILY Supplement 02/13/25
latanoprost 0.005 % eye drops 1 drp BOTH EYES HS Eye Condition ##0 03/04/25
timolol 0.5 % eye drops 1 drp BOTH EYES DAILY Eye Condition 03/04/25
amlodipine 5 mg tablet 2.5 mg (1/2 x 5 mg) PO BID Blood Pressure #1 tab 03/15/25
aspirin 325 mg tablet 325 mg PO DAILY #30 tabs 03/15/25
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
morphine 30 mg tablet,extended release 30 mg PO Q12H chronic pain #10 tabs 03/15/25
oxycodone 10 mg tablet 10 mg PO Q4HPRN PRN severe breakthrough pain #20 tabs 03/15/25
Saccharomyces boulardii 250 mg capsule 250 mg PO BID Supplement 03/24/25
acetaminophen 325 mg tablet 975 mg PO QID mild pain 03/24/25
bisacodyl 10 mg rectal suppository (Dulcolax (bisacodyl)) 10 mg NV DAILYPRN PRN if no bm aftr mom 03/24/25
calcium carbonate 500 mg PO DAILY Supplement 03/24/25
docusate sodium 100 mg capsule 100 mg PO BID Constipation 03/24/25
magnesium hydroxide 400 mg/5 mL oral suspension (Milk of Magnesia) 2,400 mg PO [id number] PRN constipation 03/24/25
methocarbamol 750 mg tablet 750 mg PO Q8H 03/24/25
ondansetron HCl 4 mg tablet 4 mg PO Q6HPRN PRN nausea and vomiting 03/24/25
polyethylene glycol 3350 17 gram oral powder packet 17 g PO DAILYPRN PRN if no bm aftr colace 03/24/25
sennosides 8.6 mg tablet (Jes-amy) 17.2 mg PO BID Constipation 03/24/25
sodium phosphates 19 gram-7 gram/118 mL enema (Fleet Enema) 118 ml NV DAILYPRN PRN if no bm aftr dulcolax 03/24/25
Review of Systems
-
History Source: Patient
Constitutional: Reports Fatigue; Denies Fever or Chills
EENT: Denies Sore Throat
Respiratory: Denies Cough, Hemoptysis or Trouble Breathing
Cardiac: Denies Chest Pain, Diaphoresis, Palpitations or Syncope
Abdomen/GI: Denies Abdominal Pain, Nausea, Vomiting or Diarrhea
: Denies Dysuria, Frequency or Urgency
Musculoskeletal: Reports Joint Pain (right hip )
Skin: Reports Other (pale ); Denies Rash
Neurological: Denies Dizzy, Headache, Weakness or Numbness
Endocrine: Denies Polyuria or Polydipsia
Hematologic/Lymphatic: Reports Bleeding (right hip surgical wound )
Physical Exam
Vital Signs
Vital Signs
Temp Pulse Resp BP Pulse Ox
97.7 F 65 16 126/55 96
03/24/25 13:39 03/24/25 16:15 03/24/25 16:15 03/24/25 16:00 03/24/25 16:00
Physical Exam
General: Well Developed, Well Nourished, No Apparent Distress, Conversant and Appears Chronically Ill
HEENT: NormoCephalic, PERRLA, Nose Appears Normal and Ears Appear Normal
Respiratory: Clear, Non Labored Respirations, Decreased Breath Sounds and Other (O2 2L NC ); No Wheezes, Rales or Rhonchi
Cardiac: S1/S2 and Regular Rhythm; No Murmur
GI: Soft, Non Tender, Non Distended and Normal Bowel Sounds
Musculoskeletal: No Clubbing, No Cyanosis and Other (compression dressing to right hip surgical site, right hip limited ROM r/t pain )
Skin: Warm (pale in color ), IV/Catheter Site and Other (compression dressing to right hip surgical site)
Neuro: Awake and AO x 3
Psych: Calm
Laboratory Results
-
03/24/25 14:14
03/24/25 14:14
Laboratory Results
PT 13.3 Sec (11.4-14.6) 03/24/25 14:14
INR 0.98 03/24/25 14:14
Total Bilirubin 0.3 mg/dl (0.2-1.3) 03/24/25 14:14
AST 20 U/L (14-36) 03/24/25 14:14
ALT 11 U/L (0-35) 03/24/25 14:14
Alkaline Phosphatase 51 U/L (38-126) 03/24/25 14:14
Data Reviewed
-
Diagnostic Radiology: Report Reviewed by me (Rt hip: Postsurgical change of the right hip. No evidence of dislocation. Moderate left hip osteoarthritis. Stable)
Lab Data: Labs Reviewed by me (WBC 14.9, hgb 7.2, hct 23.5, Na 129, CRP 19.40)
Impression/Plan
-
IMPRESSION/PLAN:
#acute anemia 2/2 post-operative surgical sight bleeding
underwent right total hip arthroplasty with Dr. Mathieu Pace on 03/11/2025
WBC 14.9, hgb 7.2, hct 23.5, Na 129, CRP 19.40
Rt Hip x-ray: Postsurgical change of the right hip. No evidence of dislocation.
Moderate left hip osteoarthritis. Stable
- Admit to telemetry
- Consult Orthopedics
- hold ASA
- transfuse 1 unit PRBCs
- one dose tranexamic acid
- NPO at midnight for possible OR tomorrow
- pain regimen
#Coronary Artery Disease
s/p CABG and PCI
- hold ASA with acute bleeding
#Essential Hypertension
- continue amlodipine and metoprolol
#Hyperlipidemia
- continue rosuvastatin
#COPD
on 2L NC at baseline
- continue DuoNebs
#Depression
- continue duloxetine
#Chronic Pain Syndrome / Chronic Opioid Dependence Syndrome secondary to Spinal Stenosis
- continue gabapentin, morphine and oxycodone
#Rheumatoid Arthritis
- continue hydroxychloroquine, leflunomide, prednisone and sulfasalazine
#GERD/PUD
- continue pantoprazole
#Hx Vertebral Osteomyelitis
on Chronic Suppressive Antibiotics
- continue cefdinir
#Fibromyalgia
#Myasthenia Gravis
#Spina Bifida
Code status: DNR
DVT prophylaxis: SCDs
--- NOTE | 2025-03-24 18:40 | PTCARENOTE ---
Patient settled in bed. Able to make needs known. Instructed regarding use of call handy, and is agreeable with ringing for assistance. NSS running at 80ml/hr. Telemetry monitoring in place. Purewick in place. Knee high SCDs applied.
--- NOTE | 2025-03-24 18:55 | PTCARENOTE ---
Pt arrived to floor from ED with RT hip dressing saturated with blood. Dressing taken down and incision with everton noted to be oozing blood. Noted to have erythema as well. Area cleansed with saline and 4x4's and ABD's applied and taped with
medipore tape. Covidien placed over dressing and taped as well. Abdominal binder wrapped around pt's hips same as when pt arrived from ED.
[2025-03-24] MEDS: NSS 1000 IV (19:44)
[2025-03-24] MEDS: OMNICEF 300 MG PO (20:45)
[2025-03-24] MEDS: AZULFIDINE 1000 MG PO (20:45)
[2025-03-24] MEDS: FLORASTOR 250 MG PO (20:45)
[2025-03-24] MEDS: MS CONTIN (EXTENDED RELEASE) 30 MG PO (20:46)
[2025-03-24] MEDS: METHOCARBAMOL 750 MG PO (20:46)
[2025-03-24] MEDS: MESTINON 60 MG PO ×2 (20:46→21:30)
[2025-03-24] MEDS: CRESTOR 10 MG PO (20:46)
[2025-03-24] MEDS: NORVASC 2.5 MG PO (20:46)
[2025-03-24] MEDS: PROTONIX 40 MG PO (20:46)
[2025-03-24] MEDS: CYMBALTA DELAYED RELEASE 60 MG PO (21:30)
[2025-03-24] MEDS: XALATAN OPHTHALMIC SOLUTION 1 DROP BOTH EYES (21:30)
[2025-03-24] MEDS: NEURONTIN 600 MG PO (21:30)
[2025-03-24 23:13] LABS: Urine Character Clear (Clear)
[2025-03-24 23:30] LABS: Urine Squamous Cell 16-20 /LPF (Few)
[2025-03-25] VITALS (7 sets, daily range): BP systolic 107–122; BP diastolic 44–94; PULSE 74; O2SAT 97
[2025-03-25] MEDS: METHOCARBAMOL 750 MG PO ×3 (02:37→17:39)
[2025-03-25] MEDS: DILAUDID 0.5 MG IV ×5 (02:46→22:57)
[2025-03-25] MEDS: ROXICODONE 10 MG PO (03:52)
[2025-03-25] MEDS: NEURONTIN 600 MG PO ×3 (05:13→22:31)
--- NOTE | 2025-03-25 05:18 | PTCARENOTE ---
At 5am patient states they are in 8/10 pain. Patient received 0.5 mg of prn Dilaudid and did not have any relief. Patient received prn roxicodone 10 mg for severe breakthrough pain. Patient states that the pain is spasming in her right hip and
radiating. TRAINING PROGRAM MANAGER made aware and ordered that her morning dose of gabapentin 600 mg be given. See MAR for administration. Will continue with plan of care.
--- NOTE | 2025-03-25 05:52 | W.PN.UPDATE ---
Update Note
Progress Note Update
On rounds this AM patient continues to experience pain now 2 weeks post op RIGHT ELOY conversion (March 09- Katelynn). She was noted to have a hgb of 7.2 on admission and received 1 PRBC and TXA. Hgb this AM 7.9, but still reports fatigue. Her
x-rays reveal stable appearance of her implants, no dislocation. Right hip incision approximated with everton intact. Continued bloody drainage centrally, but incision is without any overt signs of infection. Gentle ROM of the hip limited secondary
to apprehension and discomfort. DNVI RLE. She may continue with WBAT and PT/OT as deemed appropriate by medicine in the face of her symptomatic anemia on presentation. CRP and ESR are acceptable 2 weeks post-op. She should continue with soft
dressings (ABDs), changing them as needed. We have tentatively schedule her for a right hip I&D under the direction of Dr. Pace today, based on rounds assessment. At this time I don't feel strongly at all for I&D. Will allow her a diet. Surgical
and blood consents have been obtained from the patient and placed to her chart. Will leave operative site marking to a member of the surgical team, but at this point not necessary. Orders placed. I spoke with Dr. Pace after seeing her for
situational awareness, and he is in agreement. Patient was also in agreement with treatment recommendations, at this time. ASA is on hold. Will discuss with her daughter, Daniela, as well. Will follow.
[2025-03-25 07:08] LABS: Blood Urea Nitrogen 14 mg/dl (7-17); Calcium 8.4 mg/dl (8.4-10.2); Chloride 100 mmol/L (98-107); Estimated Creatinine Clearance 48 ml/min; Glucose 86 mg/dl (70-99); Potassium 4.5 mmol/L (3.5-5.1); Sodium 135 mmol/L (135-145); eGFR > 60.00
[2025-03-25 07:18] LABS: Carbon Dioxide 35 mmol/L (22-30)
[2025-03-25 07:29] LABS: Hematocrit 25.9 % (37.0-47.0); Hemoglobin 7.9 g/dL (12.0-16.0); Mean Corp Hgb Conc. 30.5 g/dL (33.0-37.0); Mean Corpuscular Volume 104.4 fL (81.0-99.0); Platelet Count 246 10^3/uL (130-400); Red Cell Dist. Width 15.7 % (11.5-14.5)
[2025-03-25] MEDS: MS CONTIN (EXTENDED RELEASE) 30 MG PO ×2 (08:45→20:33)
[2025-03-25] MEDS: PROTONIX 40 MG PO ×2 (08:45→20:33)
[2025-03-25] MEDS: FLORASTOR 250 MG PO ×2 (08:45→20:34)
[2025-03-25] MEDS: CYMBALTA DELAYED RELEASE 30 MG PO (08:45)
[2025-03-25] MEDS: DELTASONE 5 MG PO (08:46)
[2025-03-25] MEDS: AZULFIDINE 1000 MG PO ×2 (08:46→20:34)
[2025-03-25] MEDS: MESTINON 60 MG PO ×4 (08:46→22:31)
[2025-03-25] MEDS: OSCAL CAL 500 500 MG PO (08:46)
[2025-03-25] MEDS: VITAMIN B-12 1000 MCG PO (08:46)
[2025-03-25] MEDS: NORVASC 2.5 MG PO ×2 (08:46→20:33)
[2025-03-25] MEDS: VITAMIN D3 (cholecalciferol) 25 MCG PO (08:46)
[2025-03-25] MEDS: TIMOPTIC 0.5% OPHTHALMIC SOLUTION 1 DROP BOTH EYES (08:47)
[2025-03-25] MEDS: OMNICEF 300 MG PO ×2 (08:52→20:33)
[2025-03-25 11:42] LABS: INR 1.08; PT 14.3 Sec (11.4-14.6)
[2025-03-25 11:43] LABS: APTT 29.1 Sec (23.4-35.0)
[2025-03-25] MEDS: FEOSOL 325 MG PO (12:45)
[2025-03-25] MEDS: PLAQUENIL 400 MG PO (12:52)
[2025-03-25] MEDS: TOPROL XL 100 MG PO (12:52)
--- NOTE | 2025-03-25 16:09 | CM ---
Patient seen bedside, initial assessment completed. Patient is a 85-year-old female with past medical history significant for hypertension, hyperlipidemia, COPD, depression, chronic pain syndrome/chronic opioid dependence, fibromyalgia, Myasthenia
Gravis, RA and GERD/PUD who presented to [facility] ED for evaluation of persistent bleeding from right hip surgical wound.
Patient admitted from [facility], recent admission (03/11-03/15). Previously to rehab admission, patient resides w/ son in single story home, 2 steps to enter from the outside. Patient is independent w/ RW, independent w/ ADLs and personal
care. Patient has rehab hx at [facility] and [facility] currently. Patient prev known to [facility], confirmed w/ Marnie/N[facility], patient had her last episode on 03/12 and she would be a new admit.
Address, point of contact and insurance verified
PCP: Alex Isaac ([facility])
[facility]armacy[facility] ([facility])
Therapy evaluated patient, rec continued skilled rehab at d/c. Patient unsure if she will return to [facility] and is instructing CM to speak w/ her son
Plan: SNF recommended
--- NOTE | 2025-03-25 16:48 | W.PN.HOSP.TC ---
Today's Communication/Plan
-
see note
Assessment / Plan
Assessment / Plan
# Acute blood loss anemia from surgical site bleeding
- Patient is post right total hip arthroplasty by Dr. Pace on 03/11/2025
- Rt Hip x-ray: Postsurgical change of the right hip. No evidence of dislocation. Moderate left hip osteoarthritis. Stable
- Aspirin held
- Patient got tranexamic acid dose and 1 u prbc
- Ortho initially was considering exploration/debridement of the area although postponed
- Maintain on pain medication
#Coronary Artery Disease
s/p CABG and PCI
- hold ASA with acute bleeding
#Essential Hypertension
- continue amlodipine and metoprolol
#Hyperlipidemia
- continue rosuvastatin
#COPD
on 2L NC at baseline
- continue DuoNebs
#Depression
- continue duloxetine
#Chronic Pain Syndrome / Chronic Opioid Dependence Syndrome secondary to Spinal Stenosis
- continue gabapentin, morphine and oxycodone
#Rheumatoid Arthritis
- continue hydroxychloroquine, leflunomide, prednisone and sulfasalazine
#GERD/PUD
- continue pantoprazole
#Hx Vertebral Osteomyelitis
on Chronic Suppressive Antibiotics
- continue cefdinir
#Fibromyalgia
#Myasthenia Gravis
#Spina Bifida
Code status: DNR
DVT prophylaxis: SCDs
Patient remains at further risk of complication from surgical site bleeding and related to anemia.
Patient also had significant pain and requiring high dose of pain medication at risk of respiratory depression and further complications
Anticipated Discharge: 24 - 48 hours
Subjective/Interval History
-
Date of Service: March 25, 2025
Continues to have pain in the back and at right hip
bleeding at right hip subsided
Objective Data
-
Labs:
Laboratory Results
03/25/25 03/25/25
06:24 11:23
WBC 11.0 H
Hgb 7.9 L
Hct 25.9 L
Plt Count 246 D
PT 14.3
INR 1.08
APTT 29.1
Sodium 135
Potassium 4.5
Chloride 100
Carbon Dioxide 35 H
BUN 14
Creatinine 0.7
Glucose 86
Calcium 8.4
Vital Signs:
Vital Signs
Temp Pulse Resp BP Pulse Ox
98.5 F 69 12 113/60 96
03/25/25 15:00 03/25/25 15:00 03/25/25 15:00 03/25/25 15:00 03/25/25 15:00
I&O
03/24/25 03/25/25 03/26/25
06:59 06:59 06:59
Intake Total 1755 / 1755
Output Total 950 / 950
Balance 805 / 805
Review of Systems
-
Respiratory: Reports No Symptoms
Cardiac: Reports No Symptoms
Abdomen/GI: Reports No Symptoms
Physical Exam
-
General: Appears in Distress and Pain
Musculoskeletal: Other (Right hip dressing /binder in place)
Neuro: Awake, Alert and Oriented
[2025-03-25] MEDS: CRESTOR 10 MG PO (17:08)
[2025-03-25] MEDS: MIRALAX 17 GRAMS PO (17:35)
[2025-03-25] MEDS: CYMBALTA DELAYED RELEASE 60 MG PO (22:31)
[2025-03-25] MEDS: XALATAN OPHTHALMIC SOLUTION BOTH EYES ×2 (22:32→22:35)
[2025-03-26] VITALS (12 sets, daily range): BP systolic 96–143; BP diastolic 43–72
--- NOTE | 2025-03-26 00:17 | PTCARENOTE ---
Pt ringing call handy every 1-2 hours to use the bedside commode during this RN's shift. Around midnight this AM, pt was assisted to the bedside commode by this RN, who noted that pt's dressings had a large amount of serosanguineous blood that had
seeped through onto her abdominal binder and covidien pad. Pt denies dizziness but reports feeling nauseous after getting back into bed from the bedside commode. VSS. XRAY TECH Andrea notified of increased drainage and encouraged pressure and dressing
reinforcement. This RN reinforced pt's dressing with ABD pads and medipore tape and abdominal binder reapplied. Pt is now resting in bed.
[2025-03-26] MEDS: METHOCARBAMOL 750 MG PO ×3 (03:11→17:41)
[2025-03-26] MEDS: DILAUDID 0.5 MG IV ×2 (03:14→14:33)
--- NOTE | 2025-03-26 04:00 | PTCARENOTE ---
RONNI Mendez came to floor to assess pt's right hip drainage, which has continued to increase and saturated her dressings despite additional ABD pads being applied and the abdominal binder in place. Manual pressure applied to dressings, dressings
reinforced and abdominal binder reapplied. Morning CBC and BMP drawn. Hgb result this AM is 7.2; RONNI Mendez notified.
--- NOTE | 2025-03-26 04:23 | W.PN.UPDATE ---
Update Note
Progress Note Update
RN reported patient saturated through the dressing on Right hip again. Patient seen and evaluated, pale, reports fatigue, noted serous sanguinous drainage seeping through dressing, to Covidien. Reports pain denies dizziness lightheadedness.
advise RN to get labs early, VSS
Dressings reinforced with pressure.
RN to let Ortho know in Am.
will transfuse as needed
hgb 7.2, will transfuse.
[2025-03-26 05:00] LABS: Hematocrit 22.9 % (37.0-47.0); Hemoglobin 7.2 g/dL (12.0-16.0); Mean Corp Hgb Conc. 31.4 g/dL (33.0-37.0); Mean Corpuscular Volume 103.2 fL (81.0-99.0); Platelet Count 271 10^3/uL (130-400); Red Cell Dist. Width 15.1 % (11.5-14.5)
[2025-03-26 05:23] LABS: Blood Urea Nitrogen 13 mg/dl (7-17); Calcium 8.5 mg/dl (8.4-10.2); Carbon Dioxide 38 mmol/L (22-30); Chloride 99 mmol/L (98-107); Estimated Creatinine Clearance 48 ml/min; Glucose 94 mg/dl (70-99); Potassium 4.6 mmol/L (3.5-5.1); Sodium 132 mmol/L (135-145); eGFR > 60.00
--- NOTE | 2025-03-26 08:10 | W.PN.UPDATE ---
Update Note
Progress Note Update
85F status post right hip conversion arthroplasty [address] Pace 11 March 2025. Per nursing she had multiple dressing changes throughout the night and saturated through sheets and dressings.
Dressing was removed with saturation of serous bloody fluid. Incision area exposed showing possible area of mid incision dehiscence with bright red bleeding. Approximately some underlying firmness consistent with hematoma. No surrounding
erythema. No purulence
- Pending further discussion with attending for continued observation with pressure management versus consideration of operative intervention
[2025-03-26] MEDS: FLORASTOR 250 MG PO ×2 (08:26→21:04)
[2025-03-26] MEDS: AZULFIDINE 1000 MG PO ×2 (08:26→21:03)
[2025-03-26] MEDS: PROTONIX 40 MG PO ×2 (08:26→21:04)
[2025-03-26] MEDS: OSCAL CAL 500 500 MG PO (08:26)
[2025-03-26] MEDS: VITAMIN B-12 1000 MCG PO (08:26)
[2025-03-26] MEDS: OMNICEF 300 MG PO ×2 (08:26→21:04)
[2025-03-26] MEDS: DELTASONE 5 MG PO (08:26)
[2025-03-26] MEDS: NEURONTIN 600 MG PO ×3 (08:26→21:04)
[2025-03-26] MEDS: CYMBALTA DELAYED RELEASE 30 MG PO (08:27)
[2025-03-26] MEDS: VITAMIN D3 (cholecalciferol) 25 MCG PO (08:27)
[2025-03-26] MEDS: MESTINON 60 MG PO ×4 (08:27→21:05)
[2025-03-26] MEDS: NORVASC 2.5 MG PO ×2 (08:27→21:07)
[2025-03-26] MEDS: TIMOPTIC 0.5% OPHTHALMIC SOLUTION 1 DROP BOTH EYES (08:27)
--- NOTE | 2025-03-26 08:29 | PN.CDI ---
CDI
- -
CDI:
Physician Documentation Request
Admit Date: 03/24/25 17:48
Dear Doctor Brett,
Please review the following and provide your response in the progress notes.
Clinical Indicators:
Laboratory Tests
03/24/25 03/25/25 03/26/25
14:14 06:24 04:27
Sodium 129 L 135 132 L
Based on the above and your clinical assessment,please clarify in the progress notes, the appropriate diagnosis, if significant, that supports the above abnormalities and additional evaluation, monitoring and/or treatment rendered:
Hyponatremia
Abnormal lab value, clinically insignificant
Other (please specify)
Use of terms such as suspected, likely, concern for, or probable (associated with a specific diagnosis that is being evaluated, monitored, or treated as if it exists) are acceptable and can be coded in the inpatient setting, when documented at the
time of discharge.
Thank you,
Johana Mead RN BSN CCDS
CDI Specialist
Please contact via tiger text
Please use your independent medical judgment in providing your response.
[2025-03-26] MEDS: MS CONTIN (EXTENDED RELEASE) 30 MG PO ×2 (08:33→21:04)
[2025-03-26] MEDS: MIRALAX PO (08:36)
[2025-03-26] MEDS: TOPROL XL 100 MG PO (11:59)
[2025-03-26] MEDS: FEOSOL 325 MG PO (11:59)
[2025-03-26] MEDS: PLAQUENIL 400 MG PO (11:59)
--- NOTE | 2025-03-26 13:24 | W.PN.HOSP.TC ---
Addendum entered and electronically signed by Real West MD 03/27/25 07:53:
Hyponatremia - mild , monitor
possible ADH excess from pain
Original Note:
Today's Communication/Plan
-
see note
Assessment / Plan
Assessment / Plan
# Acute blood loss anemia from surgical site bleeding
- Patient is post right total hip arthroplasty by Dr. Pace on 03/11/2025
- Rt Hip x-ray: Postsurgical change of the right hip. No evidence of dislocation. Moderate left hip osteoarthritis. Stable
- Aspirin held
- Patient got tranexamic acid dose and 1 u prbc in ER
- Orthopedic surgeon following and will decide for need of exploration/debridement of the area
- Hemoglobin has drifted down again today and providing another unit of PRBC
- Coagulation profile checked with normal PT/INR/PTT. Providing 1 unit of platelets as despite normal . count patient may have dysfunctional platelets from aspirin use.
- Pain medication increased, preferentially be provided oral pain medication. Narcan as needed ordered as well
#Coronary Artery Disease
s/p CABG and PCI
- hold ASA with acute bleeding
#Essential Hypertension
- continue amlodipine and metoprolol
#Hyperlipidemia
- continue rosuvastatin
#COPD
on 2L NC at baseline
- continue DuoNebs
#Depression
- continue duloxetine
#Chronic Pain Syndrome / Chronic Opioid Dependence Syndrome secondary to Spinal Stenosis
- continue gabapentin, morphine and oxycodone
#Rheumatoid Arthritis
- continue hydroxychloroquine, leflunomide, prednisone and sulfasalazine
#GERD/PUD
- continue pantoprazole
#Hx Vertebral Osteomyelitis
on Chronic Suppressive Antibiotics
- continue cefdinir
#Fibromyalgia
#Myasthenia Gravis
#Spina Bifida
Code status: DNR
DVT prophylaxis: SCDs
Patient remains at further risk of complication from surgical site bleeding and related to anemia.
Patient also had significant pain and requiring high dose of pain medication at risk of respiratory depression and further complications
Anticipated Discharge: > 48 hours
Subjective/Interval History
-
Date of Service: March 26, 2025
Continues to have pain in the right hip
Right hip dressing was soaked yesterday and required to be changed
Objective Data
-
Labs:
Laboratory Results
03/26/25
04:27
WBC 14.4 H
Hgb 7.2 L
Hct 22.9 L
Plt Count 271
Sodium 132 L
Potassium 4.6
Chloride 99
Carbon Dioxide 38 H
BUN 13
Creatinine 0.7
Glucose 94
Calcium 8.5
Vital Signs:
Vital Signs
Temp Pulse Resp BP Pulse Ox
98.1 F 64 18 119/64 96
03/26/25 13:10 03/26/25 13:10 03/26/25 13:10 03/26/25 13:10 03/26/25 12:01
I&O
03/25/25 03/26/25 03/27/25
06:59 06:59 06:59
Intake Total 1755 / 1755 860 / 860 250 / 250
Output Total 950 / 950
Balance 805 / 805 860 / 860 250 / 250
Review of Systems
-
Respiratory: Reports No Symptoms
Cardiac: Reports No Symptoms
Abdomen/GI: Reports No Symptoms
Physical Exam
-
General: Appears in Distress and Pain
Musculoskeletal: Other (Right hip dressing /binder in place)
Neuro: Awake, Alert and Oriented
[2025-03-26] MEDS: CRESTOR 10 MG PO (17:05)
[2025-03-26] MEDS: CYMBALTA DELAYED RELEASE 60 MG PO (21:04)
[2025-03-26] MEDS: XALATAN OPHTHALMIC SOLUTION 1 DROP BOTH EYES (21:05)
[2025-03-26 21:53] LABS: Hematocrit 24.9 % (37.0-47.0); Hemoglobin 8.2 g/dL (12.0-16.0); Mean Corp Hgb Conc. 32.9 g/dL (33.0-37.0); Mean Corpuscular Volume 98.4 fL (81.0-99.0); Platelet Count 258 10^3/uL (130-400); Red Cell Dist. Width 16.1 % (11.5-14.5)
[2025-03-27] MEDS: ROXICODONE 15 MG PO ×2 (00:16→13:55)
[2025-03-27 03:00] VITALS: BP 117/51
[2025-03-27] MEDS: METHOCARBAMOL 750 MG PO ×3 (03:10→17:48)
[2025-03-27] MEDS: DILAUDID 0.5 MG IV ×2 (05:58→17:48)
[2025-03-27 07:00] VITALS: BP 91/60
[2025-03-27] MEDS: MIRALAX 17 GRAMS PO (07:46)
[2025-03-27] MEDS: MESTINON 60 MG PO ×4 (07:46→22:53)
[2025-03-27] MEDS: VITAMIN B-12 1000 MCG PO (07:46)
[2025-03-27] MEDS: NEURONTIN 600 MG PO ×3 (07:47→22:53)
[2025-03-27] MEDS: OMNICEF 300 MG PO ×2 (07:47→19:47)
[2025-03-27] MEDS: FLORASTOR 250 MG PO ×2 (07:47→19:47)
[2025-03-27] MEDS: VITAMIN D3 (cholecalciferol) 25 MCG PO (07:47)
[2025-03-27] MEDS: PROTONIX 40 MG PO ×2 (07:47→19:47)
[2025-03-27] MEDS: OSCAL CAL 500 500 MG PO (07:47)
[2025-03-27] MEDS: MS CONTIN (EXTENDED RELEASE) 30 MG PO ×2 (07:50→19:47)
[2025-03-27] MEDS: CYMBALTA DELAYED RELEASE 30 MG PO (07:50)
[2025-03-27] MEDS: AZULFIDINE 1000 MG PO ×2 (07:50→19:46)
[2025-03-27] MEDS: DELTASONE 5 MG PO (07:50)
[2025-03-27] MEDS: TIMOPTIC 0.5% OPHTHALMIC SOLUTION 1 DROP BOTH EYES (07:51)
[2025-03-27] MEDS: NORVASC PO (07:53)
[2025-03-27 08:31] LABS: Hematocrit 27.1 % (37.0-47.0); Hemoglobin 8.3 g/dL (12.0-16.0); Mean Corp Hgb Conc. 30.6 g/dL (33.0-37.0); Mean Corpuscular Volume 101.1 fL (81.0-99.0); Platelet Count 281 10^3/uL (130-400); Red Cell Dist. Width 16.6 % (11.5-14.5)
--- NOTE | 2025-03-27 09:29 | W.PN.UPDATE ---
Update Note
Progress Note Update
Ms. Liriano is now just over 2 weeks out from her right hip conversion ELOY under the direction of Dr. Pace. Unfortunately, she has been dealing with persistent anemia and incisional drainage/bleeding.
Her dressings are clean and dry on exam this morning. Mild tenderness to palpation about the hip. Calf soft and nontender. NVID.
At this point, we would like to return to the OR for right hip I&D with possible head and liner exchange. The risks, benefits, alternatives, recovery process and potential complications were discussed in detail. Kiesha verbalized understanding and
would like to proceed with surgery. Surgical and blood consents are signed and placed in patient chart. Surgery is scheduled for tomorrow (03/28) under the direction of Dr. Pace. Continue current management until then. NPO after midnight.
[2025-03-27 09:35] LABS: Blood Urea Nitrogen 11 mg/dl (7-17); Calcium 8.4 mg/dl (8.4-10.2); Chloride 98 mmol/L (98-107); Estimated Creatinine Clearance 56 ml/min; Glucose 83 mg/dl (70-99); Potassium 4.2 mmol/L (3.5-5.1); Sodium 134 mmol/L (135-145); eGFR > 60.00
[2025-03-27 09:58] LABS: Carbon Dioxide 36 mmol/L (22-30)
--- NOTE | 2025-03-27 10:15 | CM ---
Chart reviewed. Plan is for patient to d/c to SNF
CM spoke w/ patient's son and daughter, agreeable to SNF. Daughter asking for referrals to [facility] and [facility]
Referrals sent in [facility]. Patient will need auth prior to d/c
Plan for OR tomorrow for right hip I&D
Plan: SNF when medically stable
[2025-03-27 11:00] VITALS: BP 98/67
[2025-03-27] MEDS: IMITREX 25 MG PO (11:08)
[2025-03-27] MEDS: FEOSOL 325 MG PO (11:08)
--- NOTE | 2025-03-27 12:24 | W.PN.UPDATE ---
Update Note
Progress Note Update
Re-evaluated patient as this morning on rounds her dressing was dry. Dressing must have recently been changed prior to evaluation this morning, as when I took the abds down, there was copious sanguinous drainage on the abds. Nothing draining
through. Abds reinforced with metaphor tape.
At this point, we would like to return to the OR for right hip I&D with possible head and liner exchange. The risks, benefits, alternatives, recovery process and potential complications were discussed in detail. Kiesha verbalized understanding and
would like to proceed with surgery. Surgical and blood consents are signed and placed in patient chart. Surgery is scheduled for tomorrow (03/28) under the direction of Dr. Pace. Continue current management until then. NPO after midnight.
[2025-03-27] MEDS: TOPROL XL PO (13:00)
[2025-03-27] MEDS: PLAQUENIL 400 MG PO (13:01)
--- NOTE | 2025-03-27 14:49 | W.PN.HOSP.TC ---
Today's Communication/Plan
-
see note
Assessment / Plan
Assessment / Plan
# Acute blood loss anemia from surgical site bleeding
- Patient is post right total hip arthroplasty by Dr. Pace on 03/11/2025
- Rt Hip x-ray: Postsurgical change of the right hip. No evidence of dislocation. Moderate left hip osteoarthritis. Stable
- Aspirin held
- Patient got tranexamic acid dose and 1 u prbc in ER
- Coagulation profile checked with normal PT/INR/PTT. Providing 1 unit of platelets as despite normal . count patient may have dysfunctional platelets from aspirin use.
- Pain medication increased, preferentially be provided oral pain medication. Narcan as needed ordered as well
- Hemoglobin has been stabilized around 8 after second unit of PRBC. Patient is planned to taken to the OR by orthopedic surgeon tomorrow
#Coronary Artery Disease
s/p CABG and PCI
- hold ASA with acute bleeding
#Essential Hypertension
-Patient blood pressure soft and holding parameters added to metoprolol
-continue on norvasc
#Hyperlipidemia
- continue rosuvastatin
#COPD
on 2L NC at baseline
- continue DuoNebs
#Depression
- continue duloxetine
#Chronic Pain Syndrome / Chronic Opioid Dependence Syndrome secondary to Spinal Stenosis
- continue gabapentin, morphine and oxycodone
#Rheumatoid Arthritis
- continue hydroxychloroquine, leflunomide, prednisone and sulfasalazine
#GERD/PUD
- continue pantoprazole
#Hx Vertebral Osteomyelitis
on Chronic Suppressive Antibiotics
- continue cefdinir
#Hyponatremia - mild, monitor
#headache
- possibly aggravated by narc use
- OTC meds not helpfyul , trial dose of imitrex
#Fibromyalgia
#Myasthenia Gravis
#Spina Bifida
Code status: DNR
DVT prophylaxis: SCDs
Patient remains at further risk of complication from surgical site bleeding and related to anemia.
Patient also had significant pain and requiring high dose of pain medication at risk of respiratory depression and further complications
Anticipated Discharge: > 48 hours
Subjective/Interval History
-
Date of Service: March 27, 2025
Complaining headache
still have some bleeding at right hip surgical site
Objective Data
-
Labs:
Laboratory Results
03/27/25
07:08
WBC 11.3 H
Hgb 8.3 L
Hct 27.1 L
Plt Count 281
Sodium 134 L
Potassium 4.2
Chloride 98
Carbon Dioxide 36 H
BUN 11
Creatinine 0.6
Glucose 83
Calcium 8.4
Vital Signs:
Vital Signs
Temp Pulse Resp BP Pulse Ox
98.0 F 65 18 98/67 98
03/27/25 11:00 03/27/25 13:00 03/27/25 11:00 03/27/25 13:00 03/27/25 11:00
I&O
03/26/25 03/27/25 03/28/25
06:59 06:59 06:59
Intake Total 860 / 860 1463 / 1463
Output Total 675 / 675
Balance 860 / 860 788 / 788
Review of Systems
-
Respiratory: Reports No Symptoms
Cardiac: Reports No Symptoms
Abdomen/GI: Reports No Symptoms
Physical Exam
-
General: Appears in Distress and Pain
Musculoskeletal: Other (Right hip dressing /binder in place)
Neuro: Awake, Alert and Oriented
[2025-03-27 15:00] VITALS: BP 127/61
[2025-03-27] MEDS: ZOFRAN 4 MG IV (15:33)
[2025-03-27] MEDS: CRESTOR 10 MG PO (17:48)
[2025-03-27] MEDS: NORVASC 2.5 MG PO (19:47)
[2025-03-27 19:50] VITALS: BP 119/56
[2025-03-27] MEDS: XALATAN OPHTHALMIC SOLUTION 1 DROP BOTH EYES (22:53)
[2025-03-27] MEDS: CYMBALTA DELAYED RELEASE 60 MG PO (22:53)
[2025-03-27 23:33] VITALS: BP 122/61
[2025-03-28] VITALS (14 sets, daily range): BP systolic 112–159; BP diastolic 52–75
[2025-03-28] MEDS: DILAUDID 0.5 MG IV ×4 (01:57→21:45)
[2025-03-28] MEDS: METHOCARBAMOL 750 MG PO ×3 (03:41→19:40)
[2025-03-28 07:00] LABS: Hematocrit 27.2 % (37.0-47.0); Hemoglobin 8.4 g/dL (12.0-16.0); Mean Corp Hgb Conc. 30.9 g/dL (33.0-37.0); Mean Corpuscular Volume 103.8 fL (81.0-99.0); Platelet Count 313 10^3/uL (130-400); Red Cell Dist. Width 16.0 % (11.5-14.5)
[2025-03-28 07:16] LABS: Blood Urea Nitrogen 10 mg/dl (7-17); Calcium 8.7 mg/dl (8.4-10.2); Chloride 95 mmol/L (98-107); Estimated Creatinine Clearance 56 ml/min; Glucose 89 mg/dl (70-99); Potassium 4.3 mmol/L (3.5-5.1); Sodium 133 mmol/L (135-145); eGFR > 60.00
--- NOTE | 2025-03-28 07:40 | W.PN.UPDATE ---
Update Note
Progress Note Update
Patient was seen and examined today. She does not have any pain and dressing was changed. Incision did have some blood but it was cleaned with alcohol and new dressing placed. No warmth or erythema noted. Passive motion nonpainful. Calf is soft
and nontender. Distal neurovascular was intact. Patient will remain n.p.o. for now with plans for right total hip I&D later today under direction of Dr. Pace. Surgical location marked and surgery consent has been signed. Antibiotic
irrigation/TXA ordered for OR later today.
[2025-03-28 08:29] LABS: Carbon Dioxide 37 mmol/L (22-30)
--- NOTE | 2025-03-28 08:38 | W.PN.HOSP.TC ---
Today's Communication/Plan
-
OR Today with orthopedics for R hip I&D
continue pain control and headache control
Assessment / Plan
Assessment / Plan
Assessment:
# Acute blood loss anemia from surgical site bleeding
- Patient is post right total hip arthroplasty by Dr. Pace on 03/11/2025
- Rt Hip x-ray: Postsurgical change of the right hip. No evidence of dislocation. Moderate left hip osteoarthritis. Stable
- Aspirin held
- Patient got tranexamic acid dose and 2 u PRBC, 1 unit platelets (concern for dysfunctional platelets from aspirin use). Hb stable >8.0
- Coagulation profile checked with normal PT/INR/PTT.
- Pain medication increased, preferentially be provided oral pain medication. Narcan as needed ordered as well
- Orthopedics evaluated; given persistent incisional bleeding/drainage
#Coronary Artery Disease
- s/p CABG and PCI
- hold ASA with acute bleeding
#Essential Hypertension
- Patient blood pressure soft and holding parameters added to metoprolol
- continue on Norvasc
#Hyperlipidemia
- continue rosuvastatin
#COPD
on 2L NC at baseline
- continue DuoNebs
#Depression
- continue duloxetine
#Chronic Pain Syndrome / Chronic Opioid Dependence Syndrome secondary to Spinal Stenosis
- continue gabapentin, morphine and oxycodone
#Rheumatoid Arthritis
- continue hydroxychloroquine, leflunomide, prednisone and sulfasalazine
#GERD/PUD
- continue pantoprazole
#Hx Vertebral Osteomyelitis
on Chronic Suppressive Antibiotics
- continue cefdinir
#Hyponatremia - mild, monitor
#headache
- possibly aggravated by narc use
- prn Imitrex; no improvement with Tylenol
#Fibromyalgia
#Myasthenia Gravis
#Spina Bifida
Code status: DNR
DVT prophylaxis: SCDs
Patient remains at further risk of complication from surgical site bleeding and related to anemia.
Patient also had significant pain and requiring high dose of pain medication at risk of respiratory depression and further complications
Anticipated Discharge: > 48 hours
Subjective/Interval History
-
Date of Service: March 28, 2025
reports R hip pain and headache; asking for imitrex which worked for her 24 hours prior
for OR 3pm today
Objective Data
-
Labs:
Laboratory Results
03/28/25
06:22
WBC 11.3 H
Hgb 8.4 L
Hct 27.2 L
Plt Count 313
Sodium 133 L
Potassium 4.3
Chloride 95 L
Carbon Dioxide 37 H
BUN 10
Creatinine 0.6
Glucose 89
Calcium 8.7
Vital Signs:
Vital Signs
Temp Pulse Resp BP Pulse Ox
98.1 F 81 16 141/75 99
03/28/25 07:05 03/28/25 07:05 03/28/25 07:05 03/28/25 07:05 03/28/25 07:05
I&O
03/27/25 03/28/25 03/29/25
06:59 06:59 06:59
Intake Total 1463 / 1463 660 / 660
Output Total 675 / 675 800 / 800
Balance 788 / 788 -140 / -140
Physical Exam
-
General: Appears in Distress and Pain
HEENT: Normocephalic and Atraumatic
Respiratory: Negative Wheezes
Cardiac: Regular Rhythm and S1/S2
GI: Soft and Nontender
Neuro: AO x 3
Psych: Calm
Data Reviewed
-
Total Time Spent with Patient (in minutes): 41
Labs: Labs Reviewed by me
[2025-03-28] MEDS: VITAMIN B-12 1000 MCG PO (08:40)
[2025-03-28] MEDS: MIRALAX 17 GRAMS PO (08:40)
[2025-03-28] MEDS: CYMBALTA DELAYED RELEASE 30 MG PO (08:40)
[2025-03-28] MEDS: OSCAL CAL 500 500 MG PO (08:42)
[2025-03-28] MEDS: NEURONTIN 600 MG PO ×3 (08:42→23:19)
[2025-03-28] MEDS: TIMOPTIC 0.5% OPHTHALMIC SOLUTION 1 DROP BOTH EYES (08:43)
[2025-03-28] MEDS: VITAMIN D3 (cholecalciferol) 25 MCG PO (08:43)
[2025-03-28] MEDS: FLORASTOR 250 MG PO ×2 (08:43→19:41)
[2025-03-28] MEDS: PROTONIX 40 MG PO ×2 (08:43→19:41)
[2025-03-28] MEDS: MESTINON 60 MG PO ×4 (08:43→23:20)
[2025-03-28] MEDS: NORVASC 2.5 MG PO ×2 (08:44→19:35)
[2025-03-28] MEDS: MS CONTIN (EXTENDED RELEASE) 30 MG PO ×2 (08:44→19:40)
[2025-03-28] MEDS: AZULFIDINE 1000 MG PO ×2 (08:46→19:40)
[2025-03-28] MEDS: DELTASONE 5 MG PO (08:46)
[2025-03-28] MEDS: OMNICEF 300 MG PO ×2 (09:00→19:40)
[2025-03-28] MEDS: IMITREX 25 MG PO (09:00)
[2025-03-28] MEDS: FEOSOL 325 MG PO (11:57)
[2025-03-28] MEDS: PLAQUENIL 400 MG PO (11:57)
[2025-03-28] MEDS: TOPROL XL 100 MG PO (12:00)
[2025-03-28] MEDS: ZOFRAN 4 MG IV (13:09)
--- NOTE | 2025-03-28 18:53 | PTCARENOTE ---
pt arrived from PACU to 2S room 2115 @1840. pt drowsy but arousable, oriented to room, call handy and plan of care. telemetry placed and reading SR w/BBC and first degree AVB in 60's. bed alarm activated. Right hip dsg remains clean and dry.
care ongoing.
[2025-03-28] MEDS: CRESTOR 10 MG PO (19:45)
[2025-03-28] MEDS: XALATAN OPHTHALMIC SOLUTION 1 DROP BOTH EYES (21:10)
[2025-03-28] MEDS: CYMBALTA DELAYED RELEASE 60 MG PO (21:10)
[2025-03-28] MEDS: ANCEF 5 IV (23:20)
[2025-03-29] MEDS: METHOCARBAMOL 750 MG PO ×3 (02:44→16:22)
[2025-03-29 03:00] VITALS: BP 106/68
[2025-03-29] MEDS: ZOFRAN 4 MG IV (05:55)
[2025-03-29] MEDS: ROXICODONE 15 MG PO ×3 (05:55→16:21)
[2025-03-29 07:18] LABS: Hematocrit 26.2 % (37.0-47.0); Hemoglobin 8.1 g/dL (12.0-16.0); Mean Corp Hgb Conc. 30.9 g/dL (33.0-37.0); Mean Corpuscular Volume 103.6 fL (81.0-99.0); Platelet Count 327 10^3/uL (130-400); Red Cell Dist. Width 15.2 % (11.5-14.5)
[2025-03-29 07:45] LABS: Blood Urea Nitrogen 11 mg/dl (7-17); Calcium 8.2 mg/dl (8.4-10.2); Chloride 94 mmol/L (98-107); Estimated Creatinine Clearance 48 ml/min; Glucose 88 mg/dl (70-99); Potassium 4.5 mmol/L (3.5-5.1); Sodium 130 mmol/L (135-145); eGFR > 60.00
[2025-03-29 07:56] LABS: Carbon Dioxide 36 mmol/L (22-30)
[2025-03-29 08:02] VITALS: BP 116/57
--- NOTE | 2025-03-29 08:18 | W.PN.ORTHO ---
Today's Communication / Plan
-
Really appreciate the primary team, continue Tx
Appreciate Hematology consult/recs this AM
Trend Hgb, this AM 8.1
Dispo likely SNF, but appreciate CM
Continue WBAT B/L LEs on walker/assistance
PT/OT, THPs x 12 weeks
ASA 325mg daily x 4 weeks for DVT ppx, or per primary
TXA po 1950mg x 3 doses post-op
Incision cleaned with Betadine and new ABD dressing applied this AM
Pain control, ice to hip
Spoke to daughter, Daniela (who works for our practice) and informed of AM condition
Grisel in for 3 weeks, would recommend outpatient Ortho follow-up in 3 weeks for removal (NOT SNF)
Will follow
Assessment
.
Distal Motor Intact: Yes
Dressing:
Dry, intact. Moderate serous/bloody drainage in soft dressings
Assessment:
POD#1 Right hip I&D with vessel cauterization
Plan
.
Surgery / Date: Right hip I&D w/ vessel caut. Apr 09 (Katelynn)
DVT Prophylaxis: Aspirin
Activity:
Out of bed. WBAT B/L LEs on walker/assistance
PT/OT, THPs x 12 weeks
Discharge Plan: SNF and Other (Appreciate CM)
Subjective
.
.:
Patient resting comfortably, enjoying breakfast. Much less discomfort this AM
Vital Signs and Labs
.
Vital Signs and Labs:
Lab Results
03/29/25 06:14
03/29/25 06:14
Temp Pulse Resp BP Pulse Ox
98.0 F 69 18 116/57 98
03/29/25 08:02 03/29/25 08:02 03/29/25 08:02 03/29/25 08:02 03/29/25 08:02
PT 14.3 Sec (11.4-14.6) 03/25/25 11:23
INR 1.08 03/25/25 11:23
Non-invasive Hgb result: 11.7
[2025-03-29] MEDS: CYKLOKAPRON 1950 MG PO (08:34)
[2025-03-29] MEDS: MIRALAX 17 GRAMS PO (08:34)
[2025-03-29] MEDS: ASPIRIN 325 MG PO (08:35)
[2025-03-29] MEDS: NEURONTIN 600 MG PO ×3 (08:35→22:00)
[2025-03-29] MEDS: NORVASC 2.5 MG PO ×2 (08:35→19:25)
[2025-03-29] MEDS: CYMBALTA DELAYED RELEASE 30 MG PO (08:36)
[2025-03-29] MEDS: MESTINON 60 MG PO ×4 (08:36→22:00)
[2025-03-29] MEDS: DELTASONE 5 MG PO (08:37)
[2025-03-29] MEDS: OMNICEF 300 MG PO (08:37)
[2025-03-29] MEDS: VITAMIN B-12 1000 MCG PO (08:37)
[2025-03-29] MEDS: VITAMIN D3 (cholecalciferol) 25 MCG PO (08:37)
[2025-03-29] MEDS: ANCEF 5 IV (08:38)
[2025-03-29] MEDS: FLORASTOR 250 MG PO ×2 (08:38→19:29)
[2025-03-29] MEDS: MS CONTIN (EXTENDED RELEASE) 30 MG PO ×2 (08:38→19:29)
[2025-03-29] MEDS: PROTONIX 40 MG PO ×2 (08:39→19:29)
[2025-03-29] MEDS: AZULFIDINE 1000 MG PO ×2 (08:39→19:25)
[2025-03-29] MEDS: OSCAL CAL 500 500 MG PO (08:39)
[2025-03-29] MEDS: TIMOPTIC 0.5% OPHTHALMIC SOLUTION 1 DROP BOTH EYES (10:53)
[2025-03-29] MEDS: MAXALT MLT (ORALLY DISINTEGRATING) 10 MG PO (10:54)
--- NOTE | 2025-03-29 12:32 | CON.ID ---
Consultation
-
Date/Time Consultation Requested: 03/29/25 10:39
Date/Time Consultation Performed: 03/29/25 12:32
Requesting Provider: Dr West
Performing Provider: Dr Guardado
Reason for Consultation: gram neg bacilli on surgical site culture
Chief Complaint / Past History
History of Present Illness
Ms Liriano is an 85 year old female with history of spina bifida, seronegative RA (hydroxychloroquine, leflunomide, sulfasalazine, prednisone 5 mg), myasthenia gravis, chronic opioid dependence.
She also has a history of chronic osteomyelitis of the spine L3-L4 and L4-L5 with cultures with E coli, Proteus, strep and diptheroids, she completed a 6 week course of ceftriaxone and has been on suppressive cefdinir.
She underwent right hip hemiarthroplasty by Dr Leon 12/26/24 for femoral neck fracture. After the procedure she had at least two and possibly 3 dislocations of the endoprosthesis. On 03/11 she had a recurrent dislocation when getting up from bed,
she underwent conversion of prior right hip surgery to constrained right total hip arthroplasty, the procedure was uncomplicated however there was ongoing post operative incision bleeding. She was treated with tranexamic acid while inpatient. She
was transfused 1 unit prbc. Her discharge hemoglobin was 8.9. However oozing from the surgical site has been ongoing since her surgery. She required dressing change at least 3 times daily. She denies any fevers or chills, endorses fatigue,
malaise and severe hip pain. No further trauma to the hip or falls. The pain increased over the last several days and presented to the ER. In the ER she was afebrile, bp stable, wbc count 14.9, hgb 7.2 (from 8.9), plt 309, no L shift, PT 13.3,
INR 0.98, na 129, cr 0.7, t bili 0.3, ast 20, alt 11, alk phos 51, crp 19, esr 15, Xray of the hip showed postsurgical changes, no evidence of dislocation. She was observed for several days and no purulence was seen from the hip but there was
ongoing blood/serous drainage and some firmness of the joint concerning for hematoma. She was transfused a total of 2 units of PRBCs. On 03/28 she was taken for I&D of the right hip, she had 1 gm of cefazolin q8 hr x2 doses, in the OR a large
hematoma was noted, deep cultures were taken around the right hip prosthesis, there was bleeding from the gluteal musculature about the superior gluteal vasculature and hemostat and ovie were used to coagulate the tissue, the wound was irrigated
with tranexamic acid and closed, she was planned for 3 post operative doses of TXA and continued on ASA 325 mg. Today her wbc count is 12.7, hgb 8.1, plt 327, na 130, cr 0.7, 03/28 OR culture with gram negative rods on the gram stain, culture is
pending. 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 ID is consulted for assistance with management.
Past History
Additional Past Medical History:
Coronary Artery Disease s/p CABG and PCI
Essential Hypertension
Hyperlipidemia
COPD
Depression
Chronic Pain Syndrome / Chronic Opioid Dependence Syndrome secondary to Spinal Stenosis
Fibromyalgia
Myasthenia Gravis
Rheumatoid Arthritis
GERD/PUD
Spina Bifida
Hx Vertebral Osteomyelitis on Chronic Suppressive Antibiotics
Additional Past Surgical History:
Spina Bifida surgery
Spinal Stimulator
CABG
Allergy History:
adhesive Allergy (Verified 03/24/25 13:38)
TAPE-RASH,SKIN BLISTERS
lisinopril Allergy (Verified 03/25/25 17:32)
Cough
Medications Reviewed: Yes
Social History
Tobacco: Non-Smoker
Alcohol: Occasional
Drug: None
Family History
Family History: Not Pertinent
Review of Systems
Review of Systems
Constitutional: Reports Fatigue; Denies Fever or Chills
EENT: Denies Sore Throat
Respiratory: Denies Cough, Hemoptysis or Trouble Breathing
Cardiac: Denies Chest Pain, Diaphoresis, Palpitations or Syncope
Abdomen/GI: Denies Abdominal Pain, Nausea, Vomiting or Diarrhea
: Denies Dysuria, Frequency or Urgency
Musculoskeletal: Reports Joint Pain (right hip )
Skin: Reports Other (pale ); Denies Rash
Neurological: Denies Dizzy, Headache, Weakness or Numbness
Endocrine: Denies Polyuria or Polydipsia
Hematologic/Lymphatic: Reports Bleeding (right hip surgical wound )
Vital Signs
Temp Pulse Resp BP Pulse Ox
98.0 F 69 18 116/57 98
03/29/25 08:02 03/29/25 08:02 03/29/25 08:02 03/29/25 08:02 03/29/25 08:47
Physical Exam
Physical Exam
Constitutional: No Acute Distress
Cardiovascular: Regular Rate and S1/S2; Negative Murmur or Rub
Pulmonary: Clear and Symmetric; Negative Wheezes, Rales or Rhonchi
Gastrointestinal: Soft, Non Tender, Non Distended and Normal Bowel Sounds
Skin: Warm and Dry; Negative Rash or Jaundice
Lab / Diagnostic Study Results
03/29/25 06:14
03/29/25 06:14
Abs Immat Gran (auto) 0.1 10^3/uL (0-0.05) H 03/24/25 14:14
Absolute Neuts (auto) 10.7 10^3/uL (1.4-6.5) H 03/24/25 14:14
Absolute Lymphs (auto) 1.6 10^3/uL (1.2-3.4) 03/24/25 14:14
Absolute Monos (auto) 1.6 10^3/uL (0.1-0.6) H 03/24/25 14:14
Absolute Basos (auto) 0.2 10^3/uL (0-0.2) 03/24/25 14:14
Immature Gran % 0.5 % (0-0.5) 03/24/25 14:14
Neutrophils % 71.9 % (42.2-75.2) 03/24/25 14:14
Lymphocytes % 11.0 % (20.5-51.1) L 03/24/25 14:14
Monocytes % 10.7 % (1.7-9.3) H 03/24/25 14:14
Eosinophils % 4.6 % (0-6) 03/24/25 14:14
Basophils % 1.3 % (0-2) 03/24/25 14:14
ESR 15 mm/hour (0-20) 03/24/25 14:14
PT 14.3 Sec (11.4-14.6) 03/25/25 11:23
INR 1.08 03/25/25 11:23
C-Reactive Protein 19.40 mg/L (0.0-10.00) H 03/24/25 14:14
Ur Squamous Epith Cells 16-20 /LPF (Few) 03/24/25 23:06
Microbiology Results
Micro:
03/28/25 16:18 Wound Culture - Preliminary
Hip - Right Gram Stain - Preliminary
03/28/25 16:18 Anaerobic Culture - Preliminary
Hip - Right Culture pending. Anaerobic cultures are examined after 3
days incubation. Additional information to follow.
03/28/25 16:18 Body Fluid Culture - Pending
Fluid Gram Stain - Preliminary
03/25/25 03:03 MRSA Screen - Final
Nose No Methicillin Resistant Staphylococcus aureus isolated.
Assessment / Plan
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
RA on low dose steroids
Myasthenia gravis
Anemia
- OR culture with GNR on the gram stain - culture in progress
- single set of blood cultures was sent yesterday, send a second set today
- stop EXTR[employer] OPERATOR HELPER cefdinir
- start cefepime pending the cultures
- place PICC line when approaching discharge
--- NOTE | 2025-03-29 12:59 | W.PN.HOSP.TC ---
Today's Communication/Plan
-
see note
Assessment / Plan
Assessment / Plan
# Acute blood loss anemia from surgical site bleeding
- Patient is post right total hip arthroplasty by Dr. Pace on 03/11/2025
- Rt Hip x-ray: Postsurgical change of the right hip. No evidence of dislocation. Moderate left hip osteoarthritis. Stable
- Patient got tranexamic acid dose and 2 u PRBC, 1 unit platelets (concern for dysfunctional platelets from aspirin use). Hb stable >8.0
- Coagulation profile checked with normal PT/INR/PTT and normal.
- Patient underwent surgery surgical incision and debridement of right hip with control of bleeder vessel.
- Ortho cleared for patient to be started on aspirin for DVTPPX, which we will hold for 24-48 hrs and start once clinically appropriate.
- PT evaluation pending today
- surgical site wound culture - gram stain reported gram neg bacilli, ID evaluation requested - of note patient already on chronic Omnicef with h/o of vertebral osteomyelitis
#Coronary Artery Disease
- s/p CABG and PCI
- continue holding asa for now.
#Essential Hypertension
- Patient blood pressure soft and holding parameters added to metoprolol
- continue on Norvasc
#Hyperlipidemia
- continue rosuvastatin
#COPD
on 2L NC at baseline
- continue Duo-Nebs
#Depression
- continue duloxetine
#Chronic Pain Syndrome / Chronic Opioid Dependence Syndrome secondary to Spinal Stenosis
- continue gabapentin, morphine and oxycodone
#Rheumatoid Arthritis
- continue hydroxychloroquine, leflunomide, prednisone and sulfasalazine
#GERD/PUD
- continue pantoprazole
#Hx Vertebral Osteomyelitis
on Chronic Suppressive Antibiotics
- continue cefdinir
#Hyponatremia
- drifted down further , ADH excess from pain possibly driving
- 40 oz fluid restriction ordered.
#headache
- possibly aggravated by narc use
- Imitrex helped a bit, trying rizatriptan
#Fibromyalgia
#Myasthenia Gravis
#Spina Bifida
Code status: DNR
DVT prophylaxis: SCDs
Discussed with orthopedic surgeon and ID
Anticipated Discharge: > 48 hours
Subjective/Interval History
-
Date of Service: March 29, 2025
continues to have diffuse pain including right hip
some bleeding at the right hip
have frontal headache as well
no reported nausea/vomiting
Objective Data
-
Labs:
Laboratory Results
03/29/25
06:14
WBC 12.7 H
Hgb 8.1 L
Hct 26.2 L
Plt Count 327
Sodium 130 L
Potassium 4.5
Chloride 94 L
Carbon Dioxide 36 H
BUN 11
Creatinine 0.7
Glucose 88
Calcium 8.2 L
Vital Signs:
Vital Signs
Temp Pulse Resp BP Pulse Ox
98.0 F 69 18 116/57 98
03/29/25 08:02 03/29/25 08:02 03/29/25 08:02 03/29/25 08:02 03/29/25 08:47
I&O
03/28/25 03/29/25 03/30/25
06:59 06:59 06:59
Intake Total 660 / 660 390 / 390
Output Total 800 / 800 1000 / 1000
Balance -140 / -140 -610 / -610
Review of Systems
-
Respiratory: Reports No Symptoms
Cardiac: Reports No Symptoms
Abdomen/GI: Reports No Symptoms
Physical Exam
-
General: Appears in Distress and Pain
HEENT: Normocephalic and Atraumatic
Respiratory: Negative Wheezes
Cardiac: Regular Rhythm and S1/S2
GI: Soft and Nontender
Musculoskeletal: Other (Right hip dressing in place)
Neuro: AO x 3
Psych: Calm
--- NOTE | 2025-03-29 13:46 | CM ---
Addendum entered by Melissa Perry 03/29/25 13:55:
[facility] does not accept pt's insurance.
Plan: CM to f/u with [facility] regarding bed availability when medically stable for transfer.
Original Note:
CM following to coordinate discharge plans. Pt s/p I&D R hip; awaiting PT/OT notes to determine plan for discharge; likely SNF and will need authorization for transfer. Pt has previously requested [facility] and [facility] SNF. [facility] is
willing to accept for transfer when medically ready.
--- NOTE | 2025-03-29 13:47 | CON.ONC ---
Consultation
-
Date Consultation Requested: 03/28/25
Date Consultation Performed: 03/29/25
Requesting Provider: Dr. Pace
Performing Provider: Dr. Pearson
Reason for Consultation: anemia, post-operative bleeding
Impression
Impression
post-operative bleeding
anemia
s/p right hip ELOY - 03/11/25
Plan
Plan
1. Anemia - post-operative blood loss
-s/p OR yesterday for debridement - evacuation of hematoma - control of bleeding vessels
-patient has had multiple surgical procedures in the past - w/ no apparent h/o abnormal blood loss
-coagulation panel was normal -- will check von Willebrand's panel as well as fibrinogen
-hemoglobin is stable
-will check iron studies - though iron levels will unlikely reflect accurate iron status as patient has had several transfusions of PRBCs
-could consider oral iron supplement if tolerated -- assist w/ hemoglobin re-constitution post blood loss
-follow CBC
Patient History
History of Present Illness
85y/o female seen in consultation today regarding anemia in the setting of post-operative blood loss.
The patient has a h/o chronic anemia of unclear etiology, w/ baseline hemoglobin in the 8-9g/dl prior to recent orthopedic procedure.
She suffered a right hip fracture in December, undergoing a right hip endoprosthesis on 12/26/24. Due to instability, she subsequently underwent a right total hip arthroplasty w/ Dr. Pace on 03/11/25. Patient required blood transfusion post
operatively for persistent bleeding for surgical wound. She was discharged to [facility]; however, the bleeding apparently persisted and dressing were changed frequently, prompting a return to [facility] on 03/24.
Hemoglobin on presentation to [facility] on 03/24 was 7.2g/dl. She was again transfuse PRBCs as well as plts, given she had been on aspirin. She subsequently went back to the OR on 03/28, where hematoma as encountered along w/ some bleeding about the
deep proximal aspect of the wound - gluteal musculature. These were coagulated, w/ no further bleeding.
Hemoglobin today is stable at 8.1g/dl.
The patient notes multiple prior surgical procedures, including several back surgeries. She is unclear, but does not recall any significant bleeding episodes with prior procedures. She did have an infection w/ back surgery, osteomyelitis, and is on
chronic antibiotics. She nicolette any family history of abnormal bleeding or bleeding disorders.
Clinically, she feels better today. No SOB at rest or chest pain. No abdominal pain, fevers or chills. No blood in her stool or urine.
Past-Medical/Surgical History
PMH:
CAD s/p CABG
HTN
HLD
COPD (on 2L NC O2 at baseline)
Chronic pain syndrome with chronic opioid dependence
h/o Right femoral neck fracture s/p R hip hemiarthroplasty 12/2024
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
Spina Bifida s/p multiple surgical corrections
Spinal stenosis with non-functioning spinal stimulator
Myasthenia Gravis
Fibromyalgia
RA
GERD/PUD - GI bleed 01/2024
Melanoma, right ear, status post excision
Glaucoma
Depression
Social History
Tobacco: Non-smoker
Alcohol: Occasional
Family History
Family History: Not pertinent
Allergies: lisinopril
Patient Medication
�Medication �Instructions �Recorded �Confirmed �Last Taken �Type
leflunomide 20 mg tablet 20 mg PO DAILY rheumatoid arthritis 01/18/17 03/24/25 03/24/25 History
rosuvastatin 10 mg tablet 10 mg PO QPM High cholesterol 04/11/19 03/24/25 03/23/25 History
pyridostigmine bromide 60 mg tablet 60 mg PO QID 30 days #120 tabs 07/02/20 03/24/25 03/24/25 Rx
cyanocobalamin (vitamin B-12) 1,000 mcg PO DAILY Supplement 11/11/20 03/24/25 03/24/25 History
1,000 mcg tablet
duloxetine 30 mg capsule,delayed 30 mg PO DAILY Chronic pain 11/11/20 03/24/25 03/24/25 History
release
duloxetine 30 mg capsule,delayed 60 mg PO HS chronic pain 11/11/20 03/24/25 03/23/25 History
release
ferrous sulfate 325 mg (65 mg 325 mg PO DAILY@1200 Supplement 11/11/20 03/24/25 03/23/25 History
iron) tablet (FeroSul)
hydroxychloroquine 200 mg tablet 400 mg PO DAILY@1300 rheumatoid 07/20/22 03/24/25 03/23/25 History
arthritis
sulfasalazine 500 mg tablet 1,000 mg PO BID rheumatoid 07/20/22 03/24/25 03/24/25 History
arthritis
ipratropium 0.5 mg-albuterol 3 mg 3 ml inhalation R QIDPRN PRN sob 01/25/24 03/24/25 03/18/25 History
(2.5 mg base)/3 mL nebulization
soln
pantoprazole 40 mg tablet,delayed 40 mg PO BID Gastrointestinal Issue 05/29/24 03/24/25 03/24/25 History
release (Protonix)
gabapentin 600 mg tablet 600 mg PO TID Muscle Spasms 10/17/24 03/24/25 03/24/25 History
metoprolol succinate 100 mg 100 mg PO DAILY@1300 Blood Pressure 10/17/24 03/24/25 03/23/25 History
tablet,extended release 24 hr
(Toprol XL)
prednisone 5 mg tablet 5 mg PO DAILY Anti-Inflammatory 12/26/24 03/24/25 03/24/25 History
cholecalciferol (vitamin D3) 25 25 mcg PO DAILY Supplement 02/13/25 03/24/25 03/24/25 History
mcg (1,000 unit) tablet (Vitamin
D3)
latanoprost 0.005 % eye drops 1 drp BOTH EYES HS Eye Condition 03/04/25 03/24/25 03/23/25 History
##0
timolol 0.5 % eye drops 1 drp BOTH EYES DAILY Eye Condition 03/04/25 03/24/25 03/24/25 History
amlodipine 5 mg tablet 2.5 mg (1/2 x 5 mg) PO BID Blood 03/15/25 03/24/25 03/24/25 Rx
Pressure #1 tab
aspirin 325 mg tablet 325 mg PO DAILY #30 tabs 03/15/25 03/24/25 03/24/25 Rx
cefdinir 300 mg capsule 300 mg PO BID mcc #0 caps 03/15/25 03/24/25 03/24/25 Rx
morphine 30 mg tablet,extended 30 mg PO Q12H chronic pain #10 tabs 03/15/25 03/24/25 03/24/25 Rx
release
oxycodone 10 mg tablet 10 mg PO Q4HPRN PRN severe 03/15/25 03/24/25 03/24/25 Rx
breakthrough pain #20 tabs
Saccharomyces boulardii 250 mg 250 mg PO BID Supplement 03/24/25 03/24/25 03/24/25 History
capsule
acetaminophen 325 mg tablet 975 mg PO QID mild pain 03/24/25 03/24/25 03/24/25 History
bisacodyl 10 mg rectal suppository 10 mg AL DAILYPRN PRN if no bm 03/24/25 03/24/25 Unknown History
(Dulcolax (bisacodyl)) aftr mom
calcium carbonate 500 mg PO DAILY Supplement 03/24/25 03/24/25 03/24/25 History
docusate sodium 100 mg capsule 100 mg PO BID Constipation 03/24/25 03/24/25 03/24/25 History
magnesium hydroxide 400 mg/5 mL 2,400 mg PO [id number] PRN 03/24/25 03/24/25 Unknown History
oral suspension (Milk of Magnesia) constipation
methocarbamol 750 mg tablet 750 mg PO Q8H Muscle Spasms 1103/24/25 03/24/25 History
ondansetron HCl 4 mg tablet 4 mg PO Q6HPRN PRN nausea and 03/24/25 03/24/25 03/19/25 History
vomiting
polyethylene glycol 3350 17 gram 17 g PO DAILYPRN PRN if no bm aftr 03/24/25 03/24/25 Unknown History
oral powder packet colace
sennosides 8.6 mg tablet (Jes-amy) 17.2 mg PO BID Constipation 03/24/25 03/24/25 03/24/25 History
sodium phosphates 19 gram-7 118 ml AL DAILYPRN PRN if no bm 03/24/25 03/24/25 Unknown History
gram/118 mL enema (Fleet Enema) aftr dulcolax
Active Medications
Generic Name Dose Route Start Last Admin
Trade Name Freq PRN Reason Stop Dose Admin
Acetaminophen 650 mg 03/24/25 18:40
Acetaminophen 325 Mg Tablet PO 04/21/25 18:39
Q4HPRN PRN
mild pain/MOORE/temp> 100.4F
Albuterol/Ipratropium 3 ml 03/24/25 18:40
Ipratropium 0.5/Albuterol 3 Mg (3 Ml Ampul) INH
R QIDPRN PRN
sob
Protocol
Amlodipine Besylate 2.5 mg 03/24/25 20:00 03/29/25 08:35
Amlodipine 2.5 Mg Tablet PO 04/21/25 19:59 2.5 mg
BID RUPA Administration
Aspirin 325 mg 03/29/25 08:00 03/29/25 08:35
Aspirin 325 Mg Tablet PO 04/26/25 07:59 325 mg
DAILY RUPA Administration
Calcium Carbonate 500 mg 03/25/25 08:00 03/29/25 08:39
Calcium Carbonate 500 Mg Tablet PO 04/22/25 07:59 500 mg
DAILY RUPA Administration
Cefdinir 300 mg 03/24/25 20:00 03/29/25 08:37
Cefdinir 300 Mg Capsule PO 300 mg
BID RUPA Administration
Cholecalciferol 25 mcg 03/25/25 08:00 03/29/25 08:37
Cholecalciferol (Vitamin D3) 25 Mcg Tablet (1,000 Units) PO 04/22/25 07:59 25 mcg
DAILY RUPA Administration
Cyanocobalamin 1,000 mcg 03/25/25 08:00 03/29/25 08:37
Cyanocobalamin (Vitamin B-12) 500 Mcg Tablet PO 04/22/25 07:59 1,000 mcg
DAILY RUPA Administration
Duloxetine HCl 60 mg 03/24/25 22:00 03/28/25 21:10
Duloxetine Delayed Release 30 Mg Capsule PO 04/21/25 21:59 60 mg
HS RUPA Administration
Duloxetine HCl 30 mg 03/25/25 08:00 03/29/25 08:36
Duloxetine Delayed Release 30 Mg Capsule PO 04/22/25 07:59 30 mg
DAILY RUPA Administration
Fentanyl Citrate 25 mcg 03/28/25 17:12
Fentanyl (50 Mcg/Ml) 100 Mcg/2 Ml Ampul IV 03/29/25 17:12
[id number] PRN
shivers
Ferrous Sulfate 325 mg 03/25/25 12:00 03/28/25 11:57
Ferrous Sulfate 325 Mg Tablet PO 04/22/25 11:59 325 mg
DAILY@1200 RUPA Administration
Gabapentin 600 mg 03/24/25 22:00 03/29/25 08:35
Gabapentin 300 Mg Capsule PO 04/21/25 21:59 600 mg
TID RUPA Administration
Hydromorphone HCl 0.5 mg 03/24/25 18:40 03/28/25 21:45
Hydromorphone 0.5 Mg/0.5 Ml Syringe IV 04/07/25 18:39 0.5 mg
Q3HPRN PRN Administration
breakthrough pain
Hydromorphone HCl 0.5 mg 03/28/25 17:12
Hydromorphone 0.5 Mg/0.5 Ml Syringe IV 03/29/25 17:12
PACU-Q5MPRN PRN
severe pain
Hydromorphone HCl 0.25 mg 03/28/25 17:12
Hydromorphone 0.25 Mg/0.5 Ml Syringe IV 03/29/25 17:12
PACU-Q5MPRN PRN
moderate pain
Hydroxychloroquine Sulfate 400 mg 03/25/25 13:00 03/28/25 11:57
Hydroxychloroquine 200 Mg Tablet PO 04/22/25 12:59 400 mg
DAILY@1300 RUPA Administration
Parenteral Electrolytes 1,000 mls @ 100 mls/hr 03/28/25 17:15
Normosol-R/Plasmalyte-A IV 03/29/25 17:12
PER PROTOCOL RUPA
Latanoprost 1 drop 03/24/25 22:00 03/28/25 21:10
Latanoprost 0.005% (Ophthalmic Solution) 2.5 Ml Bottle BOTH EYES 04/21/25 21:59 1 drop
HS RUPA Administration
Methocarbamol 750 mg 03/24/25 18:40 03/29/25 08:38
Methocarbamol 750 Mg Tablet PO 04/21/25 18:39 750 mg
Q8H RUPA Administration
Metoprolol Succinate 100 mg 03/25/25 13:00 03/28/25 12:00
Metoprolol 100 Mg Extended Release Tablet PO 04/22/25 12:59 100 mg
DAILY@1300 RUPA Administration
Morphine Sulfate 30 mg 03/24/25 20:00 03/29/25 08:38
Morphine 30 Mg Extended Release Tablet PO 04/07/25 19:59 30 mg
Q12H RUPA Administration
Naloxone HCl 0.04 mg 03/25/25 11:40
Naloxone (0.4 Mg/Ml) 1 Ml Injection IV 04/22/25 11:39
Q2MPRN PRN
Unresponsive OR RR < 6
Leflunomide 20 Mg 0 mg 03/25/25 08:00
Tablet Po Daily PO 04/22/25 07:59
DAILY RUPA
Ondansetron HCl 4 mg 03/27/25 14:41 03/29/25 05:55
Ondansetron 4 Mg/2 Ml Vial IV 04/24/25 14:40 4 mg
Q6HPRN PRN Administration
NAUSEA/VOMITING
Ondansetron HCl 4 mg 03/28/25 17:12
Ondansetron 4 Mg/2 Ml Vial IV 03/29/25 17:12
PACU-ONCEPRN PRN
nausea/vomiting
Oxycodone HCl 15 mg 03/26/25 10:14 03/29/25 10:52
Oxycodone 10 Mg Regular Release Tablet PO 04/07/25 18:39 15 mg
Q4HPRN PRN Administration
severe breakthrough pain
Pantoprazole Sodium 40 mg 03/24/25 20:00 03/29/25 08:39
Pantoprazole 40 Mg Delayed Release Tablet PO 04/21/25 19:59 40 mg
BID RUPA Administration
Polyethylene Glycol 17 grams 03/25/25 18:00 03/29/25 08:34
Polyethylene Glycol Powder 17 Grams Packet PO 04/22/25 17:59 17 grams
DAILY RUPA Administration
Prednisone 5 mg 03/25/25 08:00 03/29/25 08:37
Prednisone 5 Mg Tablet PO 04/22/25 07:59 5 mg
DAILY RUPA Administration
Prochlorperazine Edisylate 5 mg 03/28/25 17:12
Prochlorperazine 10 Mg/2 Ml Vial IV 03/29/25 17:12
PACU-ONCEPRN PRN
nausea/vomiting
Pyridostigmine Wideman 60 mg 03/24/25 18:40 03/29/25 08:36
Pyridostigmine 60 Mg Tablet PO 04/21/25 18:39 60 mg
QID RUPA Administration
Rosuvastatin Calcium 10 mg 03/24/25 18:40 03/28/25 19:45
Rosuvastatin (Crestor) 10 Mg Tablet PO 04/21/25 18:39 10 mg
QPM RUPA Administration
Saccharomyces Boulardii 250 mg 03/24/25 20:00 03/29/25 08:38
Saccharomyces Boulardi (Florastor) 250 Mg Capsule PO 04/21/25 19:59 250 mg
BID RUPA Administration
Sodium Chloride 0 flush 03/24/25 19:00
Sodium Chloride 0.9% (Flush) Syringe IV 04/21/25 18:59
PER PROTOCOL RUPA
Sodium Chloride 0.9 ml 03/25/25 13:00
Sodium Chloride 0.9% (Preservative Free) 10 Ml Vial IV 04/22/25 12:59
Q2MPRN PRN
naloxone dilution
Sulfasalazine 1,000 mg 03/24/25 20:00 03/29/25 08:39
Sulfasalazine 500 Mg Tablet PO 04/03/25 19:59 1,000 mg
BID RUPA Administration
Timolol Maleate 1 drop 03/25/25 08:00 03/29/25 10:53
Timolol 0.5% (Ophthalmic Solution) Bottle BOTH EYES 04/22/25 07:59 1 drop
DAILY RUPA Administration
Tranexamic Acid 1,950 mg 03/29/25 08:00 03/29/25 08:34
Tranexamic Acid 650 Mg Tablet PO 03/31/25 08:01 1,950 mg
DAILY RUPA Administration
Review of Systems
-
ROS: A ROS was performed w/ pertinent findings as per HPI.
Physical Exam
-
General: Well Developed and No Apparent Distress
HEENT: Negative Jaundice
Cardiology: Normal Sinus Rhythm
Pulmonary: Clear
Extremities: Other (hip dressing in place)
Neurology: Non Focal
Labs
Lab Results
WBC 12.7 10^3/uL (4.8-10.8) H 03/29/25 06:14
RBC 2.53 10^6/uL (4.20-5.40) L 03/29/25 06:14
Hgb 8.1 g/dL (12.0-16.0) L 03/29/25 06:14
Hct 26.2 % (37.0-47.0) L 03/29/25 06:14
MCV 103.6 fL (81.0-99.0) H 03/29/25 06:14
MCH 32.0 pg (27.0-31.0) H 03/29/25 06:14
MCHC 30.9 g/dL (33.0-37.0) L 03/29/25 06:14
RDW 15.2 % (11.5-14.5) H 03/29/25 06:14
Plt Count 327 10^3/uL (130-400) 03/29/25 06:14
MPV 9.5 fL (7.4-10.4) 03/29/25 06:14
Abs Immat Gran (auto) 0.1 10^3/uL (0-0.05) H 03/24/25 14:14
Absolute Neuts (auto) 10.7 10^3/uL (1.4-6.5) H 03/24/25 14:14
Absolute Lymphs (auto) 1.6 10^3/uL (1.2-3.4) 03/24/25 14:14
Absolute Monos (auto) 1.6 10^3/uL (0.1-0.6) H 03/24/25 14:14
Absolute Eos (auto) 0.7 10^3/uL (0-0.7) 03/24/25 14:14
Absolute Basos (auto) 0.2 10^3/uL (0-0.2) 03/24/25 14:14
Immature Gran % 0.5 % (0-0.5) 03/24/25 14:14
Neutrophils % 71.9 % (42.2-75.2) 03/24/25 14:14
Lymphocytes % 11.0 % (20.5-51.1) L 03/24/25 14:14
Monocytes % 10.7 % (1.7-9.3) H 03/24/25 14:14
Eosinophils % 4.6 % (0-6) 03/24/25 14:14
Basophils % 1.3 % (0-2) 03/24/25 14:14
Creatinine 0.7 mg/dL (0.6-1.0) 03/29/25 06:14
Vital Signs
Vital Signs
Temp Pulse Resp BP Pulse Ox
98.0 F 69 18 116/57 98
03/29/25 08:02 03/29/25 08:02 03/29/25 08:02 03/29/25 08:02 03/29/25 08:47
[2025-03-29] MEDS: DILAUDID 0.5 MG IV ×2 (13:53→22:30)
[2025-03-29] MEDS: PLAQUENIL 400 MG PO (13:53)
[2025-03-29] MEDS: TOPROL XL 100 MG PO (13:54)
[2025-03-29] MEDS: FEOSOL 325 MG PO (13:54)
[2025-03-29 15:32] VITALS: BP 112/57; BP 122/61; PULSE 70; O2SAT 95
[2025-03-29 15:53] VITALS: BP 122/61
[2025-03-29 15:58] LABS: Fibrinogen 470 MG/DL (199-459)
[2025-03-29 16:04] LABS: Iron 38 ug/dl (37-170)
[2025-03-29 16:08] VITALS: BP 112/57; PULSE 70; O2SAT 95
[2025-03-29 16:14] LABS: Total Iron Binding Capacity 270 ug/dl (265-497)
[2025-03-29] MEDS: CRESTOR 10 MG PO (16:22)
[2025-03-29 16:42] LABS: Ferritin 182.0 ng/ml (11.1-264.0)
[2025-03-29] MEDS: MAXIPIME 2000 MG IV (19:25)
[2025-03-29] MEDS: XALATAN OPHTHALMIC SOLUTION 1 DROP BOTH EYES (22:00)
[2025-03-29] MEDS: CYMBALTA DELAYED RELEASE 60 MG PO (22:00)
[2025-03-29 23:18] VITALS: BP 117/59
[2025-03-30] MEDS: METHOCARBAMOL 750 MG PO ×3 (03:07→16:45)
[2025-03-30] MEDS: DILAUDID 0.5 MG IV (03:24)
[2025-03-30 08:04] LABS: Blood Urea Nitrogen 14 mg/dl (7-17); Calcium 8.2 mg/dl (8.4-10.2); Carbon Dioxide 34 mmol/L (22-30); Chloride 96 mmol/L (98-107); Estimated Creatinine Clearance 56 ml/min; Glucose 99 mg/dl (70-99); Potassium 4.0 mmol/L (3.5-5.1); Sodium 127 mmol/L (135-145); eGFR > 60.00
[2025-03-30 08:52] VITALS: BP 107/40
[2025-03-30 09:25] LABS: Hematocrit 26.5 % (37.0-47.0); Hemoglobin 7.8 g/dL (12.0-16.0); Mean Corp Hgb Conc. 29.4 g/dL (33.0-37.0); Mean Corpuscular Volume 104.3 fL (81.0-99.0); Platelet Count 281 10^3/uL (130-400); Red Cell Dist. Width 15.3 % (11.5-14.5)
[2025-03-30 09:51] VITALS: BP 119/43; BP 128/68; PULSE 76; O2SAT 95
--- NOTE | 2025-03-30 10:46 | W.PN.ORTHO ---
Today's Communication / Plan
-
PT/OT
Weightbearing as tolerated with walker
Total hip precautions
Aspirin for DVT prophylaxis
Infectious disease-Cefdinir and switched to Cefepime--PICC to be placed
Hematology workup ongoing
Appreciate entire medical team input
Orthopedics will continue to follow
Assessment
.
Distal Motor Intact: Yes
Plan
.
Surgery / Date: Right hip I&D w/ vessel caut. Apr 09 ([facility])
DVT Prophylaxis: Aspirin
Activity:
Out of bed.
PT/OT
Discharge Plan: SNF
Subjective
.
.:
Patient resting comfortably.
Vital Signs and Labs
.
Vital Signs and Labs:
Lab Results
03/30/25 09:13
03/30/25 07:41
Temp Pulse Resp BP Pulse Ox
98.6 F 76 15 107/40 98
03/30/25 08:52 03/30/25 08:52 03/30/25 08:52 03/30/25 08:52 03/30/25 08:52
PT 14.3 Sec (11.4-14.6) 03/25/25 11:23
INR 1.08 03/25/25 11:23
Culture shows gram-positive bacilli from right hip
Non-invasive Hgb result: 11.7
Physical Exam
-
Right hip dressing removed with moderate serosanguineous bloody drainage. Incision was cleaned with alcohol and Betadine then new compressive dressing applied. No significant warmth, erythema or pain about the hip. Passive range of motion
nonpainful. No significant edema in the lower extremity and no pain. Distal neurovascular was intact.
[2025-03-30] MEDS: MIRALAX 17 GRAMS PO (10:53)
[2025-03-30] MEDS: DELTASONE 5 MG PO (10:58)
[2025-03-30] MEDS: VITAMIN B-12 1000 MCG PO (10:58)
[2025-03-30] MEDS: ASPIRIN 325 MG PO (10:58)
[2025-03-30] MEDS: MAXALT MLT (ORALLY DISINTEGRATING) 10 MG PO (10:59)
[2025-03-30] MEDS: MS CONTIN (EXTENDED RELEASE) 30 MG PO ×2 (11:00→19:55)
[2025-03-30] MEDS: CYMBALTA DELAYED RELEASE 30 MG PO (11:00)
[2025-03-30] MEDS: VITAMIN D3 (cholecalciferol) 25 MCG PO (11:01)
[2025-03-30] MEDS: AZULFIDINE 1000 MG PO ×2 (11:01→19:54)
[2025-03-30] MEDS: MESTINON 60 MG PO ×4 (11:01→22:48)
[2025-03-30] MEDS: NORVASC 2.5 MG PO ×2 (11:01→19:57)
[2025-03-30] MEDS: OSCAL CAL 500 500 MG PO (11:01)
[2025-03-30] MEDS: PROTONIX 40 MG PO ×2 (11:02→19:55)
[2025-03-30] MEDS: MAXIPIME 2000 MG IV ×2 (11:02→19:55)
[2025-03-30] MEDS: NEURONTIN 600 MG PO ×3 (11:02→22:49)
[2025-03-30] MEDS: FLORASTOR 250 MG PO ×2 (11:02→19:55)
[2025-03-30] MEDS: FEOSOL 325 MG PO (11:02)
[2025-03-30] MEDS: CYKLOKAPRON 1950 MG PO (11:15)
[2025-03-30] MEDS: TIMOPTIC 0.5% OPHTHALMIC SOLUTION 1 DROP BOTH EYES (11:16)
--- NOTE | 2025-03-30 12:19 | W.PN.HOSP.TC ---
Today's Communication/Plan
-
await wound cs report
limit iv Dilaudid as possible
continue cefepime
rizatriptan for headache
Assessment / Plan
Assessment / Plan
# Acute blood loss anemia from surgical site bleeding
- Patient is post right total hip arthroplasty by Dr. Pace on 03/11/2025
- Rt Hip x-ray: Postsurgical change of the right hip. No evidence of dislocation. Moderate left hip osteoarthritis. Stable
- Patient got tranexamic acid dose and 2 u PRBC, 1 unit platelets (concern for dysfunctional platelets from aspirin use). Hb stable >8.0
- Coagulation profile checked with normal PT/INR/PTT and normal.
- Patient underwent surgery surgical incision and debridement of right hip with control of bleeder vessel.
- Ortho cleared for patient to be started on aspirin for DVTPPX, which we will hold for 24-48 hrs and start once clinically appropriate.
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
- surgical site wound culture - gram stain reported gram neg bacilli
- ID evaluation requested
- Patient taken off of Omnicef therapy and started on IV cefepime
- ID recommended likely need of PICC line and antibiotic infusion to help with early prosthetic joint infection
#Hyponatremia
- drifting down further , ADH excess from pain possibly driving
- 40 oz fluid restriction ordered.
- Check urine sodium/osm
#Coronary Artery Disease
- s/p CABG and PCI
- continue holding asa for now.
#Essential Hypertension
- Patient blood pressure soft and holding parameters added to metoprolol
- continue on Norvasc
#Hyperlipidemia
- continue rosuvastatin
#COPD
on 2L NC at baseline
- continue Duo-Nebs
#Depression
- continue duloxetine
#Chronic Pain Syndrome / Chronic Opioid Dependence Syndrome secondary to Spinal Stenosis
- continue gabapentin, morphine and oxycodone
#Rheumatoid Arthritis
- continue hydroxychloroquine, leflunomide, prednisone and sulfasalazine
#GERD/PUD
- continue pantoprazole
#Hx Vertebral Osteomyelitis
on Chronic Suppressive Antibiotics
- continue cefdinir
#headache
- possibly aggravated by narc use
- repeat rizatriptan dose to be provided today
Fibromyalgia - Increasing prednisone dose to 10mg/d
Myasthenia Gravis
Spina Bifida
Code status: DNR
DVT prophylaxis: SCDs
Anticipated Discharge: 24 - 48 hours
Subjective/Interval History
-
Date of Service: March 30, 2025
Complaining of frontal headache
no abdominal pain/nausea/vomiting
Continues to have right hip pain which is aggravated with activity
Objective Data
-
Labs:
Laboratory Results
03/30/25 03/30/25
07:41 09:13
WBC Cancelled 16.9 H
Hgb Cancelled 7.8 L
Hct Cancelled 26.5 L
Plt Count Cancelled 281
Sodium 127 L
Potassium 4.0
Chloride 96 L
Carbon Dioxide 34 H
BUN 14
Creatinine 0.6
Glucose 99
Calcium 8.2 L
Vital Signs:
Vital Signs
Temp Pulse Resp BP Pulse Ox
98.6 F 76 15 107/40 98
03/30/25 08:52 03/30/25 08:52 03/30/25 08:52 03/30/25 08:52 03/30/25 08:52
I&O
03/29/25 03/30/25 03/31/25
06:59 06:59 06:59
Intake Total 390 / 390 350 / 350
Output Total 1000 / 1000 750 / 750
Balance -610 / -610 -400 / -400
Review of Systems
-
Respiratory: Reports No Symptoms
Cardiac: Reports No Symptoms
Abdomen/GI: Reports No Symptoms
Physical Exam
-
General: Appears in Distress and Pain
HEENT: Negative Oxygen
Respiratory: Negative Wheezes
Cardiac: Regular Rhythm and S1/S2
GI: Soft, Nontender and Nondistended
Musculoskeletal: Other (Right hip dressing in place)
Neuro: AO x 3
Psych: Calm
[2025-03-30] MEDS: ROXICODONE 15 MG PO ×2 (13:37→23:15)
[2025-03-30] MEDS: TOPROL XL 100 MG PO (13:38)
[2025-03-30] MEDS: PLAQUENIL 400 MG PO (13:43)
--- NOTE | 2025-03-30 14:54 | W.PN.ID1 ---
Date of Service
Date of Service: March 30, 2025
Today's Communication
continue cefepime, add vancomycin
awaiting ID of the bacteria
Assessment / Plan
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
H/o lumbar spinal osteomyelitis [employer] on suppressive cefdinir
RA on low dose steroids
Myasthenia gravis
Anemia
- OR culture with GNR on the gram stain - culture in progress
- second OR culture with GNR and GPCs
- see note from the lab, the 03/28 'blood culture' was labeled as right hip wound culture; send a second set of blood cultures today
- c/w cefepime pending the cultures
- add vancomycin for present
- place PICC line when approaching discharge
Chief Complaint
-: Leukocytosis and Other (early PJI)
Subjective / Review of Systems
afebrile
bp stable
headache getting rizatriptan
Vital Signs / Physical Exam
Vital Signs
Vital Signs
Temp Pulse Resp BP Pulse Ox
98.6 F 76 15 117/65 98
03/30/25 08:52 03/30/25 08:52 03/30/25 08:52 03/30/25 13:38 03/30/25 08:52
Physical Exam
Constitutional: No Acute Distress
Cardiovascular: Regular Rate and S1/S2; Negative Murmur or Rub
Pulmonary: Clear and Symmetric; Negative Wheezes or Rales
Gastrointestinal: Soft, Non Tender, Non Distended and Normal Bowel Sounds
Skin: Warm and Dry; Negative Rash or Jaundice
Wound: Other (no drainage on the dressing, surgical site well approximated, no surrounding erythema)
Objective Data
Lab Data
Lab Results
03/30/25 09:13
03/30/25 07:41
ESR 15 mm/hour (0-20) 03/24/25 14:14
PT 14.3 Sec (11.4-14.6) 03/25/25 11:23
INR 1.08 03/25/25 11:23
APTT 29.1 Sec (23.4-35.0) 03/25/25 11:23
Estimated Creat Clear 56 ml/min 03/30/25 07:41
Total Bilirubin 0.3 mg/dl (0.2-1.3) 03/24/25 14:14
AST 20 U/L (14-36) 03/24/25 14:14
ALT 11 U/L (0-35) 03/24/25 14:14
Alkaline Phosphatase 51 U/L (38-126) 03/24/25 14:14
C-Reactive Protein 19.40 mg/L (0.0-10.00) H 03/24/25 14:14
Most recent labs reviewed.
Micro Results:
03/28/25 16:18 Body Fluid Culture - Preliminary
Fluid Gram negative bacilli
Gram Stain - Preliminary
03/28/25 16:18 Anaerobic Culture - Preliminary
Hip - Right Culture pending. Anaerobic cultures are examined after 3
days incubation. Additional information to follow.
03/28/25 16:18 Wound Culture - Preliminary
Hip - Right Gram negative bacilli
Gram Stain - Preliminary
03/29/25 15:39 Blood Culture - Pending
Blood/Venous
03/25/25 03:03 MRSA Screen - Final
Nose No Methicillin Resistant Staphylococcus aureus isolated.
[2025-03-30 15:10] VITALS: BP 120/57
[2025-03-30] MEDS: VANCOCIN 530 MG IV (16:45)
[2025-03-30] MEDS: CRESTOR 10 MG PO (16:45)
[2025-03-30] MEDS: XALATAN OPHTHALMIC SOLUTION 1 DROP BOTH EYES (22:45)
[2025-03-30] MEDS: CYMBALTA DELAYED RELEASE 60 MG PO (22:48)
[2025-03-30 23:18] VITALS: BP 124/54
--- NOTE | 2025-03-30 23:34 | PHA.VAN.IN ---
Assessment
- Assessment
Renal Function: Appears similar to baseline
Concomitant Antimicrobials: Cefepime
AUC Dosing Plan
- Dosing Variables
Dosing Weight (kg): 63
Dosing CrCl (ml/min): 56
Vd coefficient (L/kg): 0.7
- Empiric Dosing
Initial / Loading Dose: Vancomycin 1500mg administered 03/30 at 1645
Maintenance Regimen: Vancomycin 1000mg IV Q24h to start 03/31 at 1000
Estimated AUC (mcg*h/mL): 457
Estimated Peak (mcg*h/mL): 32.2
Estimated Trough (mcg/ml): 10
Estimated Half Life (H): 13.6
- Monitoring
No levels ordered at this time: Consider levels prior to steady state.
Pharmacokinetics Vancomycin I
- -
Patient Age: 85
Patient Sex: Female
Vancomycin Day #: 1
Indication: Bone And Joint
Requesting Provider: Dr. Guardado
Pertinent Antimicrobial Allergies:
No pertinent antibiotic allergies
Height / Weight:
Height 5 ft 2 in
Actual Weight 63.185 kg
- Vital Signs / Lab Results
Temp Pulse Resp BP Pulse Ox
98.8 F 65 20 111/56 97
03/30/25 15:10 03/30/25 19:57 03/30/25 15:10 03/30/25 19:57 03/30/25 19:45
Lab Results - Hematology
03/28/25 03/29/25 03/30/25
06:22 06:14 07:41
WBC 11.3 H 12.7 H Cancelled
03/30/25
09:13
WBC 16.9 H
Lab Results - Chemistry
03/28/25 03/29/25 03/30/25
06:22 06:14 07:41
BUN 10 11 14
Creatinine 0.6 0.7 0.6
Estimated Creat Clear 56 48 56
Microbiology Results
03/29/25 15:39 Blood Culture - Preliminary
Blood/Venous No Growth in 24 hours- Final report to follow
03/28/25 16:18 Body Fluid Culture - Preliminary
Fluid Gram negative bacilli
Gram Stain - Preliminary
03/28/25 16:18 Anaerobic Culture - Preliminary
Hip - Right Culture pending. Anaerobic cultures are examined after 3
days incubation. Additional information to follow.
03/28/25 16:18 Wound Culture - Preliminary
Hip - Right Gram negative bacilli
Gram Stain - Preliminary
[2025-03-31] MEDS: METHOCARBAMOL 750 MG PO ×3 (01:44→17:09)
--- NOTE | 2025-03-31 07:41 | PHA.VAN.FU ---
Vancomycin Assessment / Plan
- Assessment
Renal Function: Stable
WBC's are: Trending Up
In the past 24 hrs, patient has been: Afebrile
Concomitant Antimicrobials: cefepime
- Dosing Plan
Continue: Vanc 1000mg Q24H
- Monitoring Plan
No level(s) ordered at this time: consider levels in next few days
- Follow Up
Pharmacy will continue to follow.
Vancomycin Follow UP
- -
Patient Age: 85
Patient Sex: Female
Vancomycin Day #: 2
Indication: Bone And Joint
Requesting Provider: Dr. Guardado
Pertinent Antimicrobial Allergies:
No pertinent antibiotic allergies
Height / Weight:
Height 5 ft 2 in
Actual Weight 63.185 kg
- Vital Signs / Lab Results
Temp Pulse Resp BP Pulse Ox
97.7 F 66 16 124/54 97
03/30/25 23:18 03/30/25 23:18 03/30/25 23:18 03/30/25 23:18 03/30/25 23:18
Lab Results - Hematology
03/29/25 03/30/25 03/30/25
06:14 07:41 09:13
WBC 12.7 H Cancelled 16.9 H
Lab Results - Chemistry
03/29/25 03/30/25
06:14 07:41
BUN 11 14
Creatinine 0.7 0.6
Estimated Creat Clear 48 56
Microbiology Results
03/29/25 15:39 Blood Culture - Preliminary
Blood/Venous No Growth in 24 hours- Final report to follow
03/28/25 16:18 Body Fluid Culture - Preliminary
Fluid Gram negative bacilli
Gram Stain - Preliminary
03/28/25 16:18 Anaerobic Culture - Preliminary
Hip - Right Culture pending. Anaerobic cultures are examined after 3
days incubation. Additional information to follow.
03/28/25 16:18 Wound Culture - Preliminary
Hip - Right Gram negative bacilli
Gram Stain - Preliminary
[2025-03-31 08:16] VITALS: BP 117/55
[2025-03-31] MEDS: MIRALAX 17 GRAMS PO (09:01)
[2025-03-31] MEDS: STERILE WATER FOR INJECTION 10 ML IV ×2 (09:01→19:40)
[2025-03-31] MEDS: MAXIPIME 2000 MG IV ×2 (09:01→19:40)
[2025-03-31] MEDS: OSCAL CAL 500 500 MG PO (09:03)
[2025-03-31] MEDS: DELTASONE 10 MG PO (09:04)
[2025-03-31] MEDS: NEURONTIN 600 MG PO ×3 (09:05→22:25)
[2025-03-31] MEDS: MESTINON 60 MG PO ×4 (09:05→22:25)
[2025-03-31] MEDS: AZULFIDINE 1000 MG PO ×2 (09:05→19:40)
[2025-03-31] MEDS: MS CONTIN (EXTENDED RELEASE) 30 MG PO ×2 (09:06→19:40)
[2025-03-31] MEDS: VITAMIN B-12 1000 MCG PO (09:06)
[2025-03-31] MEDS: NORVASC 2.5 MG PO ×2 (09:06→19:40)
[2025-03-31] MEDS: VITAMIN D3 (cholecalciferol) 25 MCG PO (09:07)
[2025-03-31] MEDS: FLORASTOR 250 MG PO ×2 (09:07→19:40)
[2025-03-31] MEDS: CYKLOKAPRON 1950 MG PO (09:07)
[2025-03-31] MEDS: CYMBALTA DELAYED RELEASE 30 MG PO (09:08)
[2025-03-31] MEDS: ASPIRIN 325 MG PO (09:09)
[2025-03-31] MEDS: PROTONIX 40 MG PO ×2 (09:30→19:40)
[2025-03-31] MEDS: TIMOPTIC 0.5% OPHTHALMIC SOLUTION 1 DROP BOTH EYES (09:30)
[2025-03-31] MEDS: VANCOCIN 200 IV (11:05)
[2025-03-31] MEDS: ROXICODONE 15 MG PO ×3 (11:06→22:38)
[2025-03-31] MEDS: FEOSOL 325 MG PO (11:06)
--- NOTE | 2025-03-31 11:42 | W.PN.HOSP.TC ---
Today's Communication/Plan
-
see note
Assessment / Plan
Assessment / Plan
# Acute blood loss anemia from surgical site bleeding
- Patient is post right total hip arthroplasty by Dr. Pace on 03/11/2025
- Rt Hip x-ray: Postsurgical change of the right hip. No evidence of dislocation. Moderate left hip osteoarthritis. Stable
- Patient got tranexamic acid dose and 2 u PRBC, 1 unit platelets (concern for dysfunctional platelets from aspirin use). Hb stable >8.0
- Coagulation profile checked with normal PT/INR/PTT and normal.
- Hematology consulted by orthopedic surgeon. Checking for von Willebrand factor level as well
- Patient underwent surgery surgical incision and debridement of right hip with control of bleeder vessel.
- Ortho cleared for patient to be started on aspirin for DVTPPX, which we will hold for 24-48 hrs and start once clinically appropriate.
# Prosthetic Joint infection
- surgical site wound culture -growing Klebsiella pneumoniae/Streptococcus species
- ID following and help appreciated
- Patient taken off of Omnicef therapy and started on IV cefepime
- Antibiotic regimen has been expanded to vancomycin and cefepime
#Hyponatremia
- ADH excess from pain possibly driving
- 40 oz fluid restriction ordered.
- Urine na 11 and osm 176
- repeat bmp pending
#Coronary Artery Disease
- s/p CABG and PCI
- continue holding asa for now.
#Essential Hypertension
- Patient blood pressure soft and holding parameters added to metoprolol
- continue on Norvasc
#Hyperlipidemia
- continue rosuvastatin
#COPD
- on 2L NC at baseline
- continue Duo-Nebs
#Depression
- continue duloxetine
#Chronic Pain Syndrome / Chronic Opioid Dependence Syndrome secondary to Spinal Stenosis
- continue gabapentin, morphine and oxycodone
#Rheumatoid Arthritis
- continue hydroxychloroquine, leflunomide, prednisone and sulfasalazine
#GERD/PUD
- continue pantoprazole
#Hx Vertebral Osteomyelitis
- on Chronic Suppressive Antibiotics Omnicef before admission
#headache
- possibly aggravated by narc use
Fibromyalgia - Increased prednisone dose to 10mg/d
Myasthenia Gravis
Spina Bifida
Code status: DNR
DVT prophylaxis: SCDs
Anticipated Discharge: Within 24 hours
Subjective/Interval History
-
Date of Service: March 31, 2025
Pain is better controlled
No bleeding at the surgical site
Patient remains fever free
Objective Data
-
Vital Signs:
Vital Signs
Temp Pulse Resp BP Pulse Ox
98.3 F 82 16 117/55 98
03/31/25 08:16 03/31/25 08:16 03/31/25 08:16 03/31/25 08:16 03/31/25 08:16
I&O
03/30/25 03/31/25 04/01/25
06:59 06:59 06:59
Intake Total 350 / 350 1200 / 1200
Output Total 750 / 750 1203 / 1203
Balance -400 / -400 -3 / -3
Review of Systems
-
Respiratory: Reports No Symptoms
Cardiac: Reports No Symptoms
Abdomen/GI: Reports No Symptoms
Physical Exam
-
General: Appears in Distress and Pain
HEENT: Negative Oxygen
Respiratory: Negative Wheezes
Cardiac: Regular Rhythm and S1/S2
GI: Soft, Nontender and Nondistended
Musculoskeletal: Other (Right hip dressing in place)
Neuro: AO x 3
Psych: Calm
[2025-03-31 12:09] LABS: Hematocrit 25.4 % (37.0-47.0); Hemoglobin 7.5 g/dL (12.0-16.0); Mean Corp Hgb Conc. 29.5 g/dL (33.0-37.0); Mean Corpuscular Volume 105.4 fL (81.0-99.0); Platelet Count 278 10^3/uL (130-400); Red Cell Dist. Width 14.9 % (11.5-14.5)
[2025-03-31] MEDS: TOPROL XL 100 MG PO (12:19)
[2025-03-31] MEDS: PLAQUENIL 400 MG PO (12:19)
--- NOTE | 2025-03-31 12:19 | W.PN.ORTHO ---
Today's Communication / Plan
-
PT/OT
Weightbearing as tolerated with walker
Aspirin for DVT prophylaxis
Infectious disease-Cefdinir and switched to Cefepime/vancomycin--PICC to be placed
Hematology workup ongoing
Appreciate entire medical team input
Orthopedics will continue to follow
Assessment
.
Distal Motor Intact: Yes
Dressing:
Clean, dry and intact.
Plan
.
Surgery / Date: Right hip I&D w/ vessel caut. Apr 09 (Katelynn)
DVT Prophylaxis: Aspirin
Activity:
Out of bed.
PT/OT
Discharge Plan: SNF
Subjective
.
.:
Patient resting comfortably out of bed to chair.
Vital Signs and Labs
.
Vital Signs and Labs:
Lab Results
03/31/25 11:48
Temp Pulse Resp BP Pulse Ox
98.3 F 82 16 117/55 98
03/31/25 08:16 03/31/25 08:16 03/31/25 08:16 03/31/25 08:16 03/31/25 08:16
PT 14.3 Sec (11.4-14.6) 03/25/25 11:23
INR 1.08 03/25/25 11:23
Klebsiella pneumonia/Streptococcus species
Non-invasive Hgb result: 11.7
Physical Exam
-
Per her nurse Afsaneh dressing was changed today. Dressing had small to moderate amount of serosanguineous drainage which is less than yesterday. Scant serous drainage from superior aspect of the incision. Minimal edema and ecchymosis. No warmth,
erythema or pain. Passive range of motion nonpainful. Calf is soft and nontender. Distal neurovascular was intact.
[2025-03-31 12:31] LABS: Blood Urea Nitrogen 13 mg/dl (7-17); Calcium 8.1 mg/dl (8.4-10.2); Chloride 97 mmol/L (98-107); Estimated Creatinine Clearance 56 ml/min; Glucose 118 mg/dl (70-99); Potassium 4.1 mmol/L (3.5-5.1); Sodium 131 mmol/L (135-145); eGFR > 60.00
[2025-03-31 12:40] LABS: Carbon Dioxide 35 mmol/L (22-30)
[2025-03-31] MEDS: MAXALT MLT (ORALLY DISINTEGRATING) 10 MG PO (12:41)
--- NOTE | 2025-03-31 14:13 | VATNOTE ---
Attempted PICC placement in right arm. Able to access multiple vessels, but unable to advance wire or introducer. Procedure terminated and restarted on left side. Successful placement of left sided PICC; awaiting x-ray.
--- NOTE | 2025-03-31 14:32 | W.PN.ID1 ---
Date of Service
Date of Service: March 31, 2025
Today's Communication
PICC line
continue cefepime, stop vanc
Assessment / Plan
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
RA on low dose steroids
Myasthenia gravis
Anemia
- OR culture with GNR on the gram stain - culture in progress
- second OR culture with Klebsiella and strep
- blood cultures x2 in progress
- c/w cefepime pending the sensitivities
- stop vancomycin
- place PICC line
Chief Complaint
-: Leukocytosis and Other (early PJI)
Subjective / Review of Systems
afebrile
bp stable
tolerating current therapies
Vital Signs / Physical Exam
Vital Signs
Vital Signs
Temp Pulse Resp BP Pulse Ox
98.3 F 82 16 117/55 98
03/31/25 08:16 03/31/25 08:16 03/31/25 08:16 03/31/25 08:16 03/31/25 08:16
Physical Exam
Constitutional: No Acute Distress
Cardiovascular: Regular Rate and S1/S2; Negative Murmur or Rub
Pulmonary: Clear and Symmetric; Negative Wheezes or Rales
Gastrointestinal: Soft, Non Tender, Non Distended and Normal Bowel Sounds
Skin: Warm and Dry; Negative Rash or Jaundice
Wound: Other (deferred dressing take down today)
Objective Data
Lab Data
Lab Results
03/31/25 11:48
03/31/25 11:48
ESR 15 mm/hour (0-20) 03/24/25 14:14
PT 14.3 Sec (11.4-14.6) 03/25/25 11:23
INR 1.08 03/25/25 11:23
APTT 29.1 Sec (23.4-35.0) 03/25/25 11:23
Estimated Creat Clear 56 ml/min 03/31/25 11:48
Total Bilirubin 0.3 mg/dl (0.2-1.3) 03/24/25 14:14
AST 20 U/L (14-36) 03/24/25 14:14
ALT 11 U/L (0-35) 03/24/25 14:14
Alkaline Phosphatase 51 U/L (38-126) 03/24/25 14:14
C-Reactive Protein 19.40 mg/L (0.0-10.00) H 03/24/25 14:14
Most recent labs reviewed.
Micro Results:
03/28/25 16:18 Anaerobic Culture - Preliminary
Hip - Right Culture pending. Anaerobic cultures are examined after 3
days incubation. Additional information to follow.
03/28/25 16:18 Body Fluid Culture - Preliminary
Fluid Klebsiella pneumoniae
Streptococcus species
Gram Stain - Preliminary
03/30/25 18:20 Blood Culture - Pending
Blood/Venous
03/30/25 17:06 Blood Culture - Pending
Blood/Venous
03/29/25 15:39 Blood Culture - Preliminary
Blood/Venous No Growth in 24 hours- Final report to follow
03/28/25 16:18 Wound Culture - Preliminary
Hip - Right Gram negative bacilli
Gram Stain - Preliminary
03/25/25 03:03 MRSA Screen - Final
Nose No Methicillin Resistant Staphylococcus aureus isolated.
[2025-03-31 15:12] VITALS: BP 132/62
[2025-03-31] MEDS: CRESTOR 10 MG PO (17:09)
--- NOTE | 2025-03-31 18:52 | PTCARENOTE ---
concern about large bruise by PICC dressing but this bruise was there prior to placement. Also some bleeding on dressing but verified with VAT that this is acceptable.
[2025-03-31] MEDS: CYMBALTA DELAYED RELEASE 60 MG PO (22:25)
[2025-03-31] MEDS: XALATAN OPHTHALMIC SOLUTION 1 DROP BOTH EYES (22:25)
[2025-03-31 23:24] VITALS: BP 113/54
[2025-04-01] VITALS (7 sets, daily range): BP systolic 128–159; BP diastolic 57–76
[2025-04-01] MEDS: METHOCARBAMOL 750 MG PO ×3 (02:05→17:10)
[2025-04-01 06:26] LABS: Hematocrit 22.9 % (37.0-47.0); Hemoglobin 6.7 g/dL (12.0-16.0); Mean Corp Hgb Conc. 29.3 g/dL (33.0-37.0); Mean Corpuscular Volume 106.0 fL (81.0-99.0); Platelet Count 258 10^3/uL (130-400); Red Cell Dist. Width 14.8 % (11.5-14.5)
[2025-04-01 06:30] LABS: Blood Urea Nitrogen 15 mg/dl (7-17); Calcium 8.4 mg/dl (8.4-10.2); Chloride 99 mmol/L (98-107); Estimated Creatinine Clearance 56 ml/min; Glucose 86 mg/dl (70-99); Potassium 4.4 mmol/L (3.5-5.1); Sodium 130 mmol/L (135-145); eGFR > 60.00
[2025-04-01 06:58] LABS: Carbon Dioxide 36 mmol/L (22-30)
--- NOTE | 2025-04-01 07:03 | W.PN.UPDATE ---
Addendum entered and electronically signed by Mathieu Pace MD 04/01/25 17:21:
Patient has been persistently anemic. Case discussed by Sidney text with Dr. Ebonie Jarvis. Full-strength aspirin to be discontinued. Patient to be prophylaxed with mechanical modalities only. I personally saw the patient.
Venodyne's in place.
Original Note:
Update Note
Progress Note Update
Patient is s/p Right ELOY I&D Apr 09 (Katelynn). Primary Right ELOY end of February 2025. Resting this AM. Endoreses moderate pain to the right hip. Feeling fatigued, tired, has H/A. Afeb. Hgb 6.7. (will speak to primary/Heme regarding transfusion-
plan for 1 unit this AM, maybe one later today). Blood Cx negative @ 24 hours. Intra-op Cxs (Apr 09) Klebsiella/strep +. Continue ABX (Cefepime and Vanco), per ID. Appreciate Dr. Guardado. Also appreciative of Dr. Pearson with Hematology,
work-up ongoing. PICC line placed. Dressing changes daily (changed this AM on rounds- scant serous drainage in ABDs). Wound healing a bit by 2nd intention. Continue ASA 325mg daily for DVT ppx. Patient may continue WBAT RLE on walker/device. PT/OT.
THPs x 12 weeks. Orthopaedics to follow while admitted. Plan for everton to remain closer to 3 weeks- follow-up outpatient, in office, will be scheduled outpatient upon D/c. Again, will follow.
[2025-04-01] MEDS: PROTONIX 40 MG PO ×2 (08:32→20:10)
[2025-04-01] MEDS: CYMBALTA DELAYED RELEASE 30 MG PO (08:32)
[2025-04-01] MEDS: NEURONTIN 600 MG PO ×3 (08:32→21:31)
[2025-04-01] MEDS: MS CONTIN (EXTENDED RELEASE) 30 MG PO ×2 (08:32→20:11)
[2025-04-01] MEDS: VITAMIN B-12 1000 MCG PO (08:33)
[2025-04-01] MEDS: MESTINON 60 MG PO ×4 (08:33→21:31)
[2025-04-01] MEDS: NORVASC 2.5 MG PO ×2 (08:33→20:17)
[2025-04-01] MEDS: AZULFIDINE 1000 MG PO ×2 (08:33→20:11)
[2025-04-01] MEDS: VITAMIN D3 (cholecalciferol) 25 MCG PO (08:33)
[2025-04-01] MEDS: MAXIPIME 2000 MG IV (08:34)
[2025-04-01] MEDS: FLORASTOR 250 MG PO ×2 (08:34→20:11)
[2025-04-01] MEDS: ASPIRIN 325 MG PO (08:34)
[2025-04-01] MEDS: DELTASONE 10 MG PO (08:34)
[2025-04-01] MEDS: OSCAL CAL 500 500 MG PO (08:34)
[2025-04-01] MEDS: TIMOPTIC 0.5% OPHTHALMIC SOLUTION 1 DROP BOTH EYES (08:35)
[2025-04-01] MEDS: MIRALAX PO (08:35)
[2025-04-01] MEDS: STERILE WATER FOR INJECTION 10 ML IV (08:35)
[2025-04-01] MEDS: TYLENOL 650 MG PO (08:37)
--- NOTE | 2025-04-01 09:34 | W.PN.HOSP.TC ---
Today's Communication/Plan
-
1 unit PRBC
repeat CBC at 5pm, may need additional blood
Cefepime per ID; via PICC
follow hematology recs
DC planning to SNF
Assessment / Plan
Assessment / Plan
Assessment:
Acute blood loss anemia from surgical site bleeding
- Patient is post right total hip arthroplasty by Dr. Pace on 03/11/2025
- Rt Hip x-ray: Postsurgical change of the right hip. No evidence of dislocation. Moderate left hip osteoarthritis. Stable
- Patient got tranexamic acid dose and 2 u PRBC, 1 unit platelets (concern for dysfunctional platelets from aspirin use). Hb today 6.7, 1 additional unit ordered.
- Coagulation profile checked with normal PT/INR/PTT and normal.
- Hematology consulted by orthopedic surgeon. von Willebrand factor level pending
- Patient underwent surgery surgical incision and debridement of right hip with control of bleeder vessel on 03/28
- continue ASA for DVT ppx
- Ortho following
Prosthetic Joint infection
- surgical site wound culture - growing Klebsiella pneumoniae/Streptococcus species
- ID following and help appreciated
- Patient taken off of Omnicef therapy
- PICC placed; IV Cefepime per ID. Cultures Klebsiella ESBL And Strep species
Hyponatremia
- ADH excess from pain possibly driving
- 40 oz fluid restriction ordered
- Na 130
Coronary Artery Disease
s/p CABG and PCI
- continue ASA
Essential Hypertension
- Patient blood pressure soft and holding parameters added to metoprolol
- continue on Norvasc
Hyperlipidemia
- continue rosuvastatin
COPD
- on 2L NC at baseline
- continue Duo-Nebs
Depression
- continue duloxetine
Chronic Pain Syndrome / Chronic Opioid Dependence Syndrome secondary to Spinal Stenosis
- continue gabapentin, MS continue and oxycodone
Rheumatoid Arthritis
- continue hydroxychloroquine, leflunomide, prednisone and sulfasalazine
GERD/PUD
- continue pantoprazole
Hx Vertebral Osteomyelitis
- on Chronic Suppressive Antibiotics Omnicef before admission
headache
- possibly aggravated by narc use
- prn Tylenol, intermittent Imitrex
Fibromyalgia
- Increased prednisone dose to 10mg/d
Myasthenia Gravis
Spina Bifida
DVT ppx: SCDs
Code status: DNR/DNI
Anticipated Discharge: > 48 hours
Subjective/Interval History
-
Date of Service: April 01, 2025
reports R hip pain, no other complaints
had BM this AM
no evidence of bleeding, Hb 6.7 this AM, 1 unit ordered
Objective Data
-
Labs:
Laboratory Results
04/01/25
05:57
WBC 13.7 H
Hgb 6.7 L*
Hct 22.9 L
Plt Count 258
Sodium 130 L
Potassium 4.4
Chloride 99
Carbon Dioxide 36 H
BUN 15
Creatinine 0.5 L
Glucose 86
Calcium 8.4
Vital Signs:
Vital Signs
Temp Pulse Resp BP Pulse Ox
98.2 F 74 16 133/72 98
04/01/25 07:00 04/01/25 08:33 04/01/25 07:00 04/01/25 08:33 04/01/25 07:00
I&O
03/31/25 04/01/25 04/02/25
06:59 06:59 06:59
Intake Total 1475 / 1475 1245 / 1245
Output Total 1203 / 1203 525 / 525
Balance 272 / 272 720 / 720
Physical Exam
-
General: No Apparent Distress
HEENT: Normocephalic and Atraumatic
Respiratory: Negative Wheezes
Cardiac: Regular Rhythm and S1/S2
GI: Soft
Neuro: AO x 3
Psych: Calm
Data Reviewed
-
Total Time Spent with Patient (in minutes): 44
Labs: Labs Reviewed by me
[2025-04-01] MEDS: ZOFRAN 4 MG IV ×2 (10:49→20:20)
--- NOTE | 2025-04-01 11:29 | W.PN.ID1 ---
Date of Service
Date of Service: April 01, 2025
Today's Communication
- start ertapenem 1 gm IV q24 hours, to continue 6 weeks through 05/12, then to start doxycycline 100 mg PO BID as suppression
- script to outsole caser
Assessment / Plan
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
RA on low dose steroids
Myasthenia gravis
Anemia
- OR culture with ESBL K pneumoniae
- second OR culture with ESBL Klebsiella and strep
- blood cultures x2 in progress
- start ertapenem 1 gm IV q24 hours, to continue 6 weeks through 05/12, then to start doxycycline 100 mg PO BID as suppression
- script to outsole caser
- has PICC line
- follow up in 6-8 weeks
Chief Complaint
-: Leukocytosis and Other (early PJI)
Subjective / Review of Systems
afebrile
bp stable
scant serous drainage on the dressing
Vital Signs / Physical Exam
Vital Signs
Vital Signs
Temp Pulse Resp BP Pulse Ox
98.1 F 63 16 129/59 99
04/01/25 11:16 04/01/25 11:16 04/01/25 11:16 04/01/25 11:16 04/01/25 11:16
Physical Exam
Constitutional: No Acute Distress
Cardiovascular: Regular Rate and S1/S2; Negative Murmur or Rub
Pulmonary: Clear and Symmetric; Negative Wheezes or Rales
Gastrointestinal: Soft, Non Tender and Non Distended
Skin: Warm and Dry; Negative Rash or Jaundice
Wound: Other (deferred dressing take down today)
Objective Data
Lab Data
Lab Results
04/01/25 05:57
ESR 15 mm/hour (0-20) 03/24/25 14:14
PT 14.3 Sec (11.4-14.6) 03/25/25 11:23
INR 1.08 03/25/25 11:23
APTT 29.1 Sec (23.4-35.0) 03/25/25 11:23
Estimated Creat Clear 56 ml/min 04/01/25 05:57
Total Bilirubin 0.3 mg/dl (0.2-1.3) 03/24/25 14:14
AST 20 U/L (14-36) 03/24/25 14:14
ALT 11 U/L (0-35) 03/24/25 14:14
Alkaline Phosphatase 51 U/L (38-126) 03/24/25 14:14
C-Reactive Protein 19.40 mg/L (0.0-10.00) H 03/24/25 14:14
Most recent labs reviewed.
Micro Results:
03/28/25 16:18 Wound Culture - Preliminary
Hip - Right Klebsiella pneumoniae-ESBL
Gram Stain - Preliminary
03/28/25 16:18 Body Fluid Culture - Final
Fluid Klebsiella pneumoniae-ESBL
Streptococcus species
Gram Stain - Final
03/30/25 18:20 Blood Culture - Preliminary
Blood/Venous No Growth in 24 hours- Final report to follow
03/30/25 17:06 Blood Culture - Preliminary
Blood/Venous No Growth in 24 hours- Final report to follow
03/29/25 15:39 Blood Culture - Preliminary
Blood/Venous No Growth in 48 hours- Final report to follow
03/28/25 16:18 Anaerobic Culture - Preliminary
Hip - Right Culture pending. Anaerobic cultures are examined after 3
days incubation. Additional information to follow.
03/25/25 03:03 MRSA Screen - Final
Nose No Methicillin Resistant Staphylococcus aureus isolated.
Fluid Cult/not urine Final 04/01/25-09
Klebsiella pneumoniae-ESBL*
Few Streptococcus species
*Resistance due to extended spectrum beta lactamase.
Deacreased activity may occur with penicillins,
penicillin/inhibitor combinations, cephalosporins, and
monobactams.
*Multi drug resistant organism isolated.
Suggest Infectious Disease consult.
Called to [phone] on 04/01/25 at 0904 by [facility]
Organism 1 Klebsiella pneumoniae-ESBL
1. Klebsiella pneumoniae-ESBL
M.I.C. RX
--------- ---
Amoxicillin/Potas. Clavulanate 16/8 I
Ampicillin >16 R
Ampicillin/Sulbactam >16/8 R
Aztreonam >16 R
Cefazolin >16 R
Cefepime >16 R
Ceftazidime >16 R
Ceftriaxone >2 R
Ertapenem <=0.5 S
Ciprofloxacin >2 R
Gentamicin >8 R
Meropenem <=1 S
Piperacillin/Tazobactam 16 S
Tetracycline <=4 S
Tobramycin >8 R
Trimethoprim/Sulfamethoxazole >2/38 R
[2025-04-01] MEDS: FEOSOL 325 MG PO (12:26)
[2025-04-01] MEDS: PLAQUENIL 400 MG PO (12:26)
[2025-04-01] MEDS: TOPROL XL 100 MG PO (12:28)
--- NOTE | 2025-04-01 12:41 | CM ---
Addendum entered by Jessee Hickey 04/01/25 12:59:
Picc placement data and CXR post placement forwarded to Carmencita at [facility].
Original Note:
S/P R total hip arthroplasty on 03/11/25. POD #4 for I/D R hip. 1 U PRBC today, Repeat CBC at 5:00 pm. IV/Ertapenem. Discharge POC: SNF with IV/Ertapenem. Infectious Disease provided script. Script placed in chart and forwarded to Carmencita at
[facility]. Notified Carmencita that discharge is anticipated Tuesday04/03/25.
[2025-04-01] MEDS: ROXICODONE 15 MG PO ×2 (13:50→21:39)
[2025-04-01] MEDS: INVANZ 60 MG IV (13:50)
[2025-04-01] MEDS: CRESTOR 10 MG PO (17:09)
[2025-04-01 18:44] LABS: Hematocrit 28.7 % (37.0-47.0); Hemoglobin 8.8 g/dL (12.0-16.0); Mean Corp Hgb Conc. 30.7 g/dL (33.0-37.0); Mean Corpuscular Volume 101.4 fL (81.0-99.0); Platelet Count 270 10^3/uL (130-400); Red Cell Dist. Width 16.9 % (11.5-14.5)
--- NOTE | 2025-04-01 19:43 | W.PN.ONC2 ---
Today's Communication / Plan
-
Suggest to D/C Aspirin with hemoglobin continuing to drop as of this morning.
Mechanical DVT prophylaxis.
Discussed with hospitalist attending and Ortho.
Duloxetine may also be contributing to platelet dysfunction but okay to continue for now.
Impression
Impression
post-operative bleeding
anemia
s/p right hip ELOY - 03/11/25
Plan
Plan
1. Anemia - post-operative blood loss
-s/p OR for debridement - evacuation of hematoma - control of bleeding vessels
-patient has had multiple surgical procedures in the past - w/ no apparent h/o abnormal blood loss
-coagulation panel was normal
-suspect the full dose aspirin is contributing significantly to bleeding. Hold now in favor of mechanical prophylaxis only
-von Willebrand panel sent but utility questionable in pt on full-dose aspirin
Subjective/Objective
Chief Complaint
Heme/Onc follow up of post-op bleed
Subjective
Denies new complaint.
Vital Signs:
Vital Signs
Temp Pulse Resp BP Pulse Ox
97.8 F 65 16 130/58 97
04/01/25 16:00 04/01/25 16:00 04/01/25 16:00 04/01/25 16:00 04/01/25 16:00
Lab Results:
Laboratory Data
WBC 11.1 10^3/uL (4.8-10.8) H 04/01/25 18:25
Hgb 8.8 g/dL (12.0-16.0) L D 04/01/25 18:25
Plt Count 270 10^3/uL (130-400) 04/01/25 18:25
PT 14.3 Sec (11.4-14.6) 03/25/25 11:23
INR 1.08 03/25/25 11:23
APTT 29.1 Sec (23.4-35.0) 03/25/25 11:23
eGFR > 60.00 04/01/25 05:57
Physical Exam
Awake, alert, pale
[2025-04-01] MEDS: XALATAN OPHTHALMIC SOLUTION 1 DROP BOTH EYES (21:31)
[2025-04-01] MEDS: CYMBALTA DELAYED RELEASE 60 MG PO (21:31)
[2025-04-01] MEDS: DILAUDID 0.5 MG IV (22:43)
[2025-04-02] MEDS: METHOCARBAMOL 750 MG PO ×3 (03:07→18:09)
[2025-04-02] MEDS: ROXICODONE 15 MG PO ×4 (03:10→22:20)
--- NOTE | 2025-04-02 05:33 | W.PN.ORTHO ---
Today's Communication / Plan
-
85-year-old female status post right total hip arthroplasty debridement irrigation and vessel cauterization with Dr. 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
Katelynn and index surgery in December with Dr. Leon.
- Hemoglobin improved to 9.0.
- Minimal saturation of dressing on ABDs. Daily dressing changes with daily hygiene ordered
- Continue with antibiotic regimen per infectious disease following cultures with IntraOp positive for Klebsiella and strep positive
- Total hip precautions x 12 weeks
- DVT prophylaxis per primary; holding on ASA and mechanical DVT prophylaxis recommended per hematology. Appreciate assistance in management of the patient.
Orthopedic surgery will continue to follow. Discharge planning indicates for ARF/SNF when medically stable
Assessment
.
Distal Motor Intact: Yes
Dressing:
Clean, dry and intact.
Plan
.
Surgery / Date: Right hip I&D w/ vessel caut. Apr 09 (Katelynn)
Activity:
Out of bed.
PT/OT
Subjective
.
.:
Patient resting comfortably.
Vital Signs and Labs
.
Vital Signs and Labs:
Temp Pulse Resp BP Pulse Ox
97.6 F 61 16 147/66 97
04/01/25 23:25 04/01/25 23:25 04/01/25 23:25 04/01/25 23:25 04/01/25 23:25
PT 14.3 Sec (11.4-14.6) 03/25/25 11:23
INR 1.08 03/25/25 11:23
Non-invasive Hgb result: 11.7
[2025-04-02 05:39] LABS: Hematocrit 29.7 % (37.0-47.0); Hemoglobin 9.0 g/dL (12.0-16.0); Mean Corp Hgb Conc. 30.3 g/dL (33.0-37.0); Mean Corpuscular Volume 100.7 fL (81.0-99.0); Platelet Count 287 10^3/uL (130-400); Red Cell Dist. Width 17.0 % (11.5-14.5)
[2025-04-02 05:45] LABS: Blood Urea Nitrogen 13 mg/dl (7-17); Calcium 8.4 mg/dl (8.4-10.2); Chloride 98 mmol/L (98-107); Estimated Creatinine Clearance 56 ml/min; Glucose 81 mg/dl (70-99); Potassium 4.3 mmol/L (3.5-5.1); Sodium 132 mmol/L (135-145); eGFR > 60.00
[2025-04-02 06:38] LABS: Carbon Dioxide 37 mmol/L (22-30)
[2025-04-02 08:00] VITALS: BP 182/78
[2025-04-02] MEDS: NEURONTIN 600 MG PO ×3 (08:18→21:17)
[2025-04-02] MEDS: FLORASTOR 250 MG PO ×2 (08:18→19:50)
[2025-04-02] MEDS: DELTASONE 10 MG PO (08:18)
[2025-04-02] MEDS: MS CONTIN (EXTENDED RELEASE) 30 MG PO ×2 (08:20→19:49)
[2025-04-02] MEDS: OSCAL CAL 500 500 MG PO (08:20)
[2025-04-02] MEDS: NORVASC 2.5 MG PO ×2 (08:20→19:50)
[2025-04-02] MEDS: MESTINON 60 MG PO ×4 (08:20→21:17)
[2025-04-02] MEDS: VITAMIN B-12 1000 MCG PO (08:20)
[2025-04-02] MEDS: CYMBALTA DELAYED RELEASE 30 MG PO (08:21)
[2025-04-02] MEDS: PROTONIX 40 MG PO ×2 (08:21→19:49)
[2025-04-02] MEDS: AZULFIDINE 1000 MG PO ×2 (08:21→19:50)
[2025-04-02] MEDS: TIMOPTIC 0.5% OPHTHALMIC SOLUTION 1 DROP BOTH EYES (08:22)
[2025-04-02] MEDS: VITAMIN D3 (cholecalciferol) 25 MCG PO (08:22)
[2025-04-02 09:17] LABS: COVID-19 Antigen Negative (Negative)
--- NOTE | 2025-04-02 09:26 | W.PN.HOSP.TC ---
Today's Communication/Plan
-
DC planning to SNF in 24 hours
Assessment / Plan
Assessment / Plan
Assessment:
Acute blood loss anemia from surgical site bleeding
- Patient is post right total hip arthroplasty by Dr. Pace on 03/11/2025
- Rt Hip x-ray: Postsurgical change of the right hip. No evidence of dislocation. Moderate left hip osteoarthritis. Stable
- Patient got tranexamic acid dose and 3 u PRBC, 1 unit platelets (concern for dysfunctional platelets from aspirin use). Hb today 9.0
- Coagulation profile checked with normal PT/INR/PTT and normal.
- Hematology consulted by orthopedic surgeon. von Willebrand factor level pending
- Patient underwent surgery surgical incision and debridement of right hip with control of bleeder vessel on 03/28
- d/w Heme and Ortho on 04/01; ASA stopped and now with mechanical DVT ppx
- Ortho follow up outpatient in 2-4 weeks
Prosthetic Joint infection
- surgical site wound culture - growing Klebsiella pneumoniae/Streptococcus species
- ID following and help appreciated
- Patient taken off of Omnicef therapy
- PICC placed; Ertapenem 1 gm IV q24 hours, to continue 6 weeks through 05/12, then to start doxycycline 100 mg PO BID as suppression. Cultures Klebsiella ESBL And Strep species
Hyponatremia
- ADH excess from pain possibly driving
- 40 oz fluid restriction ordered
- Na 132
Coronary Artery Disease
s/p CABG and PCI
- holding ASA due to bleeding issues (See above)
Essential Hypertension
- Patient blood pressure soft and holding parameters added to metoprolol
- continue on Norvasc
Hyperlipidemia
- continue rosuvastatin
COPD
- on 2L NC at baseline
- continue Duo-Nebs
Depression
- continue duloxetine
Chronic Pain Syndrome/Chronic Opioid Dependence Syndrome secondary to Spinal Stenosis
- continue gabapentin, MS continue and oxycodone
Rheumatoid Arthritis
- continue hydroxychloroquine, leflunomide, prednisone (increased to 10mg) and sulfasalazine
GERD/PUD
- continue pantoprazole
Hx Vertebral Osteomyelitis
- on Chronic Suppressive Antibiotics Omnicef before admission
headache
- possibly aggravated by narc use
- prn Tylenol, intermittent Maxalt prn
Fibromyalgia
- Increased prednisone dose to 10mg/d
Myasthenia Gravis
Spina Bifida
DVT ppx: SCDs
Code status: DNR/DNI
Anticipated Discharge: Within 24 hours
Subjective/Interval History
-
Date of Service: April 02, 2025
resting comfortably, reports headache
Objective Data
-
Labs:
Laboratory Results
04/02/25
05:01
WBC 11.0 H
Hgb 9.0 L
Hct 29.7 L
Plt Count 287
Sodium 132 L
Potassium 4.3
Chloride 98
Carbon Dioxide 37 H
BUN 13
Creatinine 0.5 L
Glucose 81
Calcium 8.4
Vital Signs:
Vital Signs
Temp Pulse Resp BP Pulse Ox
98.3 F 70 16 182/78 97
04/02/25 08:00 04/02/25 08:20 04/02/25 08:00 04/02/25 08:20 04/02/25 08:00
I&O
04/01/25 04/02/25 04/03/25
06:59 06:59 06:59
Intake Total 1245 / 1245 1180 / 1180
Output Total 525 / 525
Balance 720 / 720 1180 / 1180
Physical Exam
-
General: No Apparent Distress
HEENT: Normocephalic and Atraumatic
Respiratory: Negative Wheezes
Cardiac: Regular Rhythm and S1/S2
GI: Soft and Nontender
Musculoskeletal: No Edema
Neuro: AO x 3
Psych: Calm
Data Reviewed
-
Total Time Spent with Patient (in minutes): 41
Labs: Labs Reviewed by me
[2025-04-02] MEDS: MIRALAX PO (10:01)
[2025-04-02] MEDS: MAXALT MLT (ORALLY DISINTEGRATING) 10 MG PO ×2 (10:01→18:09)
--- NOTE | 2025-04-02 10:33 | W.PN.ID1 ---
Date of Service
Date of Service: April 02, 2025
Today's Communication
- continue ertapenem 1 gm IV q24 hours, to continue 6 weeks through 05/12, then to start doxycycline 100 mg PO BID as suppression
- script to residential case manager
- has PICC line
- follow up in 6-8 weeks
Assessment / Plan
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
RA on low dose steroids
Myasthenia gravis
Anemia
- OR culture with ESBL K pneumoniae
- second OR culture with ESBL Klebsiella and strep
- blood cultures x2 in progress
- continue ertapenem 1 gm IV q24 hours, to continue 6 weeks through 05/12, then to start doxycycline 100 mg PO BID as suppression
- script to residential case manager
- has PICC line
- follow up in 6-8 weeks
Chief Complaint
-: Leukocytosis and Other (early PJI)
Subjective / Review of Systems
afebrile
bp stable
no evetns overnight
Vital Signs / Physical Exam
Vital Signs
Vital Signs
Temp Pulse Resp BP Pulse Ox
98.3 F 70 16 182/78 97
04/02/25 08:00 04/02/25 08:20 04/02/25 08:00 04/02/25 08:20 04/02/25 08:00
Physical Exam
Constitutional: No Acute Distress
Cardiovascular: Regular Rate and S1/S2; Negative Murmur or Rub
Pulmonary: Clear and Symmetric; Negative Wheezes or Rales
Gastrointestinal: Soft, Non Tender, Non Distended and Normal Bowel Sounds
Skin: Warm and Dry; Negative Rash or Jaundice
Wound: Other (moderate amount of serous drainage on the dressing)
Objective Data
Lab Data
Lab Results
04/02/25 05:01
04/02/25 05:01
ESR 15 mm/hour (0-20) 03/24/25 14:14
PT 14.3 Sec (11.4-14.6) 03/25/25 11:23
INR 1.08 03/25/25 11:23
APTT 29.1 Sec (23.4-35.0) 03/25/25 11:23
Estimated Creat Clear 56 ml/min 04/02/25 05:01
Total Bilirubin 0.3 mg/dl (0.2-1.3) 03/24/25 14:14
AST 20 U/L (14-36) 03/24/25 14:14
ALT 11 U/L (0-35) 03/24/25 14:14
Alkaline Phosphatase 51 U/L (38-126) 03/24/25 14:14
C-Reactive Protein 19.40 mg/L (0.0-10.00) H 03/24/25 14:14
Most recent labs reviewed.
Micro Results:
03/28/25 16:18 Anaerobic Culture - Preliminary
Hip - Right Culture pending. Anaerobic cultures are examined after 3
days incubation. Additional information to follow.
03/30/25 18:20 Blood Culture - Preliminary
Blood/Venous No Growth in 48 hours- Final report to follow
03/30/25 17:06 Blood Culture - Preliminary
Blood/Venous No Growth in 48 hours- Final report to follow
03/29/25 15:39 Blood Culture - Preliminary
Blood/Venous No Growth in 72 hours- Final report to follow
03/28/25 16:18 Wound Culture - Preliminary
Hip - Right Klebsiella pneumoniae-ESBL
Gram Stain - Preliminary
03/28/25 16:18 Body Fluid Culture - Final
Fluid Klebsiella pneumoniae-ESBL
Streptococcus species
Gram Stain - Final
03/25/25 03:03 MRSA Screen - Final
Nose No Methicillin Resistant Staphylococcus aureus isolated.
Care Review
Plan reviewed with: Physician (Dr Ahmed - disposition)
--- NOTE | 2025-04-02 11:43 | CM ---
Addendum entered by Elizabeth Lawson 04/02/25 15:59:
Pt inquired if she could dc home instead
IV home infusion discussed
She noted her son that she lives with is in [place] for the next few weeks
She does not have an alternate CG for IV assistance
Pt resides in [place] and does not want to commute daily for outpt infusion
Plan to remain for SNF on dc
Original Note:
CM reviewed pt with attending-ADC tomorrow
COVID test obtained and negative
Update to [facility] admissions- confirmed receipt of abx script and picc data day prior
CM spoke with PT/OT and requested updated evals for auth
[facility] SNF- [id number]
Alex Isaac- [phone]
Discharge Disposition- [facility] SNF pending auth
[2025-04-02 12:31] VITALS: BP 152/70; PULSE 67; O2SAT 98
[2025-04-02 12:33] VITALS: BP 152/70; PULSE 67; O2SAT 98
[2025-04-02] MEDS: FEOSOL 325 MG PO (13:11)
[2025-04-02] MEDS: TOPROL XL 100 MG PO (13:12)
[2025-04-02] MEDS: INVANZ 60 MG IV (13:12)
[2025-04-02] MEDS: PLAQUENIL 400 MG PO (13:12)
[2025-04-02 15:49] VITALS: BP 133/63
[2025-04-02] MEDS: CRESTOR 10 MG PO (18:09)
[2025-04-02] MEDS: CYMBALTA DELAYED RELEASE 60 MG PO (21:17)
[2025-04-02] MEDS: XALATAN OPHTHALMIC SOLUTION 1 DROP BOTH EYES (21:17)
[2025-04-02] MEDS: ZOFRAN 4 MG IV (22:49)
[2025-04-02 23:42] VITALS: BP 141/66
[2025-04-03] MEDS: DILAUDID 0.5 MG IV ×2 (00:38→13:35)
[2025-04-03] MEDS: METHOCARBAMOL 750 MG PO ×2 (03:11→11:22)
[2025-04-03] MEDS: ROXICODONE 15 MG PO ×2 (03:13→11:26)
--- NOTE | 2025-04-03 03:17 | DOWNTIME ---
There was a [place] Client Production Scheduler Downtime on 04/03/2025 from 0100 to 04/03/2025 at 0255. Downtime documentation of patient's care, including medication administrations, has been reconciled in the electronic record per guidelines. Refer to the
patient's paper chart under the miscellaneous tab to see printed paper medication records and downtime forms.
[2025-04-03] MEDS: TYLENOL 650 MG PO (03:27)
[2025-04-03 04:16] LABS: Hematocrit 30.6 % (37.0-47.0); Hemoglobin 9.1 g/dL (12.0-16.0); Mean Corp Hgb Conc. 29.7 g/dL (33.0-37.0); Mean Corpuscular Volume 101.3 fL (81.0-99.0); Platelet Count 289 10^3/uL (130-400); Red Cell Dist. Width 15.9 % (11.5-14.5)
[2025-04-03 04:44] LABS: Blood Urea Nitrogen 12 mg/dl (7-17); Calcium 8.4 mg/dl (8.4-10.2); Chloride 98 mmol/L (98-107); Estimated Creatinine Clearance 56 ml/min; Glucose 108 mg/dl (70-99); Potassium 4.1 mmol/L (3.5-5.1); Sodium 134 mmol/L (135-145); eGFR > 60.00
[2025-04-03 06:02] LABS: Carbon Dioxide 37 mmol/L (22-30)
--- NOTE | 2025-04-03 07:58 | W.PN.UPDATE ---
Update Note
Progress Note Update
MS. Liriano is an 85 year old female status post right total hip arthroplasty irrigation and debridement and vessel cauterization performed by Dr. Pace on 03/28/2025. She is resting comfortably in bed this morning. She denies any significant
improvement in her symptoms since being seen yesterday. She reports her dressing was saturated overnight and required a bandage change.
Directed exam of the right lower extremity reveals surgical dressing clean, dry and intact at present. Thigh soft and compressible. Calf soft and nontender. Patient able to wiggle toes, plantar and dorsiflex ankle. NVID.
OR cultures positive with Klebsiella and Strep.
Hgb stable at 9.1 today.
85-year-old female status post right total hip arthroplasty debridement irrigation and vessel cauterization with Dr. 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
Katelynn and index surgery in December with Dr. Leon.
- Hemoglobin stable at 9.1 today.
- Dressings CDI this morning. Continue to monitor. Dressing changes prn.
- Continue with antibiotic regimen per infectious disease. Currently ertapenem.
- WBAT to LLE with assistive device. Total hip precautions x 12 weeks. We appreciate the assistance of PT/OT.
- DVT prophylaxis per primary; holding on ASA and mechanical DVT prophylaxis recommended per hematology. Appreciate assistance in management of the patient.
Orthopedic surgery will continue to follow. Discharge planning indicates for ARF/SNF when medically stable.
[2025-04-03 08:04] VITALS: BP 171/82
[2025-04-03] MEDS: VITAMIN D3 (cholecalciferol) 25 MCG PO (08:31)
[2025-04-03] MEDS: PROTONIX 40 MG PO (08:31)
[2025-04-03] MEDS: VITAMIN B-12 1000 MCG PO (08:31)
[2025-04-03] MEDS: MESTINON 60 MG PO ×2 (08:31→13:21)
[2025-04-03] MEDS: AZULFIDINE 1000 MG PO (08:31)
[2025-04-03] MEDS: FLORASTOR 250 MG PO (08:31)
[2025-04-03] MEDS: CYMBALTA DELAYED RELEASE 30 MG PO (08:31)
[2025-04-03] MEDS: DELTASONE 10 MG PO (08:31)
[2025-04-03] MEDS: NEURONTIN 600 MG PO (08:31)
[2025-04-03] MEDS: NORVASC 2.5 MG PO (08:32)
[2025-04-03] MEDS: OSCAL CAL 500 500 MG PO (08:32)
[2025-04-03] MEDS: MS CONTIN (EXTENDED RELEASE) 30 MG PO (08:32)
[2025-04-03] MEDS: MIRALAX PO (08:56)
[2025-04-03] MEDS: TIMOPTIC 0.5% OPHTHALMIC SOLUTION 1 DROP BOTH EYES (08:57)
--- NOTE | 2025-04-03 10:23 | CM ---
Addendum entered by Gauri Gregg 04/03/25 13:11:
[facility]; discharge plan discussed
IMM benefit explained; form signed @ 1311
Addendum entered by Gauri Gregg 04/03/25 12:17:
Son notified via phone of mother's discharge plan
Addendum entered by Gauri Gregg 04/03/25 12:13:
Ambulance oyster picker scheduled for 1500; Carmencita @ facility notified via phone
Addendum entered by Gauri Gregg 04/03/25 11:55:
Authorization for [facility] approved; Carmencita @ Facility notified; Attending notified
Ambulance Authorization # #[id number]; oyster picker requested for 1500
Plan: DC to [facility] today via ambulance
Report # [phone]

Original Note:
Plan: discharge to [facility] this afternoon; pending AUTH approval
Report # [phone]
--- NOTE | 2025-04-03 11:09 | W.PN.ID1 ---
Date of Service
Date of Service: April 03, 2025
Today's Communication
- continue ertapenem 1 gm IV q24 hours, to continue 6 weeks through 05/12, then to start doxycycline 100 mg PO BID as suppression
- script to counter caser
- has PICC line
- follow up in 6-8 weeks
Assessment / Plan
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
RA on low dose steroids
Myasthenia gravis
Anemia
- OR culture with ESBL K pneumoniae
- second OR culture with ESBL Klebsiella and strep
- blood cultures x2 in progress no growth to date
- continue ertapenem 1 gm IV q24 hours, to continue 6 weeks through 05/12, then to start doxycycline 100 mg PO BID as suppression
- script to counter caser
- has PICC line
- follow up in 6-8 weeks
Chief Complaint
-: Leukocytosis and Other (early PJI)
Subjective / Review of Systems
afebrile
bp stable
no events overnight
Vital Signs / Physical Exam
Vital Signs
Vital Signs
Temp Pulse Resp BP Pulse Ox
98.6 F 67 18 171/82 97
04/03/25 08:04 04/03/25 08:32 04/03/25 08:04 04/03/25 08:32 04/03/25 08:25
Physical Exam
Constitutional: No Acute Distress
Cardiovascular: Regular Rate and S1/S2; Negative Murmur or Rub
Pulmonary: Clear and Symmetric; Negative Wheezes or Rales
Gastrointestinal: Soft, Non Tender, Non Distended and Normal Bowel Sounds
Skin: Warm and Dry; Negative Rash or Jaundice
Objective Data
Lab Data
Lab Results
04/03/25 04:05
04/03/25 04:05
ESR 15 mm/hour (0-20) 03/24/25 14:14
PT 14.3 Sec (11.4-14.6) 03/25/25 11:23
INR 1.08 03/25/25 11:23
APTT 29.1 Sec (23.4-35.0) 03/25/25 11:23
Estimated Creat Clear 56 ml/min 04/03/25 04:05
Total Bilirubin 0.3 mg/dl (0.2-1.3) 03/24/25 14:14
AST 20 U/L (14-36) 03/24/25 14:14
ALT 11 U/L (0-35) 03/24/25 14:14
Alkaline Phosphatase 51 U/L (38-126) 03/24/25 14:14
C-Reactive Protein 19.40 mg/L (0.0-10.00) H 03/24/25 14:14
Most recent labs reviewed.
Micro Results:
03/30/25 18:20 Blood Culture - Preliminary
Blood/Venous No Growth in 72 hours- Final report to follow
03/30/25 17:06 Blood Culture - Preliminary
Blood/Venous No Growth in 72 hours- Final report to follow
03/29/25 15:39 Blood Culture - Preliminary
Blood/Venous No Growth in 4 days- Final report to follow
03/28/25 16:18 Anaerobic Culture - Preliminary
Hip - Right Culture pending. Anaerobic cultures are examined after 3
days incubation. Additional information to follow.
03/28/25 16:18 Wound Culture - Preliminary
Hip - Right Klebsiella pneumoniae-ESBL
Gram Stain - Preliminary
03/28/25 16:18 Body Fluid Culture - Final
Fluid Klebsiella pneumoniae-ESBL
Streptococcus species
Gram Stain - Final
03/25/25 03:03 MRSA Screen - Final
Nose No Methicillin Resistant Staphylococcus aureus isolated.
--- NOTE | 2025-04-03 11:21 | CM ---
Authorization for skilled rehab initiated with [facility]
approved skilled rehab at [facility]
Auth # [id number]
Start date 04/03/25, NRD 04/08/25
[id number] to p# [phone]
Ambulance auth with [facility] #[id number]
[2025-04-03] MEDS: FEOSOL 325 MG PO (11:29)
[2025-04-03] MEDS: INVANZ 60 MG IV (11:30)
[2025-04-03 11:49] VITALS: BP 156/75; PULSE 67; O2SAT 92
--- NOTE | 2025-04-03 12:26 | W.PN.HOSP.TC ---
Today's Communication/Plan
-
dc to SNF later today
Assessment / Plan
Assessment / Plan
Assessment:
Acute blood loss anemia from surgical site bleeding
- Patient is post right total hip arthroplasty by Dr. Pace on 03/11/2025
- Rt Hip x-ray: Postsurgical change of the right hip. No evidence of dislocation. Moderate left hip osteoarthritis. Stable
- Patient got tranexamic acid dose and 3 u PRBC, 1 unit platelets (concern for dysfunctional platelets from aspirin use). Hb today 9.1
- Coagulation profile checked with normal PT/INR/PTT and normal.
- Hematology consulted by orthopedic surgeon. von Willebrand factor level pending
- Patient underwent surgery surgical incision and debridement of right hip with control of bleeder vessel on 03/28
- d/w Heme and Ortho on 04/01; ASA stopped and now with mechanical DVT ppx
- Ortho follow up outpatient in 2-4 weeks
Prosthetic Joint infection
- surgical site wound culture - growing Klebsiella pneumoniae/Streptococcus species
- ID following and help appreciated
- Patient taken off of Omnicef therapy
- PICC placed; Ertapenem 1 gm IV q24 hours, to continue 6 weeks through 05/12, then to start doxycycline 100 mg PO BID as suppression. Cultures Klebsiella ESBL And Strep species
Hyponatremia
- ADH excess from pain possibly driving
- 40 oz fluid restriction ordered
- Na 132
Coronary Artery Disease
s/p CABG and PCI
- holding ASA due to bleeding issues (See above)
- if repeat CBC in 2 weeks improved/stable, consider resuming ASA 81mg daily
Essential Hypertension
- Patient blood pressure soft and holding parameters added to metoprolol
- continue on Norvasc
Hyperlipidemia
- continue rosuvastatin
COPD
- on 2L NC at baseline
- continue Duo-Nebs
Depression
- continue duloxetine
Chronic Pain Syndrome/Chronic Opioid Dependence Syndrome secondary to Spinal Stenosis
- continue gabapentin, MS continue and oxycodone
Rheumatoid Arthritis
- continue hydroxychloroquine, leflunomide, prednisone (increased to 10mg) and sulfasalazine
GERD/PUD
- continue pantoprazole
Hx Vertebral Osteomyelitis
- on Chronic Suppressive Antibiotics Omnicef before admission
headache
- possibly aggravated by narc use
- prn Tylenol, intermittent Maxalt prn
Fibromyalgia
- Increased prednisone dose to 10mg/d
Myasthenia Gravis
Spina Bifida
DVT ppx: SCDs
Code status: DNR/DNI
More than 30 minutes spent in discharge including
Final examination of the patient
Summarizing hospital stay
Instructions for continuing care to all relevant caregivers
Preparation of discharge records, prescriptions, and referral forms
Total time spent (in minutes): 41
Anticipated Discharge: Today
Subjective/Interval History
-
Date of Service: April 03, 2025
resting comfortably, no complaints at present
for dc to SNF today
Objective Data
-
Labs:
Laboratory Results
04/03/25
04:05
WBC 8.4
Hgb 9.1 L
Hct 30.6 L
Plt Count 289
Sodium 134 L
Potassium 4.1
Chloride 98
Carbon Dioxide 37 H
BUN 12
Creatinine 0.5 L
Glucose 108 H
Calcium 8.4
Vital Signs:
Vital Signs
Temp Pulse Resp BP Pulse Ox
98.6 F 67 18 171/82 97
04/03/25 08:04 04/03/25 08:32 04/03/25 08:04 04/03/25 08:32 04/03/25 08:25
I&O
04/02/25 04/03/25 04/04/25
06:59 06:59 06:59
Intake Total 1180 / 1180 960 / 960
Balance 1180 / 1180 960 / 960
Physical Exam
-
General: No Apparent Distress
HEENT: Normocephalic and Atraumatic
Respiratory: Negative Wheezes
Cardiac: Regular Rhythm and S1/S2
GI: Soft and Nontender
Neuro: AO x 3
Psych: Calm
Data Reviewed
-
Total Time Spent with Patient (in minutes): 41
Labs: Labs Reviewed by me
--- NOTE | 2025-04-03 12:34 | W.DCSUMMARY ---
Discharge Summary
Discharge Data
Date of Admission: 03/24/25
Date of Discharge: 04/03/25
-
Pending Results: No
Hospital Course
85 y/o F, admitted 03/24 with past medical history significant for hypertension, hyperlipidemia, COPD, depression, chronic pain syndrome/chronic opioid dependence, fibromyalgia, Myasthenia Gravis, RA and GERD/PUD presented to ER with persistent
bleeding from R hip surgical wound. She had right total hip arthroplasty with Dr. Mathieu Pace on 03/11/2025. She received TXA and 3 units of blood (also 1 unit of platelets). She underwent R hip I&D with control of bleeding vessel.
Intraoperative cultures grew ESBL Klebsiella and strep species, confirming prosthetic joint infection. ID was consulted and placed patient on ertapenem 1 gm IV q24 hours, to continue 6 weeks through 05/12, then doxycycline 100 mg PO BID as
suppression. A PICC line was placed.
She also had hyponatremia in setting of pain and was placed on fluid restriction with improvement in Sodium levels.
She will repeat CBC and BMP in 2 weeks. Instructions for CBC are if Hb is stable or improved - then resume ASA as 81mg daily (cardiac history). ASA 325mg was stopped in hospital due to concern for bleeding/anemia.
She was discharged to SNF on 04/03/25.
Discharge Plan
-
Patient Disposition: Correction/SNF
Discharge Diagnosis/Procedures: acute blood loss anemia requiring platelets, blood and TXA. R hip bleeding s/p hip procedure 03/28 with control of bleeding. Strep and Klebsiella ESBL prosthetic joint infection.
Condition: Fair
Diet: Regular
Additional Diets: 1200 cc fluid restriction
Activity: As tolerated
Additional Activity: WBAT RLE on walker/device
Bathing Restrictions: None
Blood Work: repeat CBC in 2 weeks to monitor Hb - Hb was 9.1 at time of hospital discharge. If Hb stable or improved - please resume ASA 81mg. Repeat BMP in 2 weeks
Other Services: PT and OT
Referrals:
Osman Givens, TRAMAINE [Specified Professional Personl, Surgical] - in two to four weeks
Referral Note: Follow-up 3 weeks for staple removal
Alex Isaac MD [Family Provider, Family Practice]
Ruby Guardado MD [Active, Infectious Diseases] - in one month
Additional Discharge Medication Instructions: start Doxycycline on 05/13 (after Ertapenem course). if CBC stable in 2 weeks, resume Aspirin 81mg daily (hx of CAD/CABG)
Prescriptions:
New
Ertapenem [Invanz] 1000 MG
0.9% Sodium Chloride [Nss] 50 ML
120 mls/hr IV Q24H
Ordered By: Jim Newsome MD
Last Taken: 04/03/25 11:30 60 mls
doxycycline monohydrate 100 mg capsule
100 mg PO BID Qty: 60 0RF
Rx Instructions:
Start 05/13 - after Ertapenem course
Continued
leflunomide 20 MG tablet
20 mg PO DAILY
rosuvastatin 10 MG tablet
10 mg PO QPM
pyridostigmine bromide 60 MG tablet
60 mg PO QID 30 Days Qty: 120 0RF
cyanocobalamin (vitamin B-12) 1,000 MCG tablet
1,000 mcg PO DAILY
ferrous sulfate [FeroSul] 325 MG tablet
325 mg PO DAILY@1200
duloxetine 30 MG capsule,delayed release(DR/EC)
60 mg PO HS
duloxetine 30 MG capsule,delayed release(DR/EC)
30 mg PO DAILY
sulfasalazine 500 mg tablet
1,000 mg PO BID
hydroxychloroquine 200 MG tablet
400 mg PO DAILY@1300
ipratropium-albuterol 0.5 mg-3 mg(2.5 mg base)/3 mL Solution For Nebulization
3 ml INHALATION R QIDPRN PRN (Reason: sob)
pantoprazole [Protonix] 40 mg tablet,delayed release (DR/EC)
40 mg PO BID
gabapentin 600 mg Tablet
600 mg PO TID
metoprolol succinate [Toprol XL] 100 mg Tablet Extended Release 24 Hr
100 mg PO DAILY@1300
cholecalciferol (vitamin D3) [Vitamin D3] 25 mcg (1,000 unit) Tablet
25 mcg PO DAILY
timolol 0.5 % Drops
1 drp BOTH EYES DAILY
latanoprost 0.005 % Drops
1 drp BOTH EYES HS Qty: 0
amlodipine 5 mg tablet
2.5 mg PO BID Qty: 1 0RF
methocarbamol 750 mg Tablet
750 mg PO Q8H
magnesium hydroxide [Milk of Magnesia] 400 mg/5 mL Suspension
2,400 mg PO [id number] PRN (Reason: constipation)
bisacodyl [Dulcolax (bisacodyl)] 10 mg Suppository
10 mg VT DAILYPRN PRN (Reason: if no bm aftr mom)
Fleet Enema 19-7 gram/118 mL Enema
118 ml VT DAILYPRN PRN (Reason: if no bm aftr dulcolax)
sennosides [Jes-amy] 8.6 mg tablet
17.2 mg PO BID
acetaminophen 325 mg tablet
975 mg PO QID
polyethylene glycol 3350 17 gram powder in packet
17 g PO DAILYPRN PRN (Reason: if no bm aftr colace)
ondansetron HCl 4 mg tablet
4 mg PO Q6HPRN PRN (Reason: nausea and vomiting)
calcium carbonate 500 mg calcium (1,250 mg) tablet
500 mg PO DAILY
docusate sodium 100 mg capsule
100 mg PO BID
Saccharomyces boulardii 250 mg capsule
250 mg PO BID
morphine 30 MG tablet extended release
30 mg PO Q12H Qty: 10 0RF
oxycodone 10 mg Tablet
10 mg PO Q4HPRN PRN (Reason: severe breakthrough pain) Qty: 20 0RF
Changed
prednisone 5 mg Tablet
10 mg PO DAILY Qty: 0 0RF
Discontinued
aspirin 325 mg Tablet
325 mg PO DAILY Qty: 30 0RF
Rx Instructions:
for 4 weeks until 04/13/25 then decreased to 81mg
cefdinir 300 mg Capsule
300 mg PO BID Qty: 0 0RF
Discharge Orders:
Discharge Patient (As Directed); Ordered 04/03/25
Ordered By: Jim Newsome
Discharge Date and Time
Print Language: NAMIBIAN
[2025-04-03] MEDS: PLAQUENIL 400 MG PO (13:21)
[2025-04-03] MEDS: TOPROL XL 100 MG PO (13:23)
[2025-04-03] MEDS: FLUZONE HIGH-DOSE 2025-26 0.5 ML IM (13:27)
[2025-04-03 15:02] VITALS: BP 157/70
== END 2025-04-03 15:13 | DRG 498 ==
LOC: 2 NORTH 17:48
PROVIDERS: Emergency Medicine; Hospitalist; Nurse Practitioner Family; Physician Assistant; Specialist; ADMITTING PHYSICIAN Internal Medicine; ATTENDING PHYSICIAN Internal Medicine; CONSULT PHYSICIAN Internal Medicine Hematology & Oncology; CONSULT PHYSICIAN Orthopaedic Surgery Hand Surgery; CONSULT PHYSICIAN Student in an Organized Health Care Education/Training Program; EMERGENCY PHYSICIAN Emergency Medicine; FAMILY PHYSICIAN Family Medicine
PROC: 30233N1 Transfusion of Nonautologous Red Blood Cells into Peripheral Vein, Percutaneous Approach (ICD-10-PCS; 2025-03-24)
PROC: 30233R1 Transfusion of Nonautologous Platelets into Peripheral Vein, Percutaneous Approach (ICD-10-PCS; 2025-03-26)
PROC: 0Y370ZZ Control Bleeding in Right Femoral Region, Open Approach (ICD-10-PCS; 2025-03-28)
PROC: 0Q960ZZ Drainage of Right Upper Femur, Open Approach (ICD-10-PCS; 2025-03-28)
PROC: 02HV33Z Insertion of Infusion Device into Superior Vena Cava, Percutaneous Approach (ICD-10-PCS; 2025-03-31)
PROC: 3E02340 Introduction of Influenza Vaccine into Muscle, Percutaneous Approach (ICD-10-PCS; 2025-04-03)
DX: T84.51XA Infection and inflammatory reaction due to internal right hip prosthesis, initial encounter (principal); D62 Acute posthemorrhagic anemia; E87.1 Hypo-osmolality and hyponatremia; D68.32 Hemorrhagic disorder due to extrinsic circulating anticoagulants; F11.20 Opioid dependence, uncomplicated; Y83.1 Surgical operation with implant of artificial internal device as the cause of abnormal reaction of the patient, or of later complication, without mention of misadventure at the time of the procedure; I25.10 Atherosclerotic heart disease of native coronary artery without angina pectoris; Z95.1 Presence of aortocoronary bypass graft; I10 Essential (primary) hypertension; J44.9 Chronic obstructive pulmonary disease, unspecified; F32.A Depression, unspecified; G89.4 Chronic pain syndrome; K21.9 Gastro-esophageal reflux disease without esophagitis; M79.7 Fibromyalgia; Z66 Do not resuscitate; G70.00 Myasthenia gravis without (acute) exacerbation; K27.9 Peptic ulcer, site unspecified, unspecified as acute or chronic, without hemorrhage or perforation; Q05.9 Spina bifida, unspecified; Z79.2 Long term (current) use of antibiotics; M06.00 Rheumatoid arthritis without rheumatoid factor, unspecified site; M16.12 Unilateral primary osteoarthritis, left hip; M25.351 Other instability, right hip; Z79.82 Long term (current) use of aspirin; Z79.899 Other long term (current) drug therapy; Z96.641 Presence of right artificial hip joint; Z23 Encounter for immunization; Z11.52 Encounter for screening for COVID-19
CPT/HCPCS: 71045; 73502; 80048; 80053; 81003; 81015; 82570; 82728; 83540; 83550; 83935; 84300; 85025; 85027; 85240; 85245; 85246; 85247; 85384; 85610; 85652; 85730; 86140; 86850; 86900; 86901; 86920; 87015; 87040; 87070; 87075; 87076; 87077; 87186; 87205; 87811; 90662; 96374; 96375; 96376; 97116; 97163; 97164; 97167; 97168; 97530; 97535; 99291; G0008; J1335; P9016; P9073

== ENCOUNTER 2025-04-26 23:59 | Emergency (ER) | payer OTHER, SELFPAY ==
[2025-04-27 00:03] VITALS: BP 135/57
[2025-04-27 00:04] VITALS: BMI 25.6
[2025-04-27 00:27] LABS: Hematocrit 26.7 % (37.0-47.0); Hemoglobin 8.6 g/dL (12.0-16.0); Mean Corp Hgb Conc. 32.2 g/dL (33.0-37.0); Mean Corpuscular Volume 98.5 fL (81.0-99.0); Nucleated Red Blood Cells % 0 %; Platelet Count 182 10^3/uL (130-400); Red Cell Dist. Width 14.6 % (11.5-14.5)
--- NOTE | 2025-04-27 00:27 | ED.GENMED ---
History of Present Illness
General
Chief Complaint: Musculo-Skeletal Complaint
Source: patient
Exam Limitations: none
Time Seen by Provider: 04/27/25 00:17
Nursing documentation reviewed up to this point in time: agreed with
History of Present Illness
History of Present Illness:
85-year-old female with extensive medical history as noted presents to the ER from [facility] rehab for evaluation of right hip pain after fall. Patient had right hip replacement in December and unfortunately had recurrent dislocations requiring
revision in February. Subsequently had persistent drainage, infection and had washout in the OR in March, discharged with PICC for IV antibiotics (ertapenem 1 g every 24 hours to be completed 05/12 with plan to subsequently switch to doxycycline
for suppression). Patient presents to the ER today from rehab after a fall. Patient says that she was walking to the bathroom and felt her legs give out underneath her and she fell down onto her right side. She was complaining of pain in the
right hip. She thinks she may have hit her head but did not lose consciousness. She has chronic pain in her neck unchanged, chronic back pain unchanged. Denies any acute injuries aside from right hip pain which is worse. She had x-ray done at
[facility] which showed right pubic ramus fracture and was referred to the ER for further assessment. Review of medication shows that she is not on any blood thinners.
Past History
Past History
ED Past Medical History: CAD, COPD, Fibromyalgia, GERD, HTN, Hypercholesterolemia, [place], Psychiatric (depression) and Other (chronic back pain, Ulcers, C-diff)
ED Past Surgical History: Appendectomy, Cardiac (Stents, CABG), Gynecological, Orthopedic and Urological
Social History
Tobacco: Non-smoker
Alcohol: None
Drug: None
Personal:
Living: alone
Employment: Not employed
Family History
Family History: Other
Review of Systems
Review of Systems
All Other Systems: ROS reviewed and negative except as documented in HPI and ROS
Respiratory: Denies trouble breathing
Cardiac: Denies chest pain
ABD/GI: Denies abdominal pain, nausea or vomiting
: Denies flank pain
Musculoskeletal: Reports joint pain (Right hip pain acute on chronic), neck pain (Chronic unchanged) and back pain (Chronic unchanged)
Neurological: Denies dizzy or headache
Phy Exam
Physical Exam
Physical Exam:
General: Awake, alert, appears in moderate pain
Head: Normocephalic, atraumatic
Eyes: Conjunctiva normal
Throat: Airway intact, handling secretions
Neck: Trachea midline, no point tenderness of the cervical spine
Lungs: Breathing comfortably without evidence of respiratory distress
Heart: Regular rate; no chest wall tenderness
Abd: Soft, non distended, nontender
Back: No signs of trauma to the back or flank, no focal tenderness in the midline thoracic or lumbar spine
Neuro: Grossly intact
Skin: Surgical incision on the right hip with scant amount of drainage, everton in place, no erythema of the skin
Extremities: Patient has pain with any attempt at manipulation of the right hip; she has no edema in the legs, strong distal pulses in the right lower extremity; upper extremities appear atraumatic
Scores
Heart Failure Risk
Heart Failure Risk Score: Not Applicable
Heart Score for Chest Pain Patients
STEMI patient?: Not applicable
Withdrawal Assessment of Alcohol
Withdrawal Assessment Completed?: Not applicable
Course
Orders/Labs/Results
Orders:
Orders
04/27/25 00:14
CR Chest Portable - 1 View Stat
Comment:
Reason For Exam: confirm picc placement
Reason Study Needs to be Portable: Unable to Transport
04/27/25 00:17
Complete Blood Count/With Diff Urgent
Comprehensive Metabolic Panel Urgent
04/27/25 00:19
Morphine Sulfate 4 mg IV NOW STA
04/27/25 00:32
CT Cervical Spine W/o Iv Contr Urgent
Comment:
Reason For Exam: fall with head strike, neck pain
CT Head W/o Iv Contrast Urgent
Comment:
Reason For Exam: fall with head strike
04/27/25 00:58
HYDROmorphone [Dilaudid] 0.5 mg IV NOW STA
Abnormal Lab Results
04/27/25
00:17
WBC 11.1 H 10^3/uL
(4.8-10.8)
RBC 2.71 L 10^6/uL
(4.20-5.40)
Hgb 8.6 L g/dL
(12.0-16.0)
Hct 26.7 L %
(37.0-47.0)
MCH 31.7 H pg
(27.0-31.0)
MCHC 32.2 L g/dL
(33.0-37.0)
RDW 14.6 H %
(11.5-14.5)
Abs Immat Gran (auto) 0.1 H 10^3/uL
(0-0.05)
Absolute Neuts (auto) 6.9 H 10^3/uL
(1.4-6.5)
Absolute Monos (auto) 1.7 H 10^3/uL
(0.1-0.6)
Immature Gran % 0.7 H %
(0-0.5)
Lymphocytes % 17.2 L %
(20.5-51.1)
Monocytes % 15.4 H %
(1.7-9.3)
Carbon Dioxide 36 H mmol/L
(22-30)
BUN 18 H mg/dl
(7-17)
Glucose 100 H mg/dl
(70-99)
Total Protein 5.7 L g/dl
(6.3-8.2)
Albumin 3.4 L g/dl
(3.5-5.0)
04/27/25 00:17
04/27/25 00:17
Vital Signs
Initial and Last Documented VS:
Initial Vital Signs
BP
135/57
04/27/25 00:03
Last Documented Vital Signs
Temp Pulse Resp BP Pulse Ox
36.9 C 65 13 139/97 93
04/27/25 00:04 04/27/25 02:01 04/27/25 02:01 04/27/25 02:01 04/27/25 02:01
MDM/Problems Addressed
Differential Diagnosis Includes:
Hip pain: Hip fracture, pubic ramus fracture
MDM/Problems Addressed:
85-year-old female presents after apparently mechanical fall this evening�she is complaining of hip pain after the fall had an x-ray earlier this evening that showed right pubic ramus fracture which is acute. I was able to review report from
outpatient x-ray. Hardware apparently intact. She believes she hit her head but did not lose consciousness. Will check CT of the head and cervical spine. Hold off on additional hip imaging given that she already had an x-ray this evening. Will
treat patient's pain. Reassess after the above.
CT head and cervical spine negative for any acute posttraumatic pathology. Screening labs reviewed essentially stable. Stopping significant pain despite parenteral pain medication�will provide additional pain meds and reassess.
Pain improved after second dose of pain medication. At this point with controlled pain no clear indication for admission to the hospital for isolated pubic ramus fracture especially given that patient will be returning to senior care facility.
No other injuries noted on assessment. Stable for discharge back to senior care. Patient very comfortable with this plan.
Chronic conditions affecting care:
Chronic pain
*Radiology
Radiology exam reviewed: radiology read reviewed
*Pulse Oximetry
SaO2: 94
Nasal Cannula flow liters per minute: 2
Patient hypoxic: no (94% on normal home oxygen)
*Critical Care Note
Total Time (30-74mins, 75-104mins- exclusive of procedures): Not Applicable
Data Reviewed
Review of Other/Old Records Reveals: Labs, Records and Discharge Summary
Source: patient, records and ambulance crew
Patient Management
Discussion with other providers: skilled nursing staff (Discussed directly with correction staff)
ED Attending Note
-
Portions of this chart may have been created with voice recognition software.� Occasional wrong word or��sound alike� substitutions may have occurred due to the inherent limitations of voice recognition software.
Discharge Plan
Departure
Patient Disposition: Home (Routine Discharge)
Date of Disposition: 04/27/25
Time of Disposition: 02:13
Patient with high blood pressure during this ER visit?: No
Discharge Problem:
Fracture of pubic ramus
Instructions: Pelvic fracture
Prescriptions:
No Action
leflunomide 20 MG tablet
20 mg PO DAILY
rosuvastatin 10 MG tablet
10 mg PO QPM
pyridostigmine bromide 60 MG tablet
60 mg PO QID 30 Days Qty: 120 0RF
cyanocobalamin (vitamin B-12) 1,000 MCG tablet
1,000 mcg PO DAILY
ferrous sulfate [FeroSul] 325 MG tablet
325 mg PO DAILY@1200
duloxetine 30 MG capsule,delayed release(DR/EC)
60 mg PO HS
duloxetine 30 MG capsule,delayed release(DR/EC)
30 mg PO DAILY
sulfasalazine 500 mg tablet
1,000 mg PO BID
hydroxychloroquine 200 MG tablet
400 mg PO DAILY@1300
ipratropium-albuterol 0.5 mg-3 mg(2.5 mg base)/3 mL Solution For Nebulization
3 ml INHALATION R QIDPRN PRN (Reason: sob)
pantoprazole [Protonix] 40 mg tablet,delayed release (DR/EC)
40 mg PO BID
gabapentin 600 mg Tablet
600 mg PO TID
metoprolol succinate [Toprol XL] 100 mg Tablet Extended Release 24 Hr
100 mg PO DAILY@1300
cholecalciferol (vitamin D3) [Vitamin D3] 25 mcg (1,000 unit) Tablet
25 mcg PO DAILY
timolol 0.5 % Drops
1 drp BOTH EYES DAILY
latanoprost 0.005 % Drops
1 drp BOTH EYES HS Qty: 0
amlodipine 5 mg tablet
2.5 mg PO BID Qty: 1 0RF
methocarbamol 750 mg Tablet
750 mg PO Q8H
sennosides [Jes-amy] 8.6 mg tablet
17.2 mg PO BID
acetaminophen 325 mg tablet
975 mg PO QID
polyethylene glycol 3350 17 gram powder in packet
17 g PO DAILYPRN PRN (Reason: if no bm aftr colace)
ondansetron HCl 4 mg tablet
4 mg PO Q6HPRN PRN (Reason: nausea and vomiting)
calcium carbonate 500 mg calcium (1,250 mg) tablet
500 mg PO DAILY
docusate sodium 100 mg capsule
100 mg PO BID
Saccharomyces boulardii 250 mg capsule
250 mg PO BID
Ertapenem [Invanz] 1000 MG
0.9% Sodium Chloride [Nss] 50 ML
120 mls/hr IV Q24H
Ordered By: Jim Newsome MD
Last Taken: Unknown
doxycycline monohydrate 100 mg capsule
100 mg PO BID Qty: 60 0RF
Rx Instructions:
Start 05/13 - after Ertapenem course
prednisone 5 mg Tablet
10 mg PO DAILY Qty: 0 0RF
morphine 30 MG tablet extended release
30 mg PO Q12H Qty: 10 0RF
oxycodone 10 mg Tablet
10 mg PO Q4HPRN PRN (Reason: severe breakthrough pain) Qty: 20 0RF
loperamide 2 mg Capsule
2 mg PO Q6H PRN (Reason: loose stools)
Referrals:
Mathieu Pace MD [Active, Orthopedics] - Call in 1-3 days for appt
Alex Isaac MD [Family Provider, Family Practice]
Activity Restrictions/Additional Instructions:
Thank you for visiting the Emergency Department at [facility].
1. Please schedule a follow up appointment as directed. Call first thing tomorrow morning to make an appointment.
2. If indicated, please take your medications as instructed and indicated on discharge paperwork.
3. If any of your symptoms do not improve, or persist, or become more severe within 6-12 hours, please return to the emergency department for further care.
4. Please return to the emergency department if you develop a headache, neck pain/stiffness, fever greater than 100.4F, chest pain, shortness of breath, persistent nausea, vomiting, slurred speech, difficulty walking, numbness/tingling, weakness,
signs of infection or any other symptoms that are worrisome to you.
Please call [phone] if you have any questions.
Interventions
Interventions:
*Risk Screen - Suicide Last Done: 04/27/25 00:04
*General Assessment Last Done: 04/27/25 00:04
*Neglect/Abuse Screening Last Done: 04/27/25 00:04
*ED COVID-19 Vaccine History Last Done: 04/27/25 00:04
*ED Influenza Vaccine History Last Done: 04/27/25 00:04
[facility] Fall Risk Assessment Tool Last Done: 04/27/25 00:04
ED-Musculoskeletal Assessment Last Done: 04/27/25 00:04
Discharge Date and Time
Print Language: FAROESE
[2025-04-27] MEDS: MORPHINE SULFATE 4 MG IV (00:37)
[2025-04-27 00:39] LABS: ALT (SGPT) 35 U/L (0-35); AST (SGOT) 35 U/L (14-36); Albumin 3.4 g/dl (3.5-5.0); Alkaline Phosphatase 61 U/L (38-126); Blood Urea Nitrogen 18 mg/dl (7-17); Calcium 8.5 mg/dl (8.4-10.2); Carbon Dioxide 36 mmol/L (22-30); Chloride 100 mmol/L (98-107); Estimated Creatinine Clearance 50 ml/min; Glucose 100 mg/dl (70-99); Sodium 135 mmol/L (135-145); Total Protein 5.7 g/dl (6.3-8.2); eGFR > 60.00
[2025-04-27 00:44] LABS: Potassium 4.1 mmol/L (3.5-5.1)
[2025-04-27 01:00] VITALS: BP 113/103
[2025-04-27] MEDS: DILAUDID 0.5 MG IV (01:08)
[2025-04-27 02:01] VITALS: BP 139/97
== END 2025-04-27 03:05 | disposition home or self-care (01) ==
LOC: EMR 23:59
PROVIDERS: EMERGENCY PHYSICIAN Emergency Medicine; FAMILY PHYSICIAN Family Medicine
DX: S32.501A Unspecified fracture of right pubis, initial encounter for closed fracture (principal); W18.39XA Other fall on same level, initial encounter; Y93.01 Activity, walking, marching and hiking; Y92.099 Unspecified place in other non-institutional residence as the place of occurrence of the external cause; I25.810 Atherosclerosis of coronary artery bypass graft(s) without angina pectoris; I10 Essential (primary) hypertension; E78.00 Pure hypercholesterolemia, unspecified; I25.2 Old myocardial infarction; J44.9 Chronic obstructive pulmonary disease, unspecified; F32.A Depression, unspecified; K21.9 Gastro-esophageal reflux disease without esophagitis; M79.7 Fibromyalgia; M54.2 Cervicalgia; G89.29 Other chronic pain; Z96.641 Presence of right artificial hip joint; Z95.5 Presence of coronary angioplasty implant and graft; Z95.1 Presence of aortocoronary bypass graft; Z86.19 Personal history of other infectious and parasitic diseases
CPT/HCPCS: 99284; 96374; 96375; 70450; 71045; 72125; 80053; 85025

== ENCOUNTER 2025-04-30 07:59 | Outpatient (REF) | payer OTHER, SELFPAY | END 2025-04-30 23:59 | disposition home or self-care (01) | LOC: WOUND 07:59 | PROVIDERS: ATTENDING PHYSICIAN Registered Nurse; FAMILY PHYSICIAN Family Medicine | DX: T81.31XA Disruption of external operation (surgical) wound, not elsewhere classified, initial encounter (principal); Y83.8 Other surgical procedures as the cause of abnormal reaction of the patient, or of later complication, without mention of misadventure at the time of the procedure; S71.001A Unspecified open wound, right hip, initial encounter; X58.XXXA Exposure to other specified factors, initial encounter; M86.68 Other chronic osteomyelitis, other site; D84.9 Immunodeficiency, unspecified; Z99.81 Dependence on supplemental oxygen | CPT/HCPCS: 99204 ==

== ENCOUNTER 2025-05-14 13:13 | Outpatient (REF) | payer OTHER, SELFPAY | END 2025-05-14 23:59 | disposition home or self-care (01) | LOC: WOUND 13:13 | PROVIDERS: ATTENDING PHYSICIAN Registered Nurse; FAMILY PHYSICIAN Family Medicine | DX: T81.31XA Disruption of external operation (surgical) wound, not elsewhere classified, initial encounter (principal); S71.001A Unspecified open wound, right hip, initial encounter; M86.68 Other chronic osteomyelitis, other site; D84.9 Immunodeficiency, unspecified; Z99.81 Dependence on supplemental oxygen; Y83.8 Other surgical procedures as the cause of abnormal reaction of the patient, or of later complication, without mention of misadventure at the time of the procedure | CPT/HCPCS: 99214 ==